=== PATIENT | female | born 1955 | race Caucasian/White ===

== ENCOUNTER → 2016-12-14 | Outpatient (CLI) | payer MEDICARE, MEDICAID ==
--- NOTE | 2016-12-14 14:38 | REP ---
MR THORACIC SPINE WITHOUT CONTRAST: HISTORY: Back pain. A small right paracentral disc protrusion is present at the T7-8 level. There is minimal effacement of the thecal sac without spinal cord compression. The T7 neural foramina are patent. A disc bulge is present at the T8-9 level. There is minimal effacement of the thecal sac without spinal cord compression. The T8 neural foramina are patent. A small right paracentral disc protrusion is present at the T9-10 level. There is minimal effacement of the thecal sac without spinal cord compression. The T9 neural foramina are patent. There is no other disc bulge or herniation. Facet hypertrophy is present at the T11-12 and T12-L1 levels. The remaining neural foramina are patent. The spinal cord is normal in signal intensity. Hemangiomas are present in the T6, T9, T11, and T12 vertebral bodies. Normal signal intensity is present in the remaining thoracic vertebral bodies. There are old compression fractures of the T11 and T12 vertebral bodies with minimal height loss. IMPRESSION: 1. Small disc protrusions at the T7-8 and T9-10 levels without spinal cord compression. 2. Disc bulge at the T8-9 level without spinal cord compression. Signed by Ke Sheppard MD 12/14/2016 02:51 P
--- NOTE | 2016-12-14 14:47 | REP ---
MR LUMBAR SPINE WITHOUT CONTRAST: HISTORY: Back pain. Decreased signal intensity on T2-weighted images is present in the L3-4 and L4-5 intervertebral discs. The discs are decreased in height. These findings are consistent with disc degeneration. There is no disc bulge or herniation at the L1-2 level. There is hypertrophy of t he posterior articulating facets. The L1 nerves exit the neural foramina without compression. A diffuse disc bulge is present at the L2-3 level. There is hypertrophy of the ligamenta flava and posterior articulating facets. These findings produce minimal central canal stenosis. The L2 nerves exit the neural foramina without compression. A diffuse disc bulge is present at the L3-4 level. There is hypertrophy of the ligamental flava and posterior articulating facets. These findings produce severe central canal stenosis. There is compression of the right L3 nerve in the neural foramen. The left L3 nerve exits the neural foramen without compression. A diffuse disc bulge is present at the L4-5 level. There is hypertrophy of the ligamenta flava and posterior articulating facets. There are 3 mm of grade 1 spondylolisthesis of L4 on L5. These findings produce severe central canal stenosis. The L4 nerves exit the neural foramina without compression. Fluid is present in the left L4-5 facet joint. A diffuse disc bulge is present at the L5-S1 level. This abuts the thecal sac. There is hypertrophy of the posterior articulating facets. The L5 nerves exit the neural foramina without compression. The conus medullaris is normal in appearance terminating at the level of the T12-L1 intervertebral disc. Normal signal intensity is present in the lumbar vertebral bodies. IMPRESSION: 1. Minimal central canal stenosis at the L2-3 level secondary to disc bulge, ligamentous and facet hypertrophy. 2. Severe central canal stenosis at the L3-4 level secondary to disc bulge, ligamentous and facet hypertrophy. There is compression of the right L3 nerve in the neural foramen. 3. Severe central canal stenosis at the L4-5 level secondary to disc bulge, ligamentous and facet hypertrophy and grade 1 spondylolisthesis. 4. Diffuse disc bulge at the L5-S1 level. This abuts the thecal sac. Signed by Ke Sheppard MD 12/14/2016 02:51 P
--- NOTE | 2016-12-14 14:53 | REP ---
MR CERVICAL SPINE WITHOUT CONTRAST: HISTORY: Back pain. A small right paracentral disc protrusion is present at the C2-3 level. There is minimal effacement of the thecal sac without spinal cord compression. The C2 neural foramina are patent. A disc bulge with associated osteophyte formation is present at the C3-4 level. There is moderate spinal cord compression. Bilateral uncinate process hypertrophy is present. This produces moderate narrowing of the C3 neural foramina. A disc bulge with associated osteophyte formation is present at the C4-5 level. There is moderate spinal cord compression. Bilateral uncinate process hypertrophy is present. This produces moderate narrowing of the C4 neural foramina. A disc bulge with associated osteophyte formation is present at the C5-6 level. There is moderate spinal cord compression. Bilateral uncinate process hypertrophy is present. This produces moderate narrowing of the C5 neural foramina. A disc bulge is present at the C6-7 level. There is moderate effacement of the thecal sac without spinal cord compression. Bilateral uncinate process hypertrophy is present. This produces minimal narrowing of the C6 neural foramina. There is no other disc bulge or herniation. The remaining neural foramina are patent. The spinal cord is small in size. The spinal cord is normal in signal intensity. The C3-4 through C6-7 intervertebral discs are decreased in height, consistent with disc degeneration. Normal signal intensity is present in the cervical vertebral bodies. IMPRESSION: 1. There is cervical spondylosis at the C2-3 through C6-7 levels, most significant at the C3-4 through C5-6 levels where there is moderate spinal cord compression. 2. Cervical spinal cord myelomalacia. Signed by Ke Sheppard MD 12/14/2016 02:57 P
== END ==
LOC: M RAD 11:34
PROVIDERS: ATTEND Nurse Practitioner Adult Health
DX: M51.36 Other intervertebral disc degeneration, lumbar region (principal); M47.817 Spondylosis without myelopathy or radiculopathy, lumbosacral region; M51.37 Other intervertebral disc degeneration, lumbosacral region

== ENCOUNTER 2017-01-28 07:52 | Inpatient (IN) | payer MEDICARE, MEDICAID ==
[~2017-01-28] VITALS: Ht 167.6 cm; Wt 89.5 kg
[2017-01-28] MEDS ORDERED: LEVO150T7 PO (08:12)
[2017-01-28] MEDS ORDERED: VITA200028 PO (08:12)
[2017-01-28] MEDS ORDERED: ASPI81TA85 PO (08:13)
[2017-01-28] MEDS ORDERED: METF10004 PO (08:13)
[2017-01-28] MEDS ORDERED: TRAD5TAB PO (08:13)
[2017-01-28] MEDS ORDERED: SIMV40TA2 PO (08:13)
[2017-01-28 09:10] LABS: BASO # 0.1 K/mm3 (0.0-0.2); BASO % 0.7 % (0.0-1.0); EOS # 0.3 K/mm3 (0.0-0.50); EOS % 3.7 % (0.0-3.0); LARGE UNSTAINED CELL # 0.1 K/mm3 (0.0-0.4); LARGE UNSTAINED CELL % 0.9 % (0.0-4.0); LYMPH # 2.1 K/mm3 (1.5-4.5); LYMPH % 23.7 % (24.0-44.0); MEAN CORPUSCULAR HEMOGLOBIN 29.8 pg (27.0-33.0); MEAN CORPUSCULAR HGB CONC 33.1 g/dl (32.0-36.5); MONO # 0.3 K/mm3 (0.0-0.8); MONO % 3.2 % (0.0-5.0); NEUTROPHILS # 5.9 K/mm3 (1.8-7.7); NEUTROPHILS % 67.8 % (36.0-66.0); PLATELET COUNT, AUTOMATED 211 k/mm3 (150-450); WHITE BLOOD COUNT 8.6 K/mm3 (4.0-10.0)
[2017-01-28 09:13] LABS: INR 0.9
[2017-01-28] MEDS ORDERED: IBUP1TAB6 PO (09:13)
[2017-01-28] MEDS ORDERED: TOUJ1.2I SC (09:13)
[2017-01-28] MEDS ORDERED: METF500T4 PO (09:13)
[2017-01-28] MEDS ORDERED: INSULIN HUMAN REGULAR 100 UNITS in NS 99 ML IV SCH (09:30)
[2017-01-28 09:38] LABS: ALBUMIN/GLOBULIN RATIO 0.86 (1.00-1.93); ALKALINE PHOSPHATASE 84 U/L (45-117); ALT/SGPT 19 U/L (12-78); AMYLASE 118 U/L (25-115); ANION GAP 10 MEQ/L (8-16); AST/SGOT 9 U/L (15-37); BILIRUBIN,DIRECT < 0.1 MG/DL (0.0-0.2); BILIRUBIN,TOTAL 0.3 MG/DL (0.2-1.0); BLOOD UREA NITROGEN 36 MG/DL (7-18); CALCIUM LEVEL 9.1 MG/DL (8.8-10.2); CARBON DIOXIDE LEVEL 24 MEQ/L (21-32); CHLORIDE LEVEL 101 MEQ/L (98-107); CREATININE FOR GFR 1.67 MG/DL (0.55-1.02); GLOMERULAR FILTRATION RATE 33.3 (>45); POTASSIUM SERUM 4.5 MEQ/L (3.5-5.1); SODIUM LEVEL 135 MEQ/L (136-145); TOTAL PROTEIN 6.5 GM/DL (6.4-8.2)
[2017-01-28 09:56] LABS: GLUCOSE, FASTING 438 MG/DL (80-110)
--- NOTE | 2017-01-28 10:20 | REP ---
Chest PA and lateral: 01/28/2017. Clinical history: Abdominal pain. Comparison: 11/26/2014. Findings: Two-view show the lung bello well inflated and without infiltrate, effusion, atelectasis or mass. The heart, mediastinal and hilar contours are normal. Airway intact. Aorta normal. Bony thorax without acute finding. There is no free air under the diaphragm. Impression: 1. No acute cardiopulmonary change. Stable chest. Signed by Tate Mast MD 01/28/2017 09:16 P
[2017-01-28] MEDS ORDERED: LEVEMIR (INSULIN DETEMIR) 1 UNITS/0.01ML SC ONE (10:30)
[2017-01-28] MEDS ORDERED: NICOTINE POLACRILEX 2 MG GUM PO PRN (10:30)
[2017-01-28] MEDS ORDERED: PERCOCET 5MG/325MG TAB PO ONE (10:30)
[2017-01-28] MEDS ORDERED: MORPHINE 2 MG/ML 1ML SYRINGE IV PRN (10:30)
[2017-01-28] MEDS ORDERED: NICOTINE POLACRILEX 2 MG GUM PO ONE (11:00)
[2017-01-28] MEDS ORDERED: IPRATROPIUM 0.5MG/ALBUTEROL 2.5MG INH SOL UD 3ML (DUONEB)(J7620) NEB PRN (11:15)
[2017-01-28] MEDS ORDERED: amLODIPine 5 MG TAB PO ONE (11:15)
[2017-01-28 11:19] VITALS: BP 165/86
[2017-01-28] MEDS: IPRATROPIUM 0.5MG/ALBUTEROL 2.5MG INH SOL UD 3ML (DUONEB)(J7620) NEB SCH ×3 (11:20→20:00)
--- NOTE | 2017-01-28 11:34 | REP ---
GALLBLADDER ULTRASOUND: 01/28/2017. Clinical history: Elevated lipase, rule out gallstones. Findings: Sonographic evaluation of the right upper quadrant shows the liver enlarged with diffuse hyperechogenicity consistent with a fatty liver. There is some focal fat sparing adjacent to the gallbladder fossa in the usual location for that finding. No hepatic mass or intrahepatic biliary dilatation. The gallbladder is likely 7.7 cm and wall thickness of 2.1 mm. I see no stone, sludge or pericholecystic fluid. Common bile duct is 6.2 mm in the lukasz hepatis, it has a diameter of 6 mm at the level of pancreatic head. No echogenic focus within to suggest stone. Pancreas is unremarkable. The right kidney is 11.2 x 5.9 x 5.2 cm. There is some cortical lobulation of scarring as well as some calcified vessels. Impression: 1. Hepatomegaly with fatty liver but no hepatic mass, intrahepatic biliary dilatation or ascites. 2. Gallbladder without stones, mass, wall thickening or pericholecystic fluid. 3. Common duct 6.2 mm without a filling defect. Pancreas and right kidney without acute finding. Signed by Tate Mast MD 01/28/2017 09:18 P
[2017-01-28] MEDS: NICOTINE 21MG/24HR 1 EA TRANSDERMAL TD SCH (11:58)
[2017-01-28] MEDS: NS 1,000 ML IV SCH ×2 (11:58→21:33)
[2017-01-28] MEDS: INSULIN IV RATE CHANGE DOCUMENTATION ML/HR XX SCH ×3 (12:04→16:29)
[2017-01-28 12:23] VITALS: BP 175/94
[2017-01-28 12:38] LABS: CALCIUM LEVEL 9.4 MG/DL (8.8-10.2); CREATININE FOR GFR 1.52 MG/DL (0.55-1.02); GLOMERULAR FILTRATION RATE 37.1 (>45)
[2017-01-28 12:41] LABS: MAGNESIUM LEVEL 1.9 MG/DL (1.8-2.4)
--- NOTE | 2017-01-28 12:44 | CR ---
DATE OF CONSULTATION: 01/28/2017 PRIMARY CARE PROVIDER: She Chun REFERRING PHYSICIAN: Dr. Kelley, neurosurgeon REASON FOR CONSULTATION: Management of diabetes and chronic medical problems. CHIEF COMPLAINT: Neck and back pain with weakness of bilateral hands. HISTORY OF PRESENTING ILLNESS: This is a 61-year-old female with history of diabetes, hypertension, hypercholesterolemia, hypothyroidism, chronic obstructive pulmonary disease (COPD), asthma, herpes, right lens implant on the right eye, tubal ligation, chronic kidney disease stage III, with a history of chronic neck and back pain, initially followed with Dr. Renteria at [facility] with epidural injections with no relief, referred to Dr. Kelley, neurosurgery. She was found to have cervical radiculopathy. MRI on 12/14/2016 showed cervical spondylosis at C2-C3 to C6-C7, mostly significant at C3-C4 through C5-C6 with moderate spinal cord compression, cervical spinal cord myelomalacia. She also complains of lumbar back pain with moderate diffuse disc bulging at L2-L3 with severe canal stenosis at L3-L4, compression of the right lumbar 3rd nerve in the neural foramen. The patient had been having colicky right upper quadrant abdominal discomfort for the past week but able to tolerate her diet well. She was noticing high glucose levels over 400s at home for the past few months but is a direct admission by Dr. Kelley for worsening neck and back pain. The hospitalist service was consulted for management of type 2 diabetes, evaluation of abnormal findings. The patient otherwise denies any fever, chills, nausea, vomiting. Tolerating her diet well. No changes in weight. No chest pain, pressure, tightness, shortness of breath. Slight abdominal colic right upper quadrant occasionally. Continued weakness of bilateral upper and lower extremities. Severe pain of the lower back and neck. Denies any dysuria, urgency, frequency, chills, weight gain, weight loss. No prior history of depression and anxiety. PAST MEDICAL HISTORY: Hypertension. Diabetes. Hypercholesterolemia. Hypothyroidism. Chronic kidney disease stage III. Chronic obstructive pulmonary disease (COPD). Asthma. Herpes. Chronic neck and back pain. Lumbar disc disease. Cervical degenerative disc disease with severe canal stenosis and compression of the nerves. PAST SURGICAL HISTORY: Lens to the right eye. Tubal ligation. SOCIAL HISTORY: Smokes two packs a day for about 40 years. 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 No alcohol use. Lives with her son and girlfriend. Lives in a two-story home but stays on the first floor. Usually has a bedside commode. FAMILY HISTORY: Mother and father both . Mother age 55 with type 1 diabetes. The father of a motor vehicle accident at the age of 53. One brother with colon cancer, diagnosed at 60, still alive and doing well. Sister with breast cancer, diagnosed later in her 50s. Another brother with cancer unknown type. REVIEW OF SYSTEMS: Per history of present illness (HPI). Twelve-point system otherwise negative. PHYSICAL EXAMINATION: Blood pressure 165/88, 97% on room air, temperature 97.2, pulse 98, respiratory rate 18. Generally, the patient is awake, alert, oriented times three, answering questions appropriately. Anicteric sclerae. No jaundice. Pupils round and reactive to light and accommodation. Extraocular muscles are intact. Normocephalic, atraumatic. No cervical lymphadenopathy, thyromegaly, or jugular venous distention. Tongue is midline. Face is symmetric. Speaking in full sentences. No use of respiratory accessory muscles. Lungs are diminished but clear to auscultation. No wheezing, rales, or rhonchi. Heart: S1, S2, sinus rhythm. Abdomen: Is soft, slightly tender in epigastric right upper quadrant. No rebound or guarding. Positive bowel sounds times four quadrants. No hepatosplenomegaly. Extremities: No cyanosis or clubbing. Trace edema. Neurologically, the patient is awake, alert, oriented times three. No facial asymmetry. Tongue is midline. Speaking in full sentences. No dysmetria on [id number] testing. Motor function is 5/5 times four extremities. No changes in sensation. LABORATORY DATA: White count 8.6, hemoglobin 12.9, hematocrit 39, platelet count 211, 67% neutrophils. Sodium 135, potassium 4.6, chloride 101, bicarbonate 24, BUN 36, creatinine of 1.67, baseline creatinine is around 1.4 from 2015, glucose 438, A1c is pending. Cardiac markers: Troponin less than 0.02, total CK 64, MB fraction 1.9, amylase 118, lipase 1848, total bilirubin (T Bili) is 0.3, direct bilirubin less than 0.1, AST 9, ALT 19, alkaline phosphatase of 84. ASSESSMENT AND PLAN: This is a 61-year-old female with history of hypertension, diabetes, hypercholesterolemia, hypothyroidism, chronic obstructive pulmonary disease, asthma, herpes, chronic back pain with diffuse disc bulges, lumbar radiculopathy, and cervical radiculopathy, and obesity complicating acute issues, presents to the emergency room, referred by Dr. Kelley due to ongoing cervical and lumbar radiculopathy with uncontrolled type 2 diabetes, glucose of over 400. The patient also complains of occasional biliary colic for the past 1 week. CURRENT ISSUES: 1. Cervical and lumbar radiculopathy. The patient is admitted under primary service, neurosurgery, Dr. Kelley. Pain management and surgery planned for Saturday. Will try to optimize the patient's glucose and renal function prior to surgery. Deep venous thrombosis (DVT) prophylaxis with compression stockings. 2. Elevated lipase level with complaints of biliary colic. Obtain an ultrasound of the gallbladder. Other liver function tests appear to be normal. Monitor for symptoms for now. 3. Uncontrolled type 2 diabetes. The patient will be placed on insulin drip. Fingersticks every 1 hour. Basic metabolic profile (BMP) every 4 hours until the patient's glucose is less than 200. Start on Levemir insulin long-acting. Titrate to twice a day dosing with short-acting insulin. Once the patient's glucose is controlled, she may be transferred to a medical-surgical floor and discontinue every 1 hour fingersticks and insulin drip. 4. Hypertension, uncontrolled secondary to biliary colic, pain neck, and back pain. The patient has been given morphine and Percocet. Will start on Norvasc for better blood pressure control. No beta blockade due to history of COPD and asthma and no diuretics due to chronic kidney disease. 5. Hypercholesterolemia. Continue on Zocor. Check fasting lipid profile. 6. Hypothyroidism. Check thyroid-stimulating hormone (TSH). Resume home dose of Synthroid. Await pharmacy confirmation of home medications. 7. Active tobacco smoking, two packs a day. Nebulizer treatments as needed. Nicotine patch. 8. History of chronic obstructive pulmonary disease and asthma. Nebulizers as needed.
[2017-01-28 14:00] VITALS: BP 136/63
[2017-01-28] MEDS: NYSTATIN 100,000 UNITS/GM TOPICAL PWD 15 GM TOP SCH ×2 (15:17→21:34)
--- NOTE | 2017-01-28 15:50 | REP ---
CT CERVICAL SPINE WITHOUT CONTRAST: History: Stealth protocol. A disc bulge and small right paracentral disc protrusion are present at the C2-3 level. There is minimal narrowing of the spinal canal. Disc bulges with associated osteophyte formation are present at the C3-4 through C5-6 levels. There is moderate narrowing of the spinal canal. A disc bulge is present at the C6-7 level. There is minimal narrowing of the spinal canal. Uncinate process and/or facet hypertrophy are present at the C3-4 through C7-T1 levels. These finding produce minimal to moderate narrowing of the neural foramina. The C3-4 through C6-7 intervertebral discs are decreased in height consistent with disc degeneration. A small right internal pharyngocele is present. IMPRESSION: 1. There is no acute fracture or subluxation. 2. There is cervical spondylosis at the C2-3 through C7-T1 levels. Signed by Ke Sheppard MD 01/28/2017 03:53 P
[2017-01-28 16:00] VITALS: BP 118/81
[2017-01-28 16:45] LABS: CALCIUM LEVEL 9.5 MG/DL (8.8-10.2); CREATININE FOR GFR 1.51 MG/DL (0.55-1.02); GLOMERULAR FILTRATION RATE 37.4 (>45); POTASSIUM SERUM 3.5 MEQ/L (3.5-5.1)
[2017-01-28] MEDS ORDERED: GLUCOSE 4 GM CHEW TABLET PO PRN (17:45)
[2017-01-28] MEDS ORDERED: GLUCAGON FOR INJ 1 MG VIAL (J1610) SC PRN (17:45)
--- NOTE | 2017-01-28 18:26 | ECGEPIP ---
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
[2017-01-28 20:00] VITALS: BP 115/75
[2017-01-28] MEDS: HumaLOG INSULIN (NovoLOG) PER UNIT SC SCH (20:17)
[2017-01-28 20:42] LABS: CALCIUM LEVEL 9.6 MG/DL (8.8-10.2); CREATININE FOR GFR 1.46 MG/DL (0.55-1.02); GLOMERULAR FILTRATION RATE 38.9 (>45); POTASSIUM SERUM 4.3 MEQ/L (3.5-5.1)
[2017-01-28] MEDS: LEVEMIR (INSULIN DETEMIR) 1 UNITS/0.01ML SC SCH (21:34)
[2017-01-28] MEDS: SIMVASTATIN 40 MG TAB PO SCH (21:34)
[2017-01-29] VITALS (12 sets, daily range): BP systolic 116–188; BP diastolic 62–96
[2017-01-29] MEDS: HumaLOG INSULIN (NovoLOG) PER UNIT SC SCH ×4 (00:25→17:30)
[2017-01-29] MEDS: PERCOCET 5MG/325MG TAB PO PRN (04:21)
[2017-01-29] MEDS: NS 1,000 ML IV SCH ×3 (04:40→19:46)
[2017-01-29 06:05] LABS: BASO # 0.1 K/mm3 (0.0-0.2); BASO % 1.1 % (0.0-1.0); EOS # 0.4 K/mm3 (0.0-0.50); LARGE UNSTAINED CELL # 0.1 K/mm3 (0.0-0.4); LARGE UNSTAINED CELL % 0.9 % (0.0-4.0); LYMPH # 2.6 K/mm3 (1.5-4.5); LYMPH % 28.2 % (24.0-44.0); MEAN CORPUSCULAR HEMOGLOBIN 30.7 pg (27.0-33.0); MEAN CORPUSCULAR HGB CONC 34.1 g/dl (32.0-36.5); MEAN CORPUSCULAR VOLUME 90.3 fl (80.0-96.0); MONO # 0.4 K/mm3 (0.0-0.8); MONO % 4.8 % (0.0-5.0); NEUTROPHILS # 5.3 K/mm3 (1.8-7.7); PLATELET COUNT, AUTOMATED 208 k/mm3 (150-450); WHITE BLOOD COUNT 8.8 K/mm3 (4.0-10.0)
[2017-01-29] MEDS: LEVOTHYROXINE 150MCG TABLET (0.15MG) PO SCH (06:08)
[2017-01-29 06:26] LABS: CALCIUM LEVEL 9.3 MG/DL (8.8-10.2); CREATININE FOR GFR 1.35 MG/DL (0.55-1.02); GLOMERULAR FILTRATION RATE 42.6 (>45); POTASSIUM SERUM 3.9 MEQ/L (3.5-5.1)
[2017-01-29 06:37] LABS: ALBUMIN 2.6 GM/DL (3.2-5.2); ALBUMIN/GLOBULIN RATIO 0.93 (1.00-1.93); ALKALINE PHOSPHATASE 81 U/L (45-117); ALT/SGPT 19 U/L (12-78); AST/SGOT 16 U/L (15-37); BILIRUBIN,DIRECT < 0.1 MG/DL (0.0-0.2); BILIRUBIN,TOTAL 0.1 MG/DL (0.2-1.0); TOTAL PROTEIN 5.4 GM/DL (6.4-8.2)
[2017-01-29] MEDS: IPRATROPIUM 0.5MG/ALBUTEROL 2.5MG INH SOL UD 3ML (DUONEB)(J7620) NEB SCH ×4 (08:11→19:54)
[2017-01-29] MEDS: NICOTINE 21MG/24HR 1 EA TRANSDERMAL TD SCH (09:00)
[2017-01-29] MEDS: LEVEMIR (INSULIN DETEMIR) 1 UNITS/0.01ML SC SCH (09:01)
[2017-01-29] MEDS: amLODIPine 5 MG TAB PO SCH (09:02)
[2017-01-29] MEDS: NYSTATIN 100,000 UNITS/GM TOPICAL PWD 15 GM TOP SCH ×2 (09:02→21:00)
[2017-01-29] MEDS: INSULIN HUMAN REGULAR 100 UNITS in NS 99 ML IV SCH ×2 (10:38→22:55)
[2017-01-29] MEDS: INSULIN IV RATE CHANGE DOCUMENTATION ML/HR XX SCH ×3 (14:00→20:06)
[2017-01-29] MEDS: METOPROLOL TART 25 MG TABLET PO SCH ×2 (14:04→21:13)
[2017-01-29] MEDS: HEPARIN SOD (PORCINE) 5000 UNITS/ML VIAL SQ SCH ×2 (14:06→21:15)
[2017-01-29] MEDS ORDERED: HEPARIN SOD (PORCINE) 5000 UNITS/ML VIAL SQ SCH (16:00)
--- NOTE | 2017-01-29 17:52 | IPN ---
DATE: 01/29/2017 SUBJECTIVE: The patient is seen and examined in the room today. The patient still complains about the neck and back pain with weakness of bilateral hands. When asking the patient about her diabetes management in the outpatient setting, the patient stated she has lost her Glucometer for the past several months, and she has not checked her glucose as instructed. The patient has not been on any insulin in the past. OBJECTIVE: VITAL SIGNS: Temperature is 97.8, pulse is 94, respirations 20, blood pressure is 169/81, pulse oximetry is 97% in room air. GENERAL: No sign of acute distress. Alert and oriented times three. HEENT: Normocephalic, atraumatic. Extraocular motor grossly intact. CARDIOVASCULAR: Positive S1, S2, regular rate. LUNGS: Clear to auscultation bilaterally. ABDOMEN: Soft, nontender, nondistended. EXTREMITIES: Trace edema. No sign of cyanosis. LABORATORY DATA: WBC 8.8, hemoglobin 11.8, hematocrit 34.6, platelet count is 208. Sodium is 143, potassium 3.9, chloride is 108, carbon dioxide is 27, BUN 26, creatinine 1.35, GFR is 42.6, fasting glucose is 266, calcium is 9.3, total bilirubin is 0.1, direct bilirubin less than 0.1, AST 16, ALT is 19, alkaline phosphatase is 81, total protein 5.4, albumin 2.6, lipase is 214. ASSESSMENT AND PLAN: 1. Cervical and lumbar radiculopathy with right-sided L3 nerve compression. The primary team is neurosurgery. They would like the glucose level to be in the normal range. The patient has been having very poor control of diabetes in the past, and the patient has an A1c greater than 12. The patient was restarted on the insulin drip. The patient does have multiple comorbidities, including chronic obstructive pulmonary disease (COPD) and questionable positive stress test in the past. At the baseline, the patient has very poor function. The patient may be high risk, and we will consult pediatric dietician for further recommendation and preoperative optimization. 2. Uncontrolled type 2 diabetes. The patient was started on Levemir twice a day. The patient is on an insulin drip with protocol. The patient's glucose is checked every 2 hours. The neurosurgery team requests glucose to be in normal range before the procedure to minimize the post-surgical complications. 3. Hypertension. Uncontrolled. Probably secondary to the pain and the baseline hypertension. The patient is already on Percocet for pain control. The patient also has IV morphine for severe pain. In the afternoon, the patient started to have very uncontrolled hypertensive urgency with tachycardia. Systolic blood pressure increased greater than 180. Will start a trial of beta jorge. The patient does have a history of chronic obstructive pulmonary disease (COPD). We will continue to observe the patient's respiratory status. Due to acute on chronic kidney injury, an angiotensin-converting enzyme (ROCIO ) or angiotensin receptor jorge (ARB) cannot be used. 4. Hypothyroidism, on Synthroid. 5. History of elevated lipase. On the day of admission, the patient had a lipase of 1848, now the patient's lipase level is in the normal range. Ultrasound of the gallbladder was performed. It does not show any significant findings. Liver function is normal. Will continue to follow. 6. Hypercholesterolemia. The patient is on simvastatin 40 mg by mouth nightly. 7. Chronic alcohol and tobacco abuse. The patient is on a nicotine patch, supplemented with nicotine gum. 8. History of chronic obstructive pulmonary disease. Currently does not have exacerbation. 9. Deep vein thrombosis (DVT) prophylaxis. The patient is on heparin.
[2017-01-29] MEDS ORDERED: HumaLOG INSULIN (NovoLOG) PER UNIT SC SCH (21:00)
--- NOTE | 2017-01-29 21:06 | CR ---
DATE OF CONSULTATION: 01/29/2017 I was asked by Dr. Castillo to see Mrs. House for preoperative clearance for what looks like to be fairly extensive cervical spine surgery. HISTORY OF PRESENT ILLNESS: Mrs. House is a 61-year-old female who does not have established coronary artery disease. She does have a longstanding history of smoking (almost 50 years two packs a day) and she does have a longstanding history of diabetes that has been generally poorly controlled. She denies any typically anginal symptoms but reports episodes of mostly left-sided pressure-like discomfort that usually occurs when she is lying in bed in at night. Her exertion is very limited on account of limitations due to back pain and shortness of breath. She does recall that she had a stress test performed several years ago and it was stopped very early because she could not breathe. She does not recall that it would be followed by any further cardiac testing. There is a report of an echocardiogram in our chart from 2013 from outside facility that demonstrated preserved left ventricular systolic function and moderate aortic stenosis. PAST MEDICAL HISTORY: 1. Cervical and lumbar radiculopathy. 2. Type 2 diabetes. 3. Dyslipidemia. 4. Chronic renal insufficiency type III. 5. COPD (the patient reports that a pulmonary function test performed about 5 years ago reportedly showed 54% of lung capacity). 6. Hypertension. 7. Hypothyroidism. SURGICAL HISTORY: Positive for tubal ligation and cataract surgery on the right. SOCIAL HISTORY: The patient is a and lives with her son and girlfriend. 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 She has been a smoker since the age of 13, approximately two packs a day. No significant alcohol use. FAMILY HISTORY: Father of an accident in his 50s. Mother of type 1 diabetes. Siblings had cancers. There are no first-degree relatives with early coronary artery disease. REVIEW OF SYSTEMS: She denies history of stroke. She does have some difficulty with vision probably still related to cataracts. Denies history of syncope or near syncope but she does report that her ambulation is severely limited on account of weakness of lower extremities and dyspnea. She does have to support herself with minimal ambulation. She uses mostly a wheelchair. Chest pain as per history of present illness. Denies history of conrad syncope or palpitations. She does not have PND or orthopnea. She has [place] [employer] Class III dyspnea. No abdominal pain, nausea, vomiting, diarrhea. No significant peripheral edema. The rest of review of systems is negative. MEDICATIONS: On an outpatient basis, she was taking aspirin, vitamin D2, Motrin, levothyroxine 150, Tradjenta 5 a day, metformin 1 gram twice a day, simvastatin 40, and Toujeo insulin as directed. PHYSICAL EXAMINATION: Mrs. House is a middle-aged white female who appears older than her calendar age. The last documented blood pressure 155/64, heart rate has been mostly in 90s. She is afebrile. Saturation 96% on room air. Her JVP does not appear elevated. I do not appreciate distinct carotid bruits. Lungs are fairly clear to auscultation. No wheezing or rhonchi are noted. Heart exam reveals very muffled heart sound, most likely due to her obesity and COPD. I do not appreciate a distinct murmur even though there is a fine aortic murmur. I am really unable to comment on second closing aortic sound. Abdomen is markedly obese but soft. No obvious tenderness. There is no peripheral edema. Peripheral pulses are palpable bilaterally on both upper and lower extremities. I did not do any formal neurologic testing. LABORATORY AND EXAM DATA: Her ECG from yesterday reveals presence of sinus rhythm with ventricular rate 98 beats per minute. There is possible old septal infarct and very prominent right axis deviation. It is not appreciably changed compared to her old tracings. Her CBC reveals hemoglobin 11.8, hematocrit 34.6 and platelet count 208,000. Basic metabolic panel: Potassium 3.9, BUN 26, creatinine 1.4, for a GFR of 42, and glucose 266, albumin was 2.6. Her TSH was 0.6. Urinalysis is 3+ positive for glucose and protein. Her chest x-ray is somewhat a poor quality film but does not appear to indicate congestive heart failure, infiltrates and no obvious cardiomegaly. ASSESSMENT/PLAN: Mrs. House is a 61-year-old female who has longstanding history of smoking and type 2 diabetes and also dyslipidemia and hypertension. She does not have any recent history of functional cardiac evaluation and she reports atypical chest discomfort and [place] [employer] Class III dyspnea. She does not have any definite contraindication to the surgery and if this is something that needs to be performed emergently I think she can proceed. I would continue low-dose beta blockers as is being given, statin, and I would put her back on aspirin when felt safe from surgical perspective. She certainly would have a high-risk procedure. Provided this is not considered an emergency, at the minimum I would obtain an echocardiogram and nuclear stress test on outpatient basis. I spoke with the patient and explained to her that her cardiac risk will be elevated no matter what and she tells me that she would like to be safer rather than taking unnecessary risks. Consequently, if it is felt that there is space for some delay I would advocate that the patient is discharged home and will arrange for fairly prompt functional evaluation. We can perform the echocardiogram tomorrow in the hospital.
[2017-01-29] MEDS: SIMVASTATIN 40 MG TAB PO SCH (21:13)
[2017-01-30] VITALS (7 sets, daily range): BP systolic 95–174; BP diastolic 51–94
[2017-01-30] MEDS: DEXTROSE 50% 50 ML SYRINGE IV PRN (02:40)
[2017-01-30] MEDS: INSULIN IV RATE CHANGE DOCUMENTATION ML/HR XX SCH ×5 (03:50→17:53)
[2017-01-30 05:11] LABS: BASO # 0.1 K/mm3 (0.0-0.2); BASO % 0.7 % (0.0-1.0); EOS # 0.4 K/mm3 (0.0-0.50); EOS % 4.7 % (0.0-3.0); LARGE UNSTAINED CELL # 0.1 K/mm3 (0.0-0.4); LARGE UNSTAINED CELL % 0.9 % (0.0-4.0); LYMPH # 2.3 K/mm3 (1.5-4.5); LYMPH % 24.1 % (24.0-44.0); MEAN CORPUSCULAR HEMOGLOBIN 30.4 pg (27.0-33.0); MEAN CORPUSCULAR HGB CONC 33.8 g/dl (32.0-36.5); MEAN CORPUSCULAR VOLUME 89.9 fl (80.0-96.0); MONO # 0.4 K/mm3 (0.0-0.8); NEUTROPHILS % 65.6 % (36.0-66.0); PLATELET COUNT, AUTOMATED 217 k/mm3 (150-450); RED CELL DISTRIBUTION WIDTH 12.1 % (11.5-14.5); WHITE BLOOD COUNT 9.1 K/mm3 (4.0-10.0)
[2017-01-30 05:38] LABS: ANION GAP 9 MEQ/L (8-16); BLOOD UREA NITROGEN 22 MG/DL (7-18); CALCIUM LEVEL 9.3 MG/DL (8.8-10.2); CARBON DIOXIDE LEVEL 25 MEQ/L (21-32); CHLORIDE LEVEL 111 MEQ/L (98-107); CREATININE FOR GFR 0.99 MG/DL (0.55-1.02); GLOMERULAR FILTRATION RATE > 60.0 (>45); GLUCOSE, FASTING 169 MG/DL (80-110); POTASSIUM SERUM 3.9 MEQ/L (3.5-5.1); SODIUM LEVEL 145 MEQ/L (136-145)
[2017-01-30] MEDS: NS 1,000 ML IV SCH ×2 (05:42→17:30)
[2017-01-30 05:44] LABS: ALBUMIN 2.5 GM/DL (3.2-5.2); ALBUMIN/GLOBULIN RATIO 0.89 (1.00-1.93); ALKALINE PHOSPHATASE 74 U/L (45-117); ALT/SGPT 18 U/L (12-78); AST/SGOT 16 U/L (15-37); BILIRUBIN,DIRECT < 0.1 MG/DL (0.0-0.2); BILIRUBIN,TOTAL 0.2 MG/DL (0.2-1.0); TOTAL PROTEIN 5.3 GM/DL (6.4-8.2)
[2017-01-30] MEDS: METOPROLOL TART 25 MG TABLET PO SCH ×2 (05:55→14:00)
[2017-01-30] MEDS: LEVOTHYROXINE 150MCG TABLET (0.15MG) PO SCH (05:55)
[2017-01-30] MEDS: HEPARIN SOD (PORCINE) 5000 UNITS/ML VIAL SQ SCH ×3 (05:55→21:05)
[2017-01-30] MEDS: HumaLOG INSULIN (NovoLOG) PER UNIT SC SCH ×4 (07:30→21:00)
[2017-01-30] MEDS: IPRATROPIUM 0.5MG/ALBUTEROL 2.5MG INH SOL UD 3ML (DUONEB)(J7620) NEB SCH ×4 (08:00→18:57)
[2017-01-30] MEDS ORDERED: LISINOPRIL 10 MG TAB PO SCH (09:00)
[2017-01-30] MEDS: amLODIPine 5 MG TAB PO SCH (09:00)
[2017-01-30] MEDS: NICOTINE 21MG/24HR 1 EA TRANSDERMAL TD SCH (10:08)
[2017-01-30] MEDS: NYSTATIN 100,000 UNITS/GM TOPICAL PWD 15 GM TOP SCH ×2 (10:08→21:06)
[2017-01-30] MEDS: INSULIN HUMAN REGULAR 100 UNITS in NS 99 ML IV SCH (11:55)
[2017-01-30] MEDS ORDERED: INSULIN HUMAN REGULAR 100 UNITS in NS 99 ML IV SCH (13:25)
[2017-01-30] MEDS ORDERED: INSULIN IV RATE CHANGE DOCUMENTATION ML/HR XX SCH (13:30)
--- NOTE | 2017-01-30 13:31 | CR.PDOC ---
[facility] Consultation [facility] Note DATE OF CONSULTATION: 01/30/17. CONSULTATION REPORT FOR: ARU REASON FOR CONSULTATION: Assess for pre-operative screen for ARU admission and early pre-authorization and appropriate therapy pre-operatively. CHIEF COMPLAINT:Weakness and falls from Cervical Myelopathy and Lumbar Stenosis causing weakness and falls. HISTORY OF PRESENT ILLNESS: Patient is a 61-year-old white female with extensive atherosclerotic cardiovascular disease along with type 2 diabetes mellitus and extensive osteoarthritis which have not been aided by ongoing tobacco and ethanol usage. Patient has been having progressive pain and weakness in the back and neck involving the upper and lower extremities and recurrent falls in the last few months at home. She lives with her son and his girlfriend. A number of weeks ago she lost her glucometer and stop checking her blood sugars leading to recent hemoglobin A1c of 12 as her diabetes mellitus type 2 has been out of control. Further exacerbating this is that her hypertension has not been under good control either. Patient also with COPD and has been having periods of dizziness further adding to the falls. PAST MEDICAL HISTORY: 1. Cervical Myelopathy with radiculopathy and lumbar stenosis with right L3 radiculopathy secondary to extensive DJD/DDD. 2. Atherosclerotic cardiovascular disease with uncontrolled hypertension, hyperlipidemia. 3. Type 2 diabetes mellitus uncontrolled with probable neuropathy and chronic renal insufficiency type III. 4. COPD. 5. Hypothyroidism. PAST SURGICAL HISTORY: 1. Status post tubal ligation. 2. Status post right cataract surgery. FAMILY HISTORY: Positive for type 1 diabetes in mother and various cancer in siblings. 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 She continues smoking and drinking alcohol and is reported in other notes as having abused alcohol. LABORATORY DATA: See Below. ASSESSMENT/PLAN: 1. Cervical myelopathy and lumbar stenosis: While it is too early as patient is ill preop to assess for the acute rehabilitation unit due to her protocol where patient would have to be totally reassessed in the postoperative and we are unable to get preauthorization for acute intensive rehabilitation; I do feel there is something 6 to be done now to facilitate the patient for surgery and prepare for the postoperative course of care. Chiefly is to advance her overall strengthening condition by increasing her beyond the current 40-60 minutes of therapy per day. It is also I believe beneficial for occupational therapy due to sensory and physical therapy due motor mapping as a preoperative baseline compare with sequential evaluations postoperatively and in the course of her future rehabilitation. Furthermore the anesthesia and postoperative analgesia doing a fair with patient's learning, so it will be beneficial to get repetitions and training and preoperatively. Also as patient has been walking prior to admission is important to continue with ambulation and not go slowly with wheelchair mobility and ADL training as the long-term goal will be to return patient to ambulatory ADLs and mobility. I feel it is appropriate to increase the intensity of therapy and Cardiac Health Care Law Specialist should be able to give parameters for intensity of Cardiopulmonary effort for the patient. (Max. Heart Rate, BP Ranges and duration of effort) 2. Dizziness: [facility] does have a Physical Therapist, Neyda White, who is trained for Vestibular Therapy and is effective with it and should see if she can aid Ms. House with the dizziness as well as compensated gaiting. Please reconsult following her decompression surgery as appropriate. Vital Signs Vital Sign - Last 24 Hours 01/29/17 01/29/17 01/29/17 01/29/17 14:00 14:04 16:00 16:00 Temp 96.8 Pulse 101 100 95 Resp 22 B/P (MAP) 143/71 (95) 143/71 156/88 (110) Pulse Ox 98 O2 Delivery Room Air 01/29/17 01/29/17 01/29/17 01/29/17 18:00 20:00 20:00 21:13 Temp 98.3 Pulse 94 95 95 Resp 17 B/P (MAP) 155/64 (94) 143/70 (94) 109/57 Pulse Ox 96 98 O2 Delivery Room Air Room Air Room Air 01/30/17 01/30/17 01/30/17 01/30/17 00:00 00:00 04:00 04:00 Temp 96.6 98.7 Pulse 88 98 Resp 16 16 B/P (MAP) 136/67 (90) 174/94 (120) Pulse Ox 96 95 O2 Delivery Room Air Room Air Room Air Room Air 01/30/17 01/30/17 01/30/17 01/30/17 05:55 08:00 08:00 09:00 Temp 97.8 Pulse 90 75 90 Resp 22 B/P (MAP) 132/71 117/60 (79) 132/71 Pulse Ox 97 O2 Delivery Room Air Room Air 01/30/17 10:00 Pulse 89 Resp 22 B/P (MAP) 95/51 (66) Pulse Ox 97 O2 Delivery Room Air Laboratory Data CBC/BMP Laboratory Tests 01/30/17 04:52 Red Blood Count 4.03, Mean Corpuscular Volume 89.9, Mean Corpuscular Hemoglobin 30.4, Mean Corpuscular Hemoglobin Concent 33.8, Red Cell Distribution Width 12.1 , Neutrophils (%) (Auto) 65.6, Lymphocytes (%) (Auto) 24.1, Monocytes (%) (Auto ) 4.0, Eosinophils (%) (Auto) 4.7 H, Basophils (%) (Auto) 0.7, Neutrophils # ( Auto) 6.0, Lymphocytes # (Auto) 2.3, Monocytes # (Auto) 0.4, Eosinophils # (Auto ) 0.4, Basophils # (Auto) 0.1, Calcium Level 9.3 Labs 24h Laboratory Tests 2 01/29/17 12:54: Bedside Glucose (Misc Panel) 317H 01/29/17 14:08: Bedside Glucose (Misc Panel) 308H 01/29/17 16:13: Bedside Glucose (Misc Panel) 298H 01/29/17 17:38: Bedside Glucose (Misc Panel) 260H 01/29/17 20:01: Bedside Glucose (Misc Panel) 167H 01/29/17 22:10: Bedside Glucose (Misc Panel) 177H 01/30/17 00:13: Bedside Glucose (Misc Panel) 114 01/30/17 03:07: Bedside Glucose (Misc Panel) 122H 01/30/17 03:38: Bedside Glucose (Misc Panel) 167H 01/30/17 04:49: 01/30/17 04:52: White Blood Count 9.1, Red Blood Count 4.03, Hemoglobin 12.2, Hematocrit 36.2, Mean Corpuscular Volume 89.9, Mean Corpuscular Hemoglobin 30.4, Mean Corpuscular Hemoglobin Concent 33.8, Red Cell Distribution Width 12.1, Platelet Count 217, Neutrophils (%) (Auto) 65.6, Lymphocytes (%) (Auto) 24.1, Monocytes ( %) (Auto) 4.0, Eosinophils (%) (Auto) 4.7H, Basophils (%) (Auto) 0.7, Neutrophils # (Auto) 6.0, Lymphocytes # (Auto) 2.3, Monocytes # (Auto) 0.4, Eosinophils # (Auto) 0.4, Basophils # (Auto) 0.1, Large Unclassified Cells % 0.9 , Large Unclassified Cells # 0.1, Anion Gap 9, Glomerular Filtration Rate > 60.0 , Blood Urea Nitrogen 22H, Creatinine 0.99, Sodium Level 145, Potassium Level 3.9, Chloride Level 111H, Carbon Dioxide Level 25, Calcium Level 9.3, Aspartate Amino Transf (AST/SGOT) 16, Alanine Aminotransferase (ALT/SGPT) 18, Alkaline Phosphatase 74, Total Bilirubin 0.2#, Direct Bilirubin < 0.1, Total Creatine Kinase 89, B-Type Natriuretic Peptide 90.3, Total Protein 5.3L, Albumin 2.5L, Albumin/Globulin Ratio 0.89L, Lipase 203 01/30/17 06:02: Bedside Glucose (Misc Panel) 137H 01/30/17 08:09: Bedside Glucose (Misc Panel) 80 01/30/17 09:38: Bedside Glucose (Misc Panel) 110 Medications Scheduled (Sylwia Frank) 300 Unit/Ml Inj, 1 DOSE SC DAILY PT SUPPOSED TO BE ON INSULIN, HAS NOT USED RECENTLY DUE TO BEING UNABLE TO INJECT HERSELF Aspirin (Aspir-81) 81 Mg Tab, 81 MG PO DAILY Ergocalciferol (Vitamin D2) 2,000 Unit Tab, 50,000 UNIT PO 1XWK WEDNESDAYS Levothyroxine Sodium (Synthroid) 150 Mcg Tab, 150 MCG PO DAILY Linagliptin Base (Tradjenta) 5 Mg Tab, 5 MG PO DAILY Metformin Hydrochloride (Metformin HCl ER) 500 Mg Tab, 1,000 MG PO BID Simvastatin - High Dose (Simvastatin) 40 Mg Tab, 40 MG PO DAILY Scheduled PRN Ibuprofen (Ibuprofen) 600 Mg Tab, 600 MG PO DAILY PRN for PAIN Allergies Coded Allergies: Metformin (Verified Adverse Reaction, Intermediate, heart races, 01/28/17) Sitagliptin (Verified Adverse Reaction, Intermediate, heart races, 01/28/17 ) Sulfa Antibiotics (Verified Adverse Reaction, Intermediate, heart racing, 01/28/17) AMANDEEP BERRIOS MD Jan 30, 2017 13:31
--- NOTE | 2017-01-30 13:50 | REP ---
MRA CAROTIDS WITHOUT CONTRAST: HISTORY: Vertigo. Unenhanced 2D [id number] MR angiography was performed at the level of the carotid bifurcations. There is moderate stenosis of 35% of the right internal carotid artery at its origin. There is mild stenosis of 20% of the right external carotid artery at its origin. There is mild stenosis of 15% of the left internal carotid artery at its origin. There is mild stenosis of 15% of the left external carotid artery at its origin. The vertebral arteries are equal in size and patent. IMPRESSION: 1. Moderate stenosis of 35% of the right internal carotid artery at its origin. 2. Mild stenosis of 15% of the left internal carotid artery at its origin. Signed by Ke Sheppard MD 01/30/2017 01:53 P
--- NOTE | 2017-01-30 13:54 | REP ---
MR BRAIN WITHOUT CONTRAST: HISTORY: Vertigo. Areas of increased signal intensity on T2-weighted images are present in the periventricular and subcortical white matter and mario. This represents small vessel ischemic disease. There is no intraparenchymal hemorrhage, infarct mass or midline shift. The ventricular system and cortical sulci are dilated consistent with minimal volume loss. There is no extracerebral collection. Minimal mucosal thickening is present in the mastoid air cells and right maxillary sinus. IMPRESSION: 1. Small vessel ischemic disease. 2. Minimal volume loss. Signed by Ke Sheppard MD 01/30/2017 01:56 P
--- NOTE | 2017-01-30 14:52 | REP ---
MRA BRAIN WITHOUT CONTRAST: HISTORY: Vertigo. 3D [id number] MR angiography was performed at the level of the [place]. There is no aneurysm or arteriovenous malformation. Moderate atherosclerotic disease involves the cavernous and supraclinoid right internal carotid artery. Mild atherosclerotic disease involves the cavernous and supraclinoid left internal carotid artery. Major intracranial vessels are patent. The vertebral arteries are equal in size. IMPRESSION: 1. There is no aneurysm or arteriovenous malformation. 2. Atherosclerotic disease as described above. Signed by Ke Sheppard MD 01/30/2017 02:56 P
--- NOTE | 2017-01-30 17:20 | IPN ---
DATE: 01/30/2017 SUBJECTIVE: Patient seen and examined in the room today. Per nursing staff, yesterday around 2:30 a.m. patient had an episode of hypoglycemia. Patient was found to have a glucose of 38. Patient's insulin regimen was adjusted. Patient continued to have a large fluctuation of the blood pressures. OBJECTIVE: VITAL SIGNS: Temperature is 97.7, pulse is 90, respiration rate is 20, manual blood pressure shows supine is 143/82, sitting is 142/63, standing is 138/66, oxygen saturation is 96% in room air. GENERAL: No sign of acute distress, alert and oriented times three. HEENT: Normocephalic, atraumatic. Extraocular motor grossly intact. CARDIOVASCULAR: Positive S1, S2, regular rate. LUNGS: Clear to auscultation bilaterally. ABDOMEN: Soft, nontender, nondistended. EXTREMITIES: No edema. No sign of cyanosis. LABORATORY DATA: WBC 9.1, hemoglobin 12.2, hematocrit 36.2, platelet count of 217. Sodium is 145, potassium 3.9, chloride is 111, carbon dioxide 25, BUN 22, creatinine 0.99, GFR greater than 60, fasting glucose 169, calcium is 9.1. Total bilirubin is 0.2, direct bilirubin less than 0.1, AST 16, ALT 18, alkaline phosphatase is 74. Total CK is 89. BNP is 90.3. Total protein 5.3, albumin 2.5. Lipase is 203. ASSESSMENT AND PLAN: 1. Cervical and lumbar radiculopathy with right-sided L3 nerve compression. The primary team is neurosurgery. Hospitalist has been consulted for medical management. Patient does have significant comorbidities. The administrative receptionist has been consulted to help with preoperative evaluation and recommendations. Patient will go for cardiac echo today, and patient may need a stress test. 2. Uncontrolled type 2 diabetes. Patient has insulin. Not checking her glucose at home. With further discussion, patient was given insulin; however, due to difficulty self-administrating the insulin, patient has not been very compliant with the home regimen. Patient presented with A1c of 12.3. Currently patient has been on insulin drip due to neurosurgery request to maintain the glucose around 100-120s. Yesterday additional insulin was supplemented; however, the aggressive treatment resulted in hypoglycemia episode. Hypoglycemic protocol was activated. Patient's glucose recovered well. The patient's insulin requirement has been calculated. This evening time, we will discontinue the insulin drip and convert patient to long-acting insulin covered with sliding scale. 3. Uncontrolled hypertension. May possible be secondary to pain and baseline hypertension. Patient is already on Percocet for pain control and IV morphine as needed. Patient had a manual blood pressure performed, and patient's blood pressure is in satisfactory range. For now patient is started on amlodipine 5 mg by mouth daily. Since renal function recovered to baseline, we will start a trial of lisinopril. 4. Due to the history of chronic obstructive pulmonary disease (COPD), we will be cautious regarding the use of beta jorge. 5. Hypothyroidism, on Synthroid. 6. History of elevated lipase, resolved. Ultrasound of gallbladder was performed, which does not show any significant findings. Liver function is normal. 7. Hypercholesterolemia, on simvastatin. 8. Chronic alcohol and tobacco abuse. Nicotine patch and supplement with Nicorette gum. 9. COPD. Does not have any acute exacerbation. 10. Deep vein thrombosis (DVT) prophylaxis, on heparin.
[2017-01-30] MEDS: LEVEMIR (INSULIN DETEMIR) 1 UNITS/0.01ML SC SCH (21:05)
[2017-01-30] MEDS: SIMVASTATIN 40 MG TAB PO SCH (21:06)
[2017-01-31] VITALS: BP 97/67
[2017-01-31] MEDS: NS 1,000 ML IV SCH (01:57)
[2017-01-31 04:00] VITALS: BP 132/63
[2017-01-31] MEDS: HEPARIN SOD (PORCINE) 5000 UNITS/ML VIAL SQ SCH ×3 (05:25→21:48)
[2017-01-31] MEDS: LEVOTHYROXINE 150MCG TABLET (0.15MG) PO SCH (05:25)
[2017-01-31 05:37] LABS: BASO # 0.1 K/mm3 (0.0-0.2); EOS # 0.4 K/mm3 (0.0-0.50); EOS % 4.8 % (0.0-3.0); LARGE UNSTAINED CELL # 0.1 K/mm3 (0.0-0.4); LARGE UNSTAINED CELL % 1.3 % (0.0-4.0); LYMPH # 2.8 K/mm3 (1.5-4.5); LYMPH % 33.6 % (24.0-44.0); MEAN CORPUSCULAR HEMOGLOBIN 31.1 pg (27.0-33.0); MEAN CORPUSCULAR HGB CONC 34.3 g/dl (32.0-36.5); MEAN CORPUSCULAR VOLUME 90.8 fl (80.0-96.0); MONO # 0.4 K/mm3 (0.0-0.8); MONO % 4.7 % (0.0-5.0); NEUTROPHILS # 4.4 K/mm3 (1.8-7.7); NEUTROPHILS % 54.6 % (36.0-66.0); PLATELET COUNT, AUTOMATED 212 k/mm3 (150-450); RED CELL DISTRIBUTION WIDTH 12.3 % (11.5-14.5); WHITE BLOOD COUNT 8.1 K/mm3 (4.0-10.0)
[2017-01-31 05:47] LABS: ALBUMIN 2.2 GM/DL (3.2-5.2); ALBUMIN/GLOBULIN RATIO 0.73 (1.00-1.93); ALKALINE PHOSPHATASE 73 U/L (45-117); ALT/SGPT 19 U/L (12-78); ANION GAP 8 MEQ/L (8-16); AST/SGOT 14 U/L (15-37); BILIRUBIN,DIRECT < 0.1 MG/DL (0.0-0.2); BILIRUBIN,TOTAL 0.1 MG/DL (0.2-1.0); BLOOD UREA NITROGEN 23 MG/DL (7-18); CALCIUM LEVEL 8.6 MG/DL (8.8-10.2); CARBON DIOXIDE LEVEL 24 MEQ/L (21-32); CHLORIDE LEVEL 112 MEQ/L (98-107); CREATININE FOR GFR 1.43 MG/DL (0.55-1.02); GLOMERULAR FILTRATION RATE 39.8 (>45); GLUCOSE, FASTING 324 MG/DL (80-110); POTASSIUM SERUM 4.5 MEQ/L (3.5-5.1); SODIUM LEVEL 144 MEQ/L (136-145); TOTAL PROTEIN 5.2 GM/DL (6.4-8.2)
[2017-01-31] MEDS: IPRATROPIUM 0.5MG/ALBUTEROL 2.5MG INH SOL UD 3ML (DUONEB)(J7620) NEB SCH ×4 (07:39→20:00)
[2017-01-31 08:00] VITALS: BP_SYST 115; BP_SYST 118; BP_DIAS 72; BP_DIAS 77
[2017-01-31] MEDS: HumaLOG INSULIN (NovoLOG) PER UNIT SC SCH ×4 (08:18→19:47)
[2017-01-31] MEDS: NICOTINE 21MG/24HR 1 EA TRANSDERMAL TD SCH (08:18)
[2017-01-31] MEDS: LEVEMIR (INSULIN DETEMIR) 1 UNITS/0.01ML SC SCH ×2 (08:18→19:47)
--- NOTE | 2017-01-31 08:41 | CR ---
DATE OF CONSULTATION: 01/30/2017 REQUESTING PROVIDER: Dr. Kelley REASON FOR CONSULTATION: Evaluation for vertigo and weakness of arms and legs; rule out myopathy. HISTORY OF PRESENT ILLNESS: The patient is a 61-year-old left-handed female with past medical history significant for hypertension, severely uncontrolled diabetes with most recent hemoglobin A1c of 12.3, chronic neck and back pain with inability to ambulate safely over the last few years. The patient states that she mentioned to a primary care provider that she has some neck pain and mostly back pain. Imaging was completed in November 2016, which showed spinal stenosis of her cervical region with significant cord compression with myelomalacia of the spinal cord. There were no cord signal changes noted. The myelomalacia seen was chronic. The patient denies having any significant neck pain. She states that at baseline she has 2/10 pain. The patient states that when she turns her head to the [id number], the pain stays about the same. The pain is non-radiating. She does have weakness in her arms and hands and has paresthesias of her arms and hands. Approximately three years ago, in 2013, she injured both of her rotator cuffs while trying to lift something heavy. Soon after that, approximately two months later, she developed paresthesias down her arms. She was walking with the use of a cane in 2013 and 2014. She was using a cane and was able to climb stairs. She states she last fell over a year ago. She usually walks carefully from her wheelchair while holding against a wall to prevent any falls. She denies having any symptoms involving her bowel or bladder. The patient has a longstanding history of diabetic neuropathy in her feet and states she has numbness in both of them. She has low back pain which radiates into her buttocks, but does not radiate down her legs. The patient was noted to have weakness of her arms and legs, as well as hyperreflexia in the upper and lower extremities with absent Achilles reflexes. She has a positive Babinski sign of the left foot and equivocal on the right. These findings are supportive of myelopathy secondary to her cervical cord compression. Creatinine phosphokinase (CPK) levels were drawn and found to be 89. Aldolase was drawn but is pending. The patient does not complain of any muscular pain. Most likely, the patient's weakness is a result of her myelopathy rather than an underlying myopathy. lumbosacral MRI, showed right lumbar third nerve compression in the neural foramen with moderate disk bulging at L2-3 with severe canal stenosis at L2-4. Vertigo was noted while she was having her PT evaluation during this admission. The patient complains of vertigo when she turns her head to the left or right or when she is standing and looks down or when she extends her head back. The room can spin either to the left or to the right, lasts approximately a minute and then resolves on its own. The patient denies any tinnitus or hearing loss. The patient did have an MRI of the brain, MR angiogram of the head and neck, which did not reveal any cause for central vertigo. The patient likely is suffering with peripheral vertigo. Meclizine can be used for symptomatic management; however, the patient would best benefit from vestibular physical therapy as an outpatient. PAST MEDICAL HISTORY: 1. Hypertension. 2. Diabetes. 3. Hypercholesterolemia. 4. Hypothyroidism. 5. Chronic kidney disease stage III. 6. Chronic obstructive pulmonary disease. 7. Asthma. 8. Herpes. 9. Chronic neck and back pain. 10. Lumbosacral disease. 11. Cervical degenerative disc disease with severe stenosis and myelopathy. PAST SURGICAL HISTORY: 1. Right eye lens implantation. 2. Tubal ligation. SOCIAL HISTORY: The patient smokes two packs of tobacco per day. Denies use of any alcohol or illicit drugs. FAMILY HISTORY: Noncontributory. REVIEW OF SYSTEMS: [id number] review of systems obtained and was negative except as per history of present illness (HPI). ALLERGIES: METFORMIN, SITAGLIPTIN, SULFA ANTIBIOTICS. MEDICATIONS: - Toujeo 300 units/mL injection - aspirin 81 mg daily - ergocalciferol - vitamin D2 2000 international units (IU) tablet along with 50,000 international units by mouth once a week - levothyroxine 150 mcg by mouth daily - metformin 500 mg two tablets by mouth twice a day - simvastatin 40 mg by mouth daily MRI IMAGING: MRI cervical spine without contrast completed on 12/14/2016 reveals cervical spondylosis of C2-3 through C6-7 levels, most significant at C3-4 through C5-6 levels, but there is moderate spinal cord compression. Cervical spinal cord myelomalacia is noted. MRI lumbosacral spine without contrast completed on 12/14/2016 reveals Minimal central canal stenosis at the L2-3 level secondary to disc bulge, ligamentous and facet hypertrophy. Severe central canal stenosis at the L3-4 level secondary to disc bulge, ligamentous and facet hypertrophy. There is compression of the right L3 nerve in the neural foramen. Severe central canal stenosis at the L4-5 level secondary to disc bulge, ligamentous and facet hypertrophy and grade 1 spondylolisthesis. Diffuse disc bulge at the L5-S1 level. This abuts the thecal sac. PHYSICAL EXAMINATION: VITAL SIGNS: Temperature 97.7 degrees Fahrenheit, pulse rate 101, respiratory rate 20, blood pressure 149/77, oxygen saturation 96% on room air. The patient is alert, oriented to person, place and time. Speech, language, comprehension and repetition are intact. Pupils are 3 mm round, reactive to light. Extraocular movements are intact in all directions. Sensation V1, V2-V3 is intact. No facial asymmetry activation. Palate elevates symmetrically. There is no nystagmus noted on examination today. The patient demonstrates 4/5 strength involving the deltoids, biceps, triceps, wrist extensor, finger extensors. Iliopsoas are 4- bilaterally. Quadriceps are 5- bilaterally. Tibialis anterior are 4 on the right and 4- on the left. Extensor hallucis longus is a 3+. Deep tendon reflexes are increased in the upper extremities and at the patellas. These are relatively hyperreflexic in relation to the patient's weakness, suggesting myelopathy been the root cause of her weakness in her arms and legs. Babinski is positive on the left and equivocal on the right. Sensory is intact to light touch in all four extremities; however diminished distally. Vibratory sense is absent at the great toes and three seconds at the medial malleolus. Gait deferred. Coordination does not reveal any ataxia or dysmetria. ASSESSMENT: This is a 61-year-old left-handed female with multifactorial gait abnormalities who has been wheelchair bound for over one year due to her weakness of her lower extremities. She is complaining of very mild neck pain, 2/10, which is constant. 1) Severe Cervical Spondylosis with Cervical Myelopathy contributing to both upper and lower extremity weakness. 2) Uncontrolled diabetes with peripheral neuropathy. 3) Severe Lumbosacral stenosis and spondylosis with ongoing chronic low back pain. 4) Vertigo, probably peripheral in origin. 5) No evidence to suggest an underlying myopathy at this time. 6) No evidence of stroke or vertebrobasilar insufficiency at this time. Plan: 1) Hold off on pursuing a muscle biopsy at this time. 2) EMG/NCS can be set up as an out patient. 3) Outpatient vestibular physical therapy. 4) Can consider Meclizine 25 mg every 8 hours as needed for vertigo. 5) Management of cervical and lumbosacral stenosis per neurosurgery. MTDD
[2017-01-31] MEDS: NYSTATIN 100,000 UNITS/GM TOPICAL PWD 15 GM TOP SCH ×2 (09:00→21:47)
--- NOTE | 2017-01-31 09:37 | ECHO ---
DATE OF PROCEDURE: 01/30/2017 ATTENDING PHYSICIAN: Height 66 inches, weight 200 pounds, body surface area 2.01 meters squared. Inpatient ICU room 3205 REFERRING PHYSICIAN: Dr. Faraz Kelley MD INDICATION: Dyspnea. MEASUREMENTS: 2-D Measurements: RV - 2.8 cm LV - 3.6 cm Septum - 1.3 cm Posterior wall - 1.3 cm Aortic root - 2.6 cm LA - 3.3 cm LVEF - 75% Doppler Measurements: AV - 1.2 meters per second LVOT - 0.90 meters per second LVOT IVC - 2.0 cm MV - E - 81, A - 92, E/A ratio 0.9 Early mitral deceleration time - 137 milliseconds E prime 5.6, A prime 12, E/E prime ratio of 14.6 PV - -0.85 meters per second Pulmonary artery acceleration time - 127 milliseconds PASP - 22 mmHg IVC - 1.5 cm COMMENTS: Normal sinus rhythm without intraventricular conduction disturbance. Technically difficult study in light of the patient's body habitus but diagnostically useful information was still obtained. Left atrial size appeared to be at least slightly enlarged from the apical four-chamber projections. Normal left ventricular size. Right heart chamber sizes were normal. LV wall thickness was upper limits of normal to mildly hypertrophied symmetrically. On real-time imaging from the parasternal and apical projections, both left and right ventricular wall motion was hyperkinetic. Slightly thickened mitral annulus but normal leaflet thickness and excursion with no posterior systolic buckling. Three equal size aortic cusps with mild to moderately thickened cusp edges but adequate cusp separation. Normal aortic root size. Unable to detect any intracardiac mass. No pericardial effusion. Color flow Doppler study taken from the parasternal and apical projections showed trace aortic, trace mitral and very mild tricuspid insufficiency (virtually physiological findings). Guided continuous wave Doppler of her aortic valve showed a normal peak systolic velocity against LV outflow tract obstruction. Pulsed and continuous wave Doppler of her LV inflow tract taken from the apical four-chamber projection showed normal diastolic filling velocities against mitral stenosis. There was a slightly more prominent late diastolic/atrial dependent filling pattern. Using pulsed and tissue Doppler of her mitral annulus, her current mean left atrial pressure was upper limits of normal. Pulsed and continuous wave Doppler of her pulmonary trunk showed a normal peak systolic velocity against RV outflow tract obstruction. Her pulmonary acceleration time was normal against an elevated pulmonary vascular resistance. We attempted to further estimate her right ventricular systolic pressure using guided continuous wave Doppler of her tricuspid valve but could not get a clear spectral envelope. Her inferior vena cava was of normal size with normal respiratory collapse against an elevated central venous pressure. CONCLUSIONS: Technically difficult study in light of the patient's body habitus. Borderline to mild concentric left ventricle hypertrophy with preserved systolic function. At least mildly dilated left atrium with subtle Doppler findings suggest a degree of impaired LV diastolic function but current estimated mean left atrial pressure upper limits of normal. Normal right heart chamber sizes and wall motion with normal Doppler sign of pulmonary arterial pressure. Normal IVC size and collapse against an elevated central venous pressure. Moderate aortic valvular sclerosis without stenosis and only trace insufficiency. Slightly thickened mitral annulus without functional valvular abnormality.
--- NOTE | 2017-01-31 09:58 | IPN ---
DATE: 01/30/2017 NEUROSURGERY: Ms. House is a pleasant 61-year-old right-handed female smoker with a history of hypertension, chronic kidney disease (CKD) III, chronic obstructive pulmonary disease (COPD), asthma, uncontrolled diabetes type 2, hypothyroidism and chronic neck and back pain, who has been admitted to the hospital for her chronic neck pain by Dr Kelley. She states she has a history of low back and neck pain and currently her low back pain is worse than her neck pain. She states she has had low back pain for many years. She states the pain is located across her entire low back. The pain is constant and is described as a sharp pressure sensation. The patient is aggravated by standing and relieved by sitting. She can only stand for 5 minutes or less before she will have to sit down. She notes walking is also difficult and her walk is very unsteady and she has been using a wheelchair for the past year. She is very unsteady on her feet. She also has leg pain in both of her legs equally. She describes the pain in her legs as someone taking a sludge hammer to her ankles. She denies having neck pain at this time. She states her neck is mainly only tender with palpation pointing the base of her neck. She states she has had this neck pain for the past one to two years.She states the pain is intermittent and is described as a pressure pain. Since the onset, she says that the pain has been about the same and has not been worsening. Her pain is aggravated by turning her head to either side. She states nothing will make her pain better. She says the pain does not radiate down her arms, but that her arms are always achy. Due to her weakness in her lower extremities and frequent falls occurring about a year ago, she now uses a wheelchair for ambulation. She is no longer able to use stairs. At home, she uses a bedside commode. Due to her uncontrolled diabetes, she reports a history of numbness and tingling in her feet. She also reports a history of dizziness, a history of syncope, per the patient related to abnormal blood pressures, recently she has been having a lot of chills, which she feels is related to her alternating blood sugar levels. She states she has had many falls a year ago, which is due from the weakness in her legs, but now she uses a wheelchair. Therefore, she has not had any falls within the past year. She denies any bladder or bowel incontinence. No significant recent illnesses (she notes unilateral conjunctivitis a few weeks ago). She has been taking gabapentin for the pain, which she reports has not been very helpful. MEDICATIONS: See chart below. ALLERGIES: See chart below. PAST MEDICAL HISTORY: 1. Hypertension. 2. Chronic kidney disease (CKD), III. 3. Chronic obstructive pulmonary disease (COPD). 4. Asthma. 5. Uncontrolled type 2 diabetes. 5. Hypothyroidism. 6. Chronic neck and back pain. 7. 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 LABORATORY: White count 9.1, hemoglobin 12.2, sodium 145, potassium 3.9, fasting glucose 169, high. Her blood type 0 positive. Antibody screen negative. SOCIAL HISTORY: Occupation: Disabled, she is not currently working. She stopped working in 2009. She previously worked at [employer]. Household members: She currently lives with her son and his girlfriend. She notes they help significantly with her care. Smoking status: She is a current smoker. Smoking two packs per day. She started smoking when she was 13 years old. Illicit drugs: Denies. EOTH: Denies. She reports she receives Meals on Wheels. REVIEW OF SYSTEMS: As per history of present illness. PHYSICAL EXAMINATION: GENERAL: She is sitting comfortably. She is in no acute distress. She is obese. She is polite, pleasant and cooperative during the exam. She is otherwise a reliable historian. SKIN: No rashes, ecchymosis, erythema or lesions. Skin is dry. HEAD: Normocephalic, atraumatic, symmetrical. Scalp is intake without lesions, deformities or tenderness. THROAT: Pharynx is with mild erythema. No inflammation or exudates. Dentition is poor. She notes multiple loose teeth. She is also missing multiple teeth. Mallampati score of 3. NECK: Supple with limited range of motion with bilateral bending. Symmetrical. No lymphadenopathy. RESPIRATORY: She is breathing comfortably. CARDIOVASCULAR: Regular rate and rhythm. PERIPHERAL VASCULAR: She has a mild amount of peripheral edema. No ecchymosis or lesions. Chronic fungal nail changes are noted on her toes. I am unable to palpate dorsalis pedis pulses bilaterally. NEURO: Mj coma scale equals 15/15. Rate and flow of speech is ordinary. Speech is fluent. PROPRIOCEPTION: Equals upper extremity mildly impaired; left side greater than the right. LOWER EXTREMITIES: Impaired; again left side impairment greater than the right. MUSCLE STRENGTH: upper extremities are noted to be about 3-/5 on the left and 3/5 on the right. 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 Her lower extremities are overall 3+/5 bilaterally. She is unable to lay flat due to significant pain in her low back, so straight leg test was deferred. However, while sitting in the chair, she is able to extend both legs without pain traveling into her leg. DEEP TENDON REFLEXES: brachioradialis is 1 symmetric bilaterally and biceps deep tendon reflexes about 1 bilaterally symmetric. Unable to elicit triceps reflex. She refuses assessment on her knees due to pain. Unable to assess, her Achilles tendon is absent. Ankle clonus is negative. Babinski sign is absent. Dudley sign is negative bilaterally. SENSATION: Sensation is intact to sharp in the upper extremities and equal bilaterally. Sensation is decreased to sharp in the lower extremities in a stocking distribution. CRANIAL NERVES: II through XII is intact bilaterally. COORDINATION: She has a mild to moderate amount of dysrhythmia and dysmetria in her hands bilaterally; the left greater than the right. Mild amount of dysmetria in her feet bilaterally, left greater than the right. Gamhel-gw-gyit testing is impaired, again left greater than the right. Her gait is not assessed. SPINE: No notable abnormalities noted on inspection of the cervical and lumbar spine. There is significant amount of paraspinal tenderness along the cervical region, most notably on the left side C7 and midline. Over her lumbar region, significant amount of tenderness with palpation; the left side equal to the right side. No tenderness with percussion over the spinous processes in the lumbar region, sacroiliac (SI) joint tenderness with palpation. DIAGNOSTIC DATA: 01/30/2017 brain Magnetic Resonance Imaging (MRI). 01/30/2017 carotid Magnetic Resonance Imaging (MRI). 01/28/[address] ASSESSMENT: 1. Cervical spine stenosis with myeloradiculopathy. 2. Lumbar stenosis. 3. Peripheral neuropathy. PLAN: per Dr Kelley. [facility]
[2017-01-31 12:35] VITALS: BP 166/79
--- NOTE | 2017-01-31 19:28 | IPN ---
DATE: 01/31/2017 SUBJECTIVE: Patient is seen and examined in the room today. Patient does not have any acute complaints. No events are reported on telemetry. OBJECTIVE: VITAL SIGNS: Temperature is 96.5, pulse is 105, respirations 20, blood pressure is 118/77, pulse oximetry is 98% in room air. GENERAL: No sign of acute distress, alert and oriented times three. HEENT: Normocephalic, atraumatic. Extraocular motors grossly intact. CARDIOVASCULAR: Positive S1, S2, regular rate. LUNGS: Clear to auscultation bilaterally. ABDOMEN: Soft, nontender, nondistended. EXTREMITIES: No edema. No sign of cyanosis. LABORATORY DATA: WBC 8.1, hemoglobin 10.8, hematocrit 31.5, platelet count is 212. Sodium 144, potassium 4.5, chloride 112, carbon dioxide 24, BUN 23, creatinine 1.43, GFR 39.8, fasting glucose 324, calcium 8.6, total bilirubin 0.1, direct bilirubin less than 0.1, AST 14, ALT 19, alkaline phosphatase 73, total protein 5.2, albumin 2.2, lipase 175. ASSESSMENT AND PLAN: 1. Uncontrolled type 2 diabetes. Patient's A1c is 12.3. Patient is off the insulin drip and patient was switched to Levemir covered with sliding scale. Will continue to adjust the patient's long-acting insulin dose. Patient is on consistent carbohydrate diet. 2. Uncontrolled hypertension. Patient's blood pressure medication has been actively adjusted. Previously lisinopril was not feasible for the patient due to the acute kidney injury (DEO), it was restarted once patient's renal function returned to normal range. However, now patient has acute worsening of the renal function. Will stop the lisinopril for now. Will switch the blood pressure medication to diltiazem which can help with the heart rate and also the hypertension. 3. Cervical and lumbar radiculopathy with right-sided L3 nerve compression. We referred care to the neurosurgical team. Patient has significant comorbidities. Cardiology has been consulted to assist the preoperative optimization and evaluation. Cardiac workup was performed yesterday, we are still waiting for the official report. Patient may need a stress test. 4. Chronic obstructive pulmonary disease (COPD). No exacerbation at this moment. Will be cautious regarding use of beta jorge for patient's blood pressure management. 5. Hypothyroidism. On Synthroid. 6. History of elevated lipase, resolved. 7. Hyperlipidemia. On simvastatin. 8. Chronic alcohol and tobacco abuse. On nicotine patch and supplementing with nicotine gum. 9. Deep venous thrombosis (DVT) prophylaxis. On heparin.
[2017-01-31] MEDS: SIMVASTATIN 40 MG TAB PO SCH (19:46)
[2017-01-31] MEDS: PERCOCET 5MG/325MG TAB PO PRN (21:48)
[2017-01-31 22:00] VITALS: BP 150/110
--- NOTE | 2017-01-31 22:28 | IPNPDOC ---
Date Seen The patient was seen on 01/31/17. Progress Note NEUROSURGERY Pain control: satisfactory Surgical procedure: None Ms. House is a pleasant 61-year-old right-handed female smoker with a history of hypertension, chronic kidney disease (CKD) III, chronic obstructive pulmonary disease (COPD), asthma, uncontrolled diabetes type 2, hypothyroidism and chronic neck and back pain, who has been admitted to the hospital for her chronic neck pain by Dr Kelley. She offers no new concerns for today. She has been eating and drinking well. Reports pain in her low back, but no changes since yesterday. No new findings on exam. Dr. Kelley has requested I cancel neurology consult, therefore, per his order, I have cancelled it. Zee Cisse, RADHA-C VS, I&O, 24H, [place] Vital Signs/I&O Vital Signs Date Time Temp Pulse Resp B/P (MAP) Pulse Ox O2 Delivery O2 Flow Rate FiO2 01/31/17 22:00 97.3 109 16 150/110 (123) 98 Room Air I&O- Last 24 Hours up to 6 AM 01/31/17 05:59 Intake Total 4407 ml Output Total 4350 ml Balance 57 ml Laboratory Data 24H LABS Laboratory Tests 2 01/31/17 00:51: Bedside Glucose (Misc Panel) 343H 01/31/17 05:12: Anion Gap 8, Glomerular Filtration Rate 39.8L, Calcium Level 8.6L, Aspartate Amino Transf (AST/SGOT) 14L, Alanine Aminotransferase (ALT/SGPT) 19, Alkaline Phosphatase 73, Total Bilirubin 0.1L, Direct Bilirubin < 0.1, Total Protein 5.2L , Albumin 2.2L, Albumin/Globulin Ratio 0.73L, Lipase 175 01/31/17 05:13: White Blood Count 8.1, Red Blood Count 3.47L, Hemoglobin 10.8L, Hematocrit 31.5L , Mean Corpuscular Volume 90.8, Mean Corpuscular Hemoglobin 31.1, Mean Corpuscular Hemoglobin Concent 34.3, Red Cell Distribution Width 12.3, Platelet Count 212, Neutrophils (%) (Auto) 54.6, Lymphocytes (%) (Auto) 33.6, Monocytes ( %) (Auto) 4.7, Eosinophils (%) (Auto) 4.8H, Basophils (%) (Auto) 1.0, Neutrophils # (Auto) 4.4, Lymphocytes # (Auto) 2.8, Monocytes # (Auto) 0.4, Eosinophils # (Auto) 0.4, Basophils # (Auto) 0.1, Large Unclassified Cells % 1.3 , Large Unclassified Cells # 0.1 01/31/17 08:02: Bedside Glucose (Misc Panel) 270H 01/31/17 11:39: Bedside Glucose (Misc Panel) 421H 01/31/17 12:24: Bedside Glucose (Misc Panel) 416H 01/31/17 17:02: Bedside Glucose (Misc Panel) 395H CBC/BMP Laboratory Tests 01/31/17 05:12 01/31/17 05:13 Red Blood Count 3.47 L, Mean Corpuscular Volume 90.8, Mean Corpuscular Hemoglobin 31.1, Mean Corpuscular Hemoglobin Concent 34.3, Red Cell Distribution Width 12.3, Neutrophils (%) (Auto) 54.6, Lymphocytes (%) (Auto) 33.6, Monocytes (%) (Auto) 4.7, Eosinophils (%) (Auto) 4.8 H, Basophils (%) ( Auto) 1.0, Neutrophils # (Auto) 4.4, Lymphocytes # (Auto) 2.8, Monocytes # (Auto ) 0.4, Eosinophils # (Auto) 0.4, Basophils # (Auto) 0.1 Microbiology Microbiology 01/28/17 MRSA Screen - Final, Complete PHI CISSE PA-C Jan 31, 2017 22:28
[2017-02-01] MEDS: LEVOTHYROXINE 150MCG TABLET (0.15MG) PO SCH (05:25)
[2017-02-01] MEDS: HEPARIN SOD (PORCINE) 5000 UNITS/ML VIAL SQ SCH ×3 (05:25→21:13)
[2017-02-01 05:56] VITALS: BP_SYST 110; BP_SYST 120; BP_SYST 90; BP_DIAS 70; BP_DIAS 90
[2017-02-01 06:00] VITALS: BP 90/70
[2017-02-01 07:21] LABS: BASO # 0.1 K/mm3 (0.0-0.2); EOS # 0.4 K/mm3 (0.0-0.50); EOS % 4.7 % (0.0-3.0); LARGE UNSTAINED CELL # 0.1 K/mm3 (0.0-0.4); LARGE UNSTAINED CELL % 1.2 % (0.0-4.0); LYMPH % 34.9 % (24.0-44.0); MEAN CORPUSCULAR HEMOGLOBIN 30.4 pg (27.0-33.0); MEAN CORPUSCULAR HGB CONC 33.7 g/dl (32.0-36.5); MEAN CORPUSCULAR VOLUME 90.4 fl (80.0-96.0); MONO # 0.3 K/mm3 (0.0-0.8); MONO % 4.1 % (0.0-5.0); NEUTROPHILS # 4.5 K/mm3 (1.8-7.7); NEUTROPHILS % 54.1 % (36.0-66.0); PLATELET COUNT, AUTOMATED 198 k/mm3 (150-450); RED CELL DISTRIBUTION WIDTH 12.4 % (11.5-14.5); WHITE BLOOD COUNT 8.3 K/mm3 (4.0-10.0)
[2017-02-01 07:37] LABS: ALBUMIN 2.2 GM/DL (3.2-5.2); ALBUMIN/GLOBULIN RATIO 0.81 (1.00-1.93); ALKALINE PHOSPHATASE 65 U/L (45-117); ALT/SGPT 18 U/L (12-78); ANION GAP 11 MEQ/L (8-16); AST/SGOT 12 U/L (15-37); BILIRUBIN,DIRECT < 0.1 MG/DL (0.0-0.2); BILIRUBIN,TOTAL 0.1 MG/DL (0.2-1.0); BLOOD UREA NITROGEN 29 MG/DL (7-18); CALCIUM LEVEL 8.3 MG/DL (8.8-10.2); CARBON DIOXIDE LEVEL 22 MEQ/L (21-32); CHLORIDE LEVEL 111 MEQ/L (98-107); CREATININE FOR GFR 1.37 MG/DL (0.55-1.02); GLOMERULAR FILTRATION RATE 41.9 (>45); GLUCOSE, FASTING 179 MG/DL (80-110); POTASSIUM SERUM 4.1 MEQ/L (3.5-5.1); SODIUM LEVEL 144 MEQ/L (136-145); TOTAL PROTEIN 4.9 GM/DL (6.4-8.2)
[2017-02-01 08:00] VITALS: BP 124/80
[2017-02-01] MEDS: IPRATROPIUM 0.5MG/ALBUTEROL 2.5MG INH SOL UD 3ML (DUONEB)(J7620) NEB SCH ×4 (08:00→19:16)
[2017-02-01] MEDS: NICOTINE 21MG/24HR 1 EA TRANSDERMAL TD SCH (08:27)
[2017-02-01] MEDS: LEVEMIR (INSULIN DETEMIR) 1 UNITS/0.01ML SC SCH ×2 (08:29→21:14)
[2017-02-01] MEDS: HumaLOG INSULIN (NovoLOG) PER UNIT SC SCH ×4 (08:29→21:00)
--- NOTE | 2017-02-01 08:38 | IPN ---
DATE: 02/01/2017 Mrs. House is about the same. She has no complaints at rest other than her neck and back pain. Denies any chest pain or shortness of breath. She was moved from intensive care unit (ICU) to [address] [facility]. Blood pressure this morning is very soft. It was measuring 90/70, manually 120/90. She did not have any dizziness. The heart rate is in 70s. She is afebrile. Saturation 97% on room air. Fluid balance yesterday was documented negative 2700. She is alert and oriented and appropriate. Her jugular venous pulse (JVP) is not high. Lungs are clear. I do not appreciate any carotid bruit. Heart is unchanged, regular rhythm, very faint murmur over the aortic valve. Abdomen is soft, nontender. No peripheral edema and peripheral pulses are palpable. Laboratory aguirre: Her CBC reveals hemoglobin 10, hematocrit 29 and platelet count 198,000. Basic metabolic panel reveals potassium 4.1, BUN 29, creatinine 1.4 for GFR of 42 and glucose 179. Her albumin is 2.2. Surprisingly, her lipase is very elevated at 1200 even though she does not complain about abdominal pain. Her echocardiogram was interpreted by Dr. Gunderson. It revealed preserved left ventricular systolic function and grade 1diastolic function. There were degenerative abnormalities of aortic and mitral valves, but functionally no significant impairment. ASSESSMENT AND PLAN: Mrs. House is a 61-year-old female who has longstanding history of type 2 diabetes, has significant proteinuria, has been longstanding smoker. She presents with cervical spine myelopathy. I was asked to clear her for surgery. As I said in my note previously, this is really depending on urgency of the surgery. I had a phone call with Dr. Kelley yesterday. It is his clear opinion that the surgery is urgent and if untreated her myelopathy will progress and she will suffer very serious consequences. Consequently, I believe it is certainly acceptable to proceed with surgery without evaluation for underlying coronary artery disease even though statistically it is very likely that patient has CAD. She does not have congestive heart failure and she does not have any unstable symptoms. I believe that she can proceed with surgery next week as is planned. As far as management of diabetes is concerned, I will leave it solely to hospitalist team. I agree with administration of statin, which should be continued in perioperative period. She has not been on aspirin because of cervical surgery operating close to spinal cord. She is getting deep venous thrombosis (DVT) prophylaxis. As far as the choices of blood pressure medications are concerned, her blood pressure, if anything, seems to be low today. She was given a single dose of lisinopril, which is clearly indicated in the setting of diabetes and proteinuria, but her renal function deteriorated. She was then switched to Cardizem. My recommendation would be to change the Cardizem to immediate release form in very small dose, for example, 30 mg every 8 hours with holding parameters. It is probably a better choice than beta-jorge because she has underlying chronic obstructive pulmonary disease (COPD). Once her renal function rebounds, I would consider reintroducing angiotensin-converting enzyme (ROCIO) inhibitors in very small dose, but realistically speaking it probably will not happen only after the surgery. Otherwise, I do not have further specific recommendations. WANDERD
[2017-02-01 12:29] LABS: CHOLESTEROL LEVEL 150 MG/DL (<200); TRIGLYCERIDES LEVEL 370 MG/DL (<150)
[2017-02-01] MEDS: NYSTATIN 100,000 UNITS/GM TOPICAL PWD 15 GM TOP SCH ×2 (12:44→21:11)
[2017-02-01 14:00] VITALS: BP_SYST 120; BP_SYST 130; BP_SYST 140; BP_DIAS 100; BP_DIAS 90; BP_DIAS 92
--- NOTE | 2017-02-01 17:52 | REP ---
HISTORY: Elevated lipase. COMPARISON: None. The lack of intravenous contrast significantly decreases the sensitivity of the exam. The lung bases are clear. Limited evaluation of the solid intraabdominal organs and gallbladder show no gross abnormalities. Limited evaluation of the pancreas and adrenal glands show no gross abnormalities. Limited evaluation of the kidneys show no gross abnormalities. Limited evaluation of the abdominal aorta and paraaortic regions show no gross abnormalities. There is no free fluid or free air in the abdomen. Limited evaluation of the bowel loops and their mesenteries show no gross abnormalities. There is no evidence of an intra-abdominal mass or adenopathy. CT pelvis: There is no free fluid or free air. There is no mass or adenopathy. The bowel loops and the mesenteries are within normal limits. In the left adnexa there is an oval shaped 2.5 cm sized low density structure having water Hounsfield unit readings likely a small ovarian cyst. Bone window technique throughout the exam shows age-related degenerative changes. IMPRESSION: There is likely a small left ovarian cyst. This could be confirmed with pelvic ultrasonography. Other findings as described above. There is no evidence of pancreatitis by CT criteria. Signed by Ubaldo Snow DO 02/06/2017 04:25 P
--- NOTE | 2017-02-01 19:15 | IPN ---
DATE: 02/01/2017 SUBJECTIVE: The patient is seen and examined in the room today. She still complains about the pain in the back; however, the pain is manageable. The patient does have a complaint of bilateral upper extremity numbness, but she attributes that to her chronic uncontrolled diabetes. Denies any new neurological changes. The patient also denies any right upper abdominal pain. I re-visited the patient after lunch and patient denies any pain before, during or after the meal. OBJECTIVE: VITAL SIGNS: Temperature is 97.4, pulse is 70, respirations 14, blood pressure is 90/70, pulse oximetry is 96% in room air. GENERAL: No sign of acute distress, sitting comfortably in chair. HEENT: Normocephalic, atraumatic. Extraocular motor grossly intact. CARDIOVASCULAR: Positive S1, S2, regular rate. LUNGS: Clear to auscultation bilaterally. ABDOMEN: Soft, nontender, nondistended. Bowel sounds present. EXTREMITIES: No edema, no sign of cyanosis. LABORATORY DATA: WBC is 8.3, hemoglobin 10, hematocrit is 29.7, platelet count is 198. Sodium is 144, potassium 4.1, chloride is 111, carbon dioxide 22, BUN 29, creatinine 1.37, GFR is 41.9. Total bilirubin is 0.1, direct bilirubin less than 0.1, AST 12, ALT 18, alkaline phosphatase 65, total protein 4.9, albumin 2.2, triglycerides 370, total cholesterol is 150, LDL is 41, HDL is 35, lipase is 1234. ASSESSMENT AND PLAN: 1. Uncontrolled type 2 diabetes. A1c is 12.3. Patient was on an insulin drip previously. Currently, patient switched to Levemir coverage with sliding scale. Will continue to adjust patient's long-acting insulin dose. This morning, the patient's morning glucose level has decreased from 324 to 179. 2. Uncontrolled hypertension. Due to acute kidney injury, angiotensin-converting enzyme (ROCIO) inhibitor or angiotensin receptor jorge (ARB), or diuretic will not be appropriate for the patient. The patient has been on Cardizem. Patient also evaluated by the side laster, Dr. Ott. Per recommendation, will switch to Cardizem from long-acting to short-acting with 30 mg by mouth every 8 hours. Continue to follow her blood pressures. 3. Cervical and lumbar radiculopathy with right-sided L3 nerve compression. Per neurosurgical team, the patient may have her surgery next week. Currently, will continue to optimize the patient. Echocardiogram (cardiac echogram) was performed. 4. Chronic obstructive pulmonary disease (COPD). Currently does not have any exacerbations. Will be cautious with regards to beta jorge. 5. Hypothyroidism, on Synthroid. 6. Elevated lipase. Patient's chart was reviewed and on the date of admission, the patient did have elevated lipase and gallbladder ultrasound was performed, and the patient's lipase returned to normal range without any specific interventions. Today, the patient has raised lipase level. besides Cardizem, there is really no new medication changes. Will follow with triglycerides and will also follow with a CT of the abdomen and pelvis to rule out any other possible causes. I ordered a repeat lipase level after patient's mealtime without any intervention and there was a spontaneous drop of the lipase. 7. Hyperlipidemia, on simvastatin. Due to the use of Cardizem, the pharmacy recommended decreasing the statin dose. 8. Chronic alcohol and tobacco abuse. On nicotine replacement. 9. Deep vein thrombosis (DVT) prophylaxis, on heparin. MTDD
[2017-02-01] MEDS: PERCOCET 5MG/325MG TAB PO PRN (21:10)
[2017-02-01] MEDS: SIMVASTATIN 20 MG TAB PO SCH (21:11)
[2017-02-01 21:40] VITALS: BP_SYST 110; BP_SYST 130; BP_SYST 138; BP_DIAS 70; BP_DIAS 80
[2017-02-01 22:00] VITALS: BP 138/80
[2017-02-02] MEDS: LEVOTHYROXINE 150MCG TABLET (0.15MG) PO SCH (05:15)
[2017-02-02] MEDS: HEPARIN SOD (PORCINE) 5000 UNITS/ML VIAL SQ SCH ×3 (05:16→21:47)
[2017-02-02 06:00] VITALS: BP 138/72
[2017-02-02] MEDS: HumaLOG INSULIN (NovoLOG) PER UNIT SC SCH ×3 (06:00→17:21)
[2017-02-02 07:00] LABS: BASO # 0.1 K/mm3 (0.0-0.2); BASO % 0.8 % (0.0-1.0); EOS # 0.4 K/mm3 (0.0-0.50); EOS % 4.5 % (0.0-3.0); LARGE UNSTAINED CELL # 0.1 K/mm3 (0.0-0.4); LARGE UNSTAINED CELL % 0.7 % (0.0-4.0); LYMPH # 2.4 K/mm3 (1.5-4.5); LYMPH % 28.7 % (24.0-44.0); MEAN CORPUSCULAR HEMOGLOBIN 30.2 pg (27.0-33.0); MEAN CORPUSCULAR HGB CONC 33.5 g/dl (32.0-36.5); MEAN CORPUSCULAR VOLUME 90.3 fl (80.0-96.0); MONO # 0.4 K/mm3 (0.0-0.8); MONO % 4.4 % (0.0-5.0); NEUTROPHILS % 60.9 % (36.0-66.0); PLATELET COUNT, AUTOMATED 227 k/mm3 (150-450); RED CELL DISTRIBUTION WIDTH 12.4 % (11.5-14.5); WHITE BLOOD COUNT 8.3 K/mm3 (4.0-10.0)
[2017-02-02 07:07] LABS: ALBUMIN 2.3 GM/DL (3.2-5.2); ALKALINE PHOSPHATASE 74 U/L (45-117); ALT/SGPT 26 U/L (12-78); ANION GAP 8 MEQ/L (8-16); AST/SGOT 17 U/L (15-37); BILIRUBIN,DIRECT < 0.1 MG/DL (0.0-0.2); BILIRUBIN,TOTAL 0.1 MG/DL (0.2-1.0); BLOOD UREA NITROGEN 31 MG/DL (7-18); CALCIUM LEVEL 8.9 MG/DL (8.8-10.2); CARBON DIOXIDE LEVEL 25 MEQ/L (21-32); CHLORIDE LEVEL 108 MEQ/L (98-107); GLOMERULAR FILTRATION RATE 44.5 (>45); GLUCOSE, FASTING 270 MG/DL (80-110); POTASSIUM SERUM 4.3 MEQ/L (3.5-5.1); SODIUM LEVEL 141 MEQ/L (136-145); TOTAL PROTEIN 5.6 GM/DL (6.4-8.2)
[2017-02-02] MEDS: IPRATROPIUM 0.5MG/ALBUTEROL 2.5MG INH SOL UD 3ML (DUONEB)(J7620) NEB SCH ×4 (08:00→19:32)
[2017-02-02 08:11] LABS: AMYLASE 87 U/L (25-115)
[2017-02-02] MEDS ORDERED: HumaLOG INSULIN (NovoLOG) PER UNIT SC ONE (10:00)
[2017-02-02] MEDS: LEVEMIR (INSULIN DETEMIR) 1 UNITS/0.01ML SC SCH ×2 (11:19→17:21)
[2017-02-02] MEDS: NICOTINE 21MG/24HR 1 EA TRANSDERMAL TD SCH (11:19)
[2017-02-02] MEDS: NYSTATIN 100,000 UNITS/GM TOPICAL PWD 15 GM TOP SCH ×2 (11:20→20:22)
[2017-02-02] MEDS: NS 1,000 ML IV SCH ×2 (11:20→22:15)
[2017-02-02 14:00] VITALS: BP_SYST 141; BP_SYST 144; BP_SYST 147; BP_DIAS 80; BP_DIAS 85; BP_DIAS 86
[2017-02-02] MEDS: SIMVASTATIN 20 MG TAB PO SCH (20:22)
[2017-02-02] MEDS: DEXTROSE 50% 50 ML SYRINGE IV PRN (20:23)
--- NOTE | 2017-02-02 21:25 | IPN ---
DATE: 02/02/2017 SUBJECTIVE: The patient is seen and examined in the room today. Per patient, the patient did not have any significant abdominal pain during lunch time. However, in the evening when she was trying to eat dinner, the patient noticed the pain started around the epigastric region a little towards the left side of the abdomen. The time of the pain closely related to oral intake, and the patient started worsening nausea associated with the pain. Denies any fevers. Per patient, the patient's back pain is manageable. OBJECTIVE: VITAL SIGNS: Temperature 96.9, pulse 84, respirations 14, blood pressure 138/72. Pulse oximetry is 98% in room air. GENERAL: Fatigued. No sign of acute distress. Alert and oriented times three. HEENT: Normocephalic, atraumatic. Extraocular motor grossly intact. CARDIOVASCULAR: Positive S1, S2. Regular rate. LUNGS: Clear to auscultation bilaterally. ABDOMEN: Soft, mildly tender in the mid-epigastric region, nondistended. Bowel sounds present. EXTREMITIES: No edema. No sign of cyanosis. LABORATORY DATA: WBC 8.3, hemoglobin 10.6, hematocrit 31.6, platelet count is 227. Sodium 141, potassium 4.3, chloride 108, carbon dioxide 25, BUN 31, creatinine 1.3, GFR is 44.5, fasting glucose 270, calcium 8.7. Total bilirubin is 0.1, direct bilirubin is less than 0.1, AST 17, ALT 26, alkaline phosphatase 74. Total protein 5.6, albumin 2.3, amylase is 87, lipase is 1400. ASSESSMENT AND PLAN: 1. Acute pancreatitis. The patient was placed nothing by mouth with bowel rest. The patient already has pain medication for pain control. The patient with current support on intravenous (IV) fluid. 2. Uncontrolled diabetes. A1c of 12.3. Patient had a history of insulin drip in the intensive care unit (ICU) previously. Previously the patient was switched to Levemir cover with sliding scale. Currently due to acute pancreatitis and nothing by mouth status, the patient's sliding scale will be every four hours. We will adjust the long-acting actively according to the patient's bwrlb-smad-caiz glucose measurements. 3. Uncontrolled hypertension. Due to acute kidney injury (DEO), angiotension-converting enzyme (ROCIO), or angiotensin II receptor blockers (ARB), or diuretic calos not be appropriate for the patient. The patient has been on Cardizem. The patient's Cardizem was switched to short-acting per Dr. Ott's recommendation. However, currently due to the nothing by mouth, we have to hold those oral medications, and we will check the patient's blood pressure every four hours and we will make some adjustment if needed. 4. Cervical and lumbar radiculopathy with right-sided L3 nerve compression. Per neurosurgical team, Dr. Kelley scheduled a procedure for 02/06/2017. 5. Chronic obstructive pulmonary disease (COPD). Currently does not have any exacerbation. We will be cautious regarding beta jorge which may potentially worsen or cause respiratory issues. 6. Hypothyroidism on Synthroid. 7. Hyperlipidemia, on simvastatin. Due to the use of Cardizem, pharmacy has recommended to decrease the standard dose. 8. Chronic alcohol use. 9. Tobacco use on nicotine patches. 10. Deep venous thrombosis (DVT) prophylaxis on heparin.
[2017-02-02 22:00] VITALS: BP_SYST 158; BP_SYST 160; BP_SYST 162; BP_DIAS 79; BP_DIAS 80; BP_DIAS 81
[2017-02-03] VITALS (9 sets, daily range): BP systolic 107–188; BP diastolic 61–97
[2017-02-03] MEDS ORDERED: D5W/0.45% SODIUM CHLORIDE 1,000 ML IV SCH (01:00)
[2017-02-03] MEDS: LEVOTHYROXINE 150MCG TABLET (0.15MG) PO SCH (05:55)
[2017-02-03] MEDS: HEPARIN SOD (PORCINE) 5000 UNITS/ML VIAL SQ SCH ×3 (05:56→21:21)
[2017-02-03] MEDS: HumaLOG INSULIN (NovoLOG) PER UNIT SC SCH ×3 (05:57→21:22)
[2017-02-03 06:37] LABS: BASO # 0.1 K/mm3 (0.0-0.2); BASO % 0.9 % (0.0-1.0); EOS # 0.5 K/mm3 (0.0-0.50); LARGE UNSTAINED CELL # 0.1 K/mm3 (0.0-0.4); LARGE UNSTAINED CELL % 0.7 % (0.0-4.0); LYMPH # 2.6 K/mm3 (1.5-4.5); LYMPH % 26.7 % (24.0-44.0); MEAN CORPUSCULAR HEMOGLOBIN 31.7 pg (27.0-33.0); MEAN CORPUSCULAR HGB CONC 34.7 g/dl (32.0-36.5); MEAN CORPUSCULAR VOLUME 91.4 fl (80.0-96.0); MONO # 0.4 K/mm3 (0.0-0.8); MONO % 3.7 % (0.0-5.0); NEUTROPHILS # 5.9 K/mm3 (1.8-7.7); PLATELET COUNT, AUTOMATED 235 k/mm3 (150-450); RED CELL DISTRIBUTION WIDTH 12.4 % (11.5-14.5); WHITE BLOOD COUNT 9.4 K/mm3 (4.0-10.0)
[2017-02-03 06:55] LABS: ALBUMIN 2.6 GM/DL (3.2-5.2); ALBUMIN/GLOBULIN RATIO 0.72 (1.00-1.93); ALKALINE PHOSPHATASE 76 U/L (45-117); ALT/SGPT 28 U/L (12-78); ANION GAP 10 MEQ/L (8-16); AST/SGOT 25 U/L (15-37); BILIRUBIN,TOTAL 0.2 MG/DL (0.2-1.0); BLOOD UREA NITROGEN 21 MG/DL (7-18); CALCIUM LEVEL 9.2 MG/DL (8.8-10.2); CARBON DIOXIDE LEVEL 26 MEQ/L (21-32); CHLORIDE LEVEL 110 MEQ/L (98-107); CREATININE FOR GFR 0.98 MG/DL (0.55-1.02); GLOMERULAR FILTRATION RATE > 60.0 (>45); GLUCOSE, FASTING 88 MG/DL (80-110); SODIUM LEVEL 146 MEQ/L (136-145); TOTAL PROTEIN 6.2 GM/DL (6.4-8.2)
[2017-02-03] MEDS: IPRATROPIUM 0.5MG/ALBUTEROL 2.5MG INH SOL UD 3ML (DUONEB)(J7620) NEB SCH ×4 (07:21→20:00)
[2017-02-03] MEDS: LEVEMIR (INSULIN DETEMIR) 1 UNITS/0.01ML SC SCH (09:00)
[2017-02-03] MEDS: NYSTATIN 100,000 UNITS/GM TOPICAL PWD 15 GM TOP SCH ×2 (10:03→21:22)
[2017-02-03] MEDS: NICOTINE 21MG/24HR 1 EA TRANSDERMAL TD SCH (10:04)
[2017-02-03] MEDS ORDERED: GLUCOSE 4 GM CHEW TABLET PO PRN (19:30)
[2017-02-03] MEDS ORDERED: DEXTROSE 50% 50 ML SYRINGE IV PRN (19:30)
[2017-02-03] MEDS ORDERED: GLUCAGON FOR INJ 1 MG VIAL (J1610) SC PRN (19:30)
[2017-02-03] MEDS: SIMVASTATIN 20 MG TAB PO SCH (21:21)
--- NOTE | 2017-02-03 21:22 | IPN ---
DATE: 02/03/2017 SUBJECTIVE: The patient is seen and examined in the room today. The patient stated she feels very weak and she really wanted to eat. Denies any recurrence of the abdominal pain. Yesterday, in the evening time, the patient did have an episode of hypoglycemia with a glucose level 257. OBJECTIVE: VITAL SIGNS: Temperature is 97.2, pulse 88, respirations 18, blood pressure is 107/68, pulse oximetry is 95% on room air. GENERAL: Fatigue. No signs of distress. Alert and oriented times three. HEENT: Normocephalic, atraumatic. Extraocular movement was intact. CARDIOVASCULAR: Positive S1, S2. Regular rate. LUNGS: Clear to auscultation bilaterally. ABDOMEN: Soft, nontender, nondistended. Bowel sounds are present. EXTREMITIES: No edema. No sign of cyanosis. LABORATORY DATA: White blood count (WBC) 9.4, hemoglobin 12.3, hematocrit 35.2, platelet count is 335. Sodium is 146, potassium is 4., chloride 110, carbon dioxide 26, BUN 21, creatine 0.98. Glomerular filtration rate (GFR) is greater than 60. Fast glucose is 88. Calcium is 9.2. Total bilirubin is 0.2. AST is 25, ALT is 28, alkaline phosphatase is 76. Total bilirubin is 6.2. Albumin is 2.6. Lipase is 602. ASSESSMENT AND PLAN: 1. Uncontrolled diabetes. Currently, the patient's glucose level insulin is being adjusted due to prepare the patient for the neurosurgery. Neurosurgeon requested blood glucose level to be between 120 to 140s. The patient do have A1c of 12.3. Initially, the patient was put on nothing by mouth due to her acute pancreatitis. The patient's fluid will be adjusted on normal saline to D5 half normal saline. Today was resolution of the abdominal pain and improvement of lipase with introduce of full liquid diet and the patient is on <<3:12>> will check every 4 hours. 2. Uncontrolled hypertension. Renal function returned to baseline now. The patient is currently taking Cardizem 30 mg every 8 hours, will adjust accordingly. Previous due to nothing by mouth, the patient's dose of Cardizem was missed. Will continue to follow the patient's blood pressures. 3. Cervical and lumbar radiculopathy with right-sided L3 nerve compression. The neurosurgeon has scheduled surgery for 02/05/2017. 4. Acute pancreatitis. The patient was nothing by mouth for one day. The patient was started on IV fluid with resolution of abdominal pain and improvement of her lipase level. Was reintroduced to a full liquid diet and the patient was able to start her oral medications. I will followup continued trend with the lipase. 5. Chronic obstructive pulmonary disease (COPD). No exacerbation. 6. Hypothyroidism on Synthroid . 7. Hyperlipidemia on simvastatin. Due to the use of Cardizem, it is recommended to decrease the dose of the simvastatin dose. 8. Chronic alcohol abuse. 9. Tobacco use on nicotine patch. 10. Deep vein thrombosis (DVT) prophylaxis on heparin. . MTDD
[2017-02-04] VITALS (8 sets, daily range): BP systolic 111–162; BP diastolic 58–78
[2017-02-04] MEDS: HEPARIN SOD (PORCINE) 5000 UNITS/ML VIAL SQ SCH ×3 (05:50→21:26)
[2017-02-04] MEDS: LEVOTHYROXINE 150MCG TABLET (0.15MG) PO SCH (05:50)
[2017-02-04 06:53] LABS: BASO % 0.7 % (0.0-1.0); EOS # 0.4 K/mm3 (0.0-0.50); EOS % 5.1 % (0.0-3.0); LARGE UNSTAINED CELL # 0.1 K/mm3 (0.0-0.4); LARGE UNSTAINED CELL % 1.1 % (0.0-4.0); LYMPH # 2.4 K/mm3 (1.5-4.5); LYMPH % 33.2 % (24.0-44.0); MEAN CORPUSCULAR HGB CONC 33.4 g/dl (32.0-36.5); MEAN CORPUSCULAR VOLUME 89.9 fl (80.0-96.0); MONO # 0.3 K/mm3 (0.0-0.8); MONO % 4.6 % (0.0-5.0); NEUTROPHILS # 3.9 K/mm3 (1.8-7.7); NEUTROPHILS % 55.2 % (36.0-66.0); PLATELET COUNT, AUTOMATED 250 k/mm3 (150-450); RED CELL DISTRIBUTION WIDTH 12.4 % (11.5-14.5); WHITE BLOOD COUNT 7.1 K/mm3 (4.0-10.0)
[2017-02-04 07:15] LABS: ALBUMIN 2.5 GM/DL (3.2-5.2); ALBUMIN/GLOBULIN RATIO 0.69 (1.00-1.93); BILIRUBIN,TOTAL 0.3 MG/DL (0.2-1.0); CALCIUM LEVEL 9.8 MG/DL (8.8-10.2); CREATININE FOR GFR 1.19 MG/DL (0.55-1.02); GLOMERULAR FILTRATION RATE 49.3 (>45); POTASSIUM SERUM 4.3 MEQ/L (3.5-5.1); TOTAL PROTEIN 6.1 GM/DL (6.4-8.2)
[2017-02-04] MEDS: IPRATROPIUM 0.5MG/ALBUTEROL 2.5MG INH SOL UD 3ML (DUONEB)(J7620) NEB SCH ×4 (07:49→20:00)
[2017-02-04] MEDS: HumaLOG INSULIN (NovoLOG) PER UNIT SC SCH ×4 (08:45→21:27)
[2017-02-04] MEDS: NICOTINE 21MG/24HR 1 EA TRANSDERMAL TD SCH (08:46)
[2017-02-04] MEDS: NYSTATIN 100,000 UNITS/GM TOPICAL PWD 15 GM TOP SCH ×2 (08:47→21:27)
[2017-02-04] MEDS ORDERED: LEVEMIR (INSULIN DETEMIR) 1 UNITS/0.01ML SC SCH (09:00)
[2017-02-04] MEDS: PERCOCET 5MG/325MG TAB PO PRN (10:34)
[2017-02-04] MEDS ORDERED: LEVEMIR (INSULIN DETEMIR) 1 UNITS/0.01ML SC ONE (10:45)
--- NOTE | 2017-02-04 17:52 | IPN ---
DATE: 02/04/2017 SUBJECTIVE: The patient is seen and examined in the room today. Denies any acute complaint or acute changes. Tolerated oral diet well. OBJECTIVE: VITAL SIGNS: Temperature is 97.2, pulse is 94, respirations 18, blood pressure is 130/73, pulse oximetry is 97% in room air. GENERAL: No sign of acute distress. Alert and oriented times three. HEENT: Normocephalic, atraumatic. Extraocular motor grossly intact. CARDIOVASCULAR: Positive S1, S2. Regular rate. LUNGS: Clear to auscultation bilaterally. ABDOMEN: Soft, nontender, nondistended. Bowel sounds present. EXTREMITIES: No edema. No sign of cyanosis. LABORATORY DATA: WBC is 7.1, hemoglobin 11.4, hematocrit 34.2, platelet count is 250. Sodium is 141, potassium is 4.3, chloride 107, carbon dioxide 26, BUN 16, creatine is 1.19, GFR is 49.3, fasting glucose is 237, calcium is 9.8, total bilirubin is 0.3, AST is 18, ALT is 289, alkaline phosphatase is 83, total protein is 6.1, albumin is 2.5. ASSESSMENT AND PLAN: 1. Uncontrolled diabetes. The patient is resumed on the oral consistent-carbohydrate diet. The patient's Levemir has been adjusted actively. The patient is also covered with sliding scale. Per neurosurgery, he requested the blood sugar level to be down below 200 before the Saturday surgery. The patient does have A1c of 12.3 which makes it difficult to reach good control with limited time, but we have tried the patient on large dose of Levemir and the patient did respond well before with Levemir 70 units twice a day. We will continue adjusting the Levemir regimen. 2. Uncontrolled hypertension. The patient is currently taking 30 mg every six hours. Adjust accordingly. 3. Cervical and lumbar radiculopathy with right-sided L3 nerve compression. Neurosurgery is scheduled for 02/06/2017. 4. Acute pancreatitis. The patient was nothing by mouth. Resolved. No recurrence of the abdominal pain. 5. Chronic obstructive pulmonary disease (COPD). No exacerbation. 6. Hypothyroidism, on Synthroid. 7. Dyslipidemia, on Synthroid. Due to Cardizem, the patient's simvastatin dose was decreased. 8. Chronic alcohol abuse. 9. Tobacco abuse, on nicotine patch. 10. Deep vein thrombosis (DVT) prophylaxis, on heparin.
--- NOTE | 2017-02-04 20:20 | REPUSA ---
CLINICAL HISTORY: Left upper extremity edema COMMENTS: Real time sonography with duplex doppler of the left upper extremity was performed with attention to the major deep venous structures. Non-occlusive superficial clot is noted in the mid to distal cephalic vein. The left internal jugular, basilic, radial and ulnar veins all reveal complete lumen compressibility without intraluminal thrombus. The left subclavian and axillary veins are also clear of thrombus. The re is normal spontaneous phasic flow and augmentation throughout the deep veins. IMPRESSION: No evidence of DVT in the left upper extremity. SVT as above. Thank you for your kind referral of this patient.
[2017-02-04] MEDS: SIMVASTATIN 20 MG TAB PO SCH (21:26)
[2017-02-04] MEDS: LEVEMIR (INSULIN DETEMIR) 1 UNITS/0.01ML SC SCH (21:27)
[2017-02-05 02:00] VITALS: BP 132/67
[2017-02-05 06:00] VITALS: BP_SYST 134; BP_SYST 136; BP_SYST 96; BP_DIAS 60; BP_DIAS 76; BP_DIAS 79
[2017-02-05] MEDS: LEVOTHYROXINE 150MCG TABLET (0.15MG) PO SCH (06:32)
[2017-02-05] MEDS: HEPARIN SOD (PORCINE) 5000 UNITS/ML VIAL SQ SCH ×3 (06:32→21:50)
[2017-02-05 06:34] LABS: BASO # 0.1 K/mm3 (0.0-0.2); BASO % 0.9 % (0.0-1.0); EOS # 0.4 K/mm3 (0.0-0.50); EOS % 4.4 % (0.0-3.0); LARGE UNSTAINED CELL # 0.1 K/mm3 (0.0-0.4); LARGE UNSTAINED CELL % 1.6 % (0.0-4.0); LYMPH # 2.8 K/mm3 (1.5-4.5); LYMPH % 32.2 % (24.0-44.0); MEAN CORPUSCULAR HEMOGLOBIN 30.1 pg (27.0-33.0); MEAN CORPUSCULAR HGB CONC 33.7 g/dl (32.0-36.5); MEAN CORPUSCULAR VOLUME 89.5 fl (80.0-96.0); MONO # 0.4 K/mm3 (0.0-0.8); MONO % 5.3 % (0.0-5.0); NEUTROPHILS # 4.6 K/mm3 (1.8-7.7); NEUTROPHILS % 55.6 % (36.0-66.0); PLATELET COUNT, AUTOMATED 230 k/mm3 (150-450); RED CELL DISTRIBUTION WIDTH 12.4 % (11.5-14.5); WHITE BLOOD COUNT 8.3 K/mm3 (4.0-10.0)
[2017-02-05 07:10] LABS: ALBUMIN 2.5 GM/DL (3.2-5.2); ALBUMIN/GLOBULIN RATIO 0.86 (1.00-1.93); BILIRUBIN,TOTAL 0.2 MG/DL (0.2-1.0); CALCIUM LEVEL 9.4 MG/DL (8.8-10.2); CREATININE FOR GFR 1.5 MG/DL (0.55-1.02); GLOMERULAR FILTRATION RATE 37.7 (>45); POTASSIUM SERUM 4.4 MEQ/L (3.5-5.1); TOTAL PROTEIN 5.4 GM/DL (6.4-8.2)
[2017-02-05] MEDS: IPRATROPIUM 0.5MG/ALBUTEROL 2.5MG INH SOL UD 3ML (DUONEB)(J7620) NEB SCH ×4 (08:00→20:00)
[2017-02-05] MEDS: NICOTINE 21MG/24HR 1 EA TRANSDERMAL TD SCH (08:16)
[2017-02-05] MEDS: HumaLOG INSULIN (NovoLOG) PER UNIT SC SCH ×4 (08:16→21:51)
[2017-02-05] MEDS: LEVEMIR (INSULIN DETEMIR) 1 UNITS/0.01ML SC SCH (08:17)
[2017-02-05] MEDS: NYSTATIN 100,000 UNITS/GM TOPICAL PWD 15 GM TOP SCH ×2 (08:17→21:00)
[2017-02-05] MEDS ORDERED: NS 1,000 ML IV SCH (09:00)
[2017-02-05 10:00] VITALS: BP 140/90
[2017-02-05 14:00] VITALS: BP_SYST 140; BP_SYST 150; BP_DIAS 80; BP_DIAS 88; BP_DIAS 92
[2017-02-05] MEDS ORDERED: LEVEMIR (INSULIN DETEMIR) 1 UNITS/0.01ML SC SCH ×2 (15:00→21:00)
--- NOTE | 2017-02-05 15:43 | IPNPDOC ---
Date Seen The patient was seen on 02/05/17. Progress Note NEUROSURGERY-- Phi Cisse, [facility], dictating on behalf of of Dr. Kelley. Pain control: Satisfactory. Procedure: None. Over 24 hours: Ultrasound of her arm: Negative for DVT. Seen by PT: Performing exercises in bed. SUBJECTIVE Ms. House is a pleasant 61-year-old right-handed female smoker with a history of hypertension, CK D3, COPD, asthma, uncontrolled diabetes type 2, hypothyroidism, and chronic neck and back pain, who has been admitted to the hospital for her chronic neck pain by Dr. Kelley. She offers no new concerns today. She states her son, Kevin, we will be with her at the hospital tomorrow pending surgery. She has been eating well and has been placed on a diabetic diet. LABS: WBC: 8.3 HGB: 11.4, L HCT: 33.9, L Na+: 144 K+: 4.4 Fasting glucose: 286. ASSESSMENT/PLAN: 1. Cervical spine stenosis with myeloradiculopathy. Plan to the OR tomorrow per Dr. Kelley. Discussed with her she needs to be using her incentive spirometry every hour. Continue with diabetic diet. 2. Pain control: Satisfactory with Percocet 5/325 one tab by mouth every 4 hours when necessary mild to moderate pain, and morphine 2 mg IV every 2 hours when necessary for breakthrough pain. [facility] Vital Signs Date Time Temp Pulse Resp B/P (MAP) Pulse Ox O2 Delivery O2 Flow Rate FiO2 02/05/17 09:01 Room Air 02/05/17 06:32 90 134/79 02/05/17 06:00 97.3 18 95 I&O- Last 24 Hours up to 6 AM 02/05/17 06:00 Intake Total 2040 ml Output Total 3100 ml Balance -1060 ml Laboratory Data 24H LABS Laboratory Tests 2 02/04/17 16:35: Bedside Glucose (Misc Panel) 297H 02/04/17 21:07: Bedside Glucose (Misc Panel) 320H 02/05/17 01:42: Bedside Glucose (Misc Panel) 332H 02/05/17 06:11: White Blood Count 8.3, Red Blood Count 3.79L, Hemoglobin 11.4L, Hematocrit 33.9L , Mean Corpuscular Volume 89.5, Mean Corpuscular Hemoglobin 30.1, Mean Corpuscular Hemoglobin Concent 33.7, Red Cell Distribution Width 12.4, Platelet Count 230, Neutrophils (%) (Auto) 55.6, Lymphocytes (%) (Auto) 32.2, Monocytes ( %) (Auto) 5.3H, Eosinophils (%) (Auto) 4.4H, Basophils (%) (Auto) 0.9, Neutrophils # (Auto) 4.6, Lymphocytes # (Auto) 2.8, Monocytes # (Auto) 0.4, Eosinophils # (Auto) 0.4, Basophils # (Auto) 0.1, Large Unclassified Cells % 1.6 , Large Unclassified Cells # 0.1, Anion Gap 10, Glomerular Filtration Rate 37.7L , Blood Urea Nitrogen 24H, Creatinine 1.50H, Sodium Level 144, Potassium Level 4.4, Chloride Level 107, Carbon Dioxide Level 27, Calcium Level 9.4, Aspartate Amino Transf (AST/SGOT) 20, Alanine Aminotransferase (ALT/SGPT) 31, Alkaline Phosphatase 89, Total Bilirubin 0.2, Total Protein 5.4L, Albumin 2.5L, Albumin/ Globulin Ratio 0.86L 02/05/17 07:56: Bedside Glucose (Misc Panel) 225H 02/05/17 11:58: Bedside Glucose (Misc Panel) 297H CBC/BMP Laboratory Tests 02/05/17 06:11 Red Blood Count 3.79 L, Mean Corpuscular Volume 89.5, Mean Corpuscular Hemoglobin 30.1, Mean Corpuscular Hemoglobin Concent 33.7, Red Cell Distribution Width 12.4, Neutrophils (%) (Auto) 55.6, Lymphocytes (%) (Auto) 32.2, Monocytes (%) (Auto) 5.3 H, Eosinophils (%) (Auto) 4.4 H, Basophils (%) ( Auto) 0.9, Neutrophils # (Auto) 4.6, Lymphocytes # (Auto) 2.8, Monocytes # (Auto ) 0.4, Eosinophils # (Auto) 0.4, Basophils # (Auto) 0.1, Calcium Level 9.4, Aspartate Amino Transf (AST/SGOT) 20, Alanine Aminotransferase (ALT/SGPT) 31, Alkaline Phosphatase 89, Total Bilirubin 0.2, Total Protein 5.4 L, Albumin 2.5 L Microbiology Microbiology 01/28/17 MRSA Screen - Final, Complete PHI CISSE PA-C Feb 05, 2017 14:16
[2017-02-05 18:00] VITALS: BP 160/78
--- NOTE | 2017-02-05 18:27 | IPNPDOC ---
Subjective Date Seen The patient was seen on 02/05/17. Subjective Chief Complaint/HPI Patient seen and examined at the bedside this morning. States that she is feeling well and is ready for surgery, denies any acute complaints at this time. Objective Physical Examination General Exam: Positive: Alert, Cooperative, No Acute Distress ENT Exam: Positive: Atraumatic, Mucous membr. moist/pink Neck Exam: Negative: JVD Chest Exam: Positive: Clear to auscultation, Normal air movement Heart Exam: Positive: Rate Normal, Normal S1, Normal S2 Abdomen Exam: Positive: Soft, Negative: Tenderness Extremity Exam: Negative: Tenderness, Swelling Psych Exam: Positive: Oriented x 3 Assessment /Plan Plan/VTE VTE Prophylaxis Ordered?: Yes Plan Uncontrolled diabetes 2/2 Dietary Indiscretion, Medication Non-Adherence HgbA1c of 12.3%--patient states that she hasnt been taking her insulin for 4 months Levemir uptitrated to 80 Units SC BID, additional dose of 10 Units added in the afternoon ISS for additional coverage IVF Hydration ordered Upon visiting the patient's room this morning I did note that the patient was eating 4 pieces of Romansh toast, 3 scrambled eggs, with peters. In addition, syrup was drizzled all over the plate. I did talk to the patient about dietary discretion and the need for her to abstain from high fat, high sugar foods. I also discussed this with the patient's nurse, who will subsequently reach out to the dietary staff to ensure that the patient is indeed getting a diabetic diet. Hypertension, stable Cont Current regimen Cervical and lumbar radiculopathy with right-sided L3 nerve compression. Neurosurgery is scheduled for 02/06/2017. NPO after midnight Acute pancreatitis, resolved Chronic obstructive pulmonary disease (COPD), stable Albuterol as needed Chronic kidney disease, stage III Serum creatinine at baseline after reviewing outpatient records Hypothyroidism Continue on Synthroid. Dyslipidemia Continue statin Chronic alcohol abuse. Tobacco abuse On nicotine patch. Deep vein thrombosis (DVT) prophylaxis On heparin subcutaneously VS, I&O, 24H, Fishbone Vital Signs/I&O Vital Signs Date Time Temp Pulse Resp B/P (MAP) Pulse Ox O2 Delivery O2 Flow Rate FiO2 02/05/17 18:00 97.5 94 20 160/78 (105) 97 02/05/17 10:00 Room Air I&O- Last 24 Hours up to 6 AM 02/05/17 05:59 Intake Total 1680 ml Output Total 3000 ml Balance -1320 ml Laboratory Data 24H LABS Laboratory Tests 2 02/04/17 21:07: Bedside Glucose (Misc Panel) 320H 02/05/17 01:42: Bedside Glucose (Misc Panel) 332H 02/05/17 06:11: White Blood Count 8.3, Red Blood Count 3.79L, Hemoglobin 11.4L, Hematocrit 33.9L , Mean Corpuscular Volume 89.5, Mean Corpuscular Hemoglobin 30.1, Mean Corpuscular Hemoglobin Concent 33.7, Red Cell Distribution Width 12.4, Platelet Count 230, Neutrophils (%) (Auto) 55.6, Lymphocytes (%) (Auto) 32.2, Monocytes ( %) (Auto) 5.3H, Eosinophils (%) (Auto) 4.4H, Basophils (%) (Auto) 0.9, Neutrophils # (Auto) 4.6, Lymphocytes # (Auto) 2.8, Monocytes # (Auto) 0.4, Eosinophils # (Auto) 0.4, Basophils # (Auto) 0.1, Large Unclassified Cells % 1.6 , Large Unclassified Cells # 0.1, Anion Gap 10, Glomerular Filtration Rate 37.7L , Blood Urea Nitrogen 24H, Creatinine 1.50H, Sodium Level 144, Potassium Level 4.4, Chloride Level 107, Carbon Dioxide Level 27, Calcium Level 9.4, Aspartate Amino Transf (AST/SGOT) 20, Alanine Aminotransferase (ALT/SGPT) 31, Alkaline Phosphatase 89, Total Bilirubin 0.2, Total Protein 5.4L, Albumin 2.5L, Albumin/ Globulin Ratio 0.86L 02/05/17 07:56: Bedside Glucose (Misc Panel) 225H 02/05/17 11:58: Bedside Glucose (Misc Panel) 297H 02/05/17 17:01: Bedside Glucose (Misc Panel) 249H CBC/BMP Laboratory Tests 02/05/17 06:11 Red Blood Count 3.79 L, Mean Corpuscular Volume 89.5, Mean Corpuscular Hemoglobin 30.1, Mean Corpuscular Hemoglobin Concent 33.7, Red Cell Distribution Width 12.4, Neutrophils (%) (Auto) 55.6, Lymphocytes (%) (Auto) 32.2, Monocytes (%) (Auto) 5.3 H, Eosinophils (%) (Auto) 4.4 H, Basophils (%) ( Auto) 0.9, Neutrophils # (Auto) 4.6, Lymphocytes # (Auto) 2.8, Monocytes # (Auto ) 0.4, Eosinophils # (Auto) 0.4, Basophils # (Auto) 0.1, Calcium Level 9.4, Aspartate Amino Transf (AST/SGOT) 20, Alanine Aminotransferase (ALT/SGPT) 31, Alkaline Phosphatase 89, Total Bilirubin 0.2, Total Protein 5.4 L, Albumin 2.5 L Microbiology Microbiology 01/28/17 MRSA Screen - Final, Complete BRITTANI CORREIA MD Feb 05, 2017 18:27
[2017-02-05] MEDS: SIMVASTATIN 20 MG TAB PO SCH (21:49)
[2017-02-05 22:00] VITALS: BP_SYST 132; BP_SYST 135; BP_SYST 140; BP_DIAS 75; BP_DIAS 76; BP_DIAS 79
[2017-02-06] VITALS (10 sets, daily range): BP systolic 96–159; BP diastolic 55–85; O2SAT 99–100
[2017-02-06] MEDS ORDERED: NS 1,000 ML IV SCH (00:05)
[2017-02-06] MEDS: LEVOTHYROXINE 150MCG TABLET (0.15MG) PO SCH (05:22)
[2017-02-06] MEDS ORDERED: PROPOFOL 200 MG/20 ML VIAL As Ordered ONE ×5 (06:43→16:26)
[2017-02-06] MEDS ORDERED: ROCURONIUM BROMIDE 50 MG/5 ML VIAL/SYRINGE As Ordered ONE (06:43)
[2017-02-06] MEDS ORDERED: LIDOCAINE 2% INJ 100 MG/5 ML SDV (FOR ANES.) As Ordered ONE (06:43)
[2017-02-06] MEDS ORDERED: ONDANSETRON 4MG/2ML VIAL (J2405) As Ordered ONE (06:43)
[2017-02-06] MEDS ORDERED: REMIFENTANIL 1MG 3ML VIAL As Ordered ONE ×3 (06:43→14:21)
[2017-02-06 06:44] LABS: BASO # 0.1 K/mm3 (0.0-0.2); EOS # 0.4 K/mm3 (0.0-0.50); EOS % 5.2 % (0.0-3.0); LARGE UNSTAINED CELL # 0.2 K/mm3 (0.0-0.4); LARGE UNSTAINED CELL % 1.8 % (0.0-4.0); LYMPH # 2.6 K/mm3 (1.5-4.5); LYMPH % 30.3 % (24.0-44.0); MEAN CORPUSCULAR HEMOGLOBIN 29.9 pg (27.0-33.0); MEAN CORPUSCULAR HGB CONC 33.2 g/dl (32.0-36.5); MEAN CORPUSCULAR VOLUME 90.1 fl (80.0-96.0); MONO # 0.4 K/mm3 (0.0-0.8); MONO % 4.6 % (0.0-5.0); NEUTROPHILS # 4.7 K/mm3 (1.8-7.7); NEUTROPHILS % 57.1 % (36.0-66.0); PLATELET COUNT, AUTOMATED 215 k/mm3 (150-450); RED CELL DISTRIBUTION WIDTH 12.6 % (11.5-14.5); WHITE BLOOD COUNT 8.2 K/mm3 (4.0-10.0)
[2017-02-06] MEDS ORDERED: MIDAZOLAM INJ 2 MG/2 ML VIAL (J2250) As Ordered ONE ×3 (06:44→19:14)
[2017-02-06] MEDS ORDERED: fentaNYL 100 MCG/2 ML INJECTION (J3010) As Ordered ONE ×2 (06:44→09:03)
[2017-02-06 06:55] LABS: ALBUMIN 2.3 GM/DL (3.2-5.2); ALBUMIN/GLOBULIN RATIO 0.72 (1.00-1.93); BILIRUBIN,TOTAL 0.2 MG/DL (0.2-1.0); CALCIUM LEVEL 8.7 MG/DL (8.8-10.2); CREATININE FOR GFR 1.43 MG/DL (0.55-1.02); GLOMERULAR FILTRATION RATE 39.8 (>45); POTASSIUM SERUM 4.5 MEQ/L (3.5-5.1); TOTAL PROTEIN 5.5 GM/DL (6.4-8.2)
[2017-02-06] MEDS ORDERED: BACITRACIN PWD 50,000 UNITS VIAL As Ordered ONE ×2 (07:23→08:37)
[2017-02-06] MEDS ORDERED: THROMBIN SOLN 20,000 UNITS KIT As Ordered ONE (07:23)
[2017-02-06] MEDS ORDERED: TRANEXAMIC ACID 100 MG/ML 10ML VIAL As Ordered ONE (07:23)
[2017-02-06] MEDS ORDERED: HumuLIN R (REGULAR) INSULIN (NovoLIN R) **100U/ML** PER UNIT As Ordered ONE (07:25)
[2017-02-06] MEDS: IPRATROPIUM 0.5MG/ALBUTEROL 2.5MG INH SOL UD 3ML (DUONEB)(J7620) NEB SCH ×5 (07:31→23:32)
[2017-02-06] MEDS ORDERED: KETAMINE HCL 200 MG/20 ML VIAL As Ordered ONE (07:39)
[2017-02-06] MEDS ORDERED: methylPREDNISolone 500 MG VIAL (J2930) As Ordered ONE (08:36)
[2017-02-06] MEDS ORDERED: LIDOCAINE 2% MDV 20 ML VIAL As Ordered ONE (08:37)
[2017-02-06] MEDS ORDERED: VANCOMYCIN 1000 MG/20 ML VIAL (J3370) As Ordered ONE ×2 (09:25→15:36)
[2017-02-06 10:32] LABS: ABG BASE EXCESS -3.7 (-2.0-2.0); ABG PARTIAL PRESSURE CO2 36.7 mmHg (35.0-45.0); ABG STANDARD HCO3 21.4 MEQ/L (22.0-26.0); ABG TOTAL CO2 22.2 MEQ/L (23.0-31.0); ABG pH (ARTERIAL) 7.376 UNITS (7.350-7.450)
[2017-02-06] MEDS ORDERED: PROPOFOL 500 MG/50 ML VIAL As Ordered ONE ×2 (10:36→12:44)
[2017-02-06] MEDS ORDERED: PHENYLephrine HCL 500 MCG/5 ML (100MCG/ML) SYRINGE (J2370) As Ordered ONE (13:00)
[2017-02-06 14:31] LABS: ABG BASE EXCESS -8.8 (-2.0-2.0); ABG DEVICE VENTIMASK; ABG HCO3 18.5 MEQ/L (22.0-26.0); ABG PARTIAL PRESSURE CO2 45.6 mmHg (35.0-45.0); ABG STANDARD HCO3 17.4 MEQ/L (22.0-26.0); ABG TOTAL CO2 19.9 MEQ/L (23.0-31.0)
[2017-02-06 14:35] LABS: ABG pH (ARTERIAL) 7.225 UNITS (7.350-7.450)
[2017-02-06 14:40] LABS: MEAN CORPUSCULAR HEMOGLOBIN 31.7 pg (27.0-33.0); MEAN CORPUSCULAR HGB CONC 33.7 g/dl (32.0-36.5); RED CELL DISTRIBUTION WIDTH 12.7 % (11.5-14.5); WHITE BLOOD COUNT 9.8 K/mm3 (4.0-10.0)
--- NOTE | 2017-02-06 14:45 | IPNPDOC ---
Subjective Date Seen The patient was seen on 02/06/17. Subjective Chief Complaint/HPI Patient seen and examined at the bedside. Denies any acute complaints at this time. Scheduled for the OR this morning. Objective Physical Examination General Exam: Positive: Alert, Cooperative, No Acute Distress ENT Exam: Positive: Atraumatic, Mucous membr. moist/pink Neck Exam: Negative: JVD Chest Exam: Positive: Clear to auscultation, Normal air movement Heart Exam: Positive: Rate Normal, Normal S1, Normal S2 Abdomen Exam: Positive: Soft, Negative: Tenderness Extremity Exam: Negative: Tenderness, Swelling Psych Exam: Positive: Oriented x 3 Assessment /Plan Plan/VTE VTE Prophylaxis Ordered?: Yes Plan Uncontrolled diabetes 2/2 Dietary Indiscretion, Medication Non-Adherence HgbA1c of 12.3%--patient states that she hasnt been taking her insulin for 4 months Levemir uptitrated to 80 Units SC BID, additional dose of 10 Units added in the afternoon ISS for additional coverage IVF Hydration ordered I did talk to the patient about dietary discretion and the need for her to abstain from high fat, high sugar foods. Hypertension, stable Cont Current regimen Cervical and lumbar radiculopathy with right-sided L3 nerve compression. Neurosurgery is scheduled for today We will continue to monitor the patient's progress following surgery Acute pancreatitis, resolved Chronic obstructive pulmonary disease (COPD), stable Albuterol as needed Chronic kidney disease, stage III Serum creatinine at baseline after reviewing outpatient records Hypothyroidism Continue on Synthroid. Dyslipidemia Continue statin Chronic alcohol abuse. Tobacco abuse On nicotine patch. Deep vein thrombosis (DVT) prophylaxis On heparin subcutaneously VS, I&O, 24H, [place] Vital Signs/I&O Vital Signs Date Time Temp Pulse Resp B/P (MAP) Pulse Ox O2 Delivery O2 Flow Rate FiO2 02/06/17 06:00 97.4 83 18 96/55 (69) 98 Room Air I&O- Last 24 Hours up to 6 AM 02/06/17 06:00 Intake Total 1320 ml Output Total 2500 ml Balance -1180 ml Laboratory Data 24H LABS Laboratory Tests 2 02/05/17 17:01: Bedside Glucose (Misc Panel) 249H 02/05/17 21:42: Bedside Glucose (Misc Panel) 264H 02/06/17 01:08: Bedside Glucose (Misc Panel) 205H 02/06/17 06:06: White Blood Count 8.2, Red Blood Count 3.52L, Hemoglobin 10.5L, Hematocrit 31.7L , Mean Corpuscular Volume 90.1, Mean Corpuscular Hemoglobin 29.9, Mean Corpuscular Hemoglobin Concent 33.2, Red Cell Distribution Width 12.6, Platelet Count 215, Neutrophils (%) (Auto) 57.1, Lymphocytes (%) (Auto) 30.3, Monocytes ( %) (Auto) 4.6, Eosinophils (%) (Auto) 5.2H, Basophils (%) (Auto) 1.0, Neutrophils # (Auto) 4.7, Lymphocytes # (Auto) 2.6, Monocytes # (Auto) 0.4, Eosinophils # (Auto) 0.4, Basophils # (Auto) 0.1, Large Unclassified Cells % 1.8 , Large Unclassified Cells # 0.2, Anion Gap 8, Glomerular Filtration Rate 39.8L , Blood Urea Nitrogen 32H, Creatinine 1.43H, Sodium Level 145, Potassium Level 4.5, Chloride Level 112H, Carbon Dioxide Level 25, Calcium Level 8.7L, Aspartate Amino Transf (AST/SGOT) 13L, Alanine Aminotransferase (ALT/SGPT) 24, Alkaline Phosphatase 67, Total Bilirubin 0.2, Total Protein 5.5L, Albumin 2.3L, Albumin/Globulin Ratio 0.72L 02/06/17 10:14: Blood Gas Bicarbonate Standard 21.4L, Arterial Blood pH 7.376, Arterial Blood Partial Pressure CO2 36.7, Arterial Blood Partial Pressure O2 442.0H, Arterial Blood Total CO2 22.2L, Arterial Blood HCO3 21.0L, Arterial Blood Base Excess - 3.7L, Arterial Blood Oxygen Saturation 99.3H, Arterial Blood Gas Liter Flow 98 02/06/17 14:07: 02/06/17 14:16: Blood Gas Bicarbonate Standard 17.4L, Arterial Blood pH 7.225*L, Arterial Blood Partial Pressure CO2 45.6H, Arterial Blood Partial Pressure O2 227.0H, Arterial Blood Total CO2 19.9L, Arterial Blood HCO3 18.5L, Arterial Blood Base Excess - 8.8L, Arterial Blood Oxygen Saturation 99.0, Arterial Blood Gas Liter Flow 51, Oxygen Delivery Device VENTIMASK CBC/BMP Laboratory Tests 02/06/17 06:06 Red Blood Count 3.52 L, Mean Corpuscular Volume 90.1, Mean Corpuscular Hemoglobin 29.9, Mean Corpuscular Hemoglobin Concent 33.2, Red Cell Distribution Width 12.6, Neutrophils (%) (Auto) 57.1, Lymphocytes (%) (Auto) 30.3, Monocytes (%) (Auto) 4.6, Eosinophils (%) (Auto) 5.2 H, Basophils (%) ( Auto) 1.0, Neutrophils # (Auto) 4.7, Lymphocytes # (Auto) 2.6, Monocytes # (Auto ) 0.4, Eosinophils # (Auto) 0.4, Basophils # (Auto) 0.1, Calcium Level 8.7 L, Aspartate Amino Transf (AST/SGOT) 13 L, Alanine Aminotransferase (ALT/SGPT) 24, Alkaline Phosphatase 67, Total Bilirubin 0.2, Total Protein 5.5 L, Albumin 2.3 L 02/06/17 10:15 02/06/17 14:07 Red Blood Count 3.08 L, Mean Corpuscular Volume 94.0, Mean Corpuscular Hemoglobin 31.7, Mean Corpuscular Hemoglobin Concent 33.7, Red Cell Distribution Width 12.7 Microbiology Microbiology 01/28/17 MRSA Screen - Final, Complete BRITTANI CORREIA MD Feb 06, 2017 14:45
[2017-02-06] MEDS ORDERED: HYDROmorphone HCL 2 MG/ML 1ML VIAL (J1170) As Ordered ONE (14:55)
[2017-02-06] MEDS ORDERED: BUPIVACAINE HCL 0.5% 10 ML VIAL As Ordered ONE ×2 (14:58→15:00)
[2017-02-06] MEDS ORDERED: BUPIVACAINE LIPOSOME/PF 1.3% 20 ML VIAL (13.3MG/ML)(EXPAREL) As Ordered ONE (14:58)
[2017-02-06 15:15] LABS: CALCIUM LEVEL 7.2 MG/DL (8.8-10.2); CREATININE FOR GFR 1.27 MG/DL (0.55-1.02); GLOMERULAR FILTRATION RATE 45.7 (>45); POTASSIUM SERUM 4.3 MEQ/L (3.5-5.1)
[2017-02-06] MEDS ORDERED: VANCOMYCIN 1000 MG/20 ML VIAL (J3370) IV ONE (15:35)
[2017-02-06 16:28] LABS: ABG BASE EXCESS -10.6 (-2.0-2.0); ABG HCO3 15.5 MEQ/L (22.0-26.0); ABG PARTIAL PRESSURE CO2 34.9 mmHg (35.0-45.0); ABG STANDARD HCO3 16.1 MEQ/L (22.0-26.0); ABG TOTAL CO2 16.6 MEQ/L (23.0-31.0); ABG pH (ARTERIAL) 7.265 UNITS (7.350-7.450)
--- NOTE | 2017-02-06 17:35 | REP ---
REASON: Status-post spinal fixation. Fluoroscopy time provided Dr. Kelley, 26 seconds. Transpedicular screws through the pillars at multiple levels with affixing rods bilaterally. Signed by Ubaldo Snow DO 02/06/2017 05:46 P
[2017-02-06 17:56] LABS: ABG BASE EXCESS -12.1 (-2.0-2.0); ABG HCO3 13.6 MEQ/L (22.0-26.0); ABG PARTIAL PRESSURE CO2 30.7 mmHg (35.0-45.0); ABG PARTIAL PRESSURE O2 198.3 mmHg (75.0-100.0); ABG STANDARD HCO3 14.9 MEQ/L (22.0-26.0); ABG TOTAL CO2 14.6 MEQ/L (23.0-31.0); ABG pH (ARTERIAL) 7.265 UNITS (7.350-7.450)
[2017-02-06] MEDS ORDERED: ONDANSETRON 4MG/2ML VIAL (J2405) IV PRN (18:15)
[2017-02-06] MEDS ORDERED: KCL 20MEQ in NS 1000ML 1,000 ML IV SCH (18:15)
[2017-02-06] MEDS ORDERED: HumaLOG INSULIN (NovoLOG) PER UNIT SC SCH (19:00)
[2017-02-06] MEDS ORDERED: PROPOFOL 1,000 MG/100 ML VIAL As Ordered ONE (19:35)
[2017-02-06] MEDS ORDERED: ALBUTEROL SULFATE 2.5 MG/0.5 ML INH NEB SOLN NEB PRN (19:45)
[2017-02-06] MEDS: INSULIN IV RATE CHANGE DOCUMENTATION ML/HR XX SCH ×4 (20:15→23:16)
[2017-02-06] MEDS: MORPHINE 2 MG/ML 1ML SYRINGE IV PRN (20:29)
[2017-02-06] MEDS: PROPOFOL 1,000 MG in APPROPRIATE DILUENT 1 EA IV SCH (20:30)
[2017-02-06 21:12] LABS: ABG BASE EXCESS -9.6 (-2.0-2.0); ABG HCO3 15.1 MEQ/L (22.0-26.0); ABG PARTIAL PRESSURE O2 136.9 mmHg (75.0-100.0); ABG STANDARD HCO3 16.7 MEQ/L (22.0-26.0); ABG pH (ARTERIAL) 7.335 UNITS (7.350-7.450)
[2017-02-06 21:19] LABS: MEAN CORPUSCULAR HEMOGLOBIN 30.2 pg (27.0-33.0); MEAN CORPUSCULAR VOLUME 91.5 fl (80.0-96.0); RED CELL DISTRIBUTION WIDTH 13.4 % (11.5-14.5); WHITE BLOOD COUNT 12.9 K/mm3 (4.0-10.0)
[2017-02-06 21:42] LABS: ANION GAP 11 MEQ/L (8-16); BLOOD UREA NITROGEN 26 MG/DL (7-18); CALCIUM LEVEL 7.5 MG/DL (8.8-10.2); CARBON DIOXIDE LEVEL 19 MEQ/L (21-32); CHLORIDE LEVEL 115 MEQ/L (98-107); CREATININE FOR GFR 1.33 MG/DL (0.55-1.02); GLOMERULAR FILTRATION RATE 43.3 (>45); GLUCOSE, FASTING 218 MG/DL (80-110); POTASSIUM SERUM 4.5 MEQ/L (3.5-5.1); SODIUM LEVEL 145 MEQ/L (136-145)
[2017-02-06] MEDS: DOCUSATE SODIUM 100 MG CAP PO SCH (21:42)
[2017-02-06] MEDS: CARISOPRODOL 350 MG TAB PO SCH (22:13)
[2017-02-06] MEDS: CEFUROXIME SODIUM 750 MG in D5W MINI-BAG PLUS 50 ML IV SCH (22:14)
[2017-02-06] MEDS: INSULIN HUMAN REGULAR 100 UNITS in NS 99 ML IV SCH (22:17)
[2017-02-06] MEDS: CHLORHEXIDINE GLUCONATE 0.12 % 15ML UDC (PERIDEX ORAL RINSE) MT SCH (22:18)
[2017-02-06] MEDS: LR 1,000 ML IV SCH (22:19)
[2017-02-07] VITALS (25 sets, daily range): BP systolic 77–142; BP diastolic 46–66; O2SAT 98–99
[2017-02-07] MEDS: PROPOFOL 1,000 MG in APPROPRIATE DILUENT 1 EA IV SCH ×2 (00:23→05:40)
[2017-02-07] MEDS: INSULIN IV RATE CHANGE DOCUMENTATION ML/HR XX SCH ×6 (00:43→20:49)
[2017-02-07] MEDS: MORPHINE 2 MG/ML 1ML SYRINGE IV PRN ×4 (01:00→20:38)
[2017-02-07] MEDS: IPRATROPIUM 0.5MG/ALBUTEROL 2.5MG INH SOL UD 3ML (DUONEB)(J7620) NEB SCH ×5 (03:29→19:57)
[2017-02-07] MEDS: MIDAZOLAM INJ 2 MG/2 ML VIAL (J2250) IV PRN ×2 (04:25→06:59)
[2017-02-07 05:44] LABS: EOS % 0.4 % (0.0-3.0); LARGE UNSTAINED CELL % 0.3 % (0.0-4.0); LYMPH # 0.9 K/mm3 (1.5-4.5); LYMPH % 7.2 % (24.0-44.0); MEAN CORPUSCULAR HEMOGLOBIN 29.8 pg (27.0-33.0); MEAN CORPUSCULAR HGB CONC 32.5 g/dl (32.0-36.5); MEAN CORPUSCULAR VOLUME 91.8 fl (80.0-96.0); MONO # 0.5 K/mm3 (0.0-0.8); MONO % 4.1 % (0.0-5.0); NEUTROPHILS # 11.2 K/mm3 (1.8-7.7); NEUTROPHILS % 88.1 % (36.0-66.0); PLATELET COUNT, AUTOMATED 187 k/mm3 (150-450); RED CELL DISTRIBUTION WIDTH 13.6 % (11.5-14.5); WHITE BLOOD COUNT 12.7 K/mm3 (4.0-10.0)
[2017-02-07 05:54] LABS: ALBUMIN 2.5 GM/DL (3.2-5.2); ALBUMIN/GLOBULIN RATIO 1.19 (1.00-1.93); BILIRUBIN,TOTAL 0.1 MG/DL (0.2-1.0); CALCIUM LEVEL 7.5 MG/DL (8.8-10.2); CREATININE FOR GFR 1.38 MG/DL (0.55-1.02); GLOMERULAR FILTRATION RATE 41.5 (>45); POTASSIUM SERUM 3.8 MEQ/L (3.5-5.1); TOTAL PROTEIN 4.6 GM/DL (6.4-8.2)
[2017-02-07 05:55] LABS: ALBUMIN 2.5 GM/DL (3.2-5.2); ALBUMIN/GLOBULIN RATIO 1.19 (1.00-1.93); BILIRUBIN,TOTAL 0.2 MG/DL (0.2-1.0); CALCIUM LEVEL 7.5 MG/DL (8.8-10.2); CREATININE FOR GFR 1.39 MG/DL (0.55-1.02); GLOMERULAR FILTRATION RATE 41.2 (>45); PHOSPHORUS LEVEL 3.5 MG/DL (2.5-4.9); POTASSIUM SERUM 3.9 MEQ/L (3.5-5.1); TOTAL PROTEIN 4.6 GM/DL (6.4-8.2)
[2017-02-07 06:13] LABS: ABG BASE EXCESS -8.6 (-2.0-2.0); ABG HCO3 16.6 MEQ/L (22.0-26.0); ABG PARTIAL PRESSURE CO2 32.8 mmHg (35.0-45.0); ABG STANDARD HCO3 17.5 MEQ/L (22.0-26.0); ABG TOTAL CO2 17.6 MEQ/L (23.0-31.0); ABG pH (ARTERIAL) 7.321 UNITS (7.350-7.450)
[2017-02-07] MEDS: CEFUROXIME SODIUM 750 MG in D5W MINI-BAG PLUS 50 ML IV SCH ×2 (06:18→13:38)
[2017-02-07] MEDS: DOCUSATE SODIUM 100 MG CAP PO SCH ×2 (08:00→20:29)
[2017-02-07] MEDS: ACETAMINOPHEN TAB 650MG DOSE (2X325MG) PO PRN (08:30)
[2017-02-07] MEDS: CHLORHEXIDINE GLUCONATE 0.12 % 15ML UDC (PERIDEX ORAL RINSE) MT SCH (08:30)
[2017-02-07] MEDS: KCL 10MEQ IN 100ML SWI (KRUN) 10 MEQ in APPROPRIATE DILUENT 1 EA IV SCH ×4 (08:30→09:47)
[2017-02-07] MEDS: PANTOPRAZOLE 40MG INJ (PROTONIX) (C9113) IV SCH (08:30)
[2017-02-07] MEDS: CARISOPRODOL 350 MG TAB PO SCH ×3 (08:37→20:35)
[2017-02-07] MEDS: LR 1,000 ML IV SCH (08:55)
[2017-02-07] MEDS ORDERED: LEVOTHYROXINE 100 MCG (0.1MG) VIAL IV SCH (09:00)
[2017-02-07] MEDS: INSULIN HUMAN REGULAR 100 UNITS in NS 99 ML IV SCH ×3 (09:08→22:22)
[2017-02-07 09:20] LABS: ABG HCO3 15.6 MEQ/L (22.0-26.0); ABG STANDARD HCO3 17.2 MEQ/L (22.0-26.0); ABG TOTAL CO2 16.5 MEQ/L (23.0-31.0); ABG pH (ARTERIAL) 7.348 UNITS (7.350-7.450)
--- NOTE | 2017-02-07 09:40 | REP ---
Portable chest, 08:20 p.m., single AP view, patient sitting: Comparison is 01/28/2017. Lung bello are clear. Cardiac size is normal. The harpal, mediastinum, and bony thorax are unremarkable. There is an endotracheal tube with the tip in satisfactory location in the trachea above the aortic arch above the tracey. There is internal fixation of the cervical spine as an interval change. Signed by Rashel Herman MD 02/07/2017 07:30 A
--- NOTE | 2017-02-07 09:41 | REP ---
Portable chest, 07:04 a.m., 02/07/2017, single AP view: Comparison is 02/06/2017. Lung bello are clear. Cardiac size is normal. There is an endotracheal tube with the tip in satisfactory location, just above the level of the aortic arch. There is a nasogastric tube terminating satisfactorily in the abdominal left upper quadrant. Internal fixation of the cervical spine. Signed by Rashel Herman MD 02/07/2017 07:43 A
[2017-02-07] MEDS ORDERED: ONDANSETRON 4MG/2ML VIAL (J2405) IV ONE (10:00)
[2017-02-07] MEDS: NS 0.45% 1,000 ML IV SCH ×2 (10:43→20:30)
--- NOTE | 2017-02-07 12:14 | REP ---
CT CERVICAL SPINE WITHOUT CONTRAST: HISTORY: Spinal fusion. COMPARISON: 01/28/2017 The patient is status post C3 to T1 posterior spinal fusion and C3 to C6 laminectomy. Metal rods, facet pedicle screws and bone graft material are present. Small scattered collections of air are present at the laminectomy site and in the posterior paravertebral soft tissue. A disc bulge and small right paracentral disc protrusion are present at the C2-3 level. There is minimal narrowing of the spinal canal. Disc bulges with associated osteophyte formation are present at the C3-4 through C5-6 levels. Uncinate process and/or facet hypertrophy are present at the C3-4 through C7-T1 levels. These findings produce minimal to moderate narrowing of the neural foramina. The C3-4 through C6-7 intervertebral discs are decreased in height consistent with disc degeneration. There is no subluxation. Drainage tubing is present in the posterior paravertebral soft tissue. IMPRESSION: 1. The patient is status post C3 to T1 posterior spinal fusion and C3 to C6 laminectomy. There is anatomic alignment of the cervical spine. 2. There is cervical spondylosis at the C2-3 through C7-T1 levels. Signed by Ke Sheppard MD 02/07/2017 12:11 P
[2017-02-07] MEDS ORDERED: IPRATROPIUM 0.5MG/ALBUTEROL 2.5MG INH SOL UD 3ML (DUONEB)(J7620) NEB SCH (13:00)
[2017-02-07] MEDS ORDERED: DEXTROSE 50% 50 ML SYRINGE IV STA (13:02)
[2017-02-07] MEDS ORDERED: DEXTROSE 50% 50 ML SYRINGE As Ordered ONE (13:05)
[2017-02-07] MEDS: ONDANSETRON 4MG/2ML VIAL (J2405) IV SCH ×2 (13:38→20:29)
[2017-02-07] MEDS: NORCO, ANEXSIA 5/325MG TABLET (HYDROcodone/ACETAMINOPHEN) PO PRN (13:38)
--- NOTE | 2017-02-07 15:36 | IPNPDOC ---
Subjective Date Seen The patient was seen on 02/07/17. Subjective Chief Complaint/HPI Patient seen and examined at the bedside. Status post extubation earlier today. She states that she is having difficulty moving her arms post surgery. Objective Physical Examination General Exam: Positive: Alert, Cooperative, No Acute Distress ENT Exam: Positive: Atraumatic, Mucous membr. moist/pink Neck Exam: Negative: JVD Chest Exam: Positive: Clear to auscultation, Normal air movement Heart Exam: Positive: Tachycardic, Normal S1, Normal S2 Telemetry: Positive: Sinus Abdomen Exam: Positive: Soft, Negative: Tenderness Extremity Exam: Positive: Other (Patient only able to give weak hand padder on left hand, stronger padder on right hand. Unable to move either upper extremity. Sensation intact in the right hand and arm. Sensation intact in left hand, diminished in left arm. 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 and C3-C6 laminectomy on 02/06/17 Patient with weakness of the Upper extremities bilaterally following surgery Pain mgmt and DVT prophylaxis as per primary team Acute Respiratory Failure requiring Mechanical Ventilation post-operatively s/p Extubation this AM Pulmonary on board Uncontrolled diabetes 2/2 Dietary Indiscretion, Medication Non-Adherence HgbA1c of 12.3% On Insulin gtt as per primary team Hypertension, stable Acute pancreatitis, resolved Chronic obstructive pulmonary disease (COPD), stable Albuterol as needed Chronic kidney disease, stage III Serum creatinine at baseline Hypothyroidism Continue on IV Synthroid. Dyslipidemia Statin on hold 2/2 NPO status Chronic alcohol abuse. Tobacco abuse GI prophylaxis IV Protonix Deep vein thrombosis (DVT) prophylaxis On TEDs/SCD's--recommend Heparin/Lovenox SC once cleared by NeuroSx VS, I&O, 24H, [place] Vital Signs/I&O Vital Signs Date Time Temp Pulse Resp B/P (MAP) Pulse Ox O2 Delivery O2 Flow Rate FiO2 02/07/17 13:38 20 99 Nasal Cannula 2.0 02/07/17 12:00 96.8 114 129/65 (86) 02/07/17 10:15 40 I&O- Last 24 Hours up to 6 AM 02/07/17 05:59 Intake Total 6695 ml Output Total 2855 ml Balance 3840 ml Laboratory Data 24H LABS Laboratory Tests 2 02/06/17 16:20: Blood Gas Bicarbonate Standard 16.1L, Arterial Blood pH 7.265L, Arterial Blood Partial Pressure CO2 34.9L, Arterial Blood Partial Pressure O2 230.0H, Arterial Blood Total CO2 16.6L, Arterial Blood HCO3 15.5L, Arterial Blood Base Excess - 10.6L, Arterial Blood Oxygen Saturation 99.2H 02/06/17 17:33: Bedside Glucose (Misc Panel) 210H 02/06/17 17:34: Blood Gas Bicarbonate Standard 14.9L, Arterial Blood pH 7.265L, Arterial Blood Partial Pressure CO2 30.7L, Arterial Blood Partial Pressure O2 198.3H, Arterial Blood Total CO2 14.6L, Arterial Blood HCO3 13.6L, Arterial Blood Base Excess - 12.1L, Arterial Blood Oxygen Saturation 98.9 02/06/17 18:30: Lactic Acid Level 4.7*H, Total Creatine Kinase 388H, Creatine Kinase MB 5.3H, Creatine Kinase MB Relative Index 1.36, Troponin I < 0.02 02/06/17 18:33: Bedside Glucose (Misc Panel) 220H 02/06/17 19:57: Bedside Glucose (Misc Panel) 213H 02/06/17 21:04: Blood Gas Bicarbonate Standard 16.7L, Arterial Blood pH 7.335L, Arterial Blood Partial Pressure CO2 29.0L, Arterial Blood Partial Pressure O2 136.9H, Arterial Blood Total CO2 16.0L, Arterial Blood HCO3 15.1L, Arterial Blood Base Excess - 9.6L, Arterial Blood Oxygen Saturation 98.5, Anion Gap 11, Glomerular Filtration Rate 43.3L, Blood Urea Nitrogen 26H, Creatinine 1.33H, Sodium Level 145, Potassium Level 4.5, Chloride Level 115H, Carbon Dioxide Level 19L, Calcium Level 7.5L, Total Creatine Kinase 427H, Creatine Kinase MB 5.9H, Creatine Kinase MB Relative Index 1.38, Troponin I < 0.02 02/06/17 22:16: Bedside Glucose (Misc Panel) 211H 02/06/17 23:14: Bedside Glucose (Misc Panel) 205H 02/07/17 00:40: Bedside Glucose (Misc Panel) 195H 02/07/17 02:31: Bedside Glucose (Misc Panel) 202H 02/07/17 03:09: Bedside Glucose (Misc Panel) 183H 02/07/17 05:10: Bedside Glucose (Misc Panel) 182H 02/07/17 05:20: White Blood Count 12.7H, Red Blood Count 2.98L, Hemoglobin 8.9L, Hematocrit 27.3L, Mean Corpuscular Volume 91.8, Mean Corpuscular Hemoglobin 29.8, Mean Corpuscular Hemoglobin Concent 32.5, Red Cell Distribution Width 13.6, Platelet Count 187, Neutrophils (%) (Auto) 88.1H, Lymphocytes (%) (Auto) 7.2L, Monocytes (%) (Auto) 4.1, Eosinophils (%) (Auto) 0.4, Basophils (%) (Auto) 0.0, Neutrophils # (Auto) 11.2H, Lymphocytes # (Auto) 0.9L, Monocytes # (Auto) 0.5, Eosinophils # (Auto) 0.0, Basophils # (Auto) 0.0, Large Unclassified Cells % 0.3 , Large Unclassified Cells # 0.0, Anion Gap 13, Glomerular Filtration Rate 41.2L , Lactic Acid Level 3.3*H, Blood Urea Nitrogen 27H, Creatinine 1.39H, Sodium Level 146H, Potassium Level 3.9, Chloride Level 116H, Carbon Dioxide Level 17L, Calcium Level 7.5L, Phosphorus Level 3.5, Aspartate Amino Transf (AST/SGOT) 16, Alanine Aminotransferase (ALT/SGPT) 21, Lactate Dehydrogenase 180, Total Creatine Kinase 419H, Alkaline Phosphatase 51, Total Bilirubin 0.2#, Triglycerides Level 389H, Cholesterol Level 145, Total Protein 4.6L, Albumin 2.5L, Creatine Kinase MB 5.7H, Creatine Kinase MB Relative Index 1.38, Troponin I < 0.02, Albumin/Globulin Ratio 1.19 02/07/17 06:03: Blood Gas Bicarbonate Standard 17.5L, Arterial Blood pH 7.321L, Arterial Blood Partial Pressure CO2 32.8L, Arterial Blood Partial Pressure O2 191.0H, Arterial Blood Total CO2 17.6L, Arterial Blood HCO3 16.6L, Arterial Blood Base Excess - 8.6L, Arterial Blood Oxygen Saturation 98.7 02/07/17 06:14: Bedside Glucose (Misc Panel) 137H 02/07/17 07:28: Bedside Glucose (Misc Panel) 116H 02/07/17 08:28: Bedside Glucose (Misc Panel) 115 02/07/17 09:10: Bedside Glucose (Misc Panel) 112 02/07/17 09:11: Blood Gas Bicarbonate Standard 17.2L, Arterial Blood pH 7.348L, Arterial Blood Partial Pressure CO2 29.0L, Arterial Blood Partial Pressure O2 151.0H, Arterial Blood Total CO2 16.5L, Arterial Blood HCO3 15.6L, Arterial Blood Base Excess - 9.0L, Arterial Blood Oxygen Saturation 98.5 02/07/17 10:32: Bedside Glucose (Misc Panel) 95 02/07/17 12:21: Bedside Glucose (Misc Panel) 55L 02/07/17 13:01: Bedside Glucose (Misc Panel) 47L 02/07/17 13:31: Bedside Glucose (Misc Panel) 78L CBC/BMP Laboratory Tests 02/06/17 16:20 02/06/17 21:04 Red Blood Count 3.04 L, Mean Corpuscular Volume 91.5, Mean Corpuscular Hemoglobin 30.2, Mean Corpuscular Hemoglobin Concent 33.0, Red Cell Distribution Width 13.4, Calcium Level 7.5 L, Total Creatine Kinase 427 H 02/07/17 05:20 Red Blood Count 2.98 L, Mean Corpuscular Volume 91.8, Mean Corpuscular Hemoglobin 29.8, Mean Corpuscular Hemoglobin Concent 32.5, Red Cell Distribution Width 13.6, Calcium Level 7.5 L, Total Creatine Kinase 419 H, Neutrophils (%) (Auto) 88.1 H, Lymphocytes (%) (Auto) 7.2 L, Monocytes (%) (Auto ) 4.1, Eosinophils (%) (Auto) 0.4, Basophils (%) (Auto) 0.0, Neutrophils # (Auto ) 11.2 H, Lymphocytes # (Auto) 0.9 L, Monocytes # (Auto) 0.5, Eosinophils # ( Auto) 0.0, Basophils # (Auto) 0.0, Phosphorus Level 3.5, Aspartate Amino Transf (AST/SGOT) 16, Alanine Aminotransferase (ALT/SGPT) 21, Lactate Dehydrogenase 180 , Alkaline Phosphatase 51, Total Bilirubin 0.2 #, Triglycerides Level 389 H, Cholesterol Level 145, Total Protein 4.6 L, Albumin 2.5 L Microbiology Microbiology 01/28/17 MRSA Screen - Final, Complete BRITTANI CORREIA MD Feb 07, 2017 15:35
[2017-02-07] MEDS: LEVOTHYROXINE 100 MCG (0.1MG) VIAL IV SCH (15:50)
--- NOTE | 2017-02-07 16:02 | ROOPDOC ---
[facility] Report Of Operation Report of Operation DATE OF SURGERY: 02/06/2017 SURGEON: Dr. Iraida Kelley [employer] WORKER: PEDRITO Cisse PREOPERATIVE DIAGNOSIS: C3-C7 central canal stenosis, bilateral foraminal stenosis, cervical myeloradiculapatia POSTOPERATIVE DIAGNOSIS: Same PROCEDURE PERFORMED: 1. C3-C7 laminectomies, bilateral foraminotomies with decompression of spinal cord. 2. CT image-guided, computer assisted stereotactic C7-T1 pilot can router hole placement in lateral mases bilaterally and pedicle screws. 3. Intraoperative ultrasound use for spinal cord decompression 4. Electrophysiological monitoring of somatosensory and central motor evoked potentials of upper and lower extremities. 5. Use of auto and allograft. 6. C3-T1 posterior lateral mass instrumentation with screws and rods. 7. C3-T2 posterior-lateral arthrodesis 8. Fluoroscopic guidance for localization. 9. Electrophysiological monitoring of somatosensory and central motor evoked potentials of upper and lower extremities. ANESTHESIA: GETA. ESTIMATED BLOOD LOSS: 650 cc. FINDINGS : Severe canal stenosis; good dural sac re-expantion after decompression confirmed by intraoperative ultrasound DRAINS: JOSE drain x 2 COMPLICATIONS: Dural laceration near C5 root. DISPOSITION: Stable to the PACU. INDICATIONS FOR THE PROCEDURE HISTORY: Ms. House is a 61 y/o female, on disability, presented to my office for evaluation of her low back pain. She used to walk before and her walking skills deteriorated significantly, she used to walk with cane and walker and have multiple episodes of falls. She uses the wall and furniture for transfers. During exam she found to have severe cervical myeloradiculopathy with bilateral arm weakness and positive Rhonda signs. Her C-spine MRI scan showed significant central and bilateral stenosis from C3 to Ct level with most significant at C3-4 through C5-6 with cervical spinal cord myeolomalacia. Due significant finding of C-spine cord compression and gait deficit I urgently requested admission her to the hospital for decompression and fusion of C-spine in order to prevent further deterioration of her extremities and hope to improve gait skills. Given the progression of the symptoms and significant compression of her spinal cord on neuroimaging, the patient decided to proceed with operation, requiring laminectomy and decompression of the C3-C7 and instrumented fusion from C3 to T1. Her PMHx is remarkable for smoking and alcohol abuse, uncontrolled diabetes type 2, hypertension, hyperthyroidism, hypercholesterinemia, COPD. On admission to hospital consult was requested for perioperative risk assessment from Anesthesia. Surgery has been delayed on request of Anesthesia to clear her cardiovascular status due to previous SC. Cardiology cleared patient for surgery after new ECHO study. Hospitalist service has been consulted for medical issues and perioperative hyperglycemia control management. SURGICAL RISKS: The patient and her family were well apprised of all objectives, benefits, risks and potential complications of the procedure, including but not limited to : worsening of current status, the possible need for further procedures, the risk of infection, headaches, CSF leak, possible spinal nerve injury resulting in paralysis, infection, injury to major vessels causing hemorrhage, stroke, loss of language function, coma and even . No assurance was given whether symptoms would improve following the procedure. The surgery is technically difficult procedure and despite the significant discomfort for the patient and the best effort of the physician, the surgery may be unsuccessful or may need to be aborted. Informed consent was obtained and secured in the chart after the patient and family voiced understanding of these risks and decided to proceed with the operation. DESCRIPTION OF THE PROCEDURE The patient was transferred to the operating room. She was given preoperative prophylactic IV antibiotics. ANESTHESIA: The patient was sedated and intubated without difficulty by the anesthesia service. Eyes were taped shut after ointment was applied to prevent corneal abrasion. A Diaz catheter was inserted. POSITIONING: The electrophysiology monitoring team inserted needles in their proper locations and baseline SSEPs and motor-evoked potentials were obtained. At baseline the recording showed no good reading for SSEP, motor potentials and EMG was normal. A Parkinson head clamp was applied. The patient was turned prone on OR table and Parkinson attached to OR table . All pressure points were carefully padded. A Tanisha Hugger was placed over the lower body to maintain control of core body temperature. Repeat electrophysiology testing showed no change in recording after positioning patient on OR table. The hair was clipped over the area where she was to undergo the incision. Pre-prepping was done with alcohol. OPERATIVE TECHNIQUE: The patient was prepped and draped in the standard sterile fashion. The skin was subsequently opened sharply with a # 15 scalpel blade. Further dissection was carried down in the midline until the level of supraspinous ligament utilizing bipolar forceps and PlasmaBlade electrocautery for hemostasis. The muscle was elevated subperiosteally from C3-T2. Hemostasis was achieved. Self-retaining retractors were then inserted. Stereotactic CT scan of C-spine was done prior to the surgery and the images were transferred to the neuronavigational system. Next, three-dimensional images were reconstructed. The patient underwent co-registration of the preoperative stereotactic CT with her surface landmarks by surface matching technique. Accuracy was within 2mm. The neuronavigational probe was utilized to plan pilot can router holes and screws trajectories. Utilizing a high-speed electric drill , pilot can router holes were drilled bilaterally into the lateral masses of C7 and pedicle of T1 using woodpecker technique. All holes were sounded with a blunt feeler probe and were felt to be surrounded by cortical bone. With an ultrasound Bone Scalpel ultrasound bone dissector C3 and C7 laminectomies were performed and bone with ligamentum flavum was removed in 1 piece. Note was made that dural sack was not pulsating. Ultrasound machine was brought to OR and ultrasound probe was drape in sterile fashion. Ultrasound was used to obtain axial imaging of spinal cord confirming anterior compression and spinal cord pulsation. Note was made on small dural tear on left site of dural sac with visible roots. Laceration has been packed with Gealfoam. During attempt to perform foraminotomies significant epidural bleeding has been encountered, which controlled with bipolar coagulation and hemostatic foam soaked in thrombin, but prevent us to proceed with foraminotomies. Animal Pathology Teacher holes in lateral masses of C3,C4, C5,C6 were tapped bilaterally and screws from mycirQle were then screwed and tightened into the pre- drilled holes. Subsequently rods were cut and bent into the cervical curvature. The rods were inserted into the lateral mass screws and were tightened in place with locking nuts from C3, C4, C5, C6, C7, T1 bilaterally. Fluoroscopy confirmed good placement of the screws and rods. Wound was copiously irrigated with warmed saline mixed with antibiotic. Hemostasis was again meticulously achieved utilizing bipolar and electrocautery. Visible cortical bone of the posterolateral masses were decorticated to prepare for better arthrodesis. Bone from resected lamina has been milled and mixed with bone allograft and bone putty and positioned on decorticated surfaces of lateral masses from C3 to T2 posterior-laterally. A JOSE drain was left in place. The muscle was approximated with 0-polyglactin synthetic absorbable suture ( Vicryl) and the fascia closed with 1.0 Stratafix suture. Second JOSE drain left above fascia. The subcutaneous tissue was approximated with 2-0 Stratafix suture. The skin was then approximated with Monocryl suture and wound dressed by Dermabond system. All sponge counts, needle counts and instrument counts were correct at the end of the case times two. The electrophysiological monitoring remained stable from baseline through the end of the procedure, especially no EMG activity recorded during decompression maneuver. Proper screws and rods placement and trajectory were confirmed with intraoperative fluoroscopic x-ray. All were deemed to be acceptable. The patient tolerated the procedure and was transferred in stable condition to the recovery room. IRAIDA KELLEY MD Feb 07, 2017 16:02
--- NOTE | 2017-02-07 17:55 | CCN ---
DATE: 02/07/2017 Ms. House remains critically ill with acute respiratory failure postoperatively. She remained hemodynamically stable overnight. She remains with a metabolic acidemia of uncertain origin, felt possibly secondary to lactic acidosis and hyperchloremic metabolic acidemia. She remains without an anion gap. This morning on her sedation holiday, she is following commands. She can wiggle her toes. She can squeeze weakly with her left hand. Her right hand is in a mitten. She indicates that she feels that she is ready for extubation. She has a strong cough and minimal secretions. OBJECTIVE: GENERAL: Ms. House is lying in bed in no acute distress. She is synchronous with the ventilator. Temperature is 98.4 with a maximum temperature (t-max) of 98.7. Blood pressure 100/56 with a mean arterial pressure of 71 by cuff and 90/55 with a mean arterial pressure of 67 by arterial line. Heart rate 113, respiratory rate 18, SpO2 99% on an FiO2 of 0.4. HEENT: Anicteric. Nares: Patent bilaterally. Moist mucosa. Oropharynx with moist mucosa. Endotracheal tube and orogastric tube in place. NECK: Trachea midline. No stridor. LUNGS: Symmetric excursion. Good air entry. No wheeze, rhonchi or crackle on tidal excursion (anteriorly). Normal I:E. No accessory muscle use or retractions. CARDIOVASCULAR: Tachycardic. Regular rhythm. Normal S1, S2. No murmur, rub or gallop appreciated. ABDOMEN: Positive bowel sounds. Soft but nondistended. She does not seem to indicate tenderness. Unable to appreciate organomegaly secondary to body habitus. EXTREMITIES: Sequential compression device (SCD) and thromboembolic compression stockings (TEDS) in place. Warm and well perfused. Palpable pedal pulses bilaterally. Without clubbing, cyanosis, or edema. LABORATORY DATA: Chemistry showed sodium 146, potassium 3.9, chloride 116, bicarbonate 17, BUN 27 , creatinine 1.4, glucose 162, anion gap 13, calcium 7.5, CK 413, troponin I is less than 0.02, alkaline phosphatase 51, AST 16, ALT 21, albumin 2.5, total protein 4.6, magnesium 3.5, LDH 180, total bilirubin 0.2. I reviewed her chest x-ray, which showed normal appearing cardiac silhouette, pulmonary vascular shadows. Normal appearing mediastinal and hilar regions. No acute infiltrates. ET tube is in appropriate position. Yesterday's input and output were 6350 in and 2980 out making her positive 3370. Included in the input is 1 unit of packed red blood cells. Thus far today, 645 in and 360 out making her positive 285. Weight 101.4 kg. Arterial blood gas: 7.32/33/191 with a measured saturation of 99% and a base excess of -8.6 on an FiO2 of 0.4. Lactic acid level this morning was 3.3. IMPRESSION: 1. Acute respiratory failure postoperatively. 2. Postoperative day #1 status post fusion of C3 through T1. 3. Cervical myelopathy. 4. Diabetes mellitus, on insulin drip. The goal is to maintain reasonable glucose control in the postoperative period without risking hypoglycemia. 5. Probable coronary artery disease. Cardiac enzymes are negative to date. 6. Possible chronic obstructive pulmonary disease (COPD) based on chart. She did have some graphic findings, as well as intermittent abdominal muscle usage on exhalation that suggests that she does have some level of airflow obstruction at baseline. 7. Morbid obesity with concern for possible obstructive sleep apnea. 8. Tobacco usage, ongoing at the time of admission. 9. Deep vein thrombosis (DVT) prophylaxis with sequential compression device (SCD) and thromboembolic compression stockings (TEDS). 10. Stress ulcer prophylaxis with proton pump inhibitor. 11. Nutrition. Currently nothing by mouth. 12. Infectious disease. On cefuroxime. RECOMMENDATIONS: 1. We will assess for possible extubation. 2. Prior to extubation, we want to make certain that we have nasal NIMV mask available if needed. As noted yesterday, I am concerned that she may have sleep apnea and with her weakness would not be able to protect her airway should she experience emesis and therefore I would prefer a nasal mask. 3. If the decision is to extubate her, would place her on scheduled Zofran and also on proton pump inhibitor for GERD prophylaxis to try to minimize the chance of nausea and emesis, particularly as I suspect that she will have pain medication requirement given her recent surgery. 4. As I am concerned that she has a hyperchloremic induced metabolic acidemia as part of her difficulties, we will change her IV fluid to one-half normal saline. 5. We will continue insulin drip for the immediate future using the hyperosmolar hyperglycemic protocol. 6. Metabolic acidemia. I suspect that this is in part secondary to remaining lactic acidosis, as well as hyperchloremic acidosis. 7. I would not transfuse her at this time, however, rather than having her the transfusion the level at which we usually transfuse, less than 7, because of concern regarding possible coronary artery disease, I would likely transfuse if she got below 8. ADDENDUM: Ms. House underwent a weaning trial with a pressure support of 7 and a PEEP of 5. Pressure support of 7 was used because of the 7.0 tube. On this trial, her rapid shallow breathing index was in the 30s, which would predict success. She was able to spontaneously increase her tidal volume to around 900 mL. Arterial blood gas on this trial was 7.35/29/151 with a measured saturation of 98.5% and a base excess of -9.0. It was felt reasonable to have a trial of extubation and she was successfully extubated and she is now resting comfortably on 2 liters via nasal cannula. She still needs to be watched closely given her metabolic acidemia, pain medications and possible obstructive sleep apnea. I would have a low tolerance for intervening with NIMV, preferably by a nasal mask. This has been explained to her and she indicated that she would be willing to try noninvasive mechanical ventilation. Critical care time: 45 minutes, not including procedure time. HEATHER
[2017-02-07] MEDS: SODIUM CHLORIDE 0.9% INJ 10 ML SYR IV SCH (20:32)
[2017-02-07] MEDS: FAMOTIDINE IV BAG 20 MG in APPROPRIATE DILUENT 1 EA IV SCH (20:33)
--- NOTE | 2017-02-07 22:00 | CCN ---
DATE: 02/06/[address] Kelley and anesthesia to emergently evaluate Ms. House for acute respiratory failure postoperatively. Ms. House is a 61-year-old white female with a past medical history significant for poorly controlled diabetes mellitus, hypertension, hypothyroidism, chronic obstructive pulmonary disease (COPD) per chart (I do not know her spirometric values; there is a report of an FVC of 54%, but I do not know if it is an obstructed ratio or restricted ratio), probable coronary artery disease, and ongoing tobacco usage (two packs per day) up until the time of admission, who was admitted to the hospital on January 28 for spinal stenosis of her cervical region with significant cord compression with myelomalacia of the spinal cord with cervical myelopathy contributing to both upper and lower extremity weakness. Today, she underwent a prolonged surgery with fusion of C2-T1. Postoperatively, she had a metabolic acidemia with a worsening negative base excess, and it was not felt safe to extubate her. Currently, she is lying in bed awake and following commands. She can wiggle her toes. She cannot purposely move her hands. OBJECTIVE: PHYSICAL EXAMINATION: GENERAL: Ms. House is lying in bed synchronous with the ventilator. HEENT: Anicteric, Pupils 3-4 mm and sluggish. Nares: Patent bilaterally. Moist mucosa. Oropharynx: Endotracheal (ET) tube (7.0) in place. Unable to assess jugular venous distention (JVD) secondary to body habitus. NECK: She has two Gwyn-Torres (JOSE) drains. LYMPHATIC: Without cervical or supraclavicular lymphadenopathy. LUNGS: Symmetric excursion. Fair air entry. No wheeze, rhonchi, or significant crackle. Prolonged expiratory phase. No accessory muscle usage or retractions. CARDIOVASCULAR: Distant, regular rate and rhythm. Normal S1, S2. Unable to appreciate murmur. ABDOMEN: Markedly diminished bowel sounds. Soft, nondistended. Does not appear to be tender. Cannot appreciate organomegaly or masses secondary to body habitus. EXTREMITIES: Warm and well perfused. Sequential compression devices (SCDs) and thromboembolic deterrents (TEDs) in place. Palpable pedal pulses bilaterally. No gross edema. LABORATORY DATA: Most recent CBC shows a hemoglobin 9.2, hematocrit 27.9, platelet count 189,000, and white blood cell count 12,900. Most recent chemistries show sodium 145, potassium 4.5, chloride 115, bicarbonate 19, anion gap 11, BUN 26, creatinine 1.33, glucose 218, calcium 7.5. CK-MB 5.9 with a troponin I less than 0.02. Her lactic acid drawn postoperatively was 4.7. Her most recent blood gas on assist control with a tidal volume 400, rate of 18, PEEP of 5, and FiO2 of 0.4 was 7.34/29/137 with a measured saturation 99% and a base excess of -9.6. Her worse base excess was at 17:34 at -12.1. I reviewed her chest x-ray postoperatively. It showed normal-appearing cardiac silhouette and pulmonary vascular shadows. Normal-appearing mediastinum. Sharp diaphragms. No acute infiltrates. The endotracheal tube appeared to be at the level of the clavicles. Intake and output for today, including the operating room, was 6300 in and 2580 out, making her by mouth 3720. That included 1 unit of packed red blood cells (PRBC). The out was 1850 of urine, 105 of JOSE, and 625 blood loss. IMPRESSION: 1. Acute respiratory failure postoperatively. 2. Metabolic acidemia. She still has a negative base excess of uncertain origin. I suspect some of this is resolving lactic acidosis, but that does not fully explain all of the changes. She has no anion gap. She is slowly improving. She is has a hyperchloremic metabolic acidosis that may also be contributing. Other possibilities would be secondary to renal insufficiency. 3. Postoperative day 0, status post fusion of C3-T1. 4. Diabetes mellitus, type 2, insulin requiring. 5. Morbid obesity. Her body habitus is concerning for obstructive sleep apnea, and I do not know if that has been evaluated preoperatively. 6. Lower and upper extremity weakness, felt secondary to cervical myelopathy. 7. Deep vein thrombosis (DVT) prophylaxis with SCDs and TEDs. 8. Probable coronary artery disease (CAD). 9. Tobacco usage, ongoing up to the time of admission. 10. Stress ulcer prophylaxis with proton pump inhibitor. 11. Nutrition, nothing by mouth. RECOMMENDATIONS: 1. Given the possible developing hyperchloremic metabolic acidemia, will change to lactated Ringer's. 2. Given the preoperative concern for coronary artery disease, will do cardiac markers every 8 hours times three. 3. Insulin drip. Historically, she has had difficulties with hypoglycemia, possibly because of eating at the same time as on the drip and also receiving subcutaneous and long-acting insulin. Nonetheless, hypoglycemia needs to be avoided. We recognize the importance of glucose control for wound healing but feel we need to be safe, and we will be using the hyperosmolar hyperglycemic protocol. 4. Antibiotics per surgery. 5. We will evaluate her for extubation in the morning; however, I have significant concerns given her pain requirements postoperatively, her limited cervical movement, and, more importantly, her arm weakness in the setting of possible obstructive sleep apnea. I am concerned that if she does have that entity and requires narcotics, that we might not be able to intervene with bilevel or continuous positive airway pressure (CPAP) therapy, as she would not be able to safely remove the mask should she experience emesis. There is an increased risk for nausea and emesis on the narcotics. Depending upon how she clinically does, and if that is an issue, we can speak with the sleep lab to see if there is a nasal appliance that might be applicable that would allow us to safely extubate her and use bilevel therapy if indicated. I spoke with Dr. Soares several times regarding the surgery, including why a 7.0 tube was put in; however, it was put in as per routine operating room (OR) management of a female, and not because of a difficult intubation. I also spoke to Dr. Kelley regarding my concern with extubation and her overall general status. CRITICAL CARE TIME: 115 minutes, not include procedure time. HEATHER
[2017-02-08] VITALS (8 sets, daily range): BP systolic 89–176; BP diastolic 50–82
[2017-02-08] MEDS: ONDANSETRON 4MG/2ML VIAL (J2405) IV SCH ×4 (02:56→21:27)
[2017-02-08] MEDS: MORPHINE 2 MG/ML 1ML SYRINGE IV PRN ×6 (02:57→23:29)
[2017-02-08] MEDS: SODIUM CHLORIDE 0.9% INJ 10 ML SYR IV SCH ×2 (05:14→18:00)
[2017-02-08] MEDS: LEVOTHYROXINE 100 MCG (0.1MG) VIAL IV SCH (05:14)
[2017-02-08] MEDS: NS 0.45% 1,000 ML IV SCH ×2 (05:14→10:21)
[2017-02-08 06:39] LABS: BASO % 0.3 % (0.0-1.0); EOS % 0.3 % (0.0-3.0); LARGE UNSTAINED CELL # 0.1 K/mm3 (0.0-0.4); LARGE UNSTAINED CELL % 0.7 % (0.0-4.0); LYMPH # 1.9 K/mm3 (1.5-4.5); LYMPH % 17.9 % (24.0-44.0); MEAN CORPUSCULAR HEMOGLOBIN 29.3 pg (27.0-33.0); MEAN CORPUSCULAR HGB CONC 31.3 g/dl (32.0-36.5); MEAN CORPUSCULAR VOLUME 93.7 fl (80.0-96.0); MONO # 0.5 K/mm3 (0.0-0.8); MONO % 4.7 % (0.0-5.0); NEUTROPHILS # 8.1 K/mm3 (1.8-7.7); PLATELET COUNT, AUTOMATED 200 k/mm3 (150-450); RED CELL DISTRIBUTION WIDTH 13.6 % (11.5-14.5); WHITE BLOOD COUNT 10.7 K/mm3 (4.0-10.0)
[2017-02-08 06:47] LABS: ALBUMIN 2.4 GM/DL (3.2-5.2); ALBUMIN/GLOBULIN RATIO 0.96 (1.00-1.93); BILIRUBIN,TOTAL 0.2 MG/DL (0.2-1.0); CALCIUM LEVEL 7.3 MG/DL (8.8-10.2); CREATININE FOR GFR 1.2 MG/DL (0.55-1.02); GLOMERULAR FILTRATION RATE 48.8 (>45); POTASSIUM SERUM 4.7 MEQ/L (3.5-5.1); TOTAL PROTEIN 4.9 GM/DL (6.4-8.2)
[2017-02-08] MEDS: IPRATROPIUM 0.5MG/ALBUTEROL 2.5MG INH SOL UD 3ML (DUONEB)(J7620) NEB SCH ×4 (08:01→20:00)
[2017-02-08] MEDS: INSULIN IV RATE CHANGE DOCUMENTATION ML/HR XX SCH (08:28)
[2017-02-08] MEDS: DOCUSATE SOD LIQ 100MG/10ML UDC PO SCH ×2 (08:54→21:00)
[2017-02-08] MEDS: CARISOPRODOL 350 MG TAB PO SCH ×3 (08:54→21:00)
[2017-02-08] MEDS: PANTOPRAZOLE 40MG INJ (PROTONIX) (C9113) IV SCH (08:54)
[2017-02-08] MEDS: diphenhydrAMINE 25 MG CAP PO PRN (08:55)
[2017-02-08] MEDS: HumaLOG INSULIN (NovoLOG) PER UNIT SC SCH ×3 (12:17→21:00)
--- NOTE | 2017-02-08 15:46 | IPNPDOC ---
Subjective Date Seen The patient was seen on 02/08/17. Subjective Chief Complaint/HPI Patient seen and examined at the bedside. States that she is still unable to move her upper extremities very much at all. Denies any complaints of pain at this time. Objective Physical Examination General Exam: Positive: Alert, Cooperative, No Acute Distress ENT Exam: Positive: Atraumatic, Mucous membr. 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 Unable to move either upper extremity. Sensation intact in the right hand and arm. Sensation intact in left hand, diminished in left arm. 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 and C3-C6 laminectomy on 02/06/17 Patient with weakness of the Upper extremities bilaterally following surgery Pain mgmt and DVT prophylaxis as per primary team Acute Respiratory Failure requiring Mechanical Ventilation post-operatively s/p Extubation on 02/07/17 Pulmonary on board Uncontrolled diabetes 2/2 Dietary Indiscretion, Medication Non-Adherence HgbA1c of 12.3% Insulin drip stopped Patient advanced to carb consistent diet Insulin Sliding Scale Hypertension, stable Acute pancreatitis, resolved Chronic obstructive pulmonary disease (COPD), stable Albuterol as needed Chronic kidney disease, stage III Serum creatinine at baseline Hypothyroidism Continue on IV Synthroid. Dyslipidemia Cont Statin Chronic alcohol abuse. Tobacco abuse GI prophylaxis IV Protonix Deep vein thrombosis (DVT) prophylaxis On TEDs/SCD's--recommend Heparin/Lovenox SC once cleared by [facility] VS, I&O, 24H, [place] Vital Signs/I&O Vital Signs Date Time Temp Pulse Resp B/P (MAP) Pulse Ox O2 Delivery O2 Flow Rate FiO2 02/08/17 14:00 97.7 103 16 89/50 (63) 94 Room Air 02/07/17 16:00 40 02/07/17 13:38 2.0 I&O- Last 24 Hours up to 6 AM 02/08/17 06:00 Intake Total 2639 ml Output Total 3030 ml Balance -391 ml Laboratory Data 24H LABS Laboratory Tests 2 02/07/17 16:21: Bedside Glucose (Misc Panel) 118H 02/07/17 16:28: Total Creatine Kinase 437H, Creatine Kinase MB 7.2H, Creatine Kinase MB Relative Index 1.64, Troponin I 0.10# 02/07/17 20:41: Bedside Glucose (Misc Panel) 131H 02/07/17 22:19: Bedside Glucose (Misc Panel) 104 02/07/17 23:49: Bedside Glucose (Misc Panel) 51L 02/08/17 00:22: Bedside Glucose (Misc Panel) 59L 02/08/17 01:05: Bedside Glucose (Misc Panel) 81 02/08/17 05:12: Bedside Glucose (Misc Panel) 120H 02/08/17 06:16: White Blood Count 10.7H, Red Blood Count 2.88L, Hemoglobin 8.4L, Hematocrit 27.0L, Mean Corpuscular Volume 93.7, Mean Corpuscular Hemoglobin 29.3, Mean Corpuscular Hemoglobin Concent 31.3L, Red Cell Distribution Width 13.6, Platelet Count 200, Neutrophils (%) (Auto) 76.0H, Lymphocytes (%) (Auto) 17.9L, Monocytes (%) (Auto) 4.7, Eosinophils (%) (Auto) 0.3, Basophils (%) (Auto) 0.3, Neutrophils # (Auto) 8.1H, Lymphocytes # (Auto) 1.9, Monocytes # (Auto) 0.5, Eosinophils # (Auto) 0.0, Basophils # (Auto) 0.0, Large Unclassified Cells % 0.7 , Large Unclassified Cells # 0.1, Anion Gap 9, Glomerular Filtration Rate 48.8, Blood Urea Nitrogen 27H, Creatinine 1.20H, Sodium Level 147H, Potassium Level 4.7#, Chloride Level 117H, Carbon Dioxide Level 21, Calcium Level 7.3L, Aspartate Amino Transf (AST/SGOT) 17, Alanine Aminotransferase (ALT/SGPT) 22, Alkaline Phosphatase 66, Total Bilirubin 0.2, Total Protein 4.9L, Albumin 2.4L, Albumin/Globulin Ratio 0.96L 02/08/17 07:30: Bedside Glucose (Misc Panel) 128H 02/08/17 08:18: Bedside Glucose (Misc Panel) 138H 02/08/17 11:40: Bedside Glucose (Misc Panel) 113 CBC/BMP Laboratory Tests 02/08/17 06:16 Red Blood Count 2.88 L, Mean Corpuscular Volume 93.7, Mean Corpuscular Hemoglobin 29.3, Mean Corpuscular Hemoglobin Concent 31.3 L, Red Cell Distribution Width 13.6, Neutrophils (%) (Auto) 76.0 H, Lymphocytes (%) (Auto) 17.9 L, Monocytes (%) (Auto) 4.7, Eosinophils (%) (Auto) 0.3, Basophils (%) ( Auto) 0.3, Neutrophils # (Auto) 8.1 H, Lymphocytes # (Auto) 1.9, Monocytes # ( Auto) 0.5, Eosinophils # (Auto) 0.0, Basophils # (Auto) 0.0, Calcium Level 7.3 L , Aspartate Amino Transf (AST/SGOT) 17, Alanine Aminotransferase (ALT/SGPT) 22, Alkaline Phosphatase 66, Total Bilirubin 0.2, Total Protein 4.9 L, Albumin 2.4 L BRITTANI CORREIA MD Feb 08, 2017 15:46
--- NOTE | 2017-02-08 17:05 | REP ---
Procedure: PICC line insertion with Site-Ritjeannette The procedure was performed under the direct supervision of Dr. Coulter. The risks and benefits of the procedure were explained to the patient and informed consent was obtained. The procedure was performed in the ICU at the bedside. The right basilic vein was localized using ultrasound guidance. The skin was prepped and draped in a sterile fashion. 2% lidocaine was used as a local anesthetic. Using ultrasound guidance the basilic vein was cannulated and a 0.018 guidewire was inserted. The needle was removed and a 5.5 [place] dilator and peel-away sheath was inserted over the guide wire. A 5.5 [place] dual lumen catheter was cut to length of 42 cm. The dilator was removed and the catheter was inserted over the guide. A portable chest x-ray was performed and a image demonstrates the tip of the catheter to be in the SVC. The peel-away sheath was removed and the catheter was flushed with heparinized saline as per Hospital protocol. The catheter was affixed to the skin and a sterile dressing was applied. The the patient tolerated the procedure well and there were no immediate complications. Reviewed by GAYE Gilliland 02/07/2017 04:59 PSigned by Rashel Coulter MD 02/08/2017 04:56 P
--- NOTE | 2017-02-08 17:07 | REP ---
MRI CERVICAL SPINE WITHOUT CONTRAST: HISTORY: Central cord syndrome. COMPARISON: CT 02/07/2017 The patient is status post C3 to T1 posterior spinal fusion and C3 to C6 laminectomy. Metal rods, facet and pedicle screws are present. The spinal canal and neural foramina are very poorly seen secondary to metal artifact. There is no definite spinal cord compression. Normal signal intensity is present in the cervical vertebral bodies. There is no subluxation. A fluid collection is present in the posterior subcutaneous tissue. The fluid collection measures 5.7 cm in transverse x 4.2 cm in AP x 5.4 cm in cephalocaudal dimensions. The fluid collection extends from the C5-6 level inferior to the T12 level. IMPRESSION: Very limited examination demonstrating the patient to be status post C3 to C7 posterior spinal fusion. There is no subluxation. Signed by Ke Sheppard MD 02/18/2017 08:41 A
--- NOTE | 2017-02-08 17:14 | PMRNOTEPD ---
PMR Note Patient is a 61-year-old white female status post's laminectomy and cervical decompression who is now noting less function on the upper extremities in the postoperative period from yesterday's surgery. She notes her neck hurting having just been to MRI and having had the computer systems technician positioning her for the scan. However patient expresses what seems to be some frustration and flattening of mood. Patient is only showing 0-1 in shoulder movements on directed exam with 0-1 left elbow movements and 1-2 left wrist and finger flexors and extensor versus 2 out of 5 right wrist and finger flexors and extensors and 1 out of 5 right bicep. On not directed movement of the right upper extremity there is 3 minus elbow flexion 3 out 5 wrist extension and flexion with 3 minus out of 5 finger flexion and extension. On sensorium on the right, patient notes sensation in C5, C8 and T1 on the left and C5, C7 and T1. Lower extremities patient is showing motor control. While the overall pattern is suggestive of a central cord syndrome this hit and miss sensorimotor pattern is unlike the many central cord syndrome patient team before. I do feel patient should proceed with physical and occupational therapy and functional electrical stimulation should be used to try and help neuromuscularly facilitate motor function in both upper extremities. Because of the unusual presentation with basically no DTRs on the left and virtually none on the right and patient's prior disability and psychological history, I feel consideration for the possibility of Munchausen's syndrome needs to be keep inside the differential diagnosis though this is likely to be a central cord syndrome related to hyperperfusion injury. Certainly with the stress of the current level of impairment and the surgery psychiatric assessment seems appropriate. I will plan to try to see the patient again early next week. AMANDEEP BERRIOS MD Feb 08, 2017 17:14
[2017-02-08] MEDS ORDERED: CALCIUM GLUCONATE 1,000 MG in D5W MINI-BAG PLUS 100 ML IV ONE (17:30)
[2017-02-08] MEDS: NICOTINE 14 MG/24 HR TRANSDERMAL TD SCH (21:28)
[2017-02-08] MEDS: FAMOTIDINE IV BAG 20 MG in APPROPRIATE DILUENT 1 EA IV SCH (21:28)
[2017-02-09] MEDS: ONDANSETRON 4MG/2ML VIAL (J2405) IV SCH ×4 (03:23→21:49)
[2017-02-09] MEDS: MORPHINE 2 MG/ML 1ML SYRINGE IV PRN ×5 (03:23→21:59)
[2017-02-09] MEDS: NS 0.45% 1,000 ML IV SCH ×3 (03:23→21:59)
[2017-02-09 06:00] VITALS: BP 166/77
[2017-02-09] MEDS: SODIUM CHLORIDE 0.9% INJ 10 ML SYR IV SCH ×2 (06:00→18:01)
[2017-02-09] MEDS: LEVOTHYROXINE 100 MCG (0.1MG) VIAL IV SCH (06:24)
[2017-02-09 07:14] LABS: BASO % 0.5 % (0.0-1.0); EOS # 0.1 K/mm3 (0.0-0.50); EOS % 1.3 % (0.0-3.0); LARGE UNSTAINED CELL # 0.1 K/mm3 (0.0-0.4); LARGE UNSTAINED CELL % 0.8 % (0.0-4.0); LYMPH % 20.1 % (24.0-44.0); MEAN CORPUSCULAR HEMOGLOBIN 29.8 pg (27.0-33.0); MEAN CORPUSCULAR VOLUME 93.1 fl (80.0-96.0); MONO # 0.5 K/mm3 (0.0-0.8); NEUTROPHILS # 7.1 K/mm3 (1.8-7.7); NEUTROPHILS % 72.3 % (36.0-66.0); PLATELET COUNT, AUTOMATED 208 k/mm3 (150-450); RED CELL DISTRIBUTION WIDTH 13.4 % (11.5-14.5); WHITE BLOOD COUNT 9.8 K/mm3 (4.0-10.0)
[2017-02-09 07:33] LABS: ALBUMIN 2.3 GM/DL (3.2-5.2); ALBUMIN/GLOBULIN RATIO 0.85 (1.00-1.93); BILIRUBIN,TOTAL 0.2 MG/DL (0.2-1.0); CALCIUM LEVEL 8.1 MG/DL (8.8-10.2); CREATININE FOR GFR 1.01 MG/DL (0.55-1.02); GLOMERULAR FILTRATION RATE 59.5 (>45); POTASSIUM SERUM 4.2 MEQ/L (3.5-5.1)
[2017-02-09] MEDS: IPRATROPIUM 0.5MG/ALBUTEROL 2.5MG INH SOL UD 3ML (DUONEB)(J7620) NEB SCH ×4 (07:47→20:00)
[2017-02-09] MEDS ORDERED: CALCIUM/VITAMIN D 500 MG TAB PO SCH (09:00)
[2017-02-09] MEDS: DOCUSATE SOD LIQ 100MG/10ML UDC PO SCH ×2 (09:00→09:32)
[2017-02-09] MEDS: PANTOPRAZOLE 40MG INJ (PROTONIX) (C9113) IV SCH (09:32)
[2017-02-09] MEDS: NICOTINE 14 MG/24 HR TRANSDERMAL TD SCH (09:32)
[2017-02-09] MEDS: CARISOPRODOL 350 MG TAB PO SCH ×3 (09:33→21:50)
[2017-02-09] MEDS: HumaLOG INSULIN (NovoLOG) PER UNIT SC SCH ×4 (09:33→21:59)
[2017-02-09] MEDS: SIMVASTATIN 40 MG TAB PO SCH (09:33)
--- NOTE | 2017-02-09 13:51 | IPNPDOC ---
Subjective Date Seen The patient was seen on 02/09/17. Subjective Chief Complaint/HPI Patient seen and examined at the bedside this morning. States that she is still unable to move her upper extremities much. Objective Physical Examination General Exam: Positive: Alert, Cooperative, No Acute Distress ENT Exam: Positive: Atraumatic, Mucous membr. 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 Unable to move either upper extremity. Sensation intact in the right hand and arm. Sensation intact in left hand, diminished in left arm. 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 and C3-C6 laminectomy on 02/06/17 Patient with weakness of the Upper extremities bilaterally following surgery Pain mgmt and DVT prophylaxis as per primary team Acute Respiratory Failure requiring Mechanical Ventilation post-operatively s/p Extubation on 02/07/17 Pulmonary on board Uncontrolled diabetes 2/2 Dietary Indiscretion, Medication Non-Adherence HgbA1c of 12.3% Insulin drip stopped Patient advanced to carb consistent diet Insulin Sliding Scale Protein Calorie Malnutrition Serum Albumin level noted to be 2.3 Prealbumin level ordered The patient's nutrition status is of concern at this time especially given her inability to use her arms/hands due to weakness following surgery. The patient will need assistance from the nursing staff for feeding, and this has been encouraged Ensure 3 times a day has been ordered Dietary consult placed There has been a suggestion of possible TPN feeding for the patient, however, given the patient's viable gut--I am reluctant to start this, given the increased risk of infection. Would recommend encouraging by mouth feeding with assistance of nursing staff, with added supplements such as ensure, and further recommendations from dietary. Can consider NG tube feeding in the future if the patient is still in need of more consistent nutrition Hypertension, stable Acute pancreatitis, resolved Chronic obstructive pulmonary disease (COPD), stable Albuterol as needed Chronic kidney disease, stage III Serum creatinine at baseline Hypothyroidism Continue on Synthroid. Dyslipidemia Cont Statin Chronic alcohol abuse. Tobacco abuse GI prophylaxis Protonix Deep vein thrombosis (DVT) prophylaxis Heparin SC VS, I&O, 24H, Fishbone Vital Signs/I&O Vital Signs Date Time Temp Pulse Resp B/P (MAP) Pulse Ox O2 Delivery O2 Flow Rate FiO2 02/09/17 11:52 18 02/09/17 06:00 96.7 104 166/77 (106) 93 Room Air 02/07/17 16:00 40 02/07/17 13:38 2.0 I&O- Last 24 Hours up to 6 AM 02/09/17 05:59 Intake Total 1503 ml Output Total 3707 ml Balance -2204 ml Laboratory Data 24H LABS Laboratory Tests 2 02/08/17 20:54: Bedside Glucose (Misc Panel) 157H 02/09/17 06:35: White Blood Count 9.8, Red Blood Count 3.00L, Hemoglobin 9.0L, Hematocrit 28.0L , Mean Corpuscular Volume 93.1, Mean Corpuscular Hemoglobin 29.8, Mean Corpuscular Hemoglobin Concent 32.0, Red Cell Distribution Width 13.4, Platelet Count 208, Neutrophils (%) (Auto) 72.3H, Lymphocytes (%) (Auto) 20.1L, Monocytes (%) (Auto) 5.0, Eosinophils (%) (Auto) 1.3, Basophils (%) (Auto) 0.5, Neutrophils # (Auto) 7.1, Lymphocytes # (Auto) 2.0, Monocytes # (Auto) 0.5, Eosinophils # (Auto) 0.1, Basophils # (Auto) 0.0, Large Unclassified Cells % 0.8 , Large Unclassified Cells # 0.1, Anion Gap 9, Glomerular Filtration Rate 59.5, Blood Urea Nitrogen 23H, Creatinine 1.01, Sodium Level 144, Potassium Level 4.2 , Chloride Level 112H, Carbon Dioxide Level 23, Calcium Level 8.1L, Aspartate Amino Transf (AST/SGOT) 10L, Alanine Aminotransferase (ALT/SGPT) 19, Alkaline Phosphatase 77, Total Bilirubin 0.2, Total Protein 5.0L, Albumin 2.3L, Albumin/ Globulin Ratio 0.85L 02/09/17 11:32: Bedside Glucose (Misc Panel) 178H CBC/BMP Laboratory Tests 02/09/17 06:35 Red Blood Count 3.00 L, Mean Corpuscular Volume 93.1, Mean Corpuscular Hemoglobin 29.8, Mean Corpuscular Hemoglobin Concent 32.0, Red Cell Distribution Width 13.4, Neutrophils (%) (Auto) 72.3 H, Lymphocytes (%) (Auto) 20.1 L, Monocytes (%) (Auto) 5.0, Eosinophils (%) (Auto) 1.3, Basophils (%) ( Auto) 0.5, Neutrophils # (Auto) 7.1, Lymphocytes # (Auto) 2.0, Monocytes # (Auto ) 0.5, Eosinophils # (Auto) 0.1, Basophils # (Auto) 0.0, Calcium Level 8.1 L, Aspartate Amino Transf (AST/SGOT) 10 L, Alanine Aminotransferase (ALT/SGPT) 19, Alkaline Phosphatase 77, Total Bilirubin 0.2, Total Protein 5.0 L, Albumin 2.3 L BRITTANI CORREIA MD Feb 09, 2017 13:51
[2017-02-09] MEDS: diphenhydrAMINE 25 MG CAP PO PRN (18:00)
[2017-02-09] MEDS ORDERED: HEPARIN SOD (PORCINE) 5000 UNITS/ML VIAL SQ SCH (21:00)
[2017-02-09] MEDS: FAMOTIDINE IV BAG 20 MG in APPROPRIATE DILUENT 1 EA IV SCH (21:50)
[2017-02-09 22:00] VITALS: BP 124/58
[2017-02-09] MEDS: NORCO, ANEXSIA 5/325MG TABLET (HYDROcodone/ACETAMINOPHEN) PO PRN (22:29)
[2017-02-09 22:55] VITALS: BP 124/58
[2017-02-10] MEDS: MORPHINE 2 MG/ML 1ML SYRINGE IV PRN ×4 (02:06→18:21)
[2017-02-10] MEDS: ONDANSETRON 4MG/2ML VIAL (J2405) IV SCH ×4 (02:06→19:50)
[2017-02-10 06:00] VITALS: BP 133/64
[2017-02-10] MEDS: LEVOTHYROXINE 150MCG TABLET (0.15MG) PO SCH (06:21)
[2017-02-10] MEDS: SODIUM CHLORIDE 0.9% INJ 10 ML SYR IV SCH ×2 (06:22→18:20)
[2017-02-10] MEDS: diphenhydrAMINE 25 MG CAP PO PRN (06:31)
[2017-02-10] MEDS: NORCO, ANEXSIA 5/325MG TABLET (HYDROcodone/ACETAMINOPHEN) PO PRN ×2 (06:31→22:00)
[2017-02-10] MEDS: IPRATROPIUM 0.5MG/ALBUTEROL 2.5MG INH SOL UD 3ML (DUONEB)(J7620) NEB SCH ×4 (07:45→19:33)
[2017-02-10 08:33] LABS: MEAN CORPUSCULAR HEMOGLOBIN 29.1 pg (27.0-33.0); MEAN CORPUSCULAR HGB CONC 31.5 g/dl (32.0-36.5); MEAN CORPUSCULAR VOLUME 92.5 fl (80.0-96.0); RED CELL DISTRIBUTION WIDTH 12.9 % (11.5-14.5); WHITE BLOOD COUNT 8.7 K/mm3 (4.0-10.0)
[2017-02-10 08:57] LABS: CALCIUM LEVEL 7.9 MG/DL (8.8-10.2); CREATININE FOR GFR 1.21 MG/DL (0.55-1.02); GLOMERULAR FILTRATION RATE 48.3 (>45); POTASSIUM SERUM 4.7 MEQ/L (3.5-5.1)
[2017-02-10] MEDS: CARISOPRODOL 350 MG TAB PO SCH ×3 (10:43→22:01)
[2017-02-10] MEDS: PANTOPRAZOLE 40MG TAB (PROTONIX) PO SCH (10:43)
[2017-02-10] MEDS: ACETAMINOPHEN 325 MG/10.15 ML UDC PO SCH ×4 (10:43→23:00)
[2017-02-10] MEDS: NICOTINE 14 MG/24 HR TRANSDERMAL TD SCH (10:44)
[2017-02-10] MEDS: SIMVASTATIN 40 MG TAB PO SCH (10:44)
[2017-02-10] MEDS: HumaLOG INSULIN (NovoLOG) PER UNIT SC SCH ×4 (10:45→21:00)
[2017-02-10] MEDS: NS 0.45% 1,000 ML IV SCH ×2 (10:45→18:22)
[2017-02-10 14:00] VITALS: BP 171/81
--- NOTE | 2017-02-10 14:55 | IPNPDOC ---
Subjective Date Seen The patient was seen on 02/10/17. Subjective Chief Complaint/HPI Patient seen and examined at the bedside this morning. She is in relatively good spirits as she is being fed her breakfast by our house staff. However, she notes that she still has significant limitations in her upper extremities, with no improvement since her surgery. Objective Physical Examination General Exam: Positive: Alert, Cooperative, No Acute Distress ENT Exam: Positive: Atraumatic, Mucous membr. 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 Unable to move either upper extremity. Sensation intact in the right hand and arm. Sensation intact in left hand, diminished in left arm. 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 and C3-C6 laminectomy on 02/06/17 Patient with weakness of the Upper extremities bilaterally following surgery Pain mgmt and DVT prophylaxis as per primary team Acute Respiratory Failure requiring Mechanical Ventilation post-operatively s/p Extubation on 02/07/17 Pulmonary on board Uncontrolled diabetes 2/2 Dietary Indiscretion, Medication Non-Adherence HgbA1c of 12.3% Carb consistent diet Insulin Sliding Scale Protein Calorie Malnutrition Serum Albumin level noted to be 2.3 Prealbumin level noted to 18.9 The patient's nutrition status is of concern at this time especially given her inability to use her arms/hands due to weakness following surgery. The patient will need assistance from the nursing staff for feeding, and this has been encouraged Ensure 3 times a day has been ordered Dietary consult placed There has been a suggestion of possible TPN feeding for the patient, however, given the patient's viable gut--I am reluctant to start this, given the increased risk of infection. Would recommend encouraging by mouth feeding with assistance of nursing staff, with added supplements such as ensure, and further recommendations from dietary. Can consider NG tube feeding in the future if the patient is still in need of more consistent nutrition Hypertension, stable Acute pancreatitis, resolved Chronic obstructive pulmonary disease (COPD), stable Albuterol as needed Chronic kidney disease, stage III Serum creatinine at baseline Hypothyroidism Continue on Synthroid. Dyslipidemia Cont Statin Chronic alcohol abuse. Tobacco abuse GI prophylaxis Protonix Deep vein thrombosis (DVT) prophylaxis Heparin SC VS, I&O, 24H, Fishbone Vital Signs/I&O Vital Signs Date Time Temp Pulse Resp B/P (MAP) Pulse Ox O2 Delivery O2 Flow Rate FiO2 02/10/17 11:15 18 02/10/17 06:00 97.6 92 133/64 (87) 90 Room Air 02/07/17 16:00 40 02/07/17 13:38 2.0 I&O- Last 24 Hours up to 6 AM 02/10/17 06:00 Intake Total 1220 ml Output Total 775 ml Balance 445 ml Laboratory Data 24H LABS Laboratory Tests 2 02/09/17 17:18: Bedside Glucose (Misc Panel) 154H 02/09/17 20:19: Bedside Glucose (Misc Panel) 206H 02/10/17 05:53: Bedside Glucose (Misc Panel) 235H 02/10/17 08:23: Anion Gap 9, Glomerular Filtration Rate 48.3, Blood Urea Nitrogen 27H, Creatinine 1.21H, Sodium Level 140, Potassium Level 4.7, Chloride Level 112H, Carbon Dioxide Level 19L, Calcium Level 7.9L 02/10/17 11:56: Bedside Glucose (Misc Panel) 232H CBC/BMP Laboratory Tests 02/10/17 08:23 Red Blood Count 3.02 L, Mean Corpuscular Volume 92.5, Mean Corpuscular Hemoglobin 29.1, Mean Corpuscular Hemoglobin Concent 31.5 L, Red Cell Distribution Width 12.9, Calcium Level 7.9 L BRITTANI CORREIA MD Feb 10, 2017 14:55
[2017-02-10] MEDS: HEPARIN SOD (PORCINE) 5000 UNITS/ML VIAL SQ SCH ×2 (15:46→22:00)
[2017-02-10 22:00] VITALS: BP 142/64
[2017-02-10] MEDS: FAMOTIDINE IV BAG 20 MG in APPROPRIATE DILUENT 1 EA IV SCH (22:01)
[2017-02-11] MEDS: MORPHINE 2 MG/ML 1ML SYRINGE IV PRN ×2 (01:39→20:19)
[2017-02-11] MEDS: ACETAMINOPHEN 325 MG/10.15 ML UDC PO SCH ×6 (02:17→23:26)
[2017-02-11] MEDS: ONDANSETRON 4MG/2ML VIAL (J2405) IV SCH ×4 (02:17→20:19)
[2017-02-11 06:00] VITALS: BP 154/72
[2017-02-11] MEDS: SODIUM CHLORIDE 0.9% INJ 10 ML SYR IV SCH ×2 (06:00→17:31)
[2017-02-11] MEDS: LEVOTHYROXINE 150MCG TABLET (0.15MG) PO SCH (06:24)
[2017-02-11] MEDS: HEPARIN SOD (PORCINE) 5000 UNITS/ML VIAL SQ SCH ×3 (06:24→20:19)
[2017-02-11 07:07] LABS: MEAN CORPUSCULAR HEMOGLOBIN 30.4 pg (27.0-33.0); MEAN CORPUSCULAR HGB CONC 33.1 g/dl (32.0-36.5); MEAN CORPUSCULAR VOLUME 91.9 fl (80.0-96.0); RED CELL DISTRIBUTION WIDTH 13.1 % (11.5-14.5); WHITE BLOOD COUNT 7.6 K/mm3 (4.0-10.0)
[2017-02-11 07:30] LABS: ALBUMIN/GLOBULIN RATIO 0.71 (1.00-1.93); BILIRUBIN,TOTAL 0.2 MG/DL (0.2-1.0); CALCIUM LEVEL 7.7 MG/DL (8.8-10.2); CREATININE FOR GFR 1.23 MG/DL (0.55-1.02); GLOMERULAR FILTRATION RATE 47.4 (>45); TOTAL PROTEIN 4.8 GM/DL (6.4-8.2)
[2017-02-11] MEDS: IPRATROPIUM 0.5MG/ALBUTEROL 2.5MG INH SOL UD 3ML (DUONEB)(J7620) NEB SCH ×4 (07:38→20:00)
[2017-02-11] MEDS: CARISOPRODOL 350 MG TAB PO SCH ×3 (08:18→20:20)
[2017-02-11] MEDS: SIMVASTATIN 40 MG TAB PO SCH (08:18)
[2017-02-11] MEDS: PANTOPRAZOLE 40MG TAB (PROTONIX) PO SCH (08:18)
[2017-02-11] MEDS: HumaLOG INSULIN (NovoLOG) PER UNIT SC SCH ×4 (08:18→20:38)
[2017-02-11] MEDS: NICOTINE 14 MG/24 HR TRANSDERMAL TD SCH (08:19)
[2017-02-11] MEDS: diphenhydrAMINE 25 MG CAP PO PRN (08:30)
--- NOTE | 2017-02-11 12:52 | PMRNOTEPD ---
PMR Note Patient's chart reviewed and patient seen again today. Patient not tolerating therapy very well and appears to only be able to do about half hour per day at this time. I do feel significant part of this is herself perception and fear and focus on pain. I do note however better shoulder shrug movements as I have her focused on testing the distal upper extremities and clearly there is better finger and wrist flexion and extension in both hands today. When patient is directed to do specific motions though her level performance still is short of what has been observed when she is focusing on doing other activities. She does continue to express a lot of somatic focus on pain in the neck and upper extremities. Furthermore she tends to express some elements of hopelessness about her situation. In light of this and her sensorimotor exam from Saturday and today, I feel psychiatric assessment and possible medication management would be appropriate. I feel there is possibly elements, that may be an anxiety and depression, but also possibly in some form of conversion or Munchausen's syndromes as possible in this lady with chronic disability, who has had a procedure with the potential to have reversed the disability. I still feel this patient should be able to benefit from rehabilitation with PT/ OT, but she is not at an intensity yet for ARU, though I believe change to that is quite possible. AMANDEEP BERRIOS MD Feb 11, 2017 12:52
[2017-02-11 14:00] VITALS: BP 145/98
--- NOTE | 2017-02-11 14:58 | IPNPDOC ---
Subjective Date Seen The patient was seen on 02/11/17. Subjective Chief Complaint/HPI Patient seen and examined at the bedside this morning. Notes that the weakness in her upper extremities remains the same. Denies any other acute complaints at this time. Objective Physical Examination General Exam: Positive: Alert, Cooperative, No Acute Distress ENT Exam: Positive: Atraumatic, Mucous membr. 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 Unable to move either upper extremity. Sensation intact in the right hand and arm. Sensation intact in left hand, diminished in left arm. 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 and C3-C6 laminectomy on 02/06/17 Patient with weakness of the Upper extremities bilaterally following surgery Pain mgmt and DVT prophylaxis as per primary team Acute Respiratory Failure requiring Mechanical Ventilation post-operatively s/p Extubation on 02/07/17 Pulmonary on board Uncontrolled diabetes 2/2 Dietary Indiscretion, Medication Non-Adherence HgbA1c of 12.3% Carb consistent diet Insulin Sliding Scale Protein Calorie Malnutrition Serum Albumin level noted to be 2.3 Prealbumin level noted to 18.9 The patient's nutrition status is of concern at this time especially given her inability to use her arms/hands due to weakness following surgery. The patient will need assistance from the nursing staff for feeding, and this has been encouraged Ensure 3 times a day has been ordered Dietary consult placed There has been a suggestion of possible TPN feeding for the patient, however, given the patient's viable gut--I am reluctant to start this, given the increased risk of infection. Would recommend encouraging by mouth feeding with assistance of nursing staff, with added supplements such as ensure, and further recommendations from dietary. Can consider NG tube feeding in the future if the patient is still in need of more consistent nutrition Hypertension, stable Acute pancreatitis, resolved Chronic obstructive pulmonary disease (COPD), stable Albuterol as needed Chronic kidney disease, stage III Serum creatinine at baseline Hypothyroidism Continue on Synthroid. Dyslipidemia Cont Statin Chronic alcohol abuse. Tobacco abuse GI prophylaxis Protonix Deep vein thrombosis (DVT) prophylaxis Heparin SC VS, I&O, 24H, Fishbone Vital Signs/I&O Vital Signs Date Time Temp Pulse Resp B/P (MAP) Pulse Ox O2 Delivery O2 Flow Rate FiO2 02/11/17 08:20 Room Air 02/11/17 06:00 96.7 91 18 154/72 (99) 94 02/07/17 16:00 40 02/07/17 13:38 2.0 I&O- Last 24 Hours up to 6 AM 02/11/17 06:00 Intake Total 1540 ml Output Total 4100 ml Balance -2560 ml Laboratory Data 24H LABS Laboratory Tests 2 02/10/17 16:52: Bedside Glucose (Misc Panel) 229H 02/10/17 20:30: Bedside Glucose (Misc Panel) 238H 02/11/17 06:00: Anion Gap 9, Glomerular Filtration Rate 47.4, Blood Urea Nitrogen 27H, Creatinine 1.23H, Sodium Level 144, Potassium Level 5.0, Chloride Level 110H, Carbon Dioxide Level 25, Calcium Level 7.7L, Aspartate Amino Transf (AST/SGOT) 7L, Alanine Aminotransferase (ALT/SGPT) 17, Alkaline Phosphatase 94, Total Bilirubin 0.2, Total Protein 4.8L, Albumin 2.0L, Albumin/Globulin Ratio 0.71L 02/11/17 11:45: Bedside Glucose (Misc Panel) 248H CBC/BMP Laboratory Tests 02/11/17 06:00 Red Blood Count 2.90 L, Mean Corpuscular Volume 91.9, Mean Corpuscular Hemoglobin 30.4, Mean Corpuscular Hemoglobin Concent 33.1, Red Cell Distribution Width 13.1, Calcium Level 7.7 L, Aspartate Amino Transf (AST/SGOT) 7 L, Alanine Aminotransferase (ALT/SGPT) 17, Alkaline Phosphatase 94, Total Bilirubin 0.2, Total Protein 4.8 L, Albumin 2.0 L BRITTANI CORREIA MD Feb 11, 2017 14:58
[2017-02-11] MEDS: FAMOTIDINE IV BAG 20 MG in APPROPRIATE DILUENT 1 EA IV SCH (20:20)
[2017-02-11 22:00] VITALS: BP 134/69
[2017-02-12] MEDS: ONDANSETRON 4MG/2ML VIAL (J2405) IV SCH ×4 (02:40→21:15)
[2017-02-12] MEDS: ACETAMINOPHEN 325 MG/10.15 ML UDC PO SCH ×2 (02:41→05:53)
[2017-02-12] MEDS: NORCO, ANEXSIA 5/325MG TABLET (HYDROcodone/ACETAMINOPHEN) PO PRN (02:41)
[2017-02-12] MEDS: SODIUM CHLORIDE 0.9% INJ 10 ML SYR IV SCH ×2 (05:52→17:18)
[2017-02-12] MEDS: HEPARIN SOD (PORCINE) 5000 UNITS/ML VIAL SQ SCH ×3 (05:53→21:16)
[2017-02-12] MEDS: LEVOTHYROXINE 150MCG TABLET (0.15MG) PO SCH (05:53)
[2017-02-12 06:00] VITALS: BP 176/77
[2017-02-12 07:46] LABS: MEAN CORPUSCULAR HEMOGLOBIN 30.3 pg (27.0-33.0); MEAN CORPUSCULAR HGB CONC 32.3 g/dl (32.0-36.5); MEAN CORPUSCULAR VOLUME 93.8 fl (80.0-96.0); RED CELL DISTRIBUTION WIDTH 13.4 % (11.5-14.5); WHITE BLOOD COUNT 7.9 K/mm3 (4.0-10.0)
[2017-02-12] MEDS: IPRATROPIUM 0.5MG/ALBUTEROL 2.5MG INH SOL UD 3ML (DUONEB)(J7620) NEB SCH ×4 (08:00→20:00)
[2017-02-12 08:14] LABS: ALBUMIN 1.8 GM/DL (3.2-5.2); ALBUMIN/GLOBULIN RATIO 0.67 (1.00-1.93); BILIRUBIN,TOTAL 0.1 MG/DL (0.2-1.0); CALCIUM LEVEL 8.6 MG/DL (8.8-10.2); CREATININE FOR GFR 1.38 MG/DL (0.55-1.02); GLOMERULAR FILTRATION RATE 41.5 (>45); TOTAL PROTEIN 4.5 GM/DL (6.4-8.2)
[2017-02-12] MEDS: SIMVASTATIN 40 MG TAB PO SCH (08:30)
[2017-02-12] MEDS: HumaLOG INSULIN (NovoLOG) PER UNIT SC SCH ×4 (08:30→21:00)
[2017-02-12] MEDS: CARISOPRODOL 350 MG TAB PO SCH ×3 (08:30→21:15)
[2017-02-12] MEDS: PANTOPRAZOLE 40MG TAB (PROTONIX) PO SCH (08:30)
[2017-02-12] MEDS: NICOTINE 14 MG/24 HR TRANSDERMAL TD SCH (08:31)
[2017-02-12] MEDS: ACETAMINOPHEN TAB 650MG DOSE (2X325MG) PO PRN (12:19)
[2017-02-12 14:00] VITALS: BP 155/74
[2017-02-12] MEDS ORDERED: SODIUM CHLORIDE 0.9% 1000 ML IV ONE (18:30)
--- NOTE | 2017-02-12 21:00 | IPN ---
DATE: 02/12/2017 SUBJECTIVE: The patient is seen and examined in the room today. The patient stated she feels very tired. The patient still cannot have significant movement of bilateral upper extremities and there is a significant decrease in sensation in bilateral upper extremities. OBJECTIVE: VITAL SIGNS: Temperature is 98.3, pulse is 96, respirations 20, blood pressure is 176/77, pulse oximetry is 93% in room air. GENERAL: Fatigued. No sign of acute distress. Alert and oriented times three. HEENT: Normocephalic, atraumatic. Extraocular motor grossly intact. CARDIOVASCULAR: Positive S1, S2, regular rate. LUNGS: Clear to auscultation bilaterally. ABDOMEN: Soft, nontender. EXTREMITIES: No edema, no sign of cyanosis. NEUROLOGICAL: Patient's muscle strength of bilateral upper extremities is weak, especially in the shoulder joint and elbow joints. Sensation to fine touch of bilateral upper extremities is significantly decreased. In some areas, especially near the proximal upper extremity patient did have complete loss of sensation. LABORATORY DATA: WBC is 7.9, hemoglobin 8.5, hematocrit 26.4, platelet count 273. Sodium 141, potassium 5, chloride is 106, carbon dioxide 27, BUN 32, creatinine is 1.38, GFR is 41.5, fasting glucose is 237, calcium is 8.6, total bilirubin is 0.1, AST 10, ALT 17, alkaline phosphatase is 95, total protein 4.5, albumin is 1.8. ASSESSMENT AND PLAN: 1. Acute kidney injury. The patient has acute decrease of renal function in the last 24 hours. Decreased renal function started since 02/09/2017. Will monitor intake and output. Patient has a very significant negative balance. Patient is not on any type of diuretic. Patient also has very poor oral intake. Will start a trial of fluid resuscitation. Followup renal function tomorrow. 2. Cervical spine stenosis, status post C3 to T1 spinal fusion and C3 to C6 laminectomy on 02/06/2017. Patient complains about weakness of upper extremities bilaterally after procedures. Will defer pain management and deep vein thrombosis (DVT) prophylaxis per the primary team. Patient will also continue further physical therapy. 3. Acute respiratory failure requiring mechanical ventilation postoperatively. Patient extubated on 02/07/2017. Currently, the patient's oxygen (O2) saturation is maintained in satisfactory range on room air. 4. Uncontrolled diabetes. A1c of 12.3. History of noncompliance with insulin regimen at home. Patient is currently on a consistent carbohydrate diet, on sliding scale. Patient did have large fluctuation postoperatively due the fluctuation of oral intake. Patient does have a history of hypoglycemia. It is dangerous to continue patient with long-acting when the patient does not have a stable oral intake. 5. Protein-caloric malnutrition. Dietitian has been consulted. Due to poor intake, patient is currently drinking Ensure to help with the nutrition status. 6. Hypertension. Continue to monitor. 7. Acute pancreatitis, resolved. 8. Chronic obstructive pulmonary disease (COPD). No exacerbation. 9. Hypothyroidism, on Synthroid. 10. Dyslipidemia, on statin. 11. History of chronic alcohol abuse. No withdrawals. 12. Tobacco abuse, on nicotine patch. 13. Constipation. No bowel movements for more than a week. Started on a trial of MiraLAX. 14. Deep vein thrombosis (DVT) prophylaxis. The patient is on heparin. MTDD
[2017-02-12] MEDS: FAMOTIDINE IV BAG 20 MG in APPROPRIATE DILUENT 1 EA IV SCH (21:16)
[2017-02-12 22:00] VITALS: BP 194/80
[2017-02-13] MEDS: MIRALAX *UNIT DOSE* 17GM PACKET PO PRN (00:57)
[2017-02-13] MEDS: ONDANSETRON 4MG/2ML VIAL (J2405) IV SCH ×4 (01:27→20:11)
[2017-02-13] MEDS: ACETAMINOPHEN TAB 650MG DOSE (2X325MG) PO PRN (01:27)
[2017-02-13] MEDS: HEPARIN SOD (PORCINE) 5000 UNITS/ML VIAL SQ SCH ×3 (05:33→22:18)
[2017-02-13] MEDS: LEVOTHYROXINE 150MCG TABLET (0.15MG) PO SCH (05:33)
[2017-02-13] MEDS: SODIUM CHLORIDE 0.9% INJ 10 ML SYR IV SCH ×2 (05:33→18:31)
[2017-02-13 06:00] VITALS: BP 160/72
[2017-02-13 06:03] LABS: MEAN CORPUSCULAR HEMOGLOBIN 30.9 pg (27.0-33.0); MEAN CORPUSCULAR HGB CONC 33.8 g/dl (32.0-36.5); MEAN CORPUSCULAR VOLUME 91.3 fl (80.0-96.0); RED CELL DISTRIBUTION WIDTH 13.3 % (11.5-14.5); WHITE BLOOD COUNT 8.6 K/mm3 (4.0-10.0)
[2017-02-13 06:33] LABS: BILIRUBIN,TOTAL 0.2 MG/DL (0.2-1.0); CALCIUM LEVEL 8.4 MG/DL (8.8-10.2); CREATININE FOR GFR 1.34 MG/DL (0.55-1.02)
[2017-02-13 06:34] LABS: ALBUMIN 1.9 GM/DL (3.2-5.2); ALBUMIN/GLOBULIN RATIO 0.63 (1.00-1.93); TOTAL PROTEIN 4.9 GM/DL (6.4-8.2)
[2017-02-13 06:39] LABS: POTASSIUM SERUM 5.4 MEQ/L (3.5-5.1)
[2017-02-13] MEDS: IPRATROPIUM 0.5MG/ALBUTEROL 2.5MG INH SOL UD 3ML (DUONEB)(J7620) NEB SCH ×4 (07:30→19:11)
[2017-02-13] MEDS: NORCO, ANEXSIA 5/325MG TABLET (HYDROcodone/ACETAMINOPHEN) PO PRN (09:49)
[2017-02-13] MEDS: SIMVASTATIN 40 MG TAB PO SCH (09:49)
[2017-02-13] MEDS: CARISOPRODOL 350 MG TAB PO SCH (09:49)
[2017-02-13] MEDS: PANTOPRAZOLE 40MG TAB (PROTONIX) PO SCH (09:49)
[2017-02-13] MEDS: HumaLOG INSULIN (NovoLOG) PER UNIT SC SCH ×4 (09:50→21:00)
[2017-02-13] MEDS: NICOTINE 14 MG/24 HR TRANSDERMAL TD SCH (09:51)
--- NOTE | 2017-02-13 12:01 | IPNPDOC ---
General Date: Feb 12, 2017 Postoperative Day #: 6 Pain Control Unsatisfactory. Surgical Procedure (02/06/17). Laminectomy and foraminotomies C3-C7, C3-T1 posterior lateral mass instrumentation with screws and rods, C3-T2 posterior-lateral arthrodesis, with bone graft. Subjective Ms. House is a pleasant 61-year-old right-handed female smoker with a history of hypertension, chronic kidney disease (CKD) III, chronic obstructive pulmonary disease (COPD), asthma, uncontrolled diabetes type 2, hypothyroidism and chronic neck and back pain, who has been admitted to the hospital for her chronic neck pain by Dr Kelley. She is 6 days s/p complex spine surgery posterior decompression and fusion from C3-T1. She has some weakness in her upper extremities, L>R, and is unable to hold her arms against gravity. She is feeling quite depressed regarding these symptoms. She notes headache for the past 2 days is worse in her ears and around her head like a tight band, bilateral ear ache described as a pounding sensation intermittently, calf pain bilaterally, she is unable to sleep well due to pain waking every 2 hours, itching over her face and top of her head and back near the incision, and she has not had a bowel movement since last Saturday, however she is moving gas. Denies chills, night sweats, dizziness,bladder or bowel incontinence, N/V/C/D, chest pain, shortness of breath. Objective Clinical Status: BP elevated. Neurological status: Alert and orientated times three, GCS=E3X2H3=16. Speech is Fluent. Wound/incision: Incision appears to be healing well. No increased drainage, erythema, or increased pain at the site. Drainage: None. Motor: weakness in upper extremities, L> R, she is unable to raise her arms against gravity. She is able to move her fingers on both hands. Strength in lower extremities is 5/5. Sensory:decreased to sharp in upper extremities. Gait: per PT/OT. Encouraging ambulation. Laboratory Results CBC/BMP Laboratory Tests 02/12/17 07:15 Red Blood Count 2.81 L, Mean Corpuscular Volume 93.8, Mean Corpuscular Hemoglobin 30.3, Mean Corpuscular Hemoglobin Concent 32.3, Red Cell Distribution Width 13.4, Calcium Level 8.6 L, Aspartate Amino Transf (AST/SGOT) 10 L, Alanine Aminotransferase (ALT/SGPT) 17, Alkaline Phosphatase 95, Total Bilirubin 0.1 L, Total Protein 4.5 L, Albumin 1.8 L Labs 24H Laboratory Tests 2 02/11/17 17:03: Bedside Glucose (Misc Panel) 259H 02/11/17 20:35: Bedside Glucose (Misc Panel) 245H 02/12/17 07:15: Anion Gap 8, Glomerular Filtration Rate 41.5L, Blood Urea Nitrogen 32H, Creatinine 1.38H, Sodium Level 141, Potassium Level 5.0, Chloride Level 106, Carbon Dioxide Level 27, Calcium Level 8.6L, Aspartate Amino Transf (AST/SGOT) 10L, Alanine Aminotransferase (ALT/SGPT) 17, Alkaline Phosphatase 95, Total Bilirubin 0.1L, Total Protein 4.5L, Albumin 1.8L, Albumin/Globulin Ratio 0.67L 02/12/17 11:58: Bedside Glucose (Misc Panel) 214H Assessment/Plan PLAN: Per Dr. Kelley 1. Cervical myeloradiculopathy. S/p decompression and fusion by Dr. Kelley. 2. Depression/anxiety. Consult to psychiatry- please assess depression and anxiety. Per Dr. Kelley, he has paged and spoken to psychiatrist. 3. Calf pain bilaterally. Left greater than the right. She is taking heparin, has AMAIRANI/SCD. No swelling or palpable cord on exam. Low suspicion for DVT. Will continue to monitor. 4. Bilateral ear pain. No signs of infection on exam. She does have some middle ear fluid, could be related allergies. 5. Headache. Head of the bed has been lowered to see if there are any improvements. Will continue to monitor. 6. Facial itching: She is currently taking Benadryl. 7. Wound care: Improving. No discharge or signs of infection. Will plan to remove the Perineo dressing in a few days. 8. Pain control: Unsatisfactory. She rates pain 8/10, worse in her neck and shoulders. Discussed with Dr. Kelley, states no changes needed to pain regimen at this time. 9. DVT prophylaxis: TEDs and SCD. 10. Constipation prophylaxis: No bowel movement since last Saturday. Will start lactulose and Colace. I have asked for a bedside commode. 11. Nausea prophylaxis: 12. Diet : She has been drinking 2 insure [address] day[address] Dr. Kelley has asked that we increased this to 4 drinks daily. 13. Activity: Per PT/OT. We have encouraged her to continue leg exercises and attempting to move her arms in bed. Discuss plan with PT- will increase PT to 30 minutes twice a day. 14. Discharge plan: Dr. Kelley would like to transfer patient to neuro rehabilitation in [place]. He would like her to have PT at least 3 hrs/day and we are unable to accomplish this within this hospital. Thank you for all consulting providers for your much needed help regarding care of Ms. House. ODALIS Ramírez Medications Scheduled (Tobassam Frank), 1 DOSE SC DAILY, (Reported) Aspirin (Aspir-81), 81 MG PO DAILY, (Reported) Ergocalciferol (Vitamin D2), 50,000 UNIT PO 1XWK, (Reported) Levothyroxine Sodium (Synthroid), 150 MCG PO DAILY, (Reported) Linagliptin Base (Tradjenta), 5 MG PO DAILY, (Reported) Metformin Hydrochloride (Metformin HCl ER), 1,000 MG PO BID, (Reported) Simvastatin - High Dose (Simvastatin), 40 MG PO DAILY, (Reported) Scheduled PRN Ibuprofen (Ibuprofen), 600 MG PO DAILY PRN for PAIN, (Reported) Allergies Allergies: Coded Allergies: Metformin (Verified Adverse Reaction, Intermediate, heart races, 01/28/17) Sitagliptin (Verified Adverse Reaction, Intermediate, heart races, 01/28/17 ) Sulfa Antibiotics (Verified Adverse Reaction, Intermediate, heart racing, 01/28/17) PHI FOX PA-C Feb 12, 2017 12:40
--- NOTE | 2017-02-13 12:15 | IPNPDOC ---
General Date: Feb 13, 2017 Postoperative Day #: 7 Pain Control Unsatisfactory, reports 02/07. Surgical Procedure (02/06/17). Laminectomy and foraminotomies C3-C7, C3-T1 posterior lateral mass instrumentation with screws and rods, C3-T2 posterior-lateral arthrodesis, with bone graft. Subjective Ms. House is a pleasant 61-year-old right-handed female smoker with a history of hypertension, chronic kidney disease (CKD) III, chronic obstructive pulmonary disease (COPD), asthma, uncontrolled diabetes type 2, hypothyroidism and chronic neck and back pain, who has been admitted to the hospital for her chronic neck pain by Dr Kelley. She is 6 days s/p complex spine surgery posterior decompression and fusion from C3-T1. She has some weakness in her upper extremities, L>R, and is unable to hold her arms against gravity. She continues to appear depressed regarding these symptoms, stating "I'm about ready to give up." She has been seen by psychiatry who recommended no therapeutic intervention. She is quite frustrated that her breakfast sat there for 2 hours this morning as she waited for assistance with eating given the weakness in her arms. She states she cannot move her hand to reach her call hernandez and when she calls for a nurse no one response. This has mainly happened just this morning she reports yesterday she feels she did receive good care throughout the night. She states her headache has gotten worse and reports no improvement with placing head of the bed flat. She states she has been experiencing intermittent sharp chest pains located on the left side of her chest only when coughing, attempting to sit up, or bearing down to have a bowel movement. This first started yesterday during PT but she states she did not report her symptoms to anyone until today. She prefers to be transferred to [facility]. Objective Clinical Status: BP elevated. Neurological status: Alert and orientated times three, GCS=[id number]=93. Speech is Fluent. Appears depressed; stated "I'm about ready to give up." Wound/incision: [Incision appears to be healing well. No increased drainage, erythema, or increased pain at the site. Drainage: None. Motor: weakness in upper extremities, L>R, unable to hold arms against gravity. She is able to move her fingers on each hand. Strength in lower extremities is 5 /5. Gait: she has not been ambulating yet, working with PT with goal of getting her out of bed and walking with assistance. LABS: WBC = 8.6 Hgb = 9.1 HCT = 27.0 Na+ = 141 K+= 5.4, H. This is increased from 5.0 yesterday. Fasting glucose = 348 Laboratory Results CBC/BMP Laboratory Tests 02/13/17 05:45 Red Blood Count 2.95 L, Mean Corpuscular Volume 91.3, Mean Corpuscular Hemoglobin 30.9, Mean Corpuscular Hemoglobin Concent 33.8, Red Cell Distribution Width 13.3, Calcium Level 8.4 L, Aspartate Amino Transf (AST/SGOT) 12 L, Alanine Aminotransferase (ALT/SGPT) 16, Alkaline Phosphatase 109, Total Bilirubin 0.2 #, Total Protein 4.9 L, Albumin 1.9 L Labs 24H Laboratory Tests 2 02/12/17 11:58: Bedside Glucose (Misc Panel) 214H 02/12/17 17:09: Bedside Glucose (Misc Panel) 326H 02/12/17 21:51: Bedside Glucose (Misc Panel) 322H 02/12/17 22:00: Urine Appearance CLEAR, Urine Color STRAW, Urine pH 7.0, Urine Specific [place] 1.011, Urine Protein 2+H, Urine Glucose (UA) 3+H, Urine Ketones NEGATIVE, Urine Urobilinogen 0.2, Urine Bilirubin NEGATIVE, Urine Leukocyte Esterase NEGATIVE, Urine Blood 1+H, Urine Nitrite NEGATIVE, Urine WBC (Auto) 1, Urine RBC (Auto) 12H, Urine Hyaline Casts (Auto) 0, Urine Bacteria (Auto) NEGATIVE, Urine Squamous Epithelial Cells 0, Urine Mucus (Auto) SMALL, Urine Sperm (Auto) 02/13/17 05:45: Anion Gap 10, Glomerular Filtration Rate 43.0L, Blood Urea Nitrogen 30H, Creatinine 1.34H, Sodium Level 141, Potassium Level 5.4H, Chloride Level 104, Carbon Dioxide Level 27, Calcium Level 8.4L, Aspartate Amino Transf (AST/SGOT) 12L, Alanine Aminotransferase (ALT/SGPT) 16, Alkaline Phosphatase 109, Total Bilirubin 0.2#, Total Protein 4.9L, Albumin 1.9L, B-Type Natriuretic Peptide 116H, Albumin/Globulin Ratio 0.63L Assessment/Plan PLAN: Per Dr. Kelley Spoke with nursing supervisor prep regarding her care this morning. They state they will plan to move her to the room across from the nursing station. She will have a new breakfast ordered for her. 1. Cervical myeloradiculopathy. S/p decompression and fusion by Dr. Kelley. It appears much of the reservation of getting out of bed could be related to her neck pain as her leg strength is 5/5. Will order Hope Collar to help support her neck to decrease pain and allow for proper ambulation. Order placed to Mateo Duvall for Hope Collar. In the mean time, will give her collar we have on the floor. D/C gaona. Dr. Kelley would like elastic stockings for forearms bilaterally, requesting blue slings to support arms. 2. Chest pains: L-side of chest only occurring with coughing, sitting up, and bearing down to have BM. Will discuss with hospitalist. 3. Decreased kidney function: Management per hospitalist; fluid resuscitation. She has been loosing more fluid than she is taking in. She has refused the fluids. 4. Depression/anxiety. Consult to psychiatry- No suggestions for medications. 5. Calf pain bilaterally. Left greater than the right. She is taking heparin, has AMAIRANI/SCD. No swelling or palpable cord on exam. Low suspicion for DVT. Will continue to monitor. 6. Bilateral ear pain. No signs of infection on exam. She does have some middle ear fluid, could be related allergies. 7. Headache. Head of the bed has been lowered to see if there are any improvements. No improvements with lowering the head of bed. Will continue to monitor. 8. Facial itching: She is currently taking Benadryl. 9. Wound care: Improving. No discharge or signs of infection. Will plan to remove the Perineo dressing in a few days. 10. Pain control: Unsatisfactory. She rates pain 8/10, worse in her neck and shoulders. D/c Soma and Joshua. Keep morphine. 11. DVT prophylaxis: TEDs and SCD. Encouraging ambulation. 12. Constipation prophylaxis: Started lactulose and Colace yesterday. She had small BM this morning. I have asked for a bedside commode. 13. Nausea prophylaxis: Zofran IV. 14. Diet : She has been drinking 2 [address] day. Dr. Kelley has asked that we increased this to 4 drinks daily. 15. Activity: Per PT/OT. We have encouraged her to continue leg exercises and attempting to move her arms in bed. Discuss plan with PT- will increase PT to 30 minutes twice a day. Would like her to be more ambulatory. 16. Discharge plan: Dr. Kelley would like to transfer patient to neuro rehabilitation in [place]. He would like her to have PT at least 3 hrs/day and we are unable to accomplish this within this hospital. Patient would prefer [facility], since her family is here. Kalyani Fofana/Toby space planner, will help her apply to this hospital- which is her preference. He will let us know when he knows more. Thank you for all consulting providers for your much needed help regarding care of Ms. House. Medications Scheduled (Sylwia Frank), 1 DOSE SC DAILY, (Reported) Aspirin (Aspir-81), 81 MG PO DAILY, (Reported) Ergocalciferol (Vitamin D2), 50,000 UNIT PO 1XWK, (Reported) Levothyroxine Sodium (Synthroid), 150 MCG PO DAILY, (Reported) Linagliptin Base (Tradjenta), 5 MG PO DAILY, (Reported) Metformin Hydrochloride (Metformin HCl ER), 1,000 MG PO BID, (Reported) Simvastatin - High Dose (Simvastatin), 40 MG PO DAILY, (Reported) Scheduled PRN Ibuprofen (Ibuprofen), 600 MG PO DAILY PRN for PAIN, (Reported) Allergies Allergies: Coded Allergies: Metformin (Verified Adverse Reaction, Intermediate, heart races, 01/28/17) Sitagliptin (Verified Adverse Reaction, Intermediate, heart races, 01/28/17 ) Sulfa Antibiotics (Verified Adverse Reaction, Intermediate, heart racing, 01/28/17) PHI FOX PA-C Feb 13, 2017 11:05
[2017-02-13] MEDS: MORPHINE 2 MG/ML 1ML SYRINGE IV PRN ×3 (12:24→22:18)
[2017-02-13 14:00] VITALS: BP 180/82
--- NOTE | 2017-02-13 16:40 | PMRNOTEPD ---
PMR Note Patient seen again today for reevaluation of her central cord syndrome. Patient having difficulty with most forms of treatment especially now being vertical expressing lots problems with dizziness and nausea. She clearly has flattening of affect and clearly expresses some can not do attitude with her ability to move and use her arms. The unusual left sensory pattern with diminished C6 and C8 with their preservation of C7 on the left hand persists. Of interest when asking patient would lift up her right arm to adjust the emesis bag she says she can't lift the right arm social just move her head. Previously she had expressed her inability to move the head due to the neck pain. Motor is relatively unchanged from my last exam. Assessment/plan: C5-T1 central cord syndrome: Normally patient should be very motivated and able to work on ambulation bed mobility and working to get upper extremities moving a more functional and should be able to meet criteria for the ARU. However this patient is not showing a willingness to consistently perform but rather to fine reasons she is not able to participate. At present the reasons include nausea and dizziness with becoming more vertical. Therefore she should be started on tilt table activities watching blood pressure and heart rate and working her to spending more more time it progressively more vertical levels and while on the tilt table to be working on upper extremity strength and motion to also include functional electrical stimulation of the upper extremities. At present patient complains of pain whenever she is asked to engage in therapy and otherwise does not seem to be having much pain. This is also consistent with her reports of when she starts therapy of pain going to 10 out of 10 in when she is not on therapy of having 0 out of 10 pain. Her opiate usage has been fairly sparse usually about twice a day to 3 times a day which will only cover about 6-9 hours of the day for what should be a fairly constant pain. This tends to lead me to feeling that this is more violent avoidance mechanism and likely the nausea and dizziness are also avoidance mechanisms. On the tilt table however, the physiologic basis for nausea and dizziness would be the vascular support which can be measured by blood pressure and heart rate and can be adjusted by adjusting the tilt of the table. As I think depression is part of the situation, I think a trial with low-dose Ritalin or Adderall would be helpful to help with elevating mood and energy. Further I do think that having the evaluating and treating physicians conference to discuss the case treatment and a treatment plan isn't very appropriate for this lady. I remained very concerned that this patient is to comfortable with the concept of being disabled and with transitioning to a alf existence. AMANDEEP BERRIOS MD Feb 13, 2017 16:40
[2017-02-13] MEDS: FAMOTIDINE IV BAG 20 MG in APPROPRIATE DILUENT 1 EA IV SCH (20:12)
[2017-02-13 22:00] VITALS: BP 178/84
[2017-02-14] MEDS: ONDANSETRON 4MG/2ML VIAL (J2405) IV SCH ×4 (01:13→20:04)
[2017-02-14] MEDS: MIRALAX *UNIT DOSE* 17GM PACKET PO PRN (01:14)
[2017-02-14 04:00] VITALS: BP 144/82
[2017-02-14 06:00] VITALS: BP 135/60
[2017-02-14] MEDS: LEVOTHYROXINE 150MCG TABLET (0.15MG) PO SCH (06:13)
[2017-02-14] MEDS: HEPARIN SOD (PORCINE) 5000 UNITS/ML VIAL SQ SCH ×3 (06:13→22:07)
[2017-02-14] MEDS: SODIUM CHLORIDE 0.9% INJ 10 ML SYR IV SCH ×2 (06:14→15:01)
[2017-02-14 06:46] LABS: MEAN CORPUSCULAR HEMOGLOBIN 29.9 pg (27.0-33.0); MEAN CORPUSCULAR HGB CONC 33.4 g/dl (32.0-36.5); MEAN CORPUSCULAR VOLUME 89.6 fl (80.0-96.0); RED CELL DISTRIBUTION WIDTH 12.8 % (11.5-14.5); WHITE BLOOD COUNT 11.5 K/mm3 (4.0-10.0)
[2017-02-14] MEDS: IPRATROPIUM 0.5MG/ALBUTEROL 2.5MG INH SOL UD 3ML (DUONEB)(J7620) NEB SCH ×4 (07:20→20:00)
[2017-02-14 07:45] LABS: ALBUMIN 2.1 GM/DL (3.2-5.2); ALBUMIN/GLOBULIN RATIO 0.66 (1.00-1.93); BILIRUBIN,TOTAL 0.1 MG/DL (0.2-1.0); CALCIUM LEVEL 8.4 MG/DL (8.8-10.2); CREATININE FOR GFR 1.16 MG/DL (0.55-1.02); GLOMERULAR FILTRATION RATE 50.7 (>45); TOTAL PROTEIN 5.3 GM/DL (6.4-8.2)
[2017-02-14 08:08] LABS: POTASSIUM SERUM 5.2 MEQ/L (3.5-5.1)
[2017-02-14] MEDS ORDERED: FLEET ENEMA PR PRN (09:00)
[2017-02-14] MEDS: SIMVASTATIN 40 MG TAB PO SCH (09:02)
[2017-02-14] MEDS: MOM 30ML SUSPENSION UDC PO PRN (09:02)
[2017-02-14] MEDS: HumaLOG INSULIN (NovoLOG) PER UNIT SC SCH ×4 (09:03→21:00)
[2017-02-14] MEDS: NICOTINE 14 MG/24 HR TRANSDERMAL TD SCH (09:03)
[2017-02-14] MEDS: PANTOPRAZOLE 40MG TAB (PROTONIX) PO SCH (09:03)
[2017-02-14] MEDS: LACTULOSE 20 GM/30 ML SYRUP UD PO SCH ×3 (09:04→20:04)
[2017-02-14] MEDS: MORPHINE 2 MG/ML 1ML SYRINGE IV PRN ×3 (09:06→22:13)
[2017-02-14 12:00] VITALS: BP 122/78
--- NOTE | 2017-02-14 13:16 | IPN ---
DATE: 02/13/2017 SUBJECTIVE: The patient is seen and examined in the room today. The patient stated she has been feeling extremely tired. She does not want to do too much. The patient also stated she does not have an appetite and she does not have significant urge to eat. She continues to have bilateral upper extremity weakness and numbness. The patient requires staff to feed her meals; otherwise, she has not been able to eat the food by herself. OBJECTIVE: VITAL SIGNS: Temperature is 97.4, pulse is 92, respirations 18, blood pressure 160/72. Pulse oximetry 95% on room air. GENERAL: Fatigued, no sign of acute distress. Alert and oriented times three. HEENT: Normocephalic, atraumatic. Extraocular motor grossly intact. CARDIOVASCULAR: Positive S1, S2. Regular rate. LUNGS: Clear to auscultation bilaterally. ABDOMEN: Soft, nontender, nondistended. EXTREMITIES: Positive edema of the upper extremities. No lower extremity edema. No sign of cyanosis. NEUROLOGIC: Still having impaired upper extremity movements. Muscle strength very impaired. LABORATORY DATA: WBC 8.6, hemoglobin 9.1, hematocrit 27, platelet count 295. Sodium is 141, potassium 5.4, chloride 104, carbon dioxide 27, BUN 30, creatinine 1.34, GFR is 43, fasting glucose 348, calcium 8.4, total bilirubin 0.2, AST 12, ALT 16, alkaline phosphatase 109. BNP is 116. Total protein 4.9, albumin 1.9. ASSESSMENT AND PLAN: 1. Uncontrolled diabetes. The patient has A1c of 12.3. Currently the patient has difficulty obtaining oral intake by herself due to bilateral upper extremity weakness and numbness. The patient requires feeding from the nursing staff. The patient also keeps complaining about poor appetite that results in decreased oral intake. Currently it is kind of hard to control the patient's blood sugar with long-acting because the patient may run a risk of hypoglycemic episode. For now we will continue with sliding scale. 2. Acute kidney injury, most likely secondary to poor oral intake. The patient's intake and output for the past several days were reviewed. The patient has been having persistent negative output, and clinically the patient does have decreased oral intake. Yesterday order for intravenous (IV) fluid resuscitation was ordered; however, the patient refused the IV order. We can only encourage increased oral intake. However, it has been very difficult. We will continue to motivate the patient to oral intake. Will continue to monitor the renal function. 3. Cervical spinal stenosis, status post C3 to T1 spinal fusion, C3-C6 laminectomy on 02/06/2017. The patient started having bilateral upper extremity weakness and numbness from the procedure. We refer pain management and deep venous thrombosis (DVT) prophylaxis and rehabilitation to the surgical team. 4. History of acute respiratory failure requiring mechanical ventilation postoperatively. Patient was extubated on 02/07/2017. Currently, the patient is able to maintain satisfactory oxygen saturation on room air. 5. Protein calorie malnutrition. Dietitian has been consulted. Patient is recommended to take at least three Ensure to supplement her normal diet in order to increase protein calorie intake. 6. Hypertension. Continue to adjust the patient's blood pressure medication. 7. Hypothyroidism. On Synthroid. 8. Dyslipidemia. On statin. 9. History of chronic alcohol abuse. No sign of withdrawal at this moment. 10. History of tobacco abuse. On nicotine patch. 11. Constipation. Started a trial of MiraLAX since yesterday. Patient had a bowel movement today. 12. History of acute pancreatis, resolved. 13. Chronic obstructive pulmonary disease (COPD). No sign of exacerbation. 14. Deep venous thrombosis (DVT) prophylaxis. The patient is on heparin. MTDD
--- NOTE | 2017-02-14 13:21 | MHCR ---
DATE OF CONSULTATION: 02/12/2017 CHIEF COMPLAINT: Feels frustrated. SUBJECTIVE: She is 61 years old. She has been living on her own. Has a couple of children in the area. She is in the hospital as she has had surgery to address cervical spine stenosis. I have been asked to be here by the neurosurgeon, Dr. Kelley, as patient has been noted to be somewhat anxious and there is some concern she has not been participating with some treatment recommendations. The patient is interviewed, the chart is reviewed. She has multiple medical problems, which include diabetes, some concern that she has had chronic obstructive pulmonary disease (COPD). She has had falls over the last year or so, but has been in a wheelchair most recently, but has generally managed to look after herself with some assistance, for example, most recently Meals on Wheels. Says her son and his girlfriend have also assisted when they can. Says has had pain in the back, pain in the neck as well, was more concerned about pain the back. Sayramiro was referred by She Chun, primary care, to see the neurosurgeon, and she anticipated that pain in the back would be dealt with, says tests were performed and then she was told that she needed emergency surgery, this was not clearer than that, but that surgery was performed, this was about almost a week ago, and since then, she feels she is unable to move her arms to any great extent. Says this is worse than prior to surgery, feels her arms are quite heavy, and is quite frustrated with the results. Says has pain in the neck, has had headaches, feels she needs support for the neck, but that her doctor has not agreed to that. This is all per the patient. She is also upset with the clinicians, the surgeon, given what she is experiencing currently. Sayramiro was not fully independent but had maintained some level of independence, and is now concerned she would become dependent on others. Per the chart, she has been recommended to be transferred to a facility which deals with spinal injuries, including in the [facility]. She does not wish to go that far, wants to stay near her family. Says feels frustrated with the results of the surgery, and the treatment, particularly regarding pain, afterwards. She has been seen by various clinicians, including neurology, pulmonology, and Physical medicine and rehabilitation (PM R). Denies feeling depressed. Says gets frustrated and irritated with the lack of progress. Denies any panic attacks. No evidence of any suicidal thoughts or intents. When seen by Physical medicine and rehabilitation, it has apparently been noted that there has been some possibly mild discrepancy of what she says she can do, and what is observed. Question regarding conversion syndrome or Munchausen syndrome has also been raised. PAST PSYCHIATRIC HISTORY: Denies any formally. Denies any suicide attempts or inpatient psychiatric hospitalizations. MEDICAL HISTORY: Several medical problems. Hypertension. Diabetes. High cholesterol. Hypothyroidism. Chronic kidney disease. Chronic obstructive pulmonary disease (COPD). Asthma. History of herpes. Chronic neck and back pain. Lumbar disc disease. Cervical degenerative disc disease with severe stenosis and compression of the nerves. SURGICAL HISTORY: Lens implant in the right eye. Tubal ligation. SOCIAL HISTORY: Stays on her own, sayramiro returned to this area after a decade away, was in the [facility], and says was living in a difficult neighborhood, and decided to return here about 2 years ago, to be near her family. Sayramiro has been using a wheelchair, has Meals on Wheels, and has managed warming them up in the microwave. Has a sister, [id number] as well. Has two children in the area, says her son in particular tends to her. MENTAL STATUS EXAMINATION: She is lying in bed. She is neat. She is cooperative. There is good eye contact. She is coherent. No movements of her limbs are noted, other than wiggle her fingers. No formal thought disorder. Speech normal in amount and rate. Affect broad. At times tearful, also expressed her being upset with results and progress so far. No evidence of any thoughts of harming herself or anyone else. No evidence of any psychosis. Her sensorium is intact. No fluctuation of consciousness. Cognition grossly intact. Intellect average. Judgment good. Insight fair to good. Vital signs: Blood pressure 155/74, pulse 88, temperature 98.5. ASSESSMENT: Adjustment disorder with anxiety. She is upset, at times anxious, frustrated, that she cannot move her arms, has headaches, pain in the neck, and as the results of surgery are not what she had expected, feels more limited, concerned she may lose the limited independence that she had before surgery. She is not suicidal nor is she psychotic. Her sensorium is clear as well. No evidence of any mood disorder at present. No evidence related to conversion syndrome, or Munchausen syndrome, given this assessment. RECOMMENDATIONS: I would suggest optimizing her current care, and giving her clearer explanations of any procedures, plans, that are to be implemented. This may require repetition. I suggested as needed medicines, to help with the anxiety if severe, for example, using alprazolam or lorazepam in low doses in the short term, but she declines it, does not feel that she needs them. There is no current no firm indications for any scheduled psychotropic medicine to be added at present. Consistent verbal support. Thank you for the consult. If you have any questions, please call. The assessment took 45 minutes.
[2017-02-14 18:00] VITALS: BP 142/81
--- NOTE | 2017-02-14 18:40 | IPN ---
DATE: 02/14/2017 SUBJECTIVE: The patient is seen and examined in the room today. During the encounter, the patient states she is very tired. She does not have energy and she has a very poor appetite. The patient stated she feels that she may not have energy to try the physical therapy, but I continued to explain to the patient that increasing her nutrition status is very important, not only to regain her energy, it also can help her with recovery postoperatively. OBJECTIVE: VITAL SIGNS: Temperature is 98.5, pulse is 95, respirations 18, blood pressure is 135/60. Pulse oximetry is 92% in room air. GENERAL: Fatigued, no sign of acute distress, alert and oriented times three. HEENT: Normocephalic, atraumatic. Extraocular motor grossly intact. CARDIOVASCULAR: Positive S1, S2. Regular rate. LUNGS: Clear to auscultation bilaterally. ABDOMEN: Soft, nontender, nondistended. Bowel sounds present. No rebound. No guarding. EXTREMITIES: Positive pitting edema of the bilateral upper extremities. No significant lower extremity edema. No sign of cyanosis. NEUROLOGIC: Still has very impaired movement of the bilateral upper extremities. LABORATORY DATA: WBC 11.5, hemoglobin 10.2, hematocrit 30.5, platelet count is 325. Sodium is 138, potassium 5.2, chloride is 103, carbon dioxide is 28, BUN is 27, creatinine is 1.16, GFR is 50.7, fasting glucose is 265, calcium is 8.4, total bilirubin is 0.1, AST 12, ALT is 18, alkaline phosphatase is 109, total protein 5.3, albumin is 2.1. Prealbumin is 28.9. ASSESSMENT AND PLAN: 1. Uncontrolled diabetes. A1c of 12.3. The patient continues to have very large fluctuation of the oral intake. A lot of times, the patient complains of poor appetite resulting in very poor oral intake. According to the fasting glucose in the morning, the patient's fluctuation of oral intake does show in the patient's laboratories. With only sliding scale, the patient's fasting glucose can range from 120-348. In this incident, it is very dangerous to produce hypoglycemia if the patient is started on the long-acting insulin. When the patient's oral intake is more stabilized, we will consider reintroducing the long-acting insulin. 2. Acute kidney injury, most likely secondary to poor oral intake. The patient have been refusing IV resuscitation through the IV line. Therefore, we can only encourage the patient to increase the oral intake. In the last two days, the patient has been getting improvement of the renal functions. 3. Protein-calorie malnutrition. Initially federal district law clerk had been consulted. The patient is encouraged to drink at least 3-4 Ensures on a daily basis. The patient continues to have a low albumin and total protein count. Her prealbumin actually shows some improvement compared to last week. 4. Hypertension. The patient's Cardizem has been introduced and the patient's blood pressure is being monitored. We will adjust actively to decrease her blood pressure safely. The patient is currently on Cardizem. 5. Cervical spine stenosis, status post C1 to T1 spinal fusion and C3-6 laminectomy on 02/06/2017. The patient continues to have bilateral upper extremity weakness and numbness after the procedure. We will refer pain management, deep vein thrombosis (DVT) prophylaxis, and rehabilitation to the surgical team. 6. History of acute respiratory failure, requiring mechanical ventilation postoperatively, extubated on 02/07/2017. Currently, the patient maintains satisfactory oxygen saturation in room air. 7. Hypothyroidism, on Synthroid. 8. Dyslipidemia, on statin. 9. History of chronic alcohol abuse. No sign of withdrawal. 10. Tobacco abuse, on nicotine patch. Smoking cessation has been discussed with the patient. However, there are several occasions that the patient stated once she gets discharged from the hospital the patient will start smoking again. 11. Constipation. The patient has a trial of lactulose. The patient had MiraLAX trial yesterday. 12. History of acute pancreatis, resolved. 13. Chronic obstructive pulmonary disease (COPD). No sign of acute exacerbation. 14. Deep venous thrombosis prophylaxis. The patient is on heparin.
--- NOTE | 2017-02-14 19:57 | ECGEPIP ---
Stationary ECG Study [facility] Test Date: 2017-02-13 Pat Name: OPAL SMITH Department: Room: [place] [address] Gender: F Angular Developer: : [id number] Requested By: SKYLER PEREZ Order Number: [id number] Reading MD: Yun Ott Measurements Intervals [place] Rate: 95 P: 75 SC: 216 QRS: 101 QRSD: 97 T: 62 QT: 353 QTc: 444 Interpretive Statements SINUS RHYTHM WITH FIRST DEGREE AV BLOCK MARKED RIGHT AXIS DEVIATION CANNOT R/O SEPTAL CT OLD MINIMAL CHANGE SINCE 01/28/17 Electronically Signed On 02-14-2017 19:56:39 EDT by Yun Ott
[2017-02-14] MEDS: diphenhydrAMINE 25 MG CAP PO PRN (20:04)
--- NOTE | 2017-02-14 21:55 | IPNPDOC ---
General Date: Feb 14, 2017 Postoperative Day #: 8 Pain Control Unsatisfactory Surgical Procedure (02/06/17). Laminectomy and foraminotomies C3-C7, C3-T1 posterior lateral mass instrumentation with screws and rods, C3-T2 posterior-lateral arthrodesis, with bone graft. Over 24 Hours It has been noted by nursing she was holding her arms up and using them. When she was praised for this effort, she dropped her arm stating she was unable to lift it. Subjective New Symptoms Ms. House is a pleasant 61-year-old right-handed female smoker with a history of hypertension, chronic kidney disease (CKD) III, chronic obstructive pulmonary disease (COPD), asthma, uncontrolled diabetes type 2, hypothyroidism and chronic neck and back pain, who has been admitted to the hospital for her chronic neck pain by Dr Kelley. She is 7 days s/p complex spine surgery posterior decompression and fusion from C3-T1. She continues with weakness in her upper extremities, L>R, and is unable to hold her arms against gravity. She has been seen by PT who continue to work on increasing strength in upper extremities and getting her up out of bed. She has been using bed ro. She is not eating well. She only has 2.5 ensure drinks and her goal is 4. Denies chills, night sweats, headache, dizziness,bladder or bowel incontinence, calf or leg pain, N/V/C/D, chest pain, or shortness of breath. Objective Clinical Status: BP has improved Neurological status: Alert and orientated times three, GCS=[id number]. Speech is Fluent. Appears to be in better mood today. Wound/incision: Incision appears to be healing well. No increased drainage, erythema, or increased pain at the site. Drainage: None. Motor: weakness in upper extremities, L>R, unable to hold arms against gravity. She is able to move her fingers on each hand. Strength in lower extremities is 5 /5. Gait: she has only sat up in bed once. Working with PT with goal of getting her out of bed and walking with assistance. LABS: WBC = 11.5, increased from yesterdays 8.6. Hgb = 10,2, trending upward. HCT = 30.5, trending upward. Na+ = 138 K+= 5.2, H. Small decline from yesterday. Fasting glucose = 265 Laboratory Results Vital Signs Date Time Temp Pulse Resp B/P (MAP) Pulse Ox O2 Delivery O2 Flow Rate FiO2 02/14/17 18:00 97.7 91 18 142/81 (101) 94 Room Air I&O- Last 24 Hours up to 6 AM 02/14/17 05:59 Intake Total 940 ml Output Total 3875 ml Balance -2935 ml Laboratory Tests 02/14/17 06:33 Red Blood Count 3.41 L, Mean Corpuscular Volume 89.6, Mean Corpuscular Hemoglobin 29.9, Mean Corpuscular Hemoglobin Concent 33.4, Red Cell Distribution Width 12.8 02/14/17 07:05 Calcium Level 8.4 L, Aspartate Amino Transf (AST/SGOT) 12 L, Alanine Aminotransferase (ALT/SGPT) 18, Alkaline Phosphatase 109, Total Bilirubin 0.1 L , Total Protein 5.3 L, Albumin 2.1 L Laboratory Tests 2 02/14/17 07:05: Anion Gap 7L, Glomerular Filtration Rate 50.7, Blood Urea Nitrogen 27H, Creatinine 1.16H, Sodium Level 138, Potassium Level 5.2H, Chloride Level 103, Carbon Dioxide Level 28, Calcium Level 8.4L, Aspartate Amino Transf (AST/SGOT) 12L, Alanine Aminotransferase (ALT/SGPT) 18, Alkaline Phosphatase 109, Total Bilirubin 0.1L, Total Protein 5.3L, Albumin 2.1L, Albumin/Globulin Ratio 0.66L, Prealbumin 20.9 02/14/17 11:58: Bedside Glucose (Misc Panel) 233H 02/14/17 16:25: Bedside Glucose (Misc Panel) 242H Assessment/Plan 1. Cervical myeloradiculopathy. S/p decompression and fusion by Dr. Kelley. She has received the [place] collar. She has been encouraged to sit up in bed as much as possible and actively participate in PT. It has been noted she has been using her arms randomly more than she is during PT and physical exams. 2. Leukocytosis: WBC has increased today from 8.6 (yesterday) to 11.5. No fever. No signs of infection over incision. Will continue to monitor. 3. Chest pains: L-side of chest only occurring with coughing, sitting up, and bearing down to have BM. Management per hospitalist. 4. Decreased kidney function: Management per hospitalist. 5. Depression/anxiety. Consult had been placed to psychiatry- No suggestions for medications. 6. Calf pain bilaterally. Left greater than the right. She is taking heparin, has AMAIRANI/SCD. No swelling or palpable cord on exam. Low suspicion for DVT. Will continue to monitor. No changes. 7. Bilateral ear pain. No signs of infection on exam. She does have some middle ear fluid, could be related allergies. 8. Headache. Head of the bed has been lowered to see if there are any improvements. No improvements with lowering the head of bed. Will continue to monitor. 9. Facial itching: She is currently taking Benadryl. No complaints of facial itching today. 10. Wound care: Improving. No discharge or signs of infection. Will plan to remove the Perineo dressing in a few days. 11. Pain control: Unsatisfactory. She rates pain 8/10, worse in her neck and shoulders. She does not appear to be in significant pain. She is sitting comfortably and speaking in full sentences. Continue morphine. 12. DVT prophylaxis: TEDs and SCD. Encouraging ambulation. 12. Constipation prophylaxis: Cont lactulose and Colace 13. Nausea prophylaxis: Zofran IV PRN. 14. Diet : She only has 2.[address] Kelley has asked that we increased this to 4 drinks daily. I have encouraged her to increase her ensures. 15. Activity: Per PT/OT. We have encouraged her to continue leg exercises and attempting to move her arms in bed. Discuss plan with PT- will increase PT to 30 minutes twice a day. Would like her to be more ambulatory. 16. Discharge plan: Dr. Kelley would like to transfer patient to neuro rehabilitation in [place]. He would like her to have PT at least 3 hrs/day and we are unable to accomplish this within this hospital. Patient would prefer [facility], since her family is here. Brigido, D/C master planner, will help her apply to this hospital- which is her preference. He will let us know when he knows more. Thank you for all consulting providers for your much needed help regarding care of Ms. House. Current Medications Current Medications Acetaminophen (Tylenol Suspension) 650 mg Q4H PO Last administered on t 23:26; Start 02/10/17 at 11:00; Stop 02/12/17 at 07:01; Status DC Acetaminophen (Tylenol Tab) 650 mg Q6HP PRN PO MILD PAIN (PS 1-4) Last administered on 02/13/17 01:27; Start 02/06/17 at 18:15; Stop 03/08/17 at 18:14; Status Future hold Acetaminophen/ Hydrocodone Bitart ([place], [place] 5/325) 1 tab Q4HP PRN PO MODERATE PAIN (PS 5-7) Last administered on 02/13/17 09:49; Start 02/06/17 at 18 :15; Stop 02/13/17 at 10:59; Status DC Albuterol Sulfate (Proventil Neb) 2.5 mg Q2HP PRN NEB SHORTNESS OF BREATH; Start 02/06/17 at 19:45; Stop 03/08/17 at 19:44 Albuterol/ Ipratropium (Duoneb (Ipr 0.5mg/Alb 2.5mg)) 3 ml Q2HP PRN NEB SOB/ WHEEZING; Start 01/28/17 at 11:15; Stop 02/06/17 at 18:02; Status DC Albuterol/ Ipratropium (Duoneb (Ipr 0.5mg/Alb 2.5mg)) 3 ml QID NEB ; Start 02/07 at 13:00; Stop 02/07/17 at 13:00; Status DC Albuterol/ Ipratropium (Duoneb (Ipr 0.5mg/Alb 2.5mg)) 3 ml RQ4H NEB Last administered on 02/07/17 07:28; Start 02/06/17 at 20:00; Stop 02/07/17 at 10:00 ; Status DC Albuterol/ Ipratropium (Duoneb (Ipr 0.5mg/Alb 2.5mg)) 3 ml RQID NEB Last administered on 02/01/17 19:16; Start 01/28/17 at 12:00; Stop 02/06/17 at 18:02; Status DC Albuterol/ Ipratropium (Duoneb (Ipr 0.5mg/Alb 2.5mg)) 3 ml RQID NEB Last administered on 02/14/17 07:20; Start 02/07/17 at 12:00; Stop 03/09/17 at 11:59 Amlodipine Besylate (Norvasc) 5 mg DAILY PO Last administered on 01/29/17 09:02 ; Start 01/29/17 at 09:00; Stop 01/31/17 at 06:59; Status DC Calcium/Vitamin D (Oscal D) 500 mg DAILY PO Last administered on 02/09/17 11: 49; Start 02/09/17 at 09:00; Stop 02/09/17 at 13:35; Status DC Carisoprodol (Soma) 350 mg TID PO Last administered on 02/13/17 09:49; Start 02/06/17 at 21:00; Stop 02/13/17 at 10:59; Status DC Cefuroxime Sodium 750 mg/Dextrose 50 ml @ 100 mls/hr Q8H IV Last administered on 02/07/17 13:38; Start 02/06/17 at 22:00; Stop 02/07/17 at 14:29; Status DC Chlorhexidine Gluconate (Peridex Oral Rinse) SWAB/BRUSH ORAL CAVITY BID MT Last administered on 02/07/17 08:30; Start 02/06/17 at 21:00; Stop 02/07/17 at 10:00; Status DC Dextrose (Dextrose 50%) 25 ml ASDIRECTED PRN IV SEE LABEL COMMENTS Last administered on 02/02/17 20:23; Start 01/28/17 at 17:45; Stop 02/06/17 at 18:02; Status DC Dextrose (Dextrose 50%) 25 ml ASDIRECTED PRN IV SEE LABEL COMMENTS; Start at 19:30; Stop 02/03/17 at 19:30; Status DC Dextrose (Dextrose 50%) 25 ml STAT STAT IV Last administered on 02/07/17 13: 13; Start 02/07/17 at 13:02; Stop 02/07/17 at 13:05; Status DC Dextrose/Sodium Chloride 1,000 ml @ 80 mls/hr [id number] IV Last administered on 02/03/17 01:02; Start 02/03/17 at 01:00; Stop 02/03/17 at 11:44; Status DC Diltiazem HCl (Cardizem Cd) 120 mg BID PO Last administered on 02/01/17 08:26; Start 01/31/17 at 09:00; Stop 02/01/17 at 11:44; Status DC Diltiazem HCl (Cardizem) 30 mg Q8H PO Last administered on 02/13/17 14:38; Start 02/13/17 at 06:00; Stop 02/13/17 at 17:32; Status DC Diltiazem HCl (Cardizem) 30 mg Q8H PO Last administered on 02/06/17 05:24; Start 02/01/17 at 22:00; Stop 02/06/17 at 18:02; Status DC Diltiazem HCl (Cardizem) 60 mg Q8H PO Last administered on 02/14/17 14:00; Start 02/13/17 at 22:00; Stop 03/15/17 at 21:59 Diphenhydramine HCl (Benadryl) 25 mg Q4HP PRN PO ITCHING Last administered on 20:04; Start 02/08/17 at 08:45; Stop 03/10/17 at 08:44 Docusate Sodium (Colace Liquid) 100 mg BID PO Last administered on 02/08/17 08 :54; Start 02/08/17 at 09:00; Stop 02/09/17 at 11:33; Status DC Docusate Sodium (Colace) 100 mg BID PO Last administered on 02/07/17 20:29; Start 02/06/17 at 21:00; Stop 02/08/17 at 08:34; Status DC Famotidine 20 mg/ IV Miscellaneous Supplies 50 ml @ 100 mls/hr QHS IV Last administered on 02/13/17 20:12; Start 02/07/17 at 21:00; Stop 03/09/17 at 20:59 Glucagon (Glucagon) 1 mg ASDIRECTED PRN SC SEE LABEL COMMENTS; Start 01/28/17 at 17:45; Stop 02/06/17 at 18:02; Status DC Glucagon (Glucagon) 1 mg ASDIRECTED PRN SC SEE LABEL COMMENTS; Start 02/03/17 at 19:30; Stop 02/03/17 at 19:30; Status DC Glucose (Glucose) 16 GM ASDIRECTED PRN PO SEE LABEL COMMENTS; Start 01/28/17 at 17:45; Stop 02/06/17 at 18:02; Status DC Glucose (Glucose) 16 GM ASDIRECTED PRN PO SEE LABEL COMMENTS; Start 02/03/17 at 19:30; Stop 02/03/17 at 19:30; Status DC Heparin Sodium (Heparin (Flush)) 200 units ASDIRECTED PRN IV SEE LABEL COMMENTS ; Start 02/07/17 at 14:00; Stop 03/09/17 at 13:59 Heparin Sodium (Heparin (Flush)) 200 units PICC IV Last administered on 15:01; Start 02/07/17 at 18:00; Stop 03/09/17 at 17:59 Heparin Sodium (Porcine) (Heparin) 5,000 units BID SQ Last administered on 02/09 21:50; Start 02/09/17 at 21:00; Stop 02/10/17 at 09:57; Status DC Heparin Sodium (Porcine) (Heparin) 5,000 units Q8H SQ Last administered on 21:50; Start 01/29/17 at 14:00; Stop 02/05/17 at 23:00; Status DC Heparin Sodium (Porcine) (Heparin) 5,000 units Q8H SQ Last administered on 02/14 13:54; Start 02/10/17 at 14:00; Stop 02/19/17 at 13:59 Heparin Sodium (Porcine) (Heparin) 5,000 units TID SQ ; Start 01/29/17 at 16:00; Stop 01/29/17 at 16:00; Status DC Home Med (Med Rec Complete!) ASDIRECTED XX ; Start 01/28/17 at 09:30; Stop at 09:30; Status DC Insulin Detemir (Levemir Insulin) 10 units BID SC Last administered on 09:01; Start 01/28/17 at 21:00; Stop 01/29/17 at 17:31; Status DC Insulin Detemir (Levemir Insulin) 10 units DAILY@1500 SC Last administered on 16:08; Start 02/05/17 at 15:00; Stop 02/06/17 at 18:02; Status DC Insulin Detemir (Levemir Insulin) 20 units BID SC Last administered on 08:46; Start 02/04/17 at 09:00; Stop 02/04/17 at 17:17; Status DC Insulin Detemir (Levemir Insulin) 60 units BID SC Last administered on 19:47; Start 01/30/17 at 21:00; Stop 02/01/17 at 06:50; Status DC Insulin Detemir (Levemir Insulin) 70 units BID SC Last administered on 11:19; Start 02/01/17 at 09:00; Stop 02/03/17 at 10:37; Status DC Insulin Detemir (Levemir Insulin) 70 units BID SC Last administered on 08:17; Start 02/04/17 at 21:00; Stop 02/05/17 at 08:21; Status DC Insulin Detemir (Levemir Insulin) 80 units BID SC Last administered on 21:51; Start 02/05/17 at 21:00; Stop 02/06/17 at 18:02; Status DC Insulin Human Lispro (HumaLOG INSULIN) SEE PROTOCOL TABLE AC SC Last administered on 01/29/17 17:30; Start 01/29/17 at 17:30; Stop 01/30/17 at 13:08; Status DC Insulin Human Lispro (HumaLOG INSULIN) SEE PROTOCOL TABLE AC SC Last administered on 02/14/17 16:58; Start 02/08/17 at 12:00; Stop 03/10/17 at 11:59 Insulin Human Lispro (HumaLOG INSULIN) SEE PROTOCOL TABLE AC SC Last administered on 01/31/17 11:43; Start 01/30/17 at 17:30; Stop 01/31/17 at 12:57; Status DC Insulin Human Lispro (HumaLOG INSULIN) SEE PROTOCOL TABLE AC SC Last administered on 02/01/17 18:16; Start 01/31/17 at 17:30; Stop 02/02/17 at 07:38; Status DC Insulin Human Lispro (HumaLOG INSULIN) SEE PROTOCOL TABLE Q4H SC Last administered on 01/29/17 07:42; Start 01/28/17 at 20:00; Stop 01/29/17 at 08:20; Status DC Insulin Human Lispro (HumaLOG INSULIN) SEE PROTOCOL TABLE Q6H SC Last administered on 02/02/17 12:39; Start 02/02/17 at 06:00; Stop 02/03/17 at 10:37; Status DC Insulin Human Lispro (HumaLOG INSULIN) SEE PROTOCOL TABLE QHS SC ; Start at 21:00; Stop 01/30/17 at 13:06; Status DC Insulin Human Lispro (HumaLOG INSULIN) SEE PROTOCOL TABLE QHS SC Last administered on 02/12/17 21:00; Start 02/08/17 at 21:00; Stop 03/10/17 at 20:59 Insulin Human Lispro (HumaLOG INSULIN) SEE PROTOCOL TABLE QHS SC Last administered on 01/31/17 19:47; Start 01/30/17 at 21:00; Stop 02/02/17 at 07:38; Status DC Insulin Human Lispro (HumaLOG INSULIN) See Protocol Table AC SC Last administered on 02/05/17 17:24; Start 02/04/17 at 07:30; Stop 02/06/17 at 18:02; Status DC Insulin Human Lispro (HumaLOG INSULIN) See Protocol Table Q1H SC ; Start at 19:00; Stop 02/06/17 at 20:19; Status DC Insulin Human Lispro (HumaLOG INSULIN) See Protocol Table QHS SC Last administered on 02/05/17 21:51; Start 02/03/17 at 21:00; Stop 02/06/17 at 18:02; Status DC Insulin Human Regular 100 units/ Sodium Chloride 100 ml @ 0 mls/hr Q0M IV ; Start 01/30/17 at 13:25; Stop 03/01/17 at 13:24; Status UNV Insulin Human Regular 100 units/ Sodium Chloride 100 ml @ 1 mls/hr Q24H IV Last administered on 01/28/17 11:43; Start 01/28/17 at 09:30; Stop 01/28/17 at 17:24; Status DC Insulin Human Regular 100 units/ Sodium Chloride 100 ml @ 7 mls/hr [id number] IV Last administered on 01/30/17 11:55; Start 01/29/17 at 09:30; Stop 01/30/17 at 21: 00; Status DC Insulin Human Regular 100 units/ Sodium Chloride 100 ml @ 7 mls/hr [id number] IV Last administered on 02/07/17 22:22; Start 02/06/17 at 21:00; Stop 02/08/17 at 10:21; Status DC Lactated Ringer's 1,000 ml @ 100 mls/hr Q10H IV Last administered on 08:55; Start 02/06/17 at 22:15; Stop 02/07/17 at 09:44; Status DC Lactulose (Cephulac) 30 ml TID PO Last administered on 02/14/17 20:04; Start 02/14/17 at 09:00; Stop 03/16/17 at 08:59 Levothyroxine Sodium (Synthroid) 75 mcg DAILY IV ; Start 02/07/17 at 09:00; Stop 02/07/17 at 15:40; Status DC Levothyroxine Sodium (Synthroid) 75 mcg DAILY@0600 IV Last administered on 02/09 06:24; Start 02/07/17 at 06:00; Stop 02/09/17 at 13:34; Status DC Levothyroxine Sodium (Synthroid) 150 mcg DAILY@06 PO Last administered on 06:13; Start 02/10/17 at 06:00; Stop 03/12/17 at 05:59 Levothyroxine Sodium (Synthroid) 150 mcg DAILY@0600 PO Last administered on 02/06 05:22; Start 01/29/17 at 06:00; Stop 02/06/17 at 18:02; Status DC Lisinopril (Prinivil) 10 mg DAILY PO Last administered on 01/30/17 16:21; Start 01/30/17 at 09:00; Stop 01/31/17 at 06:55; Status DC Magnesium Hydroxide (Milk Of Magnesia) 30 ml DAILYPRN PRN PO CONSTIPATION Last administered on 02/14/17 09:02; Start 02/14/17 at 07:45; Stop 03/16/17 at 07:44 Metoprolol Tartrate (Lopressor) 25 mg Q8H PO Last administered on 01/30/17 05: 55; Start 01/29/17 at 14:00; Stop 01/30/17 at 15:38; Status DC Midazolam HCl (Versed) 2 mg Q15MP PRN IV AGITATION Last administered on 06:59; Start 02/06/17 at 19:45; Stop 02/07/17 at 10:00; Status DC Morphine Sulfate (Morphine Sulfate Inj) 2 mg Q2HP PRN IV BREAKTHROUGH PAIN; Start 01/28/17 at 10:30; Stop 02/06/17 at 18:02; Status DC Morphine Sulfate (Morphine Sulfate Inj) 2 mg Q2HP PRN IV SEVERE PAIN (PS 8-10) Last administered on 02/14/17 15:01; Start 02/06/17 at 18:15; Stop 02/20/17 at 18:14 Nicotine (Nicoderm Cq 14mg) 1 patch DAILY TD Last administered on 02/14/17 09: 03; Start 02/08/17 at 09:00; Stop 03/10/17 at 08:59 Nicotine (Nicoderm Cq 21mg) 1 patch DAILY TD Last administered on 02/05/17 08: 16; Start 01/28/17 at 09:00; Stop 02/06/17 at 18:02; Status DC Nicotine (Nicorette) 2 mg Q2HP PRN PO NICOTINE WITHDRAWAL Last administered on 01/28/17 20:22; Start 01/28/17 at 10:30; Stop 02/06/17 at 18:02; Status DC Non-Formulary Medication (Insulin Iv Rate Change Documentation ml/ Hr) ASDIRECTED XX Last administered on 01/28/17 16:29; Start 01/28/17 at 09:00; Stop 01/28/17 at 17:26; Status DC Non-Formulary Medication (Insulin Iv Rate Change Documentation ml/ Hr) ASDIRECTED XX Last administered on 01/30/17 17:53; Start 01/29/17 at 08:30; Stop 02/06/17 at 18:02; Status DC Non-Formulary Medication (Insulin Iv Rate Change Documentation ml/ Hr) ASDIRECTED XX ; Start 01/30/17 at 13:30; Stop 03/01/17 at 13:29; Status UNV Non-Formulary Medication (Insulin Iv Rate Change Documentation ml/ Hr) ASDIRECTED XX Last administered on 02/08/17 08:28; Start 02/06/17 at 20:15; Stop 02/08/17 at 10:21; Status DC Nystatin (Mycostatin Powder, Nystop) 1 dose BID TOP Last administered on 08:17; Start 01/28/17 at 09:00; Stop 02/06/17 at 18:02; Status DC Ondansetron HCl (ZOFRAN INJection) 4 mg Q4HP PRN IV NAUSEA OR VOMITING; Start 02/06/17 at 18:15; Stop 02/07/17 at 10:05; Status DC Ondansetron HCl (ZOFRAN INJection) 4 mg RQ6H IV Last administered on 02/14/17 20:04; Start 02/07/17 at 14:00; Stop 03/08/17 at 18:14 Oxycodone/ Acetaminophen (Percocet 5mg/ 325mg Tablet) 1 tab Q4HP PRN PO MILD/ MODERATE PAIN (PS 1-7) Last administered on 02/01/17 21:10; Start 01/28/17 at 12 :00; Stop 02/06/17 at 18:02; Status DC Pantoprazole Sodium (Protonix) 40 mg DAILY IV Last administered on 02/09/17 09 :32; Start 02/07/17 at 09:00; Stop 02/09/17 at 13:34; Status DC Pantoprazole Sodium (Protonix) 40 mg DAILY PO Last administered on 02/14/17 09 :03; Start 02/10/17 at 09:00; Stop 03/12/17 at 08:59 Polyethylene Glycol (Miralax) 1 pkt DAILYPRN PRN PO CONSTIPATION Last administered on 02/14/17 01:14; Start 02/12/17 at 17:45; Stop 03/14/17 at 17:44 Potassium Chloride 10 meq/ IV Miscellaneous Supplies 100 ml @ 100 mls/hr 0630, 0730 IV Last administered on 02/07/17 09:47; Start 02/07/17 at 06:30; Stop 04/16 at 12:00; Status DC Potassium Chloride/Sodium Chloride 1,000 ml @ 100 mls/hr Q10H IV Last administered on 02/06/17 20:36; Start 02/06/17 at 18:15; Stop 02/06/17 at 22:05; Status DC Propofol 1000 mg/ IV Miscellaneous Supplies 100 ml @ 5.44 mls/hr [id number] IV Last administered on 02/07/17 05:40; Start 02/06/17 at 19:43; Stop 02/07/17 at 10:00; Status DC Simvastatin (Zocor) 20 mg QHS PO Last administered on 02/05/17 21:49; Start 02/01/17 at 21:00; Stop 02/06/17 at 18:02; Status DC Simvastatin (Zocor) 40 mg DAILY PO Last administered on 02/14/17 09:02; Start 02/09/17 at 09:00; Stop 03/11/17 at 08:59 Simvastatin (Zocor) 40 mg QHS PO Last administered on 01/31/17 19:46; Start at 21:00; Stop 02/01/17 at 11:53; Status DC Sodium Biphosphate/ Sodium Phosphate (Fleet Enema) 1 ea DAILYPRN PRN [place] CONSTIPATION Last administered on 02/14/17 10:19; Start 02/14/17 at 09:00; Stop 03/16/17 at 08:59 Sodium Chloride 1,000 ml @ 80 mls/hr [id number] IV Last administered on 02/02/17 22:15; Start 02/02/17 at 09:45; Stop 02/03/17 at 00:53; Status DC Sodium Chloride 1,000 ml @ 100 mls/hr Q10H IV Last administered on 01/31/17 01 :57; Start 01/28/17 at 08:40; Stop 01/31/17 at 10:25; Status DC Sodium Chloride 1,000 ml @ 100 mls/hr Q10H IV Last administered on 02/10/17 18:22; Start 02/07/17 at 09:45; Stop 02/11/17 at 07:44; Status DC Sodium Chloride 1,000 ml @ 100 mls/hr Q10H IV Last administered on 02/06/17 00 :49; Start 02/06/17 at 00:05; Stop 02/06/17 at 18:02; Status DC Sodium Chloride 1,000 ml @ 150 mls/hr Q6H40M IV ; Start 02/05/17 at 09:00; Stop 02/05/17 at 12:20; Status DC Sodium Chloride (Saline Lock Flush) 10 ML PICC IV Last administered on t 15:01; Start 02/07/17 at 18:00; Stop 03/09/17 at 17:59 Sodium Chloride (Saline Lock Flush) 10ML ASDIRECTED PRN IV SEE LABEL COMMENTS; Start 02/07/17 at 14:00; Stop 03/09/17 at 13:59 Allergies Allergies: Coded Allergies: Metformin (Verified Adverse Reaction, Intermediate, heart races, 01/28/17) Sitagliptin (Verified Adverse Reaction, Intermediate, heart races, 01/28/17 ) Sulfa Antibiotics (Verified Adverse Reaction, Intermediate, heart racing, 01/28/17) PHI FOX PA-C Feb 14, 2017 21:32
[2017-02-14 22:00] VITALS: BP 155/73
[2017-02-14] MEDS: FAMOTIDINE IV BAG 20 MG in APPROPRIATE DILUENT 1 EA IV SCH (22:08)
[2017-02-15] MEDS: diphenhydrAMINE 25 MG CAP PO PRN ×4 (01:11→20:18)
[2017-02-15] MEDS: ONDANSETRON 4MG/2ML VIAL (J2405) IV SCH ×4 (01:11→20:18)
[2017-02-15] MEDS: MORPHINE 2 MG/ML 1ML SYRINGE IV PRN ×2 (05:02→10:35)
[2017-02-15 06:00] VITALS: BP 107/55
[2017-02-15] MEDS: SODIUM CHLORIDE 0.9% INJ 10 ML SYR IV SCH ×2 (06:30→18:00)
[2017-02-15] MEDS: LEVOTHYROXINE 150MCG TABLET (0.15MG) PO SCH (06:53)
[2017-02-15] MEDS: HEPARIN SOD (PORCINE) 5000 UNITS/ML VIAL SQ SCH ×3 (06:53→22:19)
[2017-02-15 07:03] LABS: MEAN CORPUSCULAR HEMOGLOBIN 30.2 pg (27.0-33.0); MEAN CORPUSCULAR HGB CONC 33.5 g/dl (32.0-36.5); MEAN CORPUSCULAR VOLUME 90.3 fl (80.0-96.0); RED CELL DISTRIBUTION WIDTH 12.9 % (11.5-14.5); WHITE BLOOD COUNT 10.1 K/mm3 (4.0-10.0)
[2017-02-15 07:08] LABS: ALBUMIN 2.1 GM/DL (3.2-5.2); ALBUMIN/GLOBULIN RATIO 0.53 (1.00-1.93); BILIRUBIN,TOTAL 0.2 MG/DL (0.2-1.0); CALCIUM LEVEL 9.2 MG/DL (8.8-10.2); CREATININE FOR GFR 1.39 MG/DL (0.55-1.02); GLOMERULAR FILTRATION RATE 41.2 (>45); POTASSIUM SERUM 4.6 MEQ/L (3.5-5.1); TOTAL PROTEIN 6.1 GM/DL (6.4-8.2)
[2017-02-15] MEDS: IPRATROPIUM 0.5MG/ALBUTEROL 2.5MG INH SOL UD 3ML (DUONEB)(J7620) NEB SCH ×4 (07:36→19:40)
[2017-02-15] MEDS: PANTOPRAZOLE 40MG TAB (PROTONIX) PO SCH (10:02)
[2017-02-15] MEDS: HumaLOG INSULIN (NovoLOG) PER UNIT SC SCH ×4 (10:02→21:00)
[2017-02-15] MEDS: NICOTINE 14 MG/24 HR TRANSDERMAL TD SCH (10:02)
[2017-02-15] MEDS: SIMVASTATIN 40 MG TAB PO SCH (10:03)
[2017-02-15] MEDS: LACTULOSE 20 GM/30 ML SYRUP UD PO SCH (10:03)
[2017-02-15] MEDS: SODIUM CHLORIDE 0.9% INJ 10 ML SYR IV PRN ×2 (10:04→10:36)
--- NOTE | 2017-02-15 16:47 | IPN ---
DATE: 02/15/2017 SUBJECTIVE: The patient complains of low energy for her to go to physical therapy (PT). The patient did drink a full bottle of Ensure yesterday and is encouraged to eat as much oral intake as possible. However, the patient complains of persistent neck pain and mid/low back pain. OBJECTIVE: VITAL SIGNS: Temperature is 98.4, pulse is 76, respirations 18, blood pressure is 107/55, pulse oximetry is 92% in room air. GENERAL: Fatigued, no sign of acute distress, alert and oriented times three. HEENT: Normocephalic, atraumatic. Extraocular motor grossly intact. CARDIOVASCULAR: Positive S1, S2. Regular rate. LUNGS: Clear to auscultation bilaterally. ABDOMEN: Soft, nontender, nondistended. Bowel sounds present. EXTREMITIES: Positive pitting edema of the bilateral upper extremities. No significant upper extremity edema. No sign of cyanosis. LABORATORY DATA: WBC 10.1, hemoglobin 9.8, hematocrit 29.4, platelet count is 304. Sodium is 138, potassium 4.6, chloride is 102, carbon dioxide 29, BUN 27, creatinine 1.39, GFR is 41.2, fasting glucose is 234, calcium 9.2, total bilirubin 0.2. AST 11, ALT 16, alkaline phosphatase is 111. Total protein is 6.1, albumin is 2.1, prealbumin is 20.3. ASSESSMENT AND PLAN: 1. Uncontrolled diabetes with A1c of 12.3. The patient continues to have fluctuation of oral intake. At the baseline, according to patient, she has been drinking three to four cans of Ensure, but the normal oral intake does fluctuate based on her appetite and her energy level. The patient does have multiple episodes of hypoglycemia. Therefore, long-acting insulin may not be the safest option for the patient at this moment. We will restart long-acting insulin when the oral intake is more stabilized. 2. Acute kidney injury secondary to poor oral intake. The patient does have fluctuation of the kidney function, so also related to patient's inconsistence with oral intake. At this time, the patient has a kidney injury secondary to dehydration. The patient has been refusing IV support. The only thing that we can do is recommend increased oral hydration. 3. Protein-calorie malnutrition. The patient needs to drink at least three to four Ensures on a daily basis. The patient's albumin has been followed. We will encourage increased oral intake as tolerated. 4. Hypertension. The patient's blood pressure is better than before. The patient does have an episode of hypotension previously. We will be cautious regarding the patient's blood pressure control. 5. Cervical spine stenosis, status post C1 to T1 spinal fusion and C3-6 laminectomy on 02/06/2017. The patient continues to have bilateral upper extremity weakness and numbness after the procedure. We will defer pain management, deep vein thrombosis (DVT) prophylaxis, and rehabilitation to the surgical team. 6. History of acute respiratory failure, requiring mechanical ventilation postoperatively, extubated on 02/07/2017. The patient currently does not require additional oxygen support and is breathing comfortably in room air. 7. Hypothyroidism, on Synthroid. 8. Dyslipidemia, on statin. 9. History of chronic alcohol abuse. No sign of withdrawal. 10. Tobacco abuse, on nicotine patch. 11. Constipation. The patient had multiple bowel movements in the last 2 days. We will discontinue MiraLAX and lactulose. The patient will remain on Colace. Due to the last significant bowel movement, the patient's input is less than output. This could explain the patient's worsening renal functions. Continue to monitor. 12. Chronic obstructive pulmonary disease (COPD). No sign of acute exacerbation at this moment. 13. Deep venous thrombosis prophylaxis. On heparin. MTDD
[2017-02-15] MEDS: ACETAMINOPHEN TAB 650MG DOSE (2X325MG) PO SCH ×2 (18:58→22:36)
[2017-02-15] MEDS: MOM 30ML SUSPENSION UDC PO PRN (18:59)
[2017-02-15] MEDS: DOCUSATE SODIUM 100 MG CAP PO SCH (20:18)
[2017-02-15] MEDS: zolPIDEM TARTRATE 5 MG TAB PO SCH (20:19)
[2017-02-15] MEDS: FAMOTIDINE IV BAG 20 MG in APPROPRIATE DILUENT 1 EA IV SCH (20:19)
[2017-02-15 22:00] VITALS: BP 119/56
[2017-02-16] MEDS: ONDANSETRON 4MG/2ML VIAL (J2405) IV SCH ×4 (02:00→19:57)
[2017-02-16] MEDS: ACETAMINOPHEN TAB 650MG DOSE (2X325MG) PO SCH ×6 (02:00→21:58)
[2017-02-16] MEDS: diphenhydrAMINE 25 MG CAP PO PRN (05:46)
[2017-02-16] MEDS: HEPARIN SOD (PORCINE) 5000 UNITS/ML VIAL SQ SCH ×3 (05:47→21:56)
[2017-02-16] MEDS: SODIUM CHLORIDE 0.9% INJ 10 ML SYR IV SCH ×2 (05:47→18:00)
[2017-02-16] MEDS: LEVOTHYROXINE 150MCG TABLET (0.15MG) PO SCH (05:49)
[2017-02-16 06:00] VITALS: BP 108/53
[2017-02-16] MEDS: IPRATROPIUM 0.5MG/ALBUTEROL 2.5MG INH SOL UD 3ML (DUONEB)(J7620) NEB SCH ×4 (08:00→20:00)
[2017-02-16 08:31] LABS: MEAN CORPUSCULAR HGB CONC 33.3 g/dl (32.0-36.5); MEAN CORPUSCULAR VOLUME 90.1 fl (80.0-96.0); RED CELL DISTRIBUTION WIDTH 13.3 % (11.5-14.5); WHITE BLOOD COUNT 11.2 K/mm3 (4.0-10.0)
[2017-02-16] MEDS: NICOTINE 14 MG/24 HR TRANSDERMAL TD SCH (09:00)
[2017-02-16 09:06] LABS: ALBUMIN/GLOBULIN RATIO 0.51 (1.00-1.93); BILIRUBIN,TOTAL 0.2 MG/DL (0.2-1.0); CALCIUM LEVEL 8.5 MG/DL (8.8-10.2); CREATININE FOR GFR 1.86 MG/DL (0.55-1.02); GLOMERULAR FILTRATION RATE 29.4 (>45); POTASSIUM SERUM 5.4 MEQ/L (3.5-5.1); TOTAL PROTEIN 5.9 GM/DL (6.4-8.2)
[2017-02-16] MEDS: HumaLOG INSULIN (NovoLOG) PER UNIT SC SCH ×4 (09:17→21:55)
[2017-02-16] MEDS: MORPHINE 2 MG/ML 1ML SYRINGE IV PRN ×3 (09:19→19:57)
[2017-02-16] MEDS: PANTOPRAZOLE 40MG TAB (PROTONIX) PO SCH (09:39)
[2017-02-16] MEDS: DOCUSATE SODIUM 100 MG CAP PO SCH ×2 (09:39→21:57)
[2017-02-16] MEDS: SIMVASTATIN 40 MG TAB PO SCH (09:40)
[2017-02-16] MEDS: NS 1,000 ML IV SCH (14:12)
[2017-02-16 15:21] LABS: MAGNESIUM LEVEL 2.9 MG/DL (1.8-2.4); PHOSPHORUS LEVEL 5.2 MG/DL (2.5-4.9)
--- NOTE | 2017-02-16 15:56 | CR ---
DATE OF CONSULTATION: 02/16/2017 REQUESTING PHYSICIAN: Dr. Maryjo Castillo CONSULTING PHYSICIAN: Dr. Pagan REASON FOR CONSULTATION: Management of acute kidney injury superimposed on chronic kidney disease. CHIEF COMPLAINT: Patient was admitted on 01/28/2017 with neck and back pain and weakness of bilateral hands. HISTORY OF PRESENT ILLNESS: Natasha House is a 61-year-old female with past medical history of diabetes mellitus, type 2, hypertension, chronic kidney disease, stage III, with a best baseline creatinine of around 1.1-1.2 according to the records during this admission. Patient was admitted on January 28 with back pain and neck pain. She underwent the laminectomy and cervical spine fusion on 02/06/2017. Postoperative course has been complicated by bilateral upper extremity weakness. Patient's creatinine on admission was 1.6, which improved to best creatinine of 0.9 on 01/30/2017. Patient's creatinine after the surgery was stable at around 1.2; however, it has suddenly bumped up to 1.3 yesterday and 1.8 today morning. Nephrology service was called for further help in the management of acute kidney injury superimposed on chronic kidney disease. Patient was examined by me today at the bedside. She is awake, alert, oriented times three. She was able to provide the history and was able to communicate. She is not in any apparent distress at this time. PAST MEDICAL HISTORY: 1. Diabetes mellitus, type 2, which is uncontrolled 2. Chronic kidney disease, stage III. 3. Hypothyroidism. 4. Hyperlipidemia. 5. Hypertension. 6. Asthma. 7. Chronic back pain and neck pain. 8. Cervical spine disc disease. PAST SURGICAL HISTORY: 1. Right eye cataract surgery. 2. History of tubal ligation. 3. Recent cervical spine fusion and laminectomies on 02/07/2017. FAMILY HISTORY: No significant family history of end-stage renal disease requiring hemodialysis. SOCIAL HISTORY: Patient lives with her son and girlfriend. There is no history of illicit drug abuse. She is an active smoker and smokes about two packs a day. REVIEW OF SYSTEMS: CONSTITUTIONAL: Patient denies fever, chills, or rigors. EYES: She denies any blurry vision or double vision. ENT: She denies any dysphagia or odynophagia, ear discharge. CARDIOVASCULAR: She denies any chest pain or palpitations. RESPIRATORY: She denies any shortness of breath. GASTROINTESTINAL: She denies any pain in abdomen, constipation. GENITOURINARY: She denies any dysuria, hematuria, or difficulty with urination. MUSCULOSKELETAL: She reports bilateral upper extremity weakness., CENTRAL NERVOUS SYSTEM: Patient reports history of cervical spine stenosis and recent central nervous system ([employer]) surgery and inability to move upper extremities and weakness. PSYCHIATRIC: She denies any depression or anxiety. SKIN: She denies any rashes or ulcers. HEMATOLOGIC/ONCOLOGIC: She denies any easy bruising or bleeding. ENDOCRINE: She reports history of diabetes and hypothyroidism. All other review of systems is negative. PHYSICAL EXAMINATION: GENERAL: Patient is awake, alert, oriented times three, lying in bed. No apparent distress. VITAL SIGNS: Temperature is 98.1 degrees Fahrenheit, blood pressure is 119/56, pulse is 88, respiratory rate of 17, saturating 91% on room air. Intake and output: Urine output recorded is 2.7 liters yesterday, 950 mL so far today since overnight. Weight in the bed scale is not available. HEAD AND NECK: Extraocular muscles intact. Pupils equally round and reactive to light. Mucous membranes are moist. Neck was not moved that much, because she recently had cervical spine surgery, and there is a healing cervical incision wound at the back. CARDIOVASCULAR: S1, S2, regular rate. No murmur, rub, or gallop. RESPIRATORY: Chest is clear to auscultation bilaterally. Bilateral equal air entry. No rales or rhonchi. ABDOMEN: Abdomen is soft. Positive bowel sounds. Obese, nontender. No ascites. No organomegaly. EXTREMITIES: No clubbing or cyanosis. Pulses are 2+ in bilateral lower extremities. Patient is awaiting slings in both upper extremities. CENTRAL NERVOUS SYSTEM: Power is 5/5 in bilateral lower extremities and 1/5 in bilateral upper extremities. PSYCHIATRIC: Normal mood and affect. SKIN: No rashes or ulcers. LYMPH NODE: No significant cervical, axillary, or inguinal lymphadenopathy. LABORATORY REVIEW: CBC showed a WBC 11.2, hemoglobin 9.1, platelets are 251. BMP today showed sodium 135, potassium 5.4, chloride 101, bicarbonate 27, BUN 36, creatinine is 1.8, GFR 29.4, glucose is 337, calcium is 8.5. Albumin is 2. IMAGING: I reviewed all the imaging done from 01/28/2017 to 02/08/2017, and patient did not get any intravenous (IV) contrast study. There is no renal ultrasound available at this time. CURRENT INPATIENT MEDICATIONS: Patient's medications were all reviewed by me. That includes: - Pepcid 20 mg IV daily - She has been started on normal saline at 80 mL an hour. - Tylenol as needed - albuterol nebulizations - Cardizem 60 mg every 8 hours - Benadryl as needed - Colace - heparin subcutaneous - insulin sliding scale - levothyroxine 150 mcg daily - milk of magnesia - morphine - nicotine - Zofran as needed - Protonix 40 mg daily - Zocor 40 mg daily - Patient got a dose of Fleet enema on 02/14/2017, and she is also on Ambien ASSESSMENT: A 61-year-old female with past medical history of chronic kidney disease, stage III, uncontrolled diabetes mellitus, hypertension, admitted at this time for cervical spine surgery and fusion. Nephrology service following the patient for management of acute kidney injury. PLAN: 1. Acute kidney injury superimposed on chronic kidney disease, stage III. I do not see any obvious reason for this patient's acute kidney injury apart from the reason that she is in negative fluid balance for the last 1 week. Patient is not able to take enough liquids and food orally. She needs help in taking diet and foot, because she has weakness of bilateral upper extremities. I agree with starting the IV fluid hydration at this time. Patient also got a dose of Fleet enema on 02/14/2017. I would avoid giving more Fleet enema to his patient with acute kidney injury. 2. Hyperkalemia. It is most likely secondary to acute kidney injury, decreased oral intake, and volume depletion. Continue the IV fluid hydration. Potassium level is expected to improve in the renal function. 3. Hyponatremia. I believe it is most likely hypovolemic hyponatremia. Sodium is expected to improve with IV hydration. I am going to increase the IV fluid rate to 100 mL an hour. 4. Diabetes mellitus, type 2. It is uncontrolled at this time. Management of diabetes is as per primary team. She is currently on Levemir and insulin sliding scale. 5. Hypertension. Blood pressure is acceptable at this time. Continue Cardizem 60 mg every 8 hours. 6. Protein calorie malnutrition. Patient has weakness of bilateral upper extremities. She needs assistance with her diet, and she needs to be encouraged to take more liquids orally. Thank for involving us in the care of this patient. We shall be happy to follow the patient along with you tomorrow morning. Plan of care was discussed with the hospitalist, Dr. Maryjo Castillo.
--- NOTE | 2017-02-16 17:17 | IPN ---
DATE: 02/16/2017 SUBJECTIVE: The patient is seen and examined in the room today. The patient still feels very fatigued. The patient drank three bottles of Ensure. The patient continues to have a very poor appetite. Continues to have very poor oral intake. OBJECTIVE: VITAL SIGNS: Temperature is 97.1, pulse 69, respirations 17, blood pressure is 108/53, pulse oximetry 92% on room air. GENERAL: Fatigued, obese. No sign of acute distress. Alert and oriented times three. HEENT: Normocephalic, atraumatic. Extraocular motor grossly intact. CARDIOVASCULAR: Positive S1, S2. Regular rate. LUNGS: Clear to auscultation bilaterally. ABDOMEN: Soft, nontender, nondistended. Bowel sounds present. EXTREMITIES: Positive pitting edema bilateral upper extremities. No edema of lower extremity or the buttock area. No sign of cyanosis. LABORATORY DATA: WBC 11.2, hemoglobin 9.1, hematocrit 27.3, platelet count 251. Sodium 135, potassium 5.4, chloride 101, carbon dioxide 27, BUN is 36, creatinine 1.86, GFR is 29.4, fasting glucose 337, calcium 8.5, phosphorus 5.2, magnesium 2.9. Total bilirubin is 0.2, AST 22, ALT 18, alkaline phosphatase 98. ASSESSMENT AND PLAN: 1. Acute kidney injury. The patient's acute kidney damage started a few days ago and most likely due to poor oral intake. Initially intravenous (IV) fluid had been suggested but the patient strongly refused the IV fluid due to her bilateral upper extremity swelling. I have been encouraging the patient to increase oral intake to match the significant output. Today, the patient has continued worsening of the renal function, and now the patient has creatinine of 1.86 and glomerular filtration rate (GFR) 29.4%. After discussing with the patient for a long duration, the patient finally agreed to restart the trial of fluid resuscitation, and I also consulted nephrology for assistance to manage the patient's kidney function. 2. Uncontrolled diabetes. A1c of 12.3, due to the patient's current difficulty with oral intake from bilateral upper extremity weakness and poor appetite. The patient's oral intake shows significant fluctuations. This is a worry for causing hypoglycemia when we start the long-acting insulin. Currently the patient will be continued on the sliding scale only. We will consider long-acting insulin only when the patient's oral intake is more stabilized. 3. Protein calorie malnutrition. There started to show a drop of prealbumin. With the history from the patient, it demonstrates the patient's oral intake started to decline. Recommend the patient to take 3-4 cans of Ensure, and she needs to start to have better oral intake. 4. Hypertension. Blood pressure in the satisfactory range right now. The patient is on Cardizem 60 mg by mouth every eight hours. 5. Hypothyroidism. On Synthroid. 6. Cervical spine stenosis, status post C1 to T1 spinal fusion and C3 to C6 laminectomy on 02/06/2017. The patient has bilateral upper extremity weakness and numbness after the procedure. The patient is currently receiving physical therapy. The patient may benefit from rehabilitation. Will defer pain control and DVT prophylaxis and activity level to the surgical team. 7. History of respiratory failure requiring mechanical ventilation postoperatively. Extubated 02/07/2017. Currently is breathing comfortably on room air. Does not require any oxygen supplement. 8. Dyslipidemia. On statin. 9. Insomnia. Started trial of Ambien since 02/15/2017. 10. Tobacco abuse. On nicotine patch. 11. History of alcohol abuse. No sign of withdrawal. 12. Chronic obstructive pulmonary disease (COPD). No sign of exacerbation. 13. Deep venous thrombosis (DVT) prophylaxis on heparin. MTDD
[2017-02-16] MEDS: zolPIDEM TARTRATE 5 MG TAB PO SCH (21:58)
[2017-02-16 22:00] VITALS: BP 164/92
[2017-02-16] MEDS: FAMOTIDINE IV BAG 20 MG in APPROPRIATE DILUENT 1 EA IV SCH (22:43)
[2017-02-17] MEDS: NS 1,000 ML IV SCH ×4 (01:52→13:45)
[2017-02-17] MEDS: ONDANSETRON 4MG/2ML VIAL (J2405) IV SCH ×4 (01:52→18:52)
[2017-02-17] MEDS: ACETAMINOPHEN TAB 650MG DOSE (2X325MG) PO SCH ×5 (01:53→14:00)
[2017-02-17 06:00] VITALS: BP 174/110
[2017-02-17] MEDS: HEPARIN SOD (PORCINE) 5000 UNITS/ML VIAL SQ SCH ×3 (06:35→22:12)
[2017-02-17] MEDS: LEVOTHYROXINE 150MCG TABLET (0.15MG) PO SCH (06:35)
[2017-02-17] MEDS: SODIUM CHLORIDE 0.9% INJ 10 ML SYR IV SCH ×2 (06:36→18:54)
[2017-02-17] MEDS: MORPHINE 2 MG/ML 1ML SYRINGE IV PRN ×3 (06:42→22:15)
[2017-02-17] MEDS: HumaLOG INSULIN (NovoLOG) PER UNIT SC SCH ×4 (07:30→22:15)
[2017-02-17] MEDS: IPRATROPIUM 0.5MG/ALBUTEROL 2.5MG INH SOL UD 3ML (DUONEB)(J7620) NEB SCH ×4 (08:00→20:00)
[2017-02-17] MEDS: diphenhydrAMINE 25 MG CAP PO PRN (10:00)
[2017-02-17] MEDS: DOCUSATE SODIUM 100 MG CAP PO SCH ×2 (10:26→22:14)
[2017-02-17] MEDS: PANTOPRAZOLE 40MG TAB (PROTONIX) PO SCH (10:26)
[2017-02-17] MEDS: SIMVASTATIN 40 MG TAB PO SCH (10:27)
[2017-02-17] MEDS: NICOTINE 14 MG/24 HR TRANSDERMAL TD SCH (10:27)
[2017-02-17 10:45] LABS: MEAN CORPUSCULAR HEMOGLOBIN 30.2 pg (27.0-33.0); MEAN CORPUSCULAR VOLUME 91.5 fl (80.0-96.0); RED CELL DISTRIBUTION WIDTH 13.1 % (11.5-14.5); WHITE BLOOD COUNT 9.6 K/mm3 (4.0-10.0)
[2017-02-17 11:12] LABS: ALBUMIN 2.2 GM/DL (3.2-5.2); ALBUMIN/GLOBULIN RATIO 0.52 (1.00-1.93); BILIRUBIN,TOTAL 0.2 MG/DL (0.2-1.0); CALCIUM LEVEL 8.6 MG/DL (8.8-10.2); CREATININE FOR GFR 1.64 MG/DL (0.55-1.02); POTASSIUM SERUM 4.9 MEQ/L (3.5-5.1); TOTAL PROTEIN 6.4 GM/DL (6.4-8.2)
[2017-02-17 12:00] VITALS: BP 146/68
[2017-02-17] MEDS: LEVEMIR (INSULIN DETEMIR) 1 UNITS/0.01ML SC SCH (13:00)
--- NOTE | 2017-02-17 18:13 | IPN ---
DATE: 02/17/2017 SUBJECTIVE: The patient is seen and examined in the room today. The patient complained about significant pain in the neck and back area where she had her surgery. The patient is very frustrated with the continuous pain and she had difficulty adapting to persistent pain. The patient only drank 2-3 cans of Ensure yesterday, but the patient tried to increase her oral intake on consistent carbohydrate diet. OBJECTIVE: VITAL SIGNS: Temperature 96.4, pulse 84, respirations 18, blood pressure 174/110, pulse oximetry 94% on room air. GENERAL: Moderate distress, irritated, and depressed, started crying during encounter. Patient is alert and oriented times three. HEENT: Normocephalic, atraumatic. Extraocular motor grossly intact. CARDIOVASCULAR: Positive S1, S2. Regular rate. LUNGS: Clear to auscultation bilaterally. ABDOMEN: Morbidly obese, soft, nontender, nondistended. Bowel sounds present. EXTREMITIES: Positive pitting edema bilateral upper extremities and no significant edema of the lower extremities and near the buttock dependent area. No sign of cyanosis. LABORATORY DATA: WBC is 9.6, hemoglobin 9.8, hematocrit 29.7, platelet count is 272. Sodium is 138, potassium 4.9, chloride 104, carbon dioxide 28, BUN 32, creatinine 1.64, GFR 34, fasting glucose 452, calcium 8.6, total bilirubin 0.2, AST 11, ALT 21, alkaline phosphatase 107. Total protein 6.4, albumin 2.2, prealbumin 19.7. ASSESSMENT AND PLAN: 1. Uncontrolled diabetes. Previously patient's insulin long-acting was on hold due to very irregular oral intake. After some encouragement, the patient also started to be able to drink more Ensure. The patient is also having increased oral intake. Now, the patient's fasting glucose started to show significant elevation. We will restart the long-acting today and cover with sliding scale. Before the surgery when the patient had a normal oral intake, the patient used to take Levemir 70-80 units twice a day. At this moment, the patient's oral intake is not back to her baseline, and we will start to titrate the Levemir based on patient's glucose level. 2. Acute kidney injury secondary to significant output greater than input. Initially the patient strongly refused intravenous (IV) fluids; however, due to several discussions and I explained to the patient that her kidneys started to show significant injury, yesterday the patient finally agreed to start on trial of IV fluids, and nephrology has also been consulted to help on the case. 3. Protein calorie malnutrition. Per patient, the patient is trying very hard to increase her oral intake. From the laboratory aguirre, the patient also shows an improvement of the prealbumin. 4. Hypothyroidism, on Synthroid. 5. Hypertension. The patient is on Cardizem 60 mg by mouth every eight hours. We will follow this tomorrow. Currently the patient does complain about persistent pain around the neck and back area where the patient had surgery. I think the persistent pain does worsen the hypertension. Further pain control is recommended. 6. Cervical spine stenosis, status post C1 to T1 spinal fusion, and C3-C6 laminectomy on 02/06/2017, by Dr. Kelley. The patient has been having bilateral upper extremity weakness and numbness since the procedure. The patient is not able to move the bilateral upper extremities by herself at all. That creates significant difficulty to maintain patient's oral intake. The patient continues to require staff to feed her meals. The patient may benefit from rehabilitation. Continue to work with physical therapy and occupational therapy. 7. History of respiratory failure requiring mechanical ventilation postoperatively. Extubated on 02/07/2017. Currently does not require any oxygen support. 8. Dyslipidemia. On statin. 9. Insomnia. I started a trial of Ambien since 02/15/2017. Does not have any recurrence of the complaint. 10. Tobacco abuse, on nicotine patch. 11. Alcohol abuse. No sign of withdrawal. 12. Chronic obstructive pulmonary disease (COPD). No exacerbation. The patient has breathing treatment as needed. 13. Deep venous thrombosis (DVT) prophylaxis, on heparin.
[2017-02-17 22:00] VITALS: BP 154/70
[2017-02-17] MEDS: zolPIDEM TARTRATE 5 MG TAB PO SCH (22:12)
[2017-02-17] MEDS: FAMOTIDINE IV BAG 20 MG in APPROPRIATE DILUENT 1 EA IV SCH (22:24)
[2017-02-18] VITALS (8 sets, daily range): BP systolic 130–210; BP diastolic 66–118
[2017-02-18] MEDS: ONDANSETRON 4MG/2ML VIAL (J2405) IV SCH ×4 (01:43→20:53)
[2017-02-18] MEDS: MORPHINE 2 MG/ML 1ML SYRINGE IV PRN ×3 (01:44→08:53)
[2017-02-18] MEDS: NS 1,000 ML IV SCH (03:08)
[2017-02-18] MEDS: HEPARIN SOD (PORCINE) 5000 UNITS/ML VIAL SQ SCH ×3 (05:57→21:51)
[2017-02-18] MEDS: SODIUM CHLORIDE 0.9% INJ 10 ML SYR IV SCH ×2 (05:58→17:47)
[2017-02-18] MEDS: LEVOTHYROXINE 150MCG TABLET (0.15MG) PO SCH (05:58)
[2017-02-18] MEDS: IPRATROPIUM 0.5MG/ALBUTEROL 2.5MG INH SOL UD 3ML (DUONEB)(J7620) NEB SCH ×4 (07:44→20:00)
[2017-02-18] MEDS: LEVEMIR (INSULIN DETEMIR) 1 UNITS/0.01ML SC SCH ×2 (09:00→20:58)
[2017-02-18] MEDS: NICOTINE 14 MG/24 HR TRANSDERMAL TD SCH (09:10)
[2017-02-18] MEDS: PANTOPRAZOLE 40MG TAB (PROTONIX) PO SCH (09:11)
[2017-02-18] MEDS: DOCUSATE SODIUM 100 MG CAP PO SCH ×2 (09:11→20:57)
[2017-02-18] MEDS: SIMVASTATIN 40 MG TAB PO SCH (09:11)
[2017-02-18 09:12] LABS: MEAN CORPUSCULAR HEMOGLOBIN 30.3 pg (27.0-33.0); MEAN CORPUSCULAR HGB CONC 33.6 g/dl (32.0-36.5); MEAN CORPUSCULAR VOLUME 90.3 fl (80.0-96.0); RED CELL DISTRIBUTION WIDTH 13.2 % (11.5-14.5); WHITE BLOOD COUNT 12.7 K/mm3 (4.0-10.0)
[2017-02-18] MEDS: HumaLOG INSULIN (NovoLOG) PER UNIT SC SCH ×4 (09:14→20:58)
[2017-02-18 10:03] LABS: CALCIUM LEVEL 8.2 MG/DL (8.8-10.2); CREATININE FOR GFR 1.24 MG/DL (0.55-1.02); MAGNESIUM LEVEL 2.4 MG/DL (1.8-2.4); POTASSIUM SERUM 4.9 MEQ/L (3.5-5.1)
[2017-02-18] MEDS ORDERED: hydrALAZINE INJ 20 MG/ML VIAL IV STA (10:37)
[2017-02-18 11:49] LABS: ALBUMIN 2.1 GM/DL (3.2-5.2); ALBUMIN/GLOBULIN RATIO 0.68 (1.00-1.93); ALKALINE PHOSPHATASE 98 U/L (45-117); ALT/SGPT 15 U/L (12-78); AST/SGOT 11 U/L (15-37); BILIRUBIN,DIRECT < 0.1 MG/DL (0.0-0.2); BILIRUBIN,TOTAL < 0.1 MG/DL (0.2-1.0); TOTAL PROTEIN 5.2 GM/DL (6.4-8.2)
--- NOTE | 2017-02-18 13:02 | ECGEPIP ---
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
[2017-02-18] MEDS: zolPIDEM TARTRATE 5 MG TAB PO SCH (20:58)
--- NOTE | 2017-02-18 21:35 | IPN ---
DATE: 02/18/2017 SUBJECTIVE: The patient is seen and examined in the room today. The patient had an acute episode of chest pain located in the left chest while the patient was resting. The patient did not notify the staff in the beginning because she felt that she does not have adequate care and the nursing staff is not around to assess her needs. The patient continues not feeling well. Subjective fever and chills with temperature measurement within normal range. The patient was also found to have significant high blood pressure with systolic greater than 200. The patient has complained of no appetite. Denies any neck pain or back pain. The patient was found have significant systolic blood pressures. The patient was later transferred to the progressive care unit (PCU) for an upper level of care. OBJECTIVE: VITAL SIGNS: Temperature 96.9, pulse 91, respirations 18, blood pressure 207/94, pulse oximetry is 95% on room air. GENERAL: Extreme fatigue. Mild to moderate distress. Generalized discomfort. Alert and oriented times three. HEENT: Normocephalic, atraumatic. Extraocular motor grossly intact. CARDIOVASCULAR: At the time of the event, the patient has positive S1, S2. Regular rate. Heart rate is approximately 91 with sinus rhythm on telemetry. LUNGS: Clear to auscultation bilaterally. ABDOMEN: Morbidly obese, soft, nontender. Bowel sounds present. EXTREMITIES: Positive pitting edema in bilateral upper extremities. No significant edema of the lower extremities. No sign of cyanosis. LABORATORY DATA: WBC is 12.7, hemoglobin 9.7, hematocrit 28.8, platelet count is 263. Sodium is 141, potassium 4.9, chloride is 105, carbon dioxide 30, BUN 24, creatinine 1.2, GFR 47, fasting glucose 254, calcium 8.2, magnesium 2.4, total bilirubin is less than 0.1, direct bilirubin less than 0.1, AST 11, ALT 15, alkaline phosphatase is 98, troponin I is less than 0.02. ASSESSMENT AND PLAN: 1. Acute chest pain. The patient will be transferred from the medical/surgical floor to the progressive care unit (PCU) for upper level of care and cardiac telemetry. We will continue to trend cardiac markers. The first set showed no elevation of troponin. When the patient started on cardiac telemetry, the patient showed sinus rhythm with sinus cardiac arrhythmia. We will followup with EKG. We will continue to trend troponin. The patient's chest pain is sharp in quality and localized without any radiation. 2. Hypertensive emergency. The patient started to have blood pressure running 207/94. The patient also complained about generalized discomfort and headache. The patient has been taking Cardizem 60 mg by mouth every 8 hours. At the time of the hypertensive emergency, the patient does not have any significant neck or back pain, which can artificially increase the patient's blood pressure. The patient wished to have her dose of Cardizem, which is due at the time of event, and also start hydralazine with holding parameters to control any blood pressure greater than 170s. 3. Acute kidney injury. Most likely secondary to decreased oral intake and increased urinary output. I had a long discussion with the patient. The patient finally agreed to restart IV resuscitation. Previously I have tried to persuade the patient on multiple days regarding her gradual kidney decompensation. The patient continued to refuse previously to the point that the patient had to be started on IV resuscitation in order to start the kidney recovery. It has been approximately 48 hours that the patient has been on IV fluid and we see the patient showed continuous improvement in the renal function. 4. Controlled type 2 diabetes. The patient has an A1/c of 12.3. The patient was not compliant with the insulin regimen at home. Previously due to poor oral intake, the patient does have hypoglycemia episodes. We are very cautious regarding the patient's insulin regimen. Since the patient started to have more improved oral intake, it seems that increased albumin and per the staff record, the patient's sugar start to continue to elevate. We will continue to adjust the Levemir dose accordingly. I will increase the Levemir dosage today. The first few days of hospitalization when the patient had good oral intake, the patient required 70 to 80 units of Levemir twice a day to maintain glucose within 200 level. Now the patient has bilateral upper extremity paralysis and the patient continues to have intermittent poor oral intake. We will be cautious regarding adjusting the patient's Levemir. 5. Protein calorie malnutrition. The patient has been counseled. The patient is recommended to take at least three to four cans of Ensure. Dr. Kelley switched her to Glucerna. The patient is still required supplement because of poor oral intake. The patient cannot tolerate regular meals too well. 6. Cervical spine stenosis, status post C1 to T1 spinal fusion, and C3-C6 laminectomy on 02/06/2017, by Dr. Kelley. The patient has been having bilateral upper extremity weakness and numbness after the procedure. The patient is not able to move the bilateral upper extremities by herself at all. That requires staff feeding in order to maintain oral intake. The patient may benefit from rehabilitation. Continue to work with physical therapy and occupational therapy. 7. History of respiratory failure requiring mechanical ventilation postoperatively. Extubated on 02/07/2017. Currently the patient does not require any oxygen support. 8. Dyslipidemia. On statin. 9. Insomnia. Trial of Ambien was started on 02/15/2017. Does not have any recurrence of the complaint. 10. Tobacco abuse, on nicotine patch. 11. Alcohol abuse. No sign of withdrawal. 12. Chronic obstructive pulmonary disease (COPD). No exacerbation at this moment. The patient has breathing treatment as needed. 13. Deep venous thrombosis (DVT) prophylaxis. The patient is on heparin.
[2017-02-18] MEDS: **hydrALAZINE HCL** 25 MG TAB PO SCH (21:51)
[2017-02-18] MEDS: FAMOTIDINE IV BAG 20 MG in APPROPRIATE DILUENT 1 EA IV SCH (21:51)
--- NOTE | 2017-02-18 22:18 | IPN ---
DATE: 02/17/2017 SUBJECTIVE: Patient was seen and examined at the bedside today morning. She continues to be on IV fluid. I see an improvement in the renal function. The patient reports that she was mildly short of breath overnight, but she denies any shortness of breath at this time. She continues to be complain of weakness in the upper extremities. The patient is otherwise afebrile and hemodynamically stable. REVIEW OF SYSTEMS: Patient denies any fevers, chills, rigors, headache, chest pain. She does report one episode of shortness of breath overnight, but otherwise shortness of breath has improved. She denies any diarrhea, pain in abdomen, constipation, any difficulty with urination, and she persistently complains of weakness in the upper extremities since after surgery. Rest of review of systems is negative. OBJECTIVE: VITAL SIGNS: Temperature 96.4 degrees Fahrenheit, blood pressure is 146/68, pulse is 94, respiratory rate of 16, saturating at 94% on room air. Intake and output: Urine output recorded yesterday was 500 mL. Urine output recorded so far today since overnight is 1250 mL. Weight in the bed scale is not available. PHYSICAL EXAMINATION: GENERAL: Patient is awake, alert, oriented times three, laying in bed, no apparent distress. HEAD and NECK EXAM: Extraocular muscles intact. Pupils equally round and reactive to light. Mucous membranes are moist. Patient has a healing surgical scar on the back of the neck. CARDIOVASCULAR: S1, S2, regular rate. No murmur, rub, or gallop. RESPIRATORY: Chest is clear to auscultation bilaterally. Bilateral equal air entry. No rales or rhonchi. ABDOMEN: Soft, obese. Positive bowel sounds. Nontender. No ascites. No organomegaly. MUSCULOSKELETAL: No clubbing or cyanosis. Pulses are 2+. There is no edema of the extremities. CENTRAL NERVOUS SYSTEM: Power is 5/5 in bilateral lower extremities and 1/5 in bilateral upper extremities. PSYCHIATRIC: Normal mood and affect. SKIN: No rashes or ulcers. LABORATORY REVIEW: CBC showed a WBC of 9.6, hemoglobin 9.8, platelets are 272. BMP showed sodium 138, potassium 4.9, chloride 104, bicarbonate 28, BUN 32, creatinine 1.6, it was 1.8 yesterday, GFR is 34, glucose 452, calcium 8.6. CURRENT INPATIENT MEDICATIONS: Patient's medications were all reviewed by me. I have decreased the IV fluid rate to 60 mL/hour. I have started the patient on Levemir 20 units subcutaneous daily. There is no other change in the medications today as compared with yesterday. ASSESSMENT: 61-year-old female with past medical history of chronic kidney disease stage III, uncontrolled diabetes mellitus, hypertension, admitted at this time for cervical spine surgery. Nephrology service following the patient for management of acute kidney injury. PLAN: 1. Acute kidney injury superimposed on chronic kidney disease stage III, most likely secondary to dehydration and volume depletion. Patient has polyuria at this time because of uncontrolled diabetes and she is not able to hydrate herself because she is dependent upon the nursing staff to give her fluids and food. Continue the IV fluid hydration and management of diabetes as mentioned below. Creatinine is improving steadily at this time. 2. Hyperkalemia. Potassium level is significantly improved with IV fluid hydration. Potassium is 4.9 now. Continue the IV fluids and continue to encourage oral hydration. 3. Hyponatremia. It was hypovolemic hyponatremia. Sodium level has improved to 138 now with IV fluid hydration. 4. Diabetes mellitus type 2. Diabetes is uncontrolled at this time. Patient is only getting insulin sliding scale which is not enough for control of diabetes. I have started the patient on Levemir 20 units subcutaneous daily. Dose of the long-acting insulin will be adjusted according to patient's insulin needs in the next 24 hours. 5. Protein calorie malnutrition. The patient's albumin level was low, it is 2.2 now, slightly improving. Continue to encourage oral intake, but she needs consistent carbohydrate diet because of diabetes. 6. Bilateral upper extremity weakness. Management is as per surgical service. Patient is status post cervical spine surgery. She is dependent upon the nursing staff for ingestion of fluid intake. I have requested the nursing staff to keep the patient well hydrated and give her enough oral liquids.
[2017-02-19] VITALS (7 sets, daily range): BP systolic 137–182; BP diastolic 61–98
[2017-02-19] MEDS: ONDANSETRON 4MG/2ML VIAL (J2405) IV SCH ×4 (02:29→20:23)
[2017-02-19] MEDS: SODIUM CHLORIDE 0.9% INJ 10 ML SYR IV SCH ×2 (04:47→17:42)
[2017-02-19] MEDS: **hydrALAZINE HCL** 25 MG TAB PO SCH ×3 (06:00→21:20)
[2017-02-19] MEDS: LEVOTHYROXINE 150MCG TABLET (0.15MG) PO SCH (06:18)
[2017-02-19] MEDS: HEPARIN SOD (PORCINE) 5000 UNITS/ML VIAL SQ SCH ×3 (06:18→21:18)
[2017-02-19] MEDS: IPRATROPIUM 0.5MG/ALBUTEROL 2.5MG INH SOL UD 3ML (DUONEB)(J7620) NEB SCH ×4 (08:00→20:00)
[2017-02-19] MEDS: HumaLOG INSULIN (NovoLOG) PER UNIT SC SCH ×4 (08:26→21:19)
[2017-02-19] MEDS: SIMVASTATIN 40 MG TAB PO SCH (08:27)
[2017-02-19] MEDS: LEVEMIR (INSULIN DETEMIR) 1 UNITS/0.01ML SC SCH (08:27)
[2017-02-19] MEDS: PANTOPRAZOLE 40MG TAB (PROTONIX) PO SCH (08:27)
[2017-02-19] MEDS: DOCUSATE SODIUM 100 MG CAP PO SCH ×2 (08:28→21:19)
[2017-02-19] MEDS: NICOTINE 14 MG/24 HR TRANSDERMAL TD SCH (08:28)
[2017-02-19] MEDS: SODIUM CHLORIDE 0.9% INJ 10 ML SYR IV PRN ×4 (08:29→23:57)
[2017-02-19 11:05] LABS: MEAN CORPUSCULAR HGB CONC 33.3 g/dl (32.0-36.5); MEAN CORPUSCULAR VOLUME 90.3 fl (80.0-96.0); RED CELL DISTRIBUTION WIDTH 13.4 % (11.5-14.5); WHITE BLOOD COUNT 12.7 K/mm3 (4.0-10.0)
--- NOTE | 2017-02-19 11:08 | IPN ---
DATE: 02/18/2017 The patient was seen at the bedside today. Nurse is present. Patient continues to complain of bilateral upper extremity weakness and numbness. She continues to require assistance with oral feeds and drinks. She was noted to be hypertensive this morning. Blood pressure as high as 210/110. Her IV fluids were discontinued. She also received a dose of hydralazine 5 mg IV. Her blood pressure subsequently improved to 174/78. REVIEW OF SYSTEMS: The patient denies fevers, chills. She denies any change in vision. Denies dysphagia. Denies chest pain, palpitations, shortness of breath , pain in the abdomen. Denies dysuria. She notes ongoing bilateral upper extremity weakness and numbness. She is depressed. Remainder review of systems is negative. PHYSICAL EXAMINATION: VITAL SIGNS: Temperature 96.6, pulse 86, blood pressure 154/80, respiratory rate 18, saturating 96% on room air. Intake and output: Intake was not recorded, output of urine was 1750 mL. GENERAL: Awake, alert, oriented times three. Lying flat in bed. No apparent distress. RN is present at bedside. HEAD/NECK: Extraocular muscles intact. Mucous membranes are moist. Neck was not palpated due to recent cervical spine surgery. CARDIOVASCULAR: S1, S2. Regular rate and rhythm. 2+ radial pulse. RESPIRATORY: Chest is clear to auscultation bilaterally. Equal air entry. No rales or rhonchi. ABDOMEN: Soft. Positive bowel sounds. Obese. Nontender. No appreciable organomegaly. EXTREMITIES: Without clubbing or cyanosis. No edema of the extremities. CENTRAL NERVOUS SYSTEM ([employer]): Power is 5/5 in the lower extremities and diminished at the bilateral upper extremities. PSYCHIATRIC: The patient appears depressed. SKIN: No rashes or ulcers. LABORATORY DATA: White count 12.7, hemoglobin 9.7, platelets 263. Sodium 141, potassium 4.9, bicarbonate 30, creatinine 1.2, improved from 1.6 yesterday, sugar 254, corrected calcium 9.7, magnesium 2.4. Inpatient Medications reviewed by myself. ASSESSMENT AND PLAN: 61-year-old female with a past medical history of chronic kidney disease stage III, uncontrolled diabetes, hypertension, admitted for cervical spine surgery and fusion, has had subsequent upper extremity weakness and numbness. Nephrology service following for the management of acute kidney injury. 1. Acute kidney injury on chronic kidney disease. The patient's creatinine continues to return toward baseline. Her electrolytes are stable this morning. I have stopped her IV fluid and continue to encourage oral hydration. The patient does require assistance from the staff for eating and drinking. If she becomes hypernatremic or if she has deterioration in renal function then we can resume IV fluids but would opto for D5W as she has been hypertensive. 2. Hypertension. The patient was significantly hypertensive this morning. This may be related to pain. Over the past 2 days, her systolic blood pressure has ranged from 140s to 170s. She was previous systolic 100 to 110. She is on IV morphine every 2 hours as needed for pain control. She continues on Cardizem 60 mg by mouth every 8 hours. I have stopped her IV fluids as the normal saline may also have been contributing to her hypertension. 3. Diabetes. Poorly control. A1/c on this visit 12.3. The patient has been resumed on long-acting insulin. Her sugars today are in the 200s, improved from 400 yesterday. 4. Cervical spine stenosis, status post C1 to T1 spinal fusion and C3 to C6 laminectomy. The patient has been having bilateral upper extremity weakness and numbness. She is unable to feed herself at this time and requires assistance from the staff. We will stop IV fluids and continue with oral hydration. Continue to work with physical therapy (PT) and occupational therapy (OT). The plan of care was discussed with the patient and nurse at bedside. HEATHER
[2017-02-19 11:34] LABS: ANION GAP 5 MEQ/L (8-16); BLOOD UREA NITROGEN 27 MG/DL (7-18); CALCIUM LEVEL 8.9 MG/DL (8.8-10.2); CARBON DIOXIDE LEVEL 29 MEQ/L (21-32); CHLORIDE LEVEL 103 MEQ/L (98-107); CREATININE FOR GFR 1.39 MG/DL (0.55-1.02); GLOMERULAR FILTRATION RATE 41.2 (>45); GLUCOSE, FASTING 255 MG/DL (80-110); MAGNESIUM LEVEL 2.6 MG/DL (1.8-2.4); POTASSIUM SERUM 4.8 MEQ/L (3.5-5.1); SODIUM LEVEL 137 MEQ/L (136-145)
--- NOTE | 2017-02-19 13:04 | IPNPDOC ---
Neurosurgery Date: Feb 19, 2017 Progress Note General Postoperative Day #: 13 Pain Control Unsatisfactory Surgical Procedure (02/06/17). Laminectomy and foraminotomies C3-C7, C3-T1 posterior lateral mass instrumentation with screws and rods, C3-T2 posterior-lateral arthrodesis, with bone graft. Subjective New Symptoms Ms. House is a pleasant 61-year-old right-handed female smoker with a history of hypertension, chronic kidney disease (CKD) III, chronic obstructive pulmonary disease (COPD), asthma, uncontrolled diabetes type 2, hypothyroidism and chronic neck and back pain, who has been admitted to the hospital for her chronic neck pain by Dr Kelley. She is 13 days s/p complex spine surgery posterior decompression and fusion from C3-T1. She continues with weakness in her upper extremities, L>R, and is unable to hold her arms against gravity. She continues to work with PT for increasing strength of her upper extremities. She has been eating well. She offers no other concerns for today. Objective Clinical Status: Afebrile. Neurological status: Alert and orientated times three, GCS=[id number]. Speech is Fluent. Mood is depressed. Wound/incision: Incision appears to be healing well. With scant drainage. No increased erythema, or increased pain at the site. Drainage: None. Motor: weakness in upper extremities, L>R, unable to hold arms against gravity. She is able to move her fingers on each hand. Strength in lower extremities is 5 /5. LABS: WBC = 12.7, H Hgb = 10.1 HCT = 30.3 Na+ = 137 K+= 4.8 Fasting glucose = 255 Assessment/Plan PER DR. KELLEY 1. Cervical myeloradiculopathy. S/p decompression and fusion by Dr. Kelley. She has received the [place] collar. She has been encouraged to sit up in bed as much as possible and actively participate in PT. 2. Leukocytosis: per Dr. Kelley. 3. Chest pains: Management per hospitalist. 4. Decreased kidney function: Management per hospitalist. 5. Depression/anxiety. Consult had been placed to psychiatry- No suggestions for medications. 6. Calf pain bilaterally. Left greater than the right. No changes. She is taking heparin, has AMAIRANI/SCD. No swelling or palpable cord on exam. Low suspicion for DVT. Will continue to monitor. 7. Headache. Head of the bed has been lowered to see if there are any improvements. No improvements with lowering the head of bed. Will continue to monitor. 8. Facial itching: She is currently taking Benadryl. No complaints of facial itching today. 9. Wound care: Improving. No discharge or signs of infection. Will plan to remove the Perineo dressing in a few days. Stop dressing changes tomorrow. For positioning: before laying prone- lay right side for 2 hrs and then lay left side 2 hrs. 10. Pain control: Unsatisfactory. She rates pain 8/10, worse in her neck and shoulders. She does not appear to be in significant pain. She is sitting comfortably and speaking in full sentences. Continue morphine. 11. DVT prophylaxis: TEDs and SCD. Encouraging ambulation. 12. Constipation prophylaxis: Cont lactulose and Colace 13. Nausea prophylaxis: Zofran IV PRN. 14. Diet : She only has 2.[address] Kelley has asked that we increased this to 4 drinks daily. I have encouraged her to increase her ensures. 15. Activity: Per PT/OT. We have encouraged her to continue leg exercises and attempting to move her arms in bed. Discuss plan with PT- will increase PT to 30 minutes twice a day. Would like her to be more ambulatory. 16. Discharge plan: transfer to [facility] Thank you for all consulting providers for your much needed help regarding care of Ms. House. Current Medications Current Medications Acetaminophen (Tylenol Suspension) 650 mg Q4H PO Last administered on 23:26; Start 02/10/17 at 11:00; Stop 02/12/17 at 07:01; Status DC Acetaminophen (Tylenol Tab) 650 mg Q4H PO Last administered on 02/17/17 13:20 ; Start 02/15/17 at 18:00; Stop 02/17/17 at 17:59; Status DC Acetaminophen (Tylenol Tab) 650 mg Q6HP PRN PO MILD PAIN (PS 1-4) Last administered on 02/13/17 01:27; Start 02/06/17 at 18:15; Stop 02/15/17 at 17:32 ; Status DC Acetaminophen/ Hydrocodone Bitart ([place], [place]nexsia 5/325) 1 tab Q4HP PRN PO MODERATE PAIN (PS 5-7) Last administered on 02/13/17 09:49; Start 02/06/17 at 18 :15; Stop 02/13/17 at 10:59; Status DC Albuterol Sulfate (Proventil Neb) 2.5 mg Q2HP PRN NEB SHORTNESS OF BREATH; Start 02/06/17 at 19:45; Stop 03/08/17 at 19:44 Albuterol/ Ipratropium (Duoneb (Ipr 0.5mg/Alb 2.5mg)) 3 ml Q2HP PRN NEB SOB/ WHEEZING; Start 01/28/17 at 11:15; Stop 02/06/17 at 18:02; Status DC Albuterol/ Ipratropium (Duoneb (Ipr 0.5mg/Alb 2.5mg)) 3 ml QID NEB ; Start 02/07 at 13:00; Stop 02/07/17 at 13:00; Status DC Albuterol/ Ipratropium (Duoneb (Ipr 0.5mg/Alb 2.5mg)) 3 ml RQ4H NEB Last administered on 02/07/17 07:28; Start 02/06/17 at 20:00; Stop 02/07/17 at 10:00 ; Status DC Albuterol/ Ipratropium (Duoneb (Ipr 0.5mg/Alb 2.5mg)) 3 ml RQID NEB Last administered on 02/01/17 19:16; Start 01/28/17 at 12:00; Stop 02/06/17 at 18:02; Status DC Albuterol/ Ipratropium (Duoneb (Ipr 0.5mg/Alb 2.5mg)) 3 ml RQID NEB Last administered on 02/15/17 11:48; Start 02/07/17 at 12:00; Stop 03/09/17 at 11:59 Amlodipine Besylate (Norvasc) 5 mg DAILY PO Last administered on 01/29/17 09:02 ; Start 01/29/17 at 09:00; Stop 01/31/17 at 06:59; Status DC Calcium/Vitamin D (Oscal D) 500 mg DAILY PO Last administered on 02/09/17 11: 49; Start 02/09/17 at 09:00; Stop 02/09/17 at 13:35; Status DC Carisoprodol (Soma) 350 mg TID PO Last administered on 02/13/17 09:49; Start 02/06/17 at 21:00; Stop 02/13/17 at 10:59; Status DC Cefuroxime Sodium 750 mg/Dextrose 50 ml @ 100 mls/hr Q8H IV Last administered on 02/07/17 13:38; Start 02/06/17 at 22:00; Stop 02/07/17 at 14:29; Status DC Chlorhexidine Gluconate (Peridex Oral Rinse) SWAB/BRUSH ORAL CAVITY BID MT Last administered on 02/07/17 08:30; Start 02/06/17 at 21:00; Stop 02/07/17 at 10:00; Status DC Dextrose (Dextrose 50%) 25 ml ASDIRECTED PRN IV SEE LABEL COMMENTS Last administered on 02/02/17 20:23; Start 01/28/17 at 17:45; Stop 02/06/17 at 18:02; Status DC Dextrose (Dextrose 50%) 25 ml ASDIRECTED PRN IV SEE LABEL COMMENTS; Start at 19:30; Stop 02/03/17 at 19:30; Status DC Dextrose (Dextrose 50%) 25 ml STAT STAT IV Last administered on 02/07/17 13: 13; Start 02/07/17 at 13:02; Stop 02/07/17 at 13:05; Status DC Dextrose/Sodium Chloride 1,000 ml @ 80 mls/hr [id number] IV Last administered on 02/03/17 01:02; Start 02/03/17 at 01:00; Stop 02/03/17 at 11:44; Status DC Diltiazem HCl (Cardizem Cd) 120 mg BID PO Last administered on 02/01/17 08:26; Start 01/31/17 at 09:00; Stop 02/01/17 at 11:44; Status DC Diltiazem HCl (Cardizem) 30 mg Q8H PO Last administered on 02/13/17 14:38; Start 02/13/17 at 06:00; Stop 02/13/17 at 17:32; Status DC Diltiazem HCl (Cardizem) 30 mg Q8H PO Last administered on 02/06/17 05:24; Start 02/01/17 at 22:00; Stop 02/06/17 at 18:02; Status DC Diltiazem HCl (Cardizem) 60 mg Q8H PO Last administered on 02/19/17 06:18; Start 02/13/17 at 22:00; Stop 03/15/17 at 21:59 Diphenhydramine HCl (Benadryl) 25 mg Q4HP PRN PO ITCHING Last administered on 10:00; Start 02/08/17 at 08:45; Stop 03/10/17 at 08:44 Docusate Sodium (Colace Liquid) 100 mg BID PO Last administered on 02/08/17 08 :54; Start 02/08/17 at 09:00; Stop 02/09/17 at 11:33; Status DC Docusate Sodium (Colace) 100 mg BID PO Last administered on 02/07/17 20:29; Start 02/06/17 at 21:00; Stop 02/08/17 at 08:34; Status DC Docusate Sodium (Colace) 200 mg BID PO Last administered on 02/19/17 08:28; Start 02/15/17 at 21:00; Stop 03/17/17 at 20:59 Famotidine 20 mg/ IV Miscellaneous Supplies 50 ml @ 100 mls/hr QHS IV Last administered on 02/18/17 21:51; Start 02/07/17 at 21:00; Stop 03/09/17 at 20:59 Glucagon (Glucagon) 1 mg ASDIRECTED PRN SC SEE LABEL COMMENTS; Start 01/28/17 at 17:45; Stop 02/06/17 at 18:02; Status DC Glucagon (Glucagon) 1 mg ASDIRECTED PRN SC SEE LABEL COMMENTS; Start 02/03/17 at 19:30; Stop 02/03/17 at 19:30; Status DC Glucose (Glucose) 16 GM ASDIRECTED PRN PO SEE LABEL COMMENTS; Start 01/28/17 at 17:45; Stop 02/06/17 at 18:02; Status DC Glucose (Glucose) 16 GM ASDIRECTED PRN PO SEE LABEL COMMENTS; Start 02/03/17 at 19:30; Stop 02/03/17 at 19:30; Status DC Heparin Sodium (Heparin (Flush)) 200 units ASDIRECTED PRN IV SEE LABEL COMMENTS Last administered on 02/19/17 08:29; Start 02/07/17 at 14:00; Stop 03/09/17 at 13:59 Heparin Sodium (Heparin (Flush)) 200 units PICC IV Last administered on 04:47; Start 02/07/17 at 18:00; Stop 03/09/17 at 17:59 Heparin Sodium (Porcine) (Heparin) 5,000 units BID SQ Last administered on 02/09 21:50; Start 02/09/17 at 21:00; Stop 02/10/17 at 09:57; Status DC Heparin Sodium (Porcine) (Heparin) 5,000 units Q8H SQ Last administered on 21:50; Start 01/29/17 at 14:00; Stop 02/05/17 at 23:00; Status DC Heparin Sodium (Porcine) (Heparin) 5,000 units Q8H SQ Last administered on 02/19 06:18; Start 02/10/17 at 14:00; Stop 02/23/17 at 13:59 Heparin Sodium (Porcine) (Heparin) 5,000 units TID SQ ; Start 01/29/17 at 16:00; Stop 01/29/17 at 16:00; Status DC Home Med (Med Rec Complete!) ASDIRECTED XX ; Start 01/28/17 at 09:30; Stop at 09:30; Status DC Hydralazine HCl (Apresoline) 5 mg STAT STAT IV Last administered on 02/18/17 12:54; Start 02/18/17 at 10:37; Stop 02/18/17 at 10:38; Status DC Hydralazine HCl (Apresoline) 25 mg Q8H PO ; Start 02/18/17 at 22:00; Stop at 21:59 Insulin Detemir (Levemir Insulin) 10 units BID SC Last administered on 09:01; Start 01/28/17 at 21:00; Stop 01/29/17 at 17:31; Status DC Insulin Detemir (Levemir Insulin) 10 units DAILY@1500 SC Last administered on 16:08; Start 02/05/17 at 15:00; Stop 02/06/17 at 18:02; Status DC Insulin Detemir (Levemir Insulin) 20 units BID SC Last administered on 08:27; Start 02/18/17 at 21:00; Stop 03/20/17 at 20:59 Insulin Detemir (Levemir Insulin) 20 units BID SC Last administered on 08:46; Start 02/04/17 at 09:00; Stop 02/04/17 at 17:17; Status DC Insulin Detemir (Levemir Insulin) 20 units DAILY SC Last administered on 09:00; Start 02/17/17 at 13:00; Stop 02/18/17 at 10:20; Status DC Insulin Detemir (Levemir Insulin) 60 units BID SC Last administered on 19:47; Start 01/30/17 at 21:00; Stop 02/01/17 at 06:50; Status DC Insulin Detemir (Levemir Insulin) 70 units BID SC Last administered on 11:19; Start 02/01/17 at 09:00; Stop 02/03/17 at 10:37; Status DC Insulin Detemir (Levemir Insulin) 70 units BID SC Last administered on 08:17; Start 02/04/17 at 21:00; Stop 02/05/17 at 08:21; Status DC Insulin Detemir (Levemir Insulin) 80 units BID SC Last administered on 21:51; Start 02/05/17 at 21:00; Stop 02/06/17 at 18:02; Status DC Insulin Human Lispro (HumaLOG INSULIN) SEE PROTOCOL TABLE AC SC Last administered on 01/29/17 17:30; Start 01/29/17 at 17:30; Stop 01/30/17 at 13:08; Status DC Insulin Human Lispro (HumaLOG INSULIN) SEE PROTOCOL TABLE AC SC Last administered on 02/19/17 12:41; Start 02/08/17 at 12:00; Stop 03/10/17 at 11:59 Insulin Human Lispro (HumaLOG INSULIN) SEE PROTOCOL TABLE AC SC Last administered on 01/31/17 11:43; Start 01/30/17 at 17:30; Stop 01/31/17 at 12:57; Status DC Insulin Human Lispro (HumaLOG INSULIN) SEE PROTOCOL TABLE AC SC Last administered on 02/01/17 18:16; Start 01/31/17 at 17:30; Stop 02/02/17 at 07:38; Status DC Insulin Human Lispro (HumaLOG INSULIN) SEE PROTOCOL TABLE Q4H SC Last administered on 01/29/17 07:42; Start 01/28/17 at 20:00; Stop 01/29/17 at 08:20; Status DC Insulin Human Lispro (HumaLOG INSULIN) SEE PROTOCOL TABLE Q6H SC Last administered on 02/02/17 12:39; Start 02/02/17 at 06:00; Stop 02/03/17 at 10:37; Status DC Insulin Human Lispro (HumaLOG INSULIN) SEE PROTOCOL TABLE QHS SC ; Start at 21:00; Stop 01/30/17 at 13:06; Status DC Insulin Human Lispro (HumaLOG INSULIN) SEE PROTOCOL TABLE QHS SC Last administered on 02/18/17 20:58; Start 02/08/17 at 21:00; Stop 03/10/17 at 20:59 Insulin Human Lispro (HumaLOG INSULIN) SEE PROTOCOL TABLE QHS SC Last administered on 01/31/17 19:47; Start 01/30/17 at 21:00; Stop 02/02/17 at 07:38; Status DC Insulin Human Lispro (HumaLOG INSULIN) See Protocol Table AC SC Last administered on 02/05/17 17:24; Start 02/04/17 at 07:30; Stop 02/06/17 at 18:02; Status DC Insulin Human Lispro (HumaLOG INSULIN) See Protocol Table Q1H SC ; Start at 19:00; Stop 02/06/17 at 20:19; Status DC Insulin Human Lispro (HumaLOG INSULIN) See Protocol Table QHS SC Last administered on 02/05/17 21:51; Start 02/03/17 at 21:00; Stop 02/06/17 at 18:02; Status DC Insulin Human Regular 100 units/ Sodium Chloride 100 ml @ 0 mls/hr Q0M IV ; Start 01/30/17 at 13:25; Stop 03/01/17 at 13:24; Status UNV Insulin Human Regular 100 units/ Sodium Chloride 100 ml @ 1 mls/hr Q24H IV Last administered on 01/28/17 11:43; Start 01/28/17 at 09:30; Stop 01/28/17 at 17:24; Status DC Insulin Human Regular 100 units/ Sodium Chloride 100 ml @ 7 mls/hr [id number] IV Last administered on 01/30/17 11:55; Start 01/29/17 at 09:30; Stop 01/30/17 at 21: 00; Status DC Insulin Human Regular 100 units/ Sodium Chloride 100 ml @ 7 mls/hr [id number] IV Last administered on 02/07/17 22:22; Start 02/06/17 at 21:00; Stop 02/08/17 at 10:21; Status DC Lactated Ringer's 1,000 ml @ 100 mls/hr Q10H IV Last administered on 08:55; Start 02/06/17 at 22:15; Stop 02/07/17 at 09:44; Status DC Lactulose (Cephulac) 30 ml TID PO Last administered on 02/15/17 10:03; Start 02/14/17 at 09:00; Stop 02/15/17 at 15:48; Status DC Levothyroxine Sodium (Synthroid) 75 mcg DAILY IV ; Start 02/07/17 at 09:00; Stop 02/07/17 at 15:40; Status DC Levothyroxine Sodium (Synthroid) 75 mcg DAILY@0600 IV Last administered on 02/09 06:24; Start 02/07/17 at 06:00; Stop 02/09/17 at 13:34; Status DC Levothyroxine Sodium (Synthroid) 150 mcg DAILY@06 PO Last administered on 06:18; Start 02/10/17 at 06:00; Stop 03/12/17 at 05:59 Levothyroxine Sodium (Synthroid) 150 mcg DAILY@0600 PO Last administered on 02/06 05:22; Start 01/29/17 at 06:00; Stop 02/06/17 at 18:02; Status DC Lisinopril (Prinivil) 10 mg DAILY PO Last administered on 01/30/17 16:21; Start 01/30/17 at 09:00; Stop 01/31/17 at 06:55; Status DC Magnesium Hydroxide (Milk Of Magnesia) 30 ml DAILYPRN PRN PO CONSTIPATION Last administered on 02/15/17 18:59; Start 02/14/17 at 07:45; Stop 03/16/17 at 07:44 Metoprolol Tartrate (Lopressor) 25 mg Q8H PO Last administered on 01/30/17 05: 55; Start 01/29/17 at 14:00; Stop 01/30/17 at 15:38; Status DC Midazolam HCl (Versed) 2 mg Q15MP PRN IV AGITATION Last administered on 06:59; Start 02/06/17 at 19:45; Stop 02/07/17 at 10:00; Status DC Morphine Sulfate (Morphine Sulfate Inj) 2 mg Q2HP PRN IV BREAKTHROUGH PAIN; Start 01/28/17 at 10:30; Stop 02/06/17 at 18:02; Status DC Morphine Sulfate (Morphine Sulfate Inj) 2 mg Q2HP PRN IV SEVERE PAIN (PS 8-10) Last administered on 02/18/17 08:53; Start 02/06/17 at 18:15; Stop 02/20/17 at 18:14 Nicotine (Nicoderm Cq 14mg) 1 patch DAILY TD Last administered on 02/19/17 08: 28; Start 02/08/17 at 09:00; Stop 03/10/17 at 08:59 Nicotine (Nicoderm Cq 21mg) 1 patch DAILY TD Last administered on 02/05/17 08: 16; Start 01/28/17 at 09:00; Stop 02/06/17 at 18:02; Status DC Nicotine (Nicorette) 2 mg Q2HP PRN PO NICOTINE WITHDRAWAL Last administered on 01/28/17 20:22; Start 01/28/17 at 10:30; Stop 02/06/17 at 18:02; Status DC Non-Formulary Medication (Insulin Iv Rate Change Documentation ml/ Hr) ASDIRECTED XX Last administered on 01/28/17 16:29; Start 01/28/17 at 09:00; Stop 01/28/17 at 17:26; Status DC Non-Formulary Medication (Insulin Iv Rate Change Documentation ml/ Hr) ASDIRECTED XX Last administered on 01/30/17 17:53; Start 01/29/17 at 08:30; Stop 02/06/17 at 18:02; Status DC Non-Formulary Medication (Insulin Iv Rate Change Documentation ml/ Hr) ASDIRECTED XX ; Start 01/30/17 at 13:30; Stop 03/01/17 at 13:29; Status UNV Non-Formulary Medication (Insulin Iv Rate Change Documentation ml/ Hr) ASDIRECTED XX Last administered on 02/08/17 08:28; Start 02/06/17 at 20:15; Stop 02/08/17 at 10:21; Status DC Nystatin (Mycostatin Powder, Nystop) 1 dose BID TOP Last administered on 08:17; Start 01/28/17 at 09:00; Stop 02/06/17 at 18:02; Status DC Ondansetron HCl (ZOFRAN INJection) 4 mg Q4HP PRN IV NAUSEA OR VOMITING; Start 02/06/17 at 18:15; Stop 02/07/17 at 10:05; Status DC Ondansetron HCl (ZOFRAN INJection) 4 mg RQ6H IV Last administered on 02/19/17 08:27; Start 02/07/17 at 14:00; Stop 03/08/17 at 18:14 Oxycodone/ Acetaminophen (Percocet 5mg/ 325mg Tablet) 1 tab Q4HP PRN PO MILD/ MODERATE PAIN (PS 1-7) Last administered on 02/01/17 21:10; Start 01/28/17 at 12 :00; Stop 02/06/17 at 18:02; Status DC Pantoprazole Sodium (Protonix) 40 mg DAILY IV Last administered on 02/09/17 09 :32; Start 02/07/17 at 09:00; Stop 02/09/17 at 13:34; Status DC Pantoprazole Sodium (Protonix) 40 mg DAILY PO Last administered on 02/19/17 08 :27; Start 02/10/17 at 09:00; Stop 03/12/17 at 08:59 Polyethylene Glycol (Miralax) 1 pkt DAILYPRN PRN PO CONSTIPATION Last administered on 02/14/17 01:14; Start 02/12/17 at 17:45; Stop 02/15/17 at 15:54 ; Status DC Potassium Chloride 10 meq/ IV Miscellaneous Supplies 100 ml @ 100 mls/hr 0630, 0730 IV Last administered on 02/07/17 09:47; Start 02/07/17 at 06:30; Stop 04/16 at 12:00; Status DC Potassium Chloride/Sodium Chloride 1,000 ml @ 100 mls/hr Q10H IV Last administered on 02/06/17 20:36; Start 02/06/17 at 18:15; Stop 02/06/17 at 22:05; Status DC Propofol 1000 mg/ IV Miscellaneous Supplies 100 ml @ 5.44 mls/hr [id number] IV Last administered on 02/07/17 05:40; Start 02/06/17 at 19:43; Stop 02/07/17 at 10:00; Status DC Simvastatin (Zocor) 20 mg QHS PO Last administered on 02/05/17 21:49; Start 02/01/17 at 21:00; Stop 02/06/17 at 18:02; Status DC Simvastatin (Zocor) 40 mg DAILY PO Last administered on 02/19/17 08:27; Start 02/09/17 at 09:00; Stop 03/11/17 at 08:59 Simvastatin (Zocor) 40 mg QHS PO Last administered on 01/31/17 19:46; Start at 21:00; Stop 02/01/17 at 11:53; Status DC Sodium Biphosphate/ Sodium Phosphate (Fleet Enema) 1 ea DAILYPRN PRN [place] CONSTIPATION Last administered on 02/14/17 10:19; Start 02/14/17 at 09:00; Stop 02/16/17 at 14:47; Status DC Sodium Chloride 1,000 ml @ 60 mls/hr [id number] IV Last administered on 13:07; Start 02/16/17 at 12:30; Stop 02/17/17 at 13:32; Status DC Sodium Chloride 1,000 ml @ 75 mls/hr [id number] IV Last administered on 03:08; Start 02/17/17 at 13:45; Stop 02/18/17 at 11:08; Status DC Sodium Chloride 1,000 ml @ 80 mls/hr [id number] IV Last administered on 02/02/17 22:15; Start 02/02/17 at 09:45; Stop 02/03/17 at 00:53; Status DC Sodium Chloride 1,000 ml @ 100 mls/hr Q10H IV Last administered on 01/31/17 01 :57; Start 01/28/17 at 08:40; Stop 01/31/17 at 10:25; Status DC Sodium Chloride 1,000 ml @ 100 mls/hr Q10H IV Last administered on 02/10/17 18:22; Start 02/07/17 at 09:45; Stop 02/11/17 at 07:44; Status DC Sodium Chloride 1,000 ml @ 100 mls/hr Q10H IV Last administered on 02/06/17 00 :49; Start 02/06/17 at 00:05; Stop 02/06/17 at 18:02; Status DC Sodium Chloride 1,000 ml @ 150 mls/hr Q6H40M IV ; Start 02/05/17 at 09:00; Stop 02/05/17 at 12:20; Status DC Sodium Chloride (Saline Lock Flush) 10 ML PICC IV Last administered on 04:47; Start 02/07/17 at 18:00; Stop 03/09/17 at 17:59 Sodium Chloride (Saline Lock Flush) 10ML ASDIRECTED PRN IV SEE LABEL COMMENTS Last administered on 02/19/17 08:29; Start 02/07/17 at 14:00; Stop 03/09/17 at 13:59 Zolpidem Tartrate (Ambien) 2.5 mg QHS PO Last administered on 02/18/17 20:58; Start 02/15/17 at 21:00; Stop 02/22/17 at 20:59 Allergies: Coded Allergies: Metformin (Verified Adverse Reaction, Intermediate, heart races, 01/28/17) Sitagliptin (Verified Adverse Reaction, Intermediate, heart races, 01/28/17 ) Sulfa Antibiotics (Verified Adverse Reaction, Intermediate, heart racing, 01/28/17) PHI FOX PA-C Feb 19, 2017 12:55
--- NOTE | 2017-02-19 13:51 | IPNPDOC ---
Subjective Date Seen The patient was seen on 02/19/17. Subjective Chief Complaint/HPI Patient seen and examined at the bedside. States that she is feeling okay and notes that she has not needed any IV pain medications since the weekend. Reports that she still has persistent weakness in her upper extremities bilaterally. She notes that she is happy with the staff on her current floor, who have been assisting her regularly with feeding. Denies any other acute complaints at this time. Objective Physical Examination General Exam: Positive: Alert, Cooperative, No Acute Distress ENT Exam: Positive: Atraumatic, Mucous membr. 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 Unable to move either upper extremity. Sensation intact in the right hand and arm. Sensation intact in left hand, diminished in left arm. 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 and C3-C6 laminectomy on 02/06/17 Patient with weakness of the Upper extremities bilaterally following surgery Pain mgmt and DVT prophylaxis as per primary team Acute Respiratory Failure requiring Mechanical Ventilation post-operatively s/p Extubation on 02/07/17 Pulmonary on board Acute Kidney Injury Superimposed on Chronic kidney disease, stage III Serum creatinine trending back down toward baseline following IV Fluid hydration PO Intake Encouraged Nephrology on board--their assistance has been appreciated Uncontrolled diabetes 2/2 Dietary Indiscretion, Medication Non-Adherence HgbA1c of 12.3% Carb consistent diet Levemir uptitrated to 25 Units SC BID Insulin Sliding Scale Protein Calorie Malnutrition Prealbumin level noted to 18.0 The patient's nutrition status is of concern at this time especially given her inability to use her arms/hands due to weakness following surgery. The patient will need assistance from the nursing staff for feeding, and this has been encouraged Ensure 3-4 times a day has been ordered Hypertension, stable Acute pancreatitis, resolved Chronic obstructive pulmonary disease (COPD), stable Albuterol as needed Hypothyroidism Continue on Synthroid. Dyslipidemia Cont Statin Chronic alcohol abuse. Tobacco abuse GI prophylaxis Protonix Deep vein thrombosis (DVT) prophylaxis Heparin SC VS, I&O, 24H, Fishbone Vital Signs/I&O Vital Signs Date Time Temp Pulse Resp B/P (MAP) Pulse Ox O2 Delivery O2 Flow Rate FiO2 02/19/17 07:54 Room Air 02/19/17 07:45 97.1 92 20 160/80 (106) 95 I&O- Last 24 Hours up to 6 AM 02/19/17 06:00 Intake Total 170 ml Output Total 950 ml Balance -780 ml Laboratory Data 24H LABS Laboratory Tests 2 02/18/17 16:32: Bedside Glucose (Misc Panel) 234H 02/18/17 18:54: Total Creatine Kinase 37, Creatine Kinase MB 1.0, Creatine Kinase MB Relative Index 2.70, Troponin I < 0.02 02/18/17 20:23: Bedside Glucose (Misc Panel) 251H 02/19/17 08:03: Bedside Glucose (Misc Panel) 188H 02/19/17 10:51: Anion Gap 5L, Glomerular Filtration Rate 41.2L, Blood Urea Nitrogen 27H, Creatinine 1.39H, Sodium Level 137, Potassium Level 4.8, Chloride Level 103, Carbon Dioxide Level 29, Calcium Level 8.9, Total Creatine Kinase 34, Magnesium Level 2.6H, Creatine Kinase MB 1.0, Creatine Kinase MB Relative Index 2.94, Troponin I < 0.02, Prealbumin 18.0L 02/19/17 12:05: Bedside Glucose (Misc Panel) 271H CBC/BMP Laboratory Tests 02/19/17 10:51 Red Blood Count 3.36 L, Mean Corpuscular Volume 90.3, Mean Corpuscular Hemoglobin 30.0, Mean Corpuscular Hemoglobin Concent 33.3, Red Cell Distribution Width 13.4, Calcium Level 8.9, Total Creatine Kinase 34 BRITTANI CORREIA MD Feb 19, 2017 13:51
[2017-02-19] MEDS: ACETAMINOPHEN 325 MG TAB PO PRN ×2 (13:55→21:19)
[2017-02-19] MEDS: FAMOTIDINE IV BAG 20 MG in APPROPRIATE DILUENT 1 EA IV SCH (20:23)
[2017-02-19] MEDS ORDERED: LEVEMIR (INSULIN DETEMIR) 1 UNITS/0.01ML SC SCH (21:00)
[2017-02-19] MEDS: zolPIDEM TARTRATE 5 MG TAB PO SCH (21:20)
--- NOTE | 2017-02-19 22:22 | IPN ---
DATE: 02/18/2017 The patient was seen at the bedside this morning. Nurse is present. Patient continues to complain of cervical pain and upper extremity weakness. She is lying flat in bed in no acute distress. Her blood pressure was elevated this morning, as high as 210/112. The patient IV fluids were discontinued. She also given hydralazine 5 mg IV. Her blood pressure came down to 174/78. She denies any chest pain, shortness of breath, nausea or vomiting. REVIEW OF SYSTEMS: No fevers. No chills. No vision changes. No chest pain, palpitations, shortness of breath. No abdominal pain. No dysuria. Positive for bilateral upper extremity weakness and depression. PHYSICAL EXAMINATION: VITAL SIGNS: Temperature 96.6, pulse 86, blood pressure 154/80, respiratory rate 18, saturating 96% on room air. Intake and output: Intake was not recorded, urine output was 1750 mL. GENERAL: Lying flat in bed. No acute distress. HEAD/NECK: Extraocular muscles intact. Mucous membranes are moist. Her cervical spine was not palpated. CARDIOVASCULAR: S1, S2. Regular rate and rhythm. RESPIRATORY: Chest is clear to auscultation bilaterally. No rales or rhonchi. ABDOMEN: Soft. Positive bowel sounds. Obese. Nontender. No appreciable organomegaly. EXTREMITIES: Without clubbing or cyanosis. NEUROLOGIC: Range of motion is intact in the bilateral lower extremities and diminished in the bilateral upper extremities. PSYCHIATRIC: The patient appears depressed this morning. LABORATORY DATA: White count 12.7, hemoglobin 9.7, platelets 263. Sodium 141, potassium 4.9, bicarbonate 30, creatinine 1.2, corrected calcium 9.7, magnesium 2.4. ASSESSMENT AND PLAN: 61-year-old female with a past medical history of chronic kidney disease stage III, uncontrolled diabetes, hypertension, admitted for cervical spine surgery and fusion. Nephrology service following for the management of acute kidney injury. 1. Acute kidney injury on chronic kidney disease stage III. The patient's renal function continues to return to baseline. Creatinine 1.2 today with stable electrolytes. I will discontinue the IV fluids and continue to encourage oral hydration. The patient does have bilateral upper extremity weakness and is dependent on adjunct nursing faculty for assistance with feeds. Her oral intake is not recorded. If she becomes hypernatremic or if her renal function deteriorates, we can resume her on IV hydration. 2. Hypertension. The patient's blood pressure, systolic, has been ranging from 140s to 170s for the past 2 days, previously systolic was 100 to 110. This may be related to her pain. Of note, it was significantly higher this morning and she did receive a one time dose of IV hydralazine. For now, we will continue with pain management and adequate pain control. For her blood pressure, she remains on Cardizem 60 mg by mouth every 8 hours. I am also discontinuing her IV normal saline as that may also be contributing to her hypertension. 3. Uncontrolled diabetes. The patient has been resumed on long-acting insulin. Her sugars today are now in the 200s, improved from 400 yesterday. Her diabetes is very poorly controlled with an A1/c of 12.3% on this admission. 4. Anemia. The patient has a normocytic anemia and hemoglobin has been stable in the 9s. 5. Cervical spine stenosis, status post C1 to T1 spinal fusion and C3 to C6 laminectomy. The patient continues to have significant bilateral upper extremity weakness and numbness since the procedure. She is unable to feed herself and continues to require staff assistance for drink and food. Continue to work with physical therapy (PT) and occupational therapy (OT). The plan of care was discussed with the patient and nurse at bedside.
[2017-02-19] MEDS: MORPHINE 2 MG/ML 1ML SYRINGE IV PRN (23:56)
[2017-02-20 00:15] VITALS: BP 170/92
[2017-02-20] MEDS ORDERED: amLODIPine 5 MG TAB PO ONE (00:15)
[2017-02-20] MEDS: ONDANSETRON 4MG/2ML VIAL (J2405) IV SCH ×4 (01:53→20:20)
[2017-02-20] MEDS: **hydrALAZINE HCL** 25 MG TAB PO SCH ×3 (05:45→21:47)
[2017-02-20] MEDS: LEVOTHYROXINE 150MCG TABLET (0.15MG) PO SCH (05:51)
[2017-02-20] MEDS: HEPARIN SOD (PORCINE) 5000 UNITS/ML VIAL SQ SCH ×3 (05:52→21:45)
[2017-02-20 06:00] VITALS: BP 148/80
[2017-02-20] MEDS: MORPHINE 2 MG/ML 1ML SYRINGE IV PRN (06:01)
[2017-02-20] MEDS: SODIUM CHLORIDE 0.9% INJ 10 ML SYR IV SCH ×2 (06:01→18:53)
[2017-02-20 06:04] LABS: MEAN CORPUSCULAR HEMOGLOBIN 30.1 pg (27.0-33.0); MEAN CORPUSCULAR HGB CONC 33.6 g/dl (32.0-36.5); MEAN CORPUSCULAR VOLUME 89.5 fl (80.0-96.0); RED CELL DISTRIBUTION WIDTH 13.3 % (11.5-14.5); WHITE BLOOD COUNT 9.9 K/mm3 (4.0-10.0)
[2017-02-20 06:13] LABS: CALCIUM LEVEL 9.1 MG/DL (8.8-10.2); CREATININE FOR GFR 1.43 MG/DL (0.55-1.02); GLOMERULAR FILTRATION RATE 39.8 (>45); MAGNESIUM LEVEL 2.3 MG/DL (1.8-2.4); POTASSIUM SERUM 4.7 MEQ/L (3.5-5.1)
[2017-02-20] MEDS: IPRATROPIUM 0.5MG/ALBUTEROL 2.5MG INH SOL UD 3ML (DUONEB)(J7620) NEB SCH ×4 (07:13→18:49)
[2017-02-20] MEDS: DOCUSATE SODIUM 100 MG CAP PO SCH ×2 (09:33→21:46)
[2017-02-20] MEDS: PANTOPRAZOLE 40MG TAB (PROTONIX) PO SCH (09:33)
[2017-02-20] MEDS: SIMVASTATIN 40 MG TAB PO SCH (09:33)
[2017-02-20] MEDS: HumaLOG INSULIN (NovoLOG) PER UNIT SC SCH ×4 (09:35→21:44)
[2017-02-20] MEDS: NICOTINE 14 MG/24 HR TRANSDERMAL TD SCH (09:35)
[2017-02-20] MEDS: LEVEMIR (INSULIN DETEMIR) 1 UNITS/0.01ML SC SCH ×2 (09:35→21:45)
[2017-02-20] MEDS: GABAPENTIN 100 MG CAP PO SCH ×3 (11:02→21:46)
[2017-02-20] MEDS: ACETAMINOPHEN TAB 650MG DOSE (2X325MG) PO SCH ×4 (11:02→21:46)
--- NOTE | 2017-02-20 12:54 | IPNPDOC ---
Subjective Date Seen The patient was seen on 02/20/17. Subjective Chief Complaint/HPI Patient seen and examined at the bedside this morning. States that she is able to shrug her shoulders more with physical therapy. Does not offer any acute complaints at this time. Objective Physical Examination General Exam: Positive: Alert, Cooperative, No Acute Distress ENT Exam: Positive: Atraumatic, Mucous membr. 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 Unable to move either upper extremity. Sensation intact in the right hand and arm. Sensation intact in left hand, diminished in left arm. 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 and C3-C6 laminectomy on 02/06/17 Patient with weakness of the Upper extremities bilaterally following surgery Pain mgmt and DVT prophylaxis as per primary team Acute Respiratory Failure requiring Mechanical Ventilation post-operatively s/p Extubation on 02/07/17 Pulmonary on board Acute Kidney Injury Superimposed on Chronic kidney disease, stage III Serum creatinine trending back down toward baseline following IV Fluid hydration PO Intake Encouraged Nephrology on board--their assistance has been appreciated Uncontrolled diabetes 2/2 Dietary Indiscretion, Medication Non-Adherence HgbA1c of 12.3% Carb consistent diet Levemir uptitrated to 30 Units SC BID Insulin Sliding Scale We will continue to adjust Levemir as indicated Protein Calorie Malnutrition Prealbumin level noted to 18.0 The patient's nutrition status is of concern at this time especially given her inability to use her arms/hands due to weakness following surgery. The patient will need assistance from the nursing staff for feeding, and this has been encouraged Dietary on board for further assistance Hypertension, stable Acute pancreatitis, resolved Chronic obstructive pulmonary disease (COPD), stable Albuterol as needed Hypothyroidism Continue on Synthroid. Dyslipidemia Cont Statin Chronic alcohol abuse. Tobacco abuse GI prophylaxis Protonix Deep vein thrombosis (DVT) prophylaxis Heparin SC VS, I&O, 24H, Fishbone Vital Signs/I&O Vital Signs Date Time Temp Pulse Resp B/P (MAP) Pulse Ox O2 Delivery O2 Flow Rate FiO2 02/20/17 06:26 18 02/20/17 06:01 Room Air 02/20/17 06:00 96.8 85 148/80 (102) 95 I&O- Last 24 Hours up to 6 AM 02/20/17 06:00 Intake Total 1850 ml Output Total 2525 ml Balance -675 ml Laboratory Data 24H LABS Laboratory Tests 2 02/19/17 16:47: Bedside Glucose (Misc Panel) 282H 02/19/17 20:40: Bedside Glucose (Misc Panel) 351H 02/20/17 05:43: Anion Gap 9, Glomerular Filtration Rate 39.8L, Blood Urea Nitrogen 27H, Creatinine 1.43H, Sodium Level 142, Potassium Level 4.7, Chloride Level 106, Carbon Dioxide Level 27, Calcium Level 9.1, Magnesium Level 2.3 02/20/17 11:26: Bedside Glucose (Misc Panel) 284H CBC/BMP Laboratory Tests 02/20/17 05:43 Red Blood Count 3.21 L, Mean Corpuscular Volume 89.5, Mean Corpuscular Hemoglobin 30.1, Mean Corpuscular Hemoglobin Concent 33.6, Red Cell Distribution Width 13.3, Calcium Level 9.1 BRITTANI CORREIA MD Feb 20, 2017 12:54
[2017-02-20 14:00] VITALS: BP_SYST 114; BP_SYST 116; BP_DIAS 58; BP_DIAS 62
--- NOTE | 2017-02-20 14:01 | IPN ---
DATE OF SERVICE: 02/19/2017 SUBJECTIVE: The patient was seen today at the bedside. She is in good spirits today. She denies any acute overnight events. She continues to have weakness of the bilateral upper extremities. She reports good appetite and good oral intake and remains off of intravenous (IV) fluids. REVIEW OF SYSTEMS: Negative for headaches, dizziness, lightheadedness, chest pain, shortness of breath, palpitations, nausea, vomiting, diarrhea, abdominal pain, dysuria. Negative for lower extremity edema. Positive for upper extremity bilateral weakness. Remainder ROS negative VITAL SIGNS: Temperature 97.1, pulse 92, respiratory rate 20, blood pressure 156/80, saturating 95% on room air. Intake and output: Intake is not completely recorded, urine output is 2000 mL. Zero reported bowel movements. Weight on the bed scale 89.5 kg. PHYSICAL EXAMINATION: GENERAL: Awake, alert, oriented. In no acute distress. Lying in bed. HEENT: Moist mucous membranes. Extraocular muscles intact. NECK: No jugular venous distention (JVD). CHEST: Clear to auscultation bilaterally. Symmetric air entry. HEART: S1, S2. Regular rate, regular rhythm. ABDOMEN: Soft. Nontender. Nondistended. EXTREMITIES: Bilateral upper extremity weakness. 5/5 lower extremity strength. NEUROLOGIC: Upper extremity weakness. PSYCHIATRIC: Appropriate mood and affect. LABORATORY STUDIES: White count 12.7, hemoglobin 10.1, platelets 266. Sodium 137, potassium 4.8, bicarbonate 29, creatinine 1.3 which is her baseline renal function, glucose 255, magnesium 2.6. INPATIENT MEDICATIONS: Reviewed by me. She remains on diltiazem 60 mg by mouth every 8, hydralazine 25 mg by mouth every 8. Her Levemir insulin dose was increased to 25 units subcutaneous twice a day. The remainder of her medications are unchanged as compared to yesterday. ASSESSMENT AND PLAN: A 61-year-old female with a past medical history of chronic kidney disease stage III, baseline creatinine 1.3 to 1.4, poorly controlled diabetes, hypertension, admitted for cervical spine surgery and fusion, has had subsequent upper extremity weakness. 1. Acute kidney injury on chronic kidney disease. The patient's creatinine has now returned to her known baseline. Her electrolytes are stable. She does have a magnesium level of 2.6 and has been receiving milk of magnesia as needed constipation. I do not see any other magnesium orders. Recommend to hold off on further magnesium. Her volume status is stable. She remains off of IV fluids and is tolerating by mouth intake well. 2. Hypertension. The patient's systolics have been ranging from 150s to 160s during the daytime and 130s overnight. She remains on diltiazem 60 mg by mouth every 8 and was recently started on hydralazine 25 mg by mouth every 8 by the primary team. She reports her pain is adequately controlled at this time. 3. Diabetes. Poorly controlled. A1c on this visit 12.3%. Her long-acting Levemir has been increased. Her sugars remain in the 200s. 4. Cervical spine stenosis with myeloradiculopathy, status post C1 to T1 spinal fusion and C3 to C6 laminectomy with subsequent upper extremity weakness. The patient continues to require assistance with feeds. She is on Ensure as a supplement. She continues with physical therapy. At this time, I will sign off from the patient. Please reconsult nephrology as needed. HEATHER
[2017-02-20] MEDS: SODIUM CHLORIDE 0.9% INJ 10 ML SYR IV PRN (15:58)
[2017-02-20] MEDS: FAMOTIDINE IV BAG 20 MG in APPROPRIATE DILUENT 1 EA IV SCH (21:43)
[2017-02-20] MEDS: zolPIDEM TARTRATE 5 MG TAB PO SCH (21:46)
[2017-02-20 22:00] VITALS: BP 163/75
--- NOTE | 2017-02-20 22:25 | IPNPDOC ---
Neurosurgery Date: Feb 20, 2017 Progress Note NEUROSURGERY Postoperative Day #: 14 Pain Control: Unsatisfactory Surgical Procedure (02/06/17). Laminectomy and foraminotomies C3-C7, C3-T1 posterior lateral mass instrumentation with screws and rods, C3-T2 posterior-lateral arthrodesis, with bone graft. SUBJECTIVE: Ms. House is a pleasant 61-year-old right-handed female smoker with a history of hypertension, chronic kidney disease (CKD) III, chronic obstructive pulmonary disease (COPD), asthma, uncontrolled diabetes type 2, hypothyroidism and chronic neck and back pain, who has been admitted to the hospital for her chronic neck pain by Dr Kelley. She is 14 days s/p complex spine surgery posterior decompression and fusion from C3-T1. She states the [place] collar does not help with the pain when going from supine to sitting up. She has not been wearing it much. The dizziness and pain is limiting her from sitting up and standing. She continues with weakness in her upper extremities, L>R, and is unable to hold her arms against gravity. She continues to work with PT for increasing strength of her upper extremities. Per nursing- she has been refusing many of the exercises as recommended by PT. She is able to roll over in bed. She has been eating well. She is happy on the this floor. She offers no other concerns for today. OBJECTIVE: Clinical Status: Afebrile. BP increased. Neurological status: Alert and orientated times three, GCS=[id number]. Speech is Fluent. Mood is depressed. Wound/incision: Incision is with scant drainage but appears to be healing well. No increased erythema, or increased pain at the site. Drainage: None. Motor: weakness in upper extremities, L>R, unable to hold arms against gravity. She is able to move her fingers on each hand. Strength in lower extremities is 5 /5. LABS: WBC = 9.9 Hgb = 9.6, L HCT = 28.7, L Na+ = 142 K+= 4.7 Fasting glucose = 250, H ASSESSMENT/PLAN: PER DR. KELLEY 1. Cervical myeloradiculopathy. S/p decompression and fusion by Dr. Kelley. Still with weakness in upper extremities and working with PT. She has been encouraged to sit up in bed as much as possible and actively participate in PT. 2. Leukocytosis: improved. Management per Dr. Kelley. 3. Chest pains: Management per hospitalist. 4. Decreased kidney function: Management per hospitalist. 5. Depression/anxiety. Consult had been placed to psychiatry- No suggestions for medications. 6. Calf pain bilaterally. Left greater than the right. No changes. She is taking heparin, has AMAIRANI/SCD. No swelling or palpable cord on exam. Low suspicion for DVT. Will continue to monitor. 7. Headache. Head of the bed has been lowered to see if there are any improvements. No improvements with lowering the head of bed. No complaints of headache today. Will continue to monitor. 8. Facial itching: Continue Benadryl. No complaints of facial itching today. 9. Wound care: Improving. No discharge or signs of infection. D/c dressings and leave open to air, laying on each side of 2 hrs. 10. Pain control: Unsatisfactory. Morphine thought to be contributing to her dizziness. Will d/c morphine. Increase Tylenol to 325 mg 2 tabs PO q 4 hrs. Add gabapentin 100 PO TID. Will consult pain medicine for recommendations. 11. DVT prophylaxis: TEDs and SCD. Encouraging ambulation. 12. Constipation prophylaxis: Cont lactulose and Colace 13. Nausea prophylaxis: Zofran IV PRN. 14. Diet : She only has 2.[address] Kelley has asked that we increased this to 4 drinks daily. I have encouraged her to increase her ensures. 15. Activity: Per PT/OT. We have encouraged her to continue leg exercises and attempting to move her arms in bed. Discuss plan with PT- will increase PT to 30 minutes twice a day. Would like her to be more ambulatory. 16. Discharge plan: will check into status on acute rehab. Thank you for all consulting providers for your much needed help regarding care of Ms. House. Current Medications Current Medications Acetaminophen (Tylenol Suspension) 650 mg Q4H PO Last administered on 23:26; Start 02/10/17 at 11:00; Stop 02/12/17 at 07:01; Status DC Acetaminophen (Tylenol Tab) 325 mg Q4HP PRN PO PAIN / FEVER Last administered on 02/19/17 21:19; Start 02/19/17 at 13:45; Stop 02/20/17 at 10:33; Status DC Acetaminophen (Tylenol Tab) 650 mg Q4H PO Last administered on 02/17/17 13:20 ; Start 02/15/17 at 18:00; Stop 02/17/17 at 17:59; Status DC Acetaminophen (Tylenol Tab) 650 mg Q4H PO Last administered on 02/20/17 21:46 ; Start 02/20/17 at 10:30; Stop 02/22/17 at 10:29 Acetaminophen (Tylenol Tab) 650 mg Q6HP PRN PO MILD PAIN (PS 1-4) Last administered on 02/13/17 01:27; Start 02/06/17 at 18:15; Stop 02/15/17 at 17:32 ; Status DC Acetaminophen/ Hydrocodone Bitart (Davis, Anexsia 5/325) 1 tab Q4HP PRN PO MODERATE PAIN (PS 5-7) Last administered on 02/13/17 09:49; Start 02/06/17 at 18 :15; Stop 02/13/17 at 10:59; Status DC Albuterol Sulfate (Proventil Neb) 2.5 mg Q2HP PRN NEB SHORTNESS OF BREATH; Start 02/06/17 at 19:45; Stop 03/08/17 at 19:44 Albuterol/ Ipratropium (Duoneb (Ipr 0.5mg/Alb 2.5mg)) 3 ml Q2HP PRN NEB SOB/ WHEEZING; Start 01/28/17 at 11:15; Stop 02/06/17 at 18:02; Status DC Albuterol/ Ipratropium (Duoneb (Ipr 0.5mg/Alb 2.5mg)) 3 ml QID NEB ; Start 02/07 at 13:00; Stop 02/07/17 at 13:00; Status DC Albuterol/ Ipratropium (Duoneb (Ipr 0.5mg/Alb 2.5mg)) 3 ml RQ4H NEB Last administered on 02/07/17 07:28; Start 02/06/17 at 20:00; Stop 02/07/17 at 10:00 ; Status DC Albuterol/ Ipratropium (Duoneb (Ipr 0.5mg/Alb 2.5mg)) 3 ml RQID NEB Last administered on 02/01/17 19:16; Start 01/28/17 at 12:00; Stop 02/06/17 at 18:02; Status DC Albuterol/ Ipratropium (Duoneb (Ipr 0.5mg/Alb 2.5mg)) 3 ml RQID NEB Last administered on 02/15/17 11:48; Start 02/07/17 at 12:00; Stop 03/09/17 at 11:59 Amlodipine Besylate (Norvasc) 5 mg DAILY PO Last administered on 01/29/17 09:02 ; Start 01/29/17 at 09:00; Stop 01/31/17 at 06:59; Status DC Amlodipine Besylate (Norvasc) 5 mg DAILY PO ; Start 02/21/17 at 09:00; Stop at 09:00; Status DC Calcium/Vitamin D (Oscal D) 500 mg DAILY PO Last administered on 02/09/17 11: 49; Start 02/09/17 at 09:00; Stop 02/09/17 at 13:35; Status DC Carisoprodol (Soma) 350 mg TID PO Last administered on 02/13/17 09:49; Start 02/06/17 at 21:00; Stop 02/13/17 at 10:59; Status DC Cefuroxime Sodium 750 mg/Dextrose 50 ml @ 100 mls/hr Q8H IV Last administered on 02/07/17 13:38; Start 02/06/17 at 22:00; Stop 02/07/17 at 14:29; Status DC Chlorhexidine Gluconate (Peridex Oral Rinse) SWAB/BRUSH ORAL CAVITY BID MT Last administered on 02/07/17 08:30; Start 02/06/17 at 21:00; Stop 02/07/17 at 10:00; Status DC Dextrose (Dextrose 50%) 25 ml ASDIRECTED PRN IV SEE LABEL COMMENTS Last administered on 02/02/17 20:23; Start 01/28/17 at 17:45; Stop 02/06/17 at 18:02; Status DC Dextrose (Dextrose 50%) 25 ml ASDIRECTED PRN IV SEE LABEL COMMENTS; Start at 19:30; Stop 02/03/17 at 19:30; Status DC Dextrose (Dextrose 50%) 25 ml STAT STAT IV Last administered on 02/07/17 13: 13; Start 02/07/17 at 13:02; Stop 02/07/17 at 13:05; Status DC Dextrose/Sodium Chloride 1,000 ml @ 80 mls/hr [id number] IV Last administered on 02/03/17 01:02; Start 02/03/17 at 01:00; Stop 02/03/17 at 11:44; Status DC Diltiazem HCl (Cardizem Cd) 120 mg BID PO Last administered on 02/01/17 08:26; Start 01/31/17 at 09:00; Stop 02/01/17 at 11:44; Status DC Diltiazem HCl (Cardizem) 30 mg Q8H PO Last administered on 02/13/17 14:38; Start 02/13/17 at 06:00; Stop 02/13/17 at 17:32; Status DC Diltiazem HCl (Cardizem) 30 mg Q8H PO Last administered on 02/06/17 05:24; Start 02/01/17 at 22:00; Stop 02/06/17 at 18:02; Status DC Diltiazem HCl (Cardizem) 60 mg Q8H PO Last administered on 02/20/17 21:46; Start 02/13/17 at 22:00; Stop 03/15/17 at 21:59 Diphenhydramine HCl (Benadryl) 25 mg Q4HP PRN PO ITCHING Last administered on 10:00; Start 02/08/17 at 08:45; Stop 03/10/17 at 08:44 Docusate Sodium (Colace Liquid) 100 mg BID PO Last administered on 02/08/17 08 :54; Start 02/08/17 at 09:00; Stop 02/09/17 at 11:33; Status DC Docusate Sodium (Colace) 100 mg BID PO Last administered on 02/07/17 20:29; Start 02/06/17 at 21:00; Stop 02/08/17 at 08:34; Status DC Docusate Sodium (Colace) 200 mg BID PO Last administered on 02/20/17 21:46; Start 02/15/17 at 21:00; Stop 03/17/17 at 20:59 Famotidine 20 mg/ IV Miscellaneous Supplies 50 ml @ 100 mls/hr QHS IV Last administered on 02/20/17 21:43; Start 02/07/17 at 21:00; Stop 03/09/17 at 20:59 Gabapentin (Neurontin) 100 mg TID PO Last administered on 02/20/17 21:46; Start 02/20/17 at 09:00; Stop 03/22/17 at 08:59 Glucagon (Glucagon) 1 mg ASDIRECTED PRN SC SEE LABEL COMMENTS; Start 01/28/17 at 17:45; Stop 02/06/17 at 18:02; Status DC Glucagon (Glucagon) 1 mg ASDIRECTED PRN SC SEE LABEL COMMENTS; Start 02/03/17 at 19:30; Stop 02/03/17 at 19:30; Status DC Glucose (Glucose) 16 GM ASDIRECTED PRN PO SEE LABEL COMMENTS; Start 01/28/17 at 17:45; Stop 02/06/17 at 18:02; Status DC Glucose (Glucose) 16 GM ASDIRECTED PRN PO SEE LABEL COMMENTS; Start 02/03/17 at 19:30; Stop 02/03/17 at 19:30; Status DC Heparin Sodium (Heparin (Flush)) 200 units ASDIRECTED PRN IV SEE LABEL COMMENTS Last administered on 02/20/17 15:58; Start 02/07/17 at 14:00; Stop 03/09/17 at 13:59 Heparin Sodium (Heparin (Flush)) 200 units PICC IV Last administered on 06:01; Start 02/07/17 at 18:00; Stop 03/09/17 at 17:59 Heparin Sodium (Porcine) (Heparin) 5,000 units BID SQ Last administered on 02/09 21:50; Start 02/09/17 at 21:00; Stop 02/10/17 at 09:57; Status DC Heparin Sodium (Porcine) (Heparin) 5,000 units Q8H SQ Last administered on 21:50; Start 01/29/17 at 14:00; Stop 02/05/17 at 23:00; Status DC Heparin Sodium (Porcine) (Heparin) 5,000 units Q8H SQ Last administered on 02/20 21:45; Start 02/10/17 at 14:00; Stop 02/23/17 at 13:59 Heparin Sodium (Porcine) (Heparin) 5,000 units TID SQ ; Start 01/29/17 at 16:00; Stop 01/29/17 at 16:00; Status DC Home Med (Med Rec Complete!) ASDIRECTED XX ; Start 01/28/17 at 09:30; Stop at 09:30; Status DC Hydralazine HCl (Apresoline) 5 mg STAT STAT IV Last administered on 02/18/17 12:54; Start 02/18/17 at 10:37; Stop 02/18/17 at 10:38; Status DC Hydralazine HCl (Apresoline) 25 mg Q8H PO Last administered on 02/20/17 21:47 ; Start 02/18/17 at 22:00; Stop 03/20/17 at 21:59 Insulin Detemir (Levemir Insulin) 10 units BID SC Last administered on 09:01; Start 01/28/17 at 21:00; Stop 01/29/17 at 17:31; Status DC Insulin Detemir (Levemir Insulin) 10 units DAILY@1500 SC Last administered on 16:08; Start 02/05/17 at 15:00; Stop 02/06/17 at 18:02; Status DC Insulin Detemir (Levemir Insulin) 20 units BID SC Last administered on 08:27; Start 02/18/17 at 21:00; Stop 02/19/17 at 13:45; Status DC Insulin Detemir (Levemir Insulin) 20 units BID SC Last administered on 08:46; Start 02/04/17 at 09:00; Stop 02/04/17 at 17:17; Status DC Insulin Detemir (Levemir Insulin) 20 units DAILY SC Last administered on 09:00; Start 02/17/17 at 13:00; Stop 02/18/17 at 10:20; Status DC Insulin Detemir (Levemir Insulin) 25 units BID SC Last administered on 21:20; Start 02/19/17 at 21:00; Stop 02/20/17 at 07:08; Status DC Insulin Detemir (Levemir Insulin) 30 units BID SC Last administered on 21:45; Start 02/20/17 at 09:00; Stop 03/22/17 at 08:59 Insulin Detemir (Levemir Insulin) 60 units BID SC Last administered on 19:47; Start 01/30/17 at 21:00; Stop 02/01/17 at 06:50; Status DC Insulin Detemir (Levemir Insulin) 70 units BID SC Last administered on 11:19; Start 02/01/17 at 09:00; Stop 02/03/17 at 10:37; Status DC Insulin Detemir (Levemir Insulin) 70 units BID SC Last administered on 08:17; Start 02/04/17 at 21:00; Stop 02/05/17 at 08:21; Status DC Insulin Detemir (Levemir Insulin) 80 units BID SC Last administered on 21:51; Start 02/05/17 at 21:00; Stop 02/06/17 at 18:02; Status DC Insulin Human Lispro (HumaLOG INSULIN) SEE PROTOCOL TABLE AC SC Last administered on 01/29/17 17:30; Start 01/29/17 at 17:30; Stop 01/30/17 at 13:08; Status DC Insulin Human Lispro (HumaLOG INSULIN) SEE PROTOCOL TABLE AC SC Last administered on 02/20/17 18:52; Start 02/08/17 at 12:00; Stop 03/10/17 at 11:59 Insulin Human Lispro (HumaLOG INSULIN) SEE PROTOCOL TABLE AC SC Last administered on 01/31/17 11:43; Start 01/30/17 at 17:30; Stop 01/31/17 at 12:57; Status DC Insulin Human Lispro (HumaLOG INSULIN) SEE PROTOCOL TABLE AC SC Last administered on 02/01/17 18:16; Start 01/31/17 at 17:30; Stop 02/02/17 at 07:38; Status DC Insulin Human Lispro (HumaLOG INSULIN) SEE PROTOCOL TABLE Q4H SC Last administered on 01/29/17 07:42; Start 01/28/17 at 20:00; Stop 01/29/17 at 08:20; Status DC Insulin Human Lispro (HumaLOG INSULIN) SEE PROTOCOL TABLE Q6H SC Last administered on 02/02/17 12:39; Start 02/02/17 at 06:00; Stop 02/03/17 at 10:37; Status DC Insulin Human Lispro (HumaLOG INSULIN) SEE PROTOCOL TABLE QHS SC ; Start at 21:00; Stop 01/30/17 at 13:06; Status DC Insulin Human Lispro (HumaLOG INSULIN) SEE PROTOCOL TABLE QHS SC Last administered on 02/19/17 21:19; Start 02/08/17 at 21:00; Stop 03/10/17 at 20:59 Insulin Human Lispro (HumaLOG INSULIN) SEE PROTOCOL TABLE QHS SC Last administered on 01/31/17 19:47; Start 01/30/17 at 21:00; Stop 02/02/17 at 07:38; Status DC Insulin Human Lispro (HumaLOG INSULIN) See Protocol Table AC SC Last administered on 02/05/17 17:24; Start 02/04/17 at 07:30; Stop 02/06/17 at 18:02; Status DC Insulin Human Lispro (HumaLOG INSULIN) See Protocol Table Q1H SC ; Start at 19:00; Stop 02/06/17 at 20:19; Status DC Insulin Human Lispro (HumaLOG INSULIN) See Protocol Table QHS SC Last administered on 02/05/17 21:51; Start 02/03/17 at 21:00; Stop 02/06/17 at 18:02; Status DC Insulin Human Regular 100 units/ Sodium Chloride 100 ml @ 0 mls/hr Q0M IV ; Start 01/30/17 at 13:25; Stop 03/01/17 at 13:24; Status UNV Insulin Human Regular 100 units/ Sodium Chloride 100 ml @ 1 mls/hr Q24H IV Last administered on 01/28/17 11:43; Start 01/28/17 at 09:30; Stop 01/28/17 at 17:24; Status DC Insulin Human Regular 100 units/ Sodium Chloride 100 ml @ 7 mls/hr [id number] IV Last administered on 01/30/17 11:55; Start 01/29/17 at 09:30; Stop 01/30/17 at 21: 00; Status DC Insulin Human Regular 100 units/ Sodium Chloride 100 ml @ 7 mls/hr [id number] IV Last administered on 02/07/17 22:22; Start 02/06/17 at 21:00; Stop 02/08/17 at 10:21; Status DC Lactated Ringer's 1,000 ml @ 100 mls/hr Q10H IV Last administered on 08:55; Start 02/06/17 at 22:15; Stop 02/07/17 at 09:44; Status DC Lactulose (Cephulac) 30 ml TID PO Last administered on 02/15/17 10:03; Start 02/14/17 at 09:00; Stop 02/15/17 at 15:48; Status DC Levothyroxine Sodium (Synthroid) 75 mcg DAILY IV ; Start 02/07/17 at 09:00; Stop 02/07/17 at 15:40; Status DC Levothyroxine Sodium (Synthroid) 75 mcg DAILY@0600 IV Last administered on 02/09 06:24; Start 02/07/17 at 06:00; Stop 02/09/17 at 13:34; Status DC Levothyroxine Sodium (Synthroid) 150 mcg DAILY@06 PO Last administered on 05:51; Start 02/10/17 at 06:00; Stop 03/12/17 at 05:59 Levothyroxine Sodium (Synthroid) 150 mcg DAILY@0600 PO Last administered on 02/06 05:22; Start 01/29/17 at 06:00; Stop 02/06/17 at 18:02; Status DC Lisinopril (Prinivil) 10 mg DAILY PO Last administered on 01/30/17 16:21; Start 01/30/17 at 09:00; Stop 01/31/17 at 06:55; Status DC Magnesium Hydroxide (Milk Of Magnesia) 30 ml DAILYPRN PRN PO CONSTIPATION Last administered on 02/15/17 18:59; Start 02/14/17 at 07:45; Stop 03/16/17 at 07:44 Metoprolol Tartrate (Lopressor) 25 mg Q8H PO Last administered on 01/30/17 05: 55; Start 01/29/17 at 14:00; Stop 01/30/17 at 15:38; Status DC Midazolam HCl (Versed) 2 mg Q15MP PRN IV AGITATION Last administered on 06:59; Start 02/06/17 at 19:45; Stop 02/07/17 at 10:00; Status DC Morphine Sulfate (Morphine Sulfate Inj) 2 mg Q2HP PRN IV BREAKTHROUGH PAIN; Start 01/28/17 at 10:30; Stop 02/06/17 at 18:02; Status DC Morphine Sulfate (Morphine Sulfate Inj) 2 mg Q2HP PRN IV SEVERE PAIN (PS 8-10) Last administered on 02/20/17 06:01; Start 02/06/17 at 18:15; Stop 02/27/17 at 18:14 Nicotine (Nicoderm Cq 14mg) 1 patch DAILY TD Last administered on 02/20/17 09: 35; Start 02/08/17 at 09:00; Stop 03/10/17 at 08:59 Nicotine (Nicoderm Cq 21mg) 1 patch DAILY TD Last administered on 02/05/17 08: 16; Start 01/28/17 at 09:00; Stop 02/06/17 at 18:02; Status DC Nicotine (Nicorette) 2 mg Q2HP PRN PO NICOTINE WITHDRAWAL Last administered on 01/28/17 20:22; Start 01/28/17 at 10:30; Stop 02/06/17 at 18:02; Status DC Non-Formulary Medication (Insulin Iv Rate Change Documentation ml/ Hr) ASDIRECTED XX Last administered on 01/28/17 16:29; Start 01/28/17 at 09:00; Stop 01/28/17 at 17:26; Status DC Non-Formulary Medication (Insulin Iv Rate Change Documentation ml/ Hr) ASDIRECTED XX Last administered on 01/30/17 17:53; Start 01/29/17 at 08:30; Stop 02/06/17 at 18:02; Status DC Non-Formulary Medication (Insulin Iv Rate Change Documentation ml/ Hr) ASDIRECTED XX ; Start 01/30/17 at 13:30; Stop 03/01/17 at 13:29; Status UNV Non-Formulary Medication (Insulin Iv Rate Change Documentation ml/ Hr) ASDIRECTED XX Last administered on 02/08/17 08:28; Start 02/06/17 at 20:15; Stop 02/08/17 at 10:21; Status DC Nystatin (Mycostatin Powder, Nystop) 1 dose BID TOP Last administered on 08:17; Start 01/28/17 at 09:00; Stop 02/06/17 at 18:02; Status DC Ondansetron HCl (ZOFRAN INJection) 4 mg Q4HP PRN IV NAUSEA OR VOMITING; Start 02/06/17 at 18:15; Stop 02/07/17 at 10:05; Status DC Ondansetron HCl (ZOFRAN INJection) 4 mg RQ6H IV Last administered on 02/20/17 20:20; Start 02/07/17 at 14:00; Stop 03/08/17 at 18:14 Oxycodone/ Acetaminophen (Percocet 5mg/ 325mg Tablet) 1 tab Q4HP PRN PO MILD/ MODERATE PAIN (PS 1-7) Last administered on 02/01/17 21:10; Start 01/28/17 at 12 :00; Stop 02/06/17 at 18:02; Status DC Pantoprazole Sodium (Protonix) 40 mg DAILY IV Last administered on 02/09/17 09 :32; Start 02/07/17 at 09:00; Stop 02/09/17 at 13:34; Status DC Pantoprazole Sodium (Protonix) 40 mg DAILY PO Last administered on 02/20/17 09 :33; Start 02/10/17 at 09:00; Stop 03/12/17 at 08:59 Polyethylene Glycol (Miralax) 1 pkt DAILYPRN PRN PO CONSTIPATION Last administered on 02/14/17 01:14; Start 02/12/17 at 17:45; Stop 02/15/17 at 15:54 ; Status DC Potassium Chloride 10 meq/ IV Miscellaneous Supplies 100 ml @ 100 mls/hr 0630, 0730 IV Last administered on 02/07/17 09:47; Start 02/07/17 at 06:30; Stop 04/16 at 12:00; Status DC Potassium Chloride/Sodium Chloride 1,000 ml @ 100 mls/hr Q10H IV Last administered on 02/06/17 20:36; Start 02/06/17 at 18:15; Stop 02/06/17 at 22:05; Status DC Propofol 1000 mg/ IV Miscellaneous Supplies 100 ml @ 5.44 mls/hr [id number] IV Last administered on 02/07/17 05:40; Start 02/06/17 at 19:43; Stop 02/07/17 at 10:00; Status DC Simvastatin (Zocor) 20 mg QHS PO Last administered on 02/05/17 21:49; Start 02/01/17 at 21:00; Stop 02/06/17 at 18:02; Status DC Simvastatin (Zocor) 40 mg DAILY PO Last administered on 02/20/17 09:33; Start 02/09/17 at 09:00; Stop 03/11/17 at 08:59 Simvastatin (Zocor) 40 mg QHS PO Last administered on 01/31/17 19:46; Start at 21:00; Stop 02/01/17 at 11:53; Status DC Sodium Biphosphate/ Sodium Phosphate (Fleet Enema) 1 ea DAILYPRN PRN MI CONSTIPATION Last administered on 02/14/17 10:19; Start 02/14/17 at 09:00; Stop 02/16/17 at 14:47; Status DC Sodium Chloride 1,000 ml @ 60 mls/hr [id number] IV Last administered on 13:07; Start 02/16/17 at 12:30; Stop 02/17/17 at 13:32; Status DC Sodium Chloride 1,000 ml @ 75 mls/hr [id number] IV Last administered on 03:08; Start 02/17/17 at 13:45; Stop 02/18/17 at 11:08; Status DC Sodium Chloride 1,000 ml @ 80 mls/hr [id number] IV Last administered on 02/02/17 22:15; Start 02/02/17 at 09:45; Stop 02/03/17 at 00:53; Status DC Sodium Chloride 1,000 ml @ 100 mls/hr Q10H IV Last administered on 01/31/17 01 :57; Start 01/28/17 at 08:40; Stop 01/31/17 at 10:25; Status DC Sodium Chloride 1,000 ml @ 100 mls/hr Q10H IV Last administered on 02/10/17 18:22; Start 02/07/17 at 09:45; Stop 02/11/17 at 07:44; Status DC Sodium Chloride 1,000 ml @ 100 mls/hr Q10H IV Last administered on 02/06/17 00 :49; Start 02/06/17 at 00:05; Stop 02/06/17 at 18:02; Status DC Sodium Chloride 1,000 ml @ 150 mls/hr Q6H40M IV ; Start 02/05/17 at 09:00; Stop 02/05/17 at 12:20; Status DC Sodium Chloride (Saline Lock Flush) 10 ML PICC IV Last administered on 06:01; Start 02/07/17 at 18:00; Stop 03/09/17 at 17:59 Sodium Chloride (Saline Lock Flush) 10ML ASDIRECTED PRN IV SEE LABEL COMMENTS Last administered on 02/20/17 15:58; Start 02/07/17 at 14:00; Stop 03/09/17 at 13:59 Zolpidem Tartrate (Ambien) 2.5 mg QHS PO Last administered on 02/20/17 21:46; Start 02/15/17 at 21:00; Stop 02/22/17 at 20:59 Allergies: Coded Allergies: Metformin (Verified Adverse Reaction, Intermediate, heart races, 01/28/17) Sitagliptin (Verified Adverse Reaction, Intermediate, heart races, 01/28/17 ) Sulfa Antibiotics (Verified Adverse Reaction, Intermediate, heart racing, 01/28/17) PHI FOX PA-C Feb 20, 2017 22:25
[2017-02-21] MEDS: ONDANSETRON 4MG/2ML VIAL (J2405) IV SCH ×4 (02:14→20:41)
[2017-02-21] MEDS: ACETAMINOPHEN TAB 650MG DOSE (2X325MG) PO SCH ×5 (02:15→18:07)
[2017-02-21 06:00] VITALS: BP 185/79
[2017-02-21] MEDS: **hydrALAZINE HCL** 25 MG TAB PO SCH ×4 (06:07→23:47)
[2017-02-21] MEDS: LEVOTHYROXINE 150MCG TABLET (0.15MG) PO SCH (06:08)
[2017-02-21] MEDS: SODIUM CHLORIDE 0.9% INJ 10 ML SYR IV SCH ×2 (06:09→16:44)
[2017-02-21] MEDS: HEPARIN SOD (PORCINE) 5000 UNITS/ML VIAL SQ SCH ×3 (06:09→21:37)
[2017-02-21 06:55] LABS: MEAN CORPUSCULAR HEMOGLOBIN 30.1 pg (27.0-33.0); MEAN CORPUSCULAR HGB CONC 33.6 g/dl (32.0-36.5); MEAN CORPUSCULAR VOLUME 89.7 fl (80.0-96.0); RED CELL DISTRIBUTION WIDTH 13.6 % (11.5-14.5)
[2017-02-21 07:20] LABS: CALCIUM LEVEL 8.8 MG/DL (8.8-10.2); CREATININE FOR GFR 1.56 MG/DL (0.55-1.02); MAGNESIUM LEVEL 2.2 MG/DL (1.8-2.4)
[2017-02-21 07:23] LABS: POTASSIUM SERUM 5.2 MEQ/L (3.5-5.1)
[2017-02-21] MEDS: PANTOPRAZOLE 40MG TAB (PROTONIX) PO SCH (07:43)
[2017-02-21] MEDS: GABAPENTIN 100 MG CAP PO SCH ×3 (07:43→21:36)
[2017-02-21] MEDS: NICOTINE 14 MG/24 HR TRANSDERMAL TD SCH (07:43)
[2017-02-21] MEDS: SIMVASTATIN 40 MG TAB PO SCH (07:43)
[2017-02-21] MEDS: DOCUSATE SODIUM 100 MG CAP PO SCH ×2 (07:43→21:36)
[2017-02-21] MEDS: SODIUM CHLORIDE 0.9% INJ 10 ML SYR IV PRN (07:44)
[2017-02-21] MEDS: HumaLOG INSULIN (NovoLOG) PER UNIT SC SCH ×4 (07:44→21:37)
[2017-02-21] MEDS: LEVEMIR (INSULIN DETEMIR) 1 UNITS/0.01ML SC SCH ×2 (07:45→21:38)
[2017-02-21] MEDS ORDERED: NS 1,500 ML IV ONE (08:00)
[2017-02-21] MEDS: IPRATROPIUM 0.5MG/ALBUTEROL 2.5MG INH SOL UD 3ML (DUONEB)(J7620) NEB SCH ×4 (08:00→20:00)
[2017-02-21] MEDS ORDERED: SOD POLYSTYRENE SULFONATE SUSP 15 GM/60 ML UD PO ONE (08:00)
[2017-02-21] MEDS ORDERED: amLODIPine 5 MG TAB PO SCH (09:00)
--- NOTE | 2017-02-21 10:35 | IPNPDOC ---
Subjective Date Seen The patient was seen on 02/21/17. Subjective Chief Complaint/HPI Patient seen and examined at the bedside. States that she is feeling well and denies any acute complaints. Notes that she has chosen a rehabilitation facility in [place], [place] and is looking forward to being closer to her sister there. Objective Physical Examination General Exam: Positive: Alert, Cooperative, No Acute Distress ENT Exam: Positive: Atraumatic, Mucous membr. moist/pink Neck Exam: Negative: JVD Chest Exam: Positive: Clear to auscultation, Normal air movement Heart Exam: Positive: Rate Normal, Normal S1, Normal S2 Telemetry: Positive: Sinus Abdomen Exam: Positive: Soft, Negative: Tenderness Extremity Exam: Positive: Other (Patient only able to give weak hand director of sleep on left hand, stronger director of sleep on right hand. Unable to move either upper extremity. Sensation intact in the right hand and arm. Sensation intact in left hand, diminished in left arm. Lower extremities with intact strength upon knee flexion , ankle flexion/extension) Psych Exam: Positive: Oriented x 3 Assessment /Plan Plan/VTE VTE Prophylaxis Ordered?: Yes Plan Cervical Spine Stenosis with Myeloradiculopathy s/p C3-T1 spinal fusion and C3-C6 laminectomy on 02/06/17 Patient with weakness of the Upper extremities bilaterally following surgery Pain mgmt and DVT prophylaxis as per primary team Acute Respiratory Failure requiring Mechanical Ventilation 2/2 Metabolic Acidemia s/p Extubation on 02/07/17 Pulmonary on board Acute Kidney Injury Superimposed on Chronic kidney disease, stage III Serum creatinine trending back up as the patient has retained a negative fluid balance the last 48hrs IV Fluid hydration ordered PO Intake Encouraged Nephrology input appreciated Uncontrolled diabetes 2/2 Dietary Indiscretion, Medication Non-Adherence HgbA1c of 12.3% Carb consistent diet Levemir uptitrated to 30 Units SC BID Insulin Sliding Scale We will continue to adjust Levemir as indicated Protein Calorie Malnutrition Prealbumin level noted to 18.0 The patient's nutrition status is of concern at this time especially given her inability to use her arms/hands due to weakness following surgery. The patient will need assistance from the nursing staff for feeding, and this has been encouraged Dietary on board for further assistance Hypertension, stable Acute pancreatitis, resolved Chronic obstructive pulmonary disease (COPD), stable Albuterol as needed Hypothyroidism Continue on Synthroid. Dyslipidemia Cont Statin Chronic alcohol abuse. Tobacco abuse GI prophylaxis Protonix Deep vein thrombosis (DVT) prophylaxis Heparin SC VS, I&O, 24H, [place] Vital Signs/I&O Vital Signs Date Time Temp Pulse Resp B/P (MAP) Pulse Ox O2 Delivery O2 Flow Rate FiO2 02/21/17 06:08 86 185/79 02/21/17 06:00 97.3 20 96 Room Air I&O- Last 24 Hours up to 6 AM 02/21/17 06:00 Intake Total 1130 ml Output Total 2275 ml Balance -1145 ml Laboratory Data 24H LABS Laboratory Tests 2 02/20/17 11:26: Bedside Glucose (Misc Panel) 284H 02/20/17 16:35: Bedside Glucose (Misc Panel) 249H 02/20/17 21:28: Bedside Glucose (Misc Panel) 242H 02/21/17 06:14: Anion Gap 9, Glomerular Filtration Rate 36.0L, Blood Urea Nitrogen 29H, Creatinine 1.56H, Sodium Level 142, Potassium Level 5.2H, Chloride Level 107, Carbon Dioxide Level 26, Calcium Level 8.8, Magnesium Level 2.2 CBC/BMP Laboratory Tests 02/21/17 06:14 Red Blood Count 3.02 L, Mean Corpuscular Volume 89.7, Mean Corpuscular Hemoglobin 30.1, Mean Corpuscular Hemoglobin Concent 33.6, Red Cell Distribution Width 13.6, Calcium Level 8.8 BRITTANI CORREIA MD Feb 21, 2017 10:35
[2017-02-21] MEDS ORDERED: INSUHUMDS SC ×2 (12:46)
[2017-02-21] MEDS ORDERED: DILT60TA PO (12:46)
[2017-02-21] MEDS ORDERED: HYDR25TA PO (12:46)
[2017-02-21] MEDS ORDERED: GABA-279 PO (12:46)
[2017-02-21] MEDS ORDERED: INSUDET SC (12:46)
[2017-02-21] MEDS ORDERED: AMBI5TAB PO (12:46)
[2017-02-21] MEDS ORDERED: MILKSUS PO (12:46)
[2017-02-21] MEDS ORDERED: COLA100C5 PO (12:46)
[2017-02-21] MEDS ORDERED: PANT40TA2 PO (12:46)
[2017-02-21 14:00] VITALS: BP 139/65
[2017-02-21] MEDS: NS 1,000 ML IV SCH (18:30)
[2017-02-21] MEDS ORDERED: HEPARIN SOD (PORCINE) 5000 UNITS/ML VIAL SQ SCH (18:45)
--- NOTE | 2017-02-21 20:19 | DS.PDOC ---
General Date of Admission: Jan 29, 2017 Date of Discharge: Feb 22, 2017 Attending Physician: IRAIDA KELLEY MD Discharge Summary Discharge Summary Patient name: Natasha House Age: 61 yo Gender: F Admission date: 01.29.2017 Discharge Date: 02.22.2017 Principal Diagnosis: Cervical stenosis with myeloradiculopathy Reason for admission: gate and walking deterioration to the level of wheelchair use Surgery: 02.06.2017 C3-T1 posterior decompression and fusion Post-op complications: 1. Central Cord syndrome 2. Acute respiratory failure/Metabolic academia 3. Uncontrolled perioperative hyperglycemia 4. Protein malnutrition 5. Acute pancreatitis 6. Acute kidney failure Hospitalist service, cardiology, rehab medicine, ICU service, neurology, psychiatry, PT, OT, health and social care teacher has been involved in patient care. PAST MEDICAL HISTORY: 1. Hypertension. 2. Chronic kidney disease (CKD), III. 3. Chronic obstructive pulmonary disease (COPD). 4. Asthma. 5. Uncontrolled type 2 diabetes. 5. Hypothyroidism. 6. Chronic neck and back pain. 7. 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 Medications: 1 Diltiazem 60 mg PO TID Docusate Sodium 200 mg PO BID Gabapentin 100 mg PO TID Hydralazine 50 mg PO Q6h Insuline Detemir 35 U sc BID Insuline Lipso 1 U sc ac Milk of Magnasea 30 ml PO prn for constipation Pantaprazole 40 mg PO OD Zolpidem 2.5 mg PO QHS Vitamin D2 50,000 U PO 1Xwk Levothyroxine 150 mcg PO OD Linagliptin 5 mg PO OD Simvastatin 40 mg PO OD Heparine 5000 U sc TID Tylenol #3 PO q6h prn Condition on discharge: AVSS, hemodynamically and respiratory stable; abdomen soft, bowel sound x 4 Neuroexam: A+Ox3, GCS=15, MELITON, normal speech, bilateral arm weakness 2/5; Patient only able to give weak hand sterilization tech on left hand, stronger sterilization tech on right hand. Unable to move either upper extremity. Sensation intact in the right hand and arm. Sensation intact in left hand, diminished in left arm. Lower extremities with intact strength upon knee flexion, ankle flexion/extension. LE= 5/5=R=L Neck incision healed well. Post-op CT C-spine: 01.28.2017 The patient is status post C3 to T1 posterior spinal fusion and C3 to C6 laminectomy. Metal rods, facet pedicle screws and bone graft material are present. Small scattered collections of air are present at the laminectomy site and in the posterior paravertebral soft tissue. A disc bulge and small right paracentral disc protrusion are present at the C2-3 level. There is minimal narrowing of the spinal canal. Disc bulges with associated osteophyte formation are present at the C3-4 through C5-6 levels. Uncinate process and/or facet hypertrophy are present at the C3-4 through C7-T1 levels. These findings produce minimal to moderate narrowing of the neural foramina. The C3-4 through C6-7 intervertebral discs are decreased in height consistent with disc degeneration. There is no subluxation. 02/07/2017 MRI C-spine: The patient is status post C3 to T1 posterior spinal fusion and C3 to C6 laminectomy. Metal rods, facet and pedicle screws are present. The spinal canal and neural foramina are very poorly seen secondary to metal artifact. There is no definite spinal cord compression. Normal signal intensity is present in the cervical vertebral bodies. There is no subluxation. A fluid collection is present in the posterior subcutaneous tissue. The fluid collection measures 5.7 cm in transverse x 4.2 cm in AP x 5.4 cm in cephalocaudal dimensions. The fluid collection extends from the C5-6 level inferior to the T12 level. Follow up instruction: 1. C-spine collar for comfort only 2. Follow with [facility] Neurosurgery Dr. Kelley in March 2017 with C- spine X-ray AP & lateral Laboratory Data Vital Signs Date Time Temp Pulse Resp B/P (MAP) Pulse Ox O2 Delivery O2 Flow Rate FiO2 02/21/17 18:06 160/84 02/21/17 14:26 91 02/21/17 14:00 98.0 20 94 Room Air I&O- Last 24 Hours up to 6 AM 02/21/17 05:59 Intake Total 1310 ml Output Total 2250 ml Balance -940 ml Laboratory Tests 02/21/17 06:14 Red Blood Count 3.02 L, Mean Corpuscular Volume 89.7, Mean Corpuscular Hemoglobin 30.1, Mean Corpuscular Hemoglobin Concent 33.6, Red Cell Distribution Width 13.6, Calcium Level 8.8 Laboratory Tests 2 02/20/17 21:28: Bedside Glucose (Misc Panel) 242H 02/21/17 06:14: Anion Gap 9, Glomerular Filtration Rate 36.0L, Blood Urea Nitrogen 29H, Creatinine 1.56H, Sodium Level 142, Potassium Level 5.2H, Chloride Level 107, Carbon Dioxide Level 26, Calcium Level 8.8, Magnesium Level 2.2 02/21/17 11:26: Bedside Glucose (Misc Panel) 318H 02/21/17 16:27: Bedside Glucose (Misc Panel) 336H Discharge Medications Scheduled (Sylwia Frank) 300 Unit/Ml Inj, 1 DOSE SC DAILY, (Reported) PT SUPPOSED TO BE ON INSULIN, HAS NOT USED RECENTLY DUE TO BEING UNABLE TO INJECT HERSELF Aspirin (Aspir-81) 81 Mg Tab, 81 MG PO DAILY, (Reported) Diltiazem Hcl (Cardizem) 60 Mg Tab, 60 MG PO Q8H Docusate Sodium (Colace) 100 Mg Cap, 200 MG PO BID Ergocalciferol (Vitamin D2) 2,000 Unit Tab, 50,000 UNIT PO 1XWK, (Reported) WEDNESDAYS Gabapentin (Gabapentin) 100 Mg Cap, 100 MG PO TID Hydralazine HCl (Hydralazine HCl) 25 Mg Tab, 50 MG PO Q6H Insulin Detemir (Levemir) 1 Units/0.01 Ml Susp, 35 UNITS SC BID Insulin Human Lispro (Humalog) 1 Units/0.01 Ml Inj, 0 UNITS SC QHS Insulin Human Lispro (Humalog) 1 Units/0.01 Ml Inj, 0 UNITS SC AC Levothyroxine Sodium (Synthroid) 150 Mcg Tab, 150 MCG PO DAILY, (Reported) Linagliptin Base (Tradjenta) 5 Mg Tab, 5 MG PO DAILY, (Reported) Metformin Hydrochloride (Metformin HCl ER) 500 Mg Tab, 1,000 MG PO BID, ( Reported) Pantoprazole Sodium (Pantoprazole Sodium) 40 Mg Tab, 40 MG PO DAILY Simvastatin - High Dose (Simvastatin) 40 Mg Tab, 40 MG PO DAILY, (Reported) Zolpidem Tartrate (Ambien) 5 Mg Tab, 2.5 MG PO QHS Scheduled PRN Ibuprofen (Ibuprofen) 600 Mg Tab, 600 MG PO DAILY PRN for PAIN, (Reported) Milk Of Magnesia (Milk of Magnesia) 1,200 Mg/15 Ml Dana, 30 ML PO DAILYPRN PRN for CONSTIPATION Allergies Coded Allergies: Metformin (Verified Adverse Reaction, Intermediate, heart races, 01/28/17) Sitagliptin (Verified Adverse Reaction, Intermediate, heart races, 01/28/17 ) Sulfa Antibiotics (Verified Adverse Reaction, Intermediate, heart racing, 01/28/17) IRAIDA KELLEY MD Feb 21, 2017 20:19
[2017-02-21] MEDS: zolPIDEM TARTRATE 5 MG TAB PO SCH (21:36)
[2017-02-21] MEDS: ACETAMINOPH W/CODEINE #3 TAB UD PO PRN (21:39)
[2017-02-21 22:00] VITALS: BP 160/72
[2017-02-22] MEDS: NS 1,000 ML IV SCH (02:01)
[2017-02-22] MEDS: ONDANSETRON 4MG/2ML VIAL (J2405) IV SCH ×2 (02:01→10:25)
[2017-02-22] MEDS: **hydrALAZINE HCL** 25 MG TAB PO SCH (05:08)
[2017-02-22 06:00] VITALS: BP 132/63
[2017-02-22] MEDS: SODIUM CHLORIDE 0.9% INJ 10 ML SYR IV SCH (06:00)
[2017-02-22] MEDS: HEPARIN SOD (PORCINE) 5000 UNITS/ML VIAL SQ SCH (06:22)
[2017-02-22] MEDS: LEVOTHYROXINE 150MCG TABLET (0.15MG) PO SCH (06:22)
[2017-02-22 06:23] VITALS: BP 132/63
[2017-02-22 06:31] LABS: MEAN CORPUSCULAR HEMOGLOBIN 30.3 pg (27.0-33.0); MEAN CORPUSCULAR HGB CONC 32.9 g/dl (32.0-36.5); RED CELL DISTRIBUTION WIDTH 13.6 % (11.5-14.5); WHITE BLOOD COUNT 8.4 K/mm3 (4.0-10.0)
[2017-02-22 06:57] LABS: CALCIUM LEVEL 7.8 MG/DL (8.8-10.2); CREATININE FOR GFR 1.46 MG/DL (0.55-1.02); GLOMERULAR FILTRATION RATE 38.9 (>45); MAGNESIUM LEVEL 1.8 MG/DL (1.8-2.4); POTASSIUM SERUM 4.6 MEQ/L (3.5-5.1)
[2017-02-22] MEDS: IPRATROPIUM 0.5MG/ALBUTEROL 2.5MG INH SOL UD 3ML (DUONEB)(J7620) NEB SCH (07:25)
[2017-02-22] MEDS ORDERED: LOVE1INJ SC (08:24)
[2017-02-22] MEDS ORDERED: ACET30TAB PO (08:26)
[2017-02-22] MEDS: DOCUSATE SODIUM 100 MG CAP PO SCH (10:27)
[2017-02-22] MEDS: ACETAMINOPH W/CODEINE #3 TAB UD PO PRN (10:28)
[2017-02-22] MEDS: PANTOPRAZOLE 40MG TAB (PROTONIX) PO SCH (10:28)
[2017-02-22] MEDS: SIMVASTATIN 40 MG TAB PO SCH (10:28)
[2017-02-22] MEDS: NICOTINE 14 MG/24 HR TRANSDERMAL TD SCH (10:28)
[2017-02-22] MEDS: GABAPENTIN 100 MG CAP PO SCH (10:28)
[2017-02-22] MEDS: LEVEMIR (INSULIN DETEMIR) 1 UNITS/0.01ML SC SCH (10:29)
[2017-02-22] MEDS: HumaLOG INSULIN (NovoLOG) PER UNIT SC SCH (10:29)
[2017-02-22] MEDS ORDERED: ACETAMINOPHEN TAB 650MG DOSE (2X325MG) PO SCH (13:00)
== END 2017-02-22 11:12 | DRG 471 ==
LOC: M ED 07:52 → M ED INP 09:16 → M ICU 10:58 → M MS5PR 01-31 12:38 → M ICU 02-06 18:23 → M MS5PR 02-08 14:37 → M PCU 02-18 12:05 → M MSPAV 02-19 16:11
PROVIDERS: ADMIT Neurological Surgery; ATTEND Neurological Surgery
PROC: 5A1935Z Respiratory Ventilation, Less than 24 Consecutive Hours (ICD-10-PCS; 2017-02-06)
PROC: 0RG40A1 (ICD-10-PCS; principal; 2017-02-06 07:30)
PROC: 02HV33Z Insertion of Infusion Device into Superior Vena Cava, Percutaneous Approach (ICD-10-PCS; 2017-02-07)
DX: M48.02 Spinal stenosis, cervical region (principal); K85.90 Acute pancreatitis without necrosis or infection, unspecified; J96.00 Acute respiratory failure, unspecified whether with hypoxia or hypercapnia; M50.00 Cervical disc disorder with myelopathy, unspecified cervical region; E46 Unspecified protein-calorie malnutrition; E87.1 Hypo-osmolality and hyponatremia; N17.9 Acute kidney failure, unspecified; M54.12 Radiculopathy, cervical region; M54.16 Radiculopathy, lumbar region; E78.00 Pure hypercholesterolemia, unspecified; E78.5 Hyperlipidemia, unspecified; I12.9 Hypertensive chronic kidney disease with stage 1 through stage 4 chronic kidney disease, or unspecified chronic kidney disease; E11.40 Type 2 diabetes mellitus with diabetic neuropathy, unspecified; N18.3 Chronic kidney disease, stage 3 (moderate); E11.22 Type 2 diabetes mellitus with diabetic chronic kidney disease; J44.9 Chronic obstructive pulmonary disease, unspecified; J45.909 Unspecified asthma, uncomplicated; E03.9 Hypothyroidism, unspecified; Z79.4 Long term (current) use of insulin; Z79.82 Long term (current) use of aspirin; Z88.8 Allergy status to other drugs, medicaments and biological substances; Z88.2 Allergy status to sulfonamides; Z98.51 Tubal ligation status; Z96.1 Presence of intraocular lens; Z87.891 Personal history of nicotine dependence; Z91.14 Patient's other noncompliance with medication regimen; E66.01 Morbid (severe) obesity due to excess calories; F32.9 Major depressive disorder, single episode, unspecified; F41.9 Anxiety disorder, unspecified